=== PATIENT | female | born 1955 | race Caucasian/White ===

== ENCOUNTER → 2017-11-19 18:46 | Outpatient (CLI) | payer OTHER, SELFPAY ==
[2017-11-19 19:24] LABS: COTININE Drug Screen Negative (<200 ng/mL)
== END ==
PROVIDERS: Family Provider Family Medicine; PCP Family Medicine; Visit Provider Nurse Practitioner Adult Health
DX: Z00.00 Encounter for general adult medical examination without abnormal findings (principal)
CPT/HCPCS: 80307

== ENCOUNTER → 2017-12-08 07:35 | Outpatient (CLI) | payer OTHER, SELFPAY ==
--- NOTE | 2017-12-08 07:39 | BI_ITS ---
MAMMOGRAPHY - BILATERAL SCREENING REASON FOR EXAM: Female, 62 years old. Routine annual screening examination. PERTINENT HISTORY: Sisters with breast cancer. Mother with breast cancer. TECHNIQUE: Digital bilateral breast jared (3D mammographic acquisition) in the CC and MLO projections. 2-D mediolateral oblique (MLO) and craniocaudad (CC) views of both breasts were obtained. CAD: Full Field Digital Mammography with Computer Added Detection was performed. COMPARISON: Comparison is made with prior outside examination dated November 02, 2016. FINDINGS: Breast Composition: The breasts are heterogeneously dense, which may obscure small masses. There are no dominant masses or suspicious calcifications. No other significant abnormalities are identified. There has been no significant change since the prior study. BI/SCREENING MAMM (CAD), BILAT IMPRESSION: Stable bilateral screening mammogram. Yearly follow-up mammogram recommended. (A) ASSESSMENT CATEGORY: BIRADS Category 1: Negative. A letter regarding these results will be sent to the patient by the facility within 30 days. Approximately 10% of breast cancers are not detected by mammography. A normal mammogram should not delay biopsy of a clinically suspicious abnormality. [id number] Electronically Signed: Juan C Quiroga MD at 10:39 EDT Tel [phone], Service support ,
== END ==
PROVIDERS: Family Provider Family Medicine; PCP Family Medicine; Visit Provider Obstetrics & Gynecology
DX: Z12.31 Encounter for screening mammogram for malignant neoplasm of breast (principal)
CPT/HCPCS: 77063; 77067

== ENCOUNTER → 2017-12-17 19:10 | Outpatient (CLI) | payer OTHER, SELFPAY ==
[2017-12-23 10:13] LABS: HPV APTIMA, High Risk Negative (Negative)
== END ==
PROVIDERS: Family Provider Family Medicine; PCP Family Medicine; Visit Provider Obstetrics & Gynecology
DX: Z12.4 Encounter for screening for malignant neoplasm of cervix (principal)
CPT/HCPCS: 88175; G0145

== ENCOUNTER → 2017-12-28 12:53 | Outpatient (CLI) | payer OTHER, SELFPAY ==
--- NOTE | 2017-12-28 12:58 | VDLE_ITS ---
Reason For Study: venous insufficiency, pain, swelling RIGHT LEFT CFV is compressible, spontaneous, phasic, CFV is compressible, spontaneous, phasic, competent and demonstrates normal competent, and demonstrates normal augmentation. augmentation. FV is compressible, spontaneous, phasic, FV is compressible, spontaneous, phasic, competent and demonstrates normal competent and demonstrates normal augmentation. augmentation. POP V is compressible, spontaneous, phasic, POP V is compressible, spontaneous, phasic, competent and demonstrates normal competent and demonstrates normal augmentation. augmentation. T/P Trunk is compressible. T/P Trunk is compressible. PTV is compressible. PTV is compressible. RT PerV is compressible. LT PerV is compressible. S-F Junction is competent. S-F Junction is competent. GSV is incompetent throughout for greater GSV is incompetent throughout for greater than .5 seconds. GSV measures .254 x .244 than .5 seconds. GSV measures .393 x .393 cm. cm. SSV is competent. SSV is competent. ASV below the knee is incompetent for ASV at the mid thigh is incompetent for greater than .5 seconds. ASV measures .239 greater than .5 seconds. ASV measures .821 x .264 cm. x .838 cm. Procedure Exam performed in department. The exam was diagnostic. Interpretation Summary Deep veins of the lower extremities are bilaterally patent and compressible segmentally. There is no evidence of deep vein thrombosis on either side. Valvular competence appears intact within the proximal deep venous systems bilaterally. The greater saphenous veins appear bilaterally patent and compressible segmentally. Sapheno-femoral junctions are bilaterally competent . Segmental valvular incompetence is noted within the greater saphenous veins bilaterally. Small saphenous veins are patent and competent bilaterally. An accessory saphenous vein below the right knee is incompetent. An accessory saphenous vein in the left mid-thigh is incompetent. Ordering Physician: Mikey Ramirez Performed By: Selvin Salazar RVT
== END ==
PROVIDERS: Family Provider Family Medicine; PCP Family Medicine; Visit Provider Surgery
DX: M79.606 Pain in leg, unspecified (principal); M79.89 Other specified soft tissue disorders; I87.2 Venous insufficiency (chronic) (peripheral); I83.10 Varicose veins of unspecified lower extremity with inflammation
CPT/HCPCS: 93970

== ENCOUNTER 2018-05-03 19:08 | Emergency (ER) | payer OTHER, SELFPAY ==
[2018-05-03 19:09] VITALS: BP 159/103; PULSE 71; RESP 16; TEMP 36; O2SAT 97; BMI 29.6
--- NOTE | 2018-05-03 19:43 | ED.DCSUM_ITS ---
- ER Visit Summary Date of Service: 05/03/18 Chief Complaint: Left ring finger swollen secondary to hornet sting History of Present Illness: The patient is a 63 F and was stung today on the left ring finger by a hornet on recess. Now the fingers swollen and she cannot get her ring off. Denies any swelling of her lips or tongue. Or any itching. No other rash. No other reaction. Physical Examination: Well-appearing female. Vital signs are stable. Afebrile. H EENT exam unremarkable. Neck nontender. Lungs clear to auscultation bilaterally. Heart regular rhythm no murmur. Abdomen soft nontender. She is moving all 4 extremities. They are neurovascularly intact. Her left ring finger has a ring in place. Distally is swollen and cannot be taken off. The ring had to be cut off. The fingers neurovascularly intact there is no compromise of the blood supply. Once the ring was removed she is doing very well Test Results: None Emergency Department Course and Treatment: Discharged home. Ice and elevate. Motrin for pain and swelling. Treatment Plan: Benadryl as needed. Ice and elevate. Disposition: Discharge Impression: Acute local allergic reaction left ring finger secondary to hornet sting Ring cut off by nursing staff This note was generated with [employer] dictation software. It may contain incorrect words, spelling, and punctuation that were not noted in review of the chart prior to signing ED Disposition - Plan for ED Patient: Chief Complaint: Upper Extremity Injury Referrals: Jonnathan Mcclain MD [Primary Care Provider] -
--- NOTE | 2018-05-03 19:43 | ED.DEP ---
ED Disposition - Plan for ED Patient: Disposition: Home or Assisted Living Chief Complaint: Upper Extremity Injury Instructions: ED Allergic Reaction Local Other Referrals: Jonnathan Mcclain MD [Primary Care Provider] - As Needed Additional Instructions: Ice and elevate left ring finger. Motrin for swelling. Also may use Benadryl for local allergic reaction.
[2018-05-03] MEDS: predniSONE 20 MG Tablet 40 MG PO (19:45)
[2018-05-03 19:47] VITALS: BP 148/85; PULSE 70; RESP 18; O2SAT 99
== END 2018-05-03 19:49 | disposition home or self-care (01) ==
PROVIDERS: Emergency Provider Emergency Medicine; Family Provider Family Medicine; PCP Family Medicine
DX: T63.451A Toxic effect of venom of hornets, accidental (unintentional), initial encounter (principal); M79.89 Other specified soft tissue disorders; Y92.9 Unspecified place or not applicable; Z85.820 Personal history of malignant melanoma of skin
CPT/HCPCS: 99283

== ENCOUNTER 2018-09-23 15:30 | Outpatient (RCR) | payer OTHER, SELFPAY ==
[2018-09-16 10:45] VITALS: BP 146/90; PULSE 83; RESP 18; TEMP 36.7; BMI 28.7
--- NOTE | 2018-09-16 11:31 | PCM.WC.HP ---
(1) Melanoma Status: Acute Current Visit: Yes Code(s): C43.9 - Malignant melanoma of skin, unspecified (2) Melanoma of lower leg Status: Acute Current Visit: Yes Code(s): C43.70 - Malignant melanoma of unspecified lower limb, including hip (3) Basal cell carcinoma (BCC) in situ of skin Status: Acute Current Visit: Yes Code(s): D04.9 - Carcinoma in situ of skin, unspecified (4) Nonhealing surgical wound Status: Acute Current Visit: Yes Code(s): T81.89XA - Other complications of procedures, not elsewhere classified, initial encounter (5) Peripheral vascular disease of lower extremity Status: Acute Current Visit: Yes Code(s): I73.9 - Peripheral vascular disease, unspecified (6) Edema, lower extremity Status: Acute Current Visit: Yes Code(s): R60.0 - Localized edema History of Present Illness Chief Complaint: Follow-up on 2 nonhealing surgical ulcers from melanoma and basal cell carcinoma. 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 [facility] removed 3 areas one on her thigh and 2 on her right lower extremity for melanoma by Mohs surgery. The thigh healed well but the lower extremity absorbable suture became infected and were removed. Now patient has 2 open areas that are having a hard time healing with slough and now erythematous around the edge. Patient was sent to us from her primary care doctor that after she was concerned with infection. He placed her on Keflex and she has been taking that since with no luck. Vascular studies were done by Drs. Ramirez and she does have some connecting problems in her saphenous veins of the right leg. Patient then had problems with the cancer and had to put that on hold. Past Medical History Past Medical History: Chronic Problems (Last Reviewed 02/25/18 @ 08:51 by Jayla Csatro) Depression (Chronic) GERD (gastroesophageal reflux disease) (Chronic) Migraine (Chronic) Past Medical History: 2 nonhealing surgical wounds. History of melanoma and basal cell carcinoma of the skin Surgical History: - - neck surgery. ??surgery for migraine headache. Allergies/Adverse Reactions: Allergies metoclopramide HCl [From Reglan] Allergy (Verified 05/03/18 19:31) Other Makes me feel like I'm on speed Penicillins Allergy (Verified 05/03/18 19:31) Other Fever sulfamethoxazole [From Bactrim] Adverse Reaction (Verified 05/03/18 19:31) Fever and skin rash trimethoprim [From Bactrim] Adverse Reaction (Verified 05/03/18 19:31) Fever and skin rash Home Medications: Ambulatory Orders Medication Instructions Recorded Calcium Phosphate Trib/Vit D3 1 ea PO DAILY 12/03/15 [Citracal + D3 Gummies] Citracel 2 tab PO BID 12/03/15 Esomeprazole Mag Trihydrate 40 mg PO DAILY 12/03/15 [Nexium] Raloxifene HCl [Evista] 60 mg PO DAILY 12/03/15 Rizatriptan Benzoate [Maxalt] 10 mg PO DAILY PRN PRN 12/03/15 Sertraline HCl [Zoloft] 100 mg PO QHS 12/03/15 Zolpidem Tartrate [Ambien 5 mg PO QHS 04/18/16 (Generic)] sertraline 100 mg tablet 100 mg PO QDAY #30 tab 12/17/17 zolpidem 5 mg tablet 5 mg PO HS PRN #30 tab 12/17/17 - Family History Maternal Family History: Family History (Last Updated 02/25/18 @ 08:52 by Jayla Castro) Father Myocardial infarction Lung cancer Brain cancer Mother Heart disease Breast cancer Dementia No pertinent history - pd Paternal Family History: Family History (Last Updated 02/25/18 @ 08:52 by Jayla Castro) Father Myocardial infarction Lung cancer Brain cancer Mother Heart disease Breast cancer Dementia No pertinent history Smoking Status: Never smoker Review of Systems Constitutional: Denies: Chills, Fever Eyes: Denies: Blurred vision, Drainage, Pain HEENT: Denies: Difficulty Hearing, Difficulty Swallowing, Sore Throat, Visual Changes Cardiovascular: Denies: Chest Pain, Palpitations, Syncope Respiratory: Denies: Cough, Shortness of Breath Gastrointestinal: Denies: Abdominal Pain, Nausea, Vomiting Genitourinary: Denies: Dysuria, Frequency Musculoskeletal: Denies: Joint Pain, Muscle pain Skin: Reports: Wounds - Lower leg right mid [place] and lateral lower leg ulcers. Denies: Jaundice, Rash Neurological: Denies: Balance problems, Change in Speech, Difficulty swallowing, Focal weakness Psychiatric: Denies: Anxiety, Depression Endocrine: Denies: Change in Body Habitus Hematologic/ Lymphatic: Denies: Adenopathy - Physical Exam Vital Signs Temp Pulse Resp BP 98.0 F 83 18 146/90 H 09/16/18 10:45 09/16/18 10:45 09/16/18 10:45 09/16/18 10:45 General: Oriented x3, Cooperative, Well developed HEENT: Atraumatic, PERRLA Oral: Moist Mucosa Neck: Supple, No JVD Lungs: Clear to auscultation, Normal air movement Cardiovascular: Regular rate, Regular Rhythm Abdomen: Bowel Sounds Present, Soft, Non Tender, No Hepato-splenomegaly Extremities: No clubbing, No edema, - - Right medial and lateral lower leg ulcers nonhealing from surgery Wound Measurements and Assessment WC - Nurse 1 - General Ulcer Measurement Start: 09/16/18 10:39 Freq: Status: Active Protocol: Activity Type Activity Date Activity User E-Sign Co-Sign Detail Recorded Client Recorded Date Recorded By Document 09/16/18 10:45 KS [id number] 09/16/18 11:08 KS 09/16/18 10:45 Wound Center Nurse 1 [Ulcer Assessment] #2 RIGHT [place] -Combined with other wound No -Current Size (cm) - Length 1.7 -Current Size (cm) - Width 1.4 -Current Size (cm) - Depth 0.2 -Total Square Cm 2.38 -Date of Last Picture (Recall this 09/16/18 field) -Photo Taken Yes -Epithelialization Small 1-33% -Tunneling No -Undermining/Tunneling No -Circular Undermining No -Exudate Amt Small -Exudate Type Serosanguineous -Wound Margin Thickened & Rolled Under -Granulation Amt Medium (34-66%) -Granulation Quality Pale [place] -Necrosis Amt Medium (34-66%) -Necrotic Tissue Type Adherent Slough -Texture (Sandra-wound Skin Appearance) Assessed Scarring -Moisture (Sandra-wound Skin Appearance Assessed ) Maceration -Color (Sandra-wound Skin Appearance) Assessed -Temperature (Sandra-wound Skin No Abnormality Appearance) (Pt Warm) -Tenderness on Palpation (Sandra-wound No Skin Appearance) -Ulcer Cleansing Wound Cleanser -Foul Odor after Cleansing No -Anesthetic Used 5% Lidocaine Gel #1 RIGHT LATERAL LE -Combined with other wound No -Current Size (cm) - Length 1.1 -Current Size (cm) - Width 1.0 -Current Size (cm) - Depth 0.1 -Total Square Cm 1.10 -Date of Last Picture (Recall this 09/16/18 field) -Photo Taken Yes -Epithelialization Small 1-33% -Tunneling No -Undermining/Tunneling No -Exudate Amt Small -Exudate Type Serosanguineous -Wound Margin Thickened & Rolled Under -Granulation Amt Large (67-100%) -Granulation Quality Pale [place] -Necrosis Amt Small (1-33%) -Necrotic Tissue Type Adherent Slough -Texture (Sandra-wound Skin Appearance) Assessed -Moisture (Sandra-wound Skin Appearance Assessed ) Weeping -Color (Sandra-wound Skin Appearance) Assessed -Temperature (Sandra-wound Skin No Abnormality Appearance) (Pt Warm) -Tenderness on Palpation (Sandra-wound No Skin Appearance) -Ulcer Cleansing Wound Cleanser -Foul Odor after Cleansing No -Anesthetic Used 5% Lidocaine Gel [Edema Assessment] -Right Calf (cm) 28.5 -Right Ankle (cm) 21 WC - Nurse 2 - General Ulcer CM Notes Start: 09/16/18 10:39 Freq: Status: Active Protocol: Activity Type Activity Date Activity User E-Sign Co-Sign Detail Recorded Client Recorded Date Recorded By Document 09/16/18 11:18 MW [id number] 09/16/18 11:26 MW 09/16/18 11:18 Wound Center Nurse 2 [Procedure/Treatment] #2 RIGHT R[place] -Time 11:19 -Correct Patient Yes -Correct Side, Site, Position Yes -Correct Procedure Yes -Procedure Performed Yes -Type of Procedure Debridement -Clinical Debridement Subcutaneous -Post Debridement Size (cm) - Length 1.7 -Post Debridement Size (cm) - Width 1.4 -Post Debridement Size (cm) - Depth 0.3 -Total Square Cm 2.38 -Wound/Ulcer Outcome Not Healed -Ulcer Cleansing Rinsed/ Irrigated with Saline -Foul Odor after Cleansing No -Bioengineered Tissue No -Bleeding Controlled with Pressure -Offloading No -Treatment Response Procedure Tolerated Well #1 RIGHT LATERAL LE -Time 11:19 -Correct Patient Yes -Correct Side, Site, Position Yes -Correct Procedure Yes -Procedure Performed Yes -Type of Procedure Debridement -Clinical Debridement Subcutaneous -Post Debridement Size (cm) - Length 0.9 -Post Debridement Size (cm) - Width 1.0 -Post Debridement Size (cm) - Depth 0.2 -Total Square Cm 0.90 -Wound/Ulcer Outcome Not Healed -Ulcer Cleansing Rinsed/ Irrigated with Saline -Foul Odor after Cleansing No -Bioengineered Tissue No -Bleeding Controlled with Pressure -Offloading No -Treatment Response Procedure Tolerated Well [See Physician Procedure note for Specifics] Pain Scale: 0-10 Numeric [Pain] -Is Patient Pain Free? Yes Musculoskeletal: No Tenderness to Palpation of Joints or Extremities Lymphatic: No Cervical, Supraclavicular, or Inguinal Adenopathy Neurological: Cranial nerves II-XII grossly intact, Neuro grossly intact Psych/Mental Status: Normal Affect, Appropriate Debridement Note Post-Debridement Measurements/Treatment WC - Nurse 2 - General Ulcer CM Notes Start: 09/16/18 10:39 Freq: Status: Active Protocol: Activity Type Activity Date Activity User E-Sign Co-Sign Detail Recorded Client Recorded Date Recorded By Document 09/16/18 11:18 MW [id number] 09/16/18 11:26 MW 09/16/18 11:18 Wound Center Nurse 2 #2 RIGHT [place] -Time 11:19 -Correct Patient Yes -Correct Side, Site, Position Yes -Correct Procedure Yes -Procedure Performed Yes -Type of Procedure Debridement -Clinical Debridement Subcutaneous -Post Debridement Size (cm) - Length 1.7 -Post Debridement Size (cm) - Width 1.4 -Post Debridement Size (cm) - Depth 0.3 -Total Square Cm 2.38 -Wound/Ulcer Outcome Not Healed -Ulcer Cleansing Rinsed/ Irrigated with Saline -Foul Odor after Cleansing No -Bioengineered Tissue No -Bleeding Controlled with Pressure -Offloading No -Treatment Response Procedure Tolerated Well #1 RIGHT LATERAL LE -Time 11:19 -Correct Patient Yes -Correct Side, Site, Position Yes -Correct Procedure Yes -Procedure Performed Yes -Type of Procedure Debridement -Clinical Debridement Subcutaneous -Post Debridement Size (cm) - Length 0.9 -Post Debridement Size (cm) - Width 1.0 -Post Debridement Size (cm) - Depth 0.2 -Total Square Cm 0.90 -Wound/Ulcer Outcome Not Healed -Ulcer Cleansing Rinsed/ Irrigated with Saline -Foul Odor after Cleansing No -Bioengineered Tissue No -Bleeding Controlled with Pressure -Offloading No -Treatment Response Procedure Tolerated Well Pain Scale: 0-10 Numeric Is Patient Pain Free? Yes Wound debrided: Mid [place] right lower leg Type of Debridement: Excisional debridement Anesthesia Used: 5% Lidocaine Gel Depth: Down to and including healthy tissue, in the subcutaneous layer Percentage of wound debrided: 100 Instrument Used: 5mm curette Tissue Removed: Slough and fibrin Severity: Limited To Skin Breakdown Amount of bleeding with debridement: Mild Bleeding Controlled with: Pressure Patient tolerated procedure well - Additional Wound Wound debrided: Right lateral lower leg Type of Debridement: Excisional debridement Anesthesia Used: 5% Lidocaine Gel Depth: Down to and including healthy tissue, in the subcutaneous layer Percentage of wound debrided: 100 Instrument Used: 5mm curette Tissue Removed: Slough and fibrin Severity: Limited To Skin Breakdown Amount of bleeding with debridement: Mild Bleeding Controlled with: Compression and gauze Patient tolerated procedure: Patient tolerated procedure well Assessment/Plan Active Problems (Last Reviewed 02/25/18 @ 08:51 by Jayla Castro) Melanoma (Acute) Melanoma of lower leg (Acute) Basal cell carcinoma (BCC) in situ of skin (Acute) Nonhealing surgical wound (Acute) Peripheral vascular disease of lower extremity (Acute) Edema, lower extremity (Acute) Assessment: Nonhealing surgical wounds right lower leg. Edema lower extremities. Peripheral vascular disease Plan: Wash legs with soap and water. Apply Aquacel silver to wound bases cover with Adaptic gauze and Betsey or Covan. Double layer Tubigrip to the right leg. Follow-up in 1 week
[2018-09-23 16:09] VITALS: BP 149/89; PULSE 78; RESP 20; TEMP 37; BMI 28.7
--- NOTE | 2018-09-23 19:34 | HP.PCM_ITS ---
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: Chronic Current Visit: Yes Code(s): D04.71 - Carcinoma in situ of skin of right lower limb, including hip (2) Basal cell carcinoma (BCC) in situ of skin Status: Chronic Current Visit: Yes Code(s): D04.9 - Carcinoma in situ of skin, unspecified (3) Nonhealing surgical wound Status: Chronic Current Visit: Yes Qualifiers: Encounter type: subsequent encounter Qualified Code(s): T81.89XD - Other complications of procedures, not elsewhere classified, subsequent encounter Code(s): T81.89XA - Other complications of procedures, not elsewhere classified, initial encounter (4) Peripheral vascular disease of lower extremity Status: Chronic Current Visit: Yes Code(s): I73.9 - Peripheral vascular disease, unspecified (5) Edema, lower extremity Status: Chronic Current Visit: Yes Code(s): R60.0 - Localized edema History of Present Illness Date of Service: 09/23/18 Chief Complaint: Follow-up on 2 nonhealing surgical ulcers from melanoma and basal cell carcinoma. 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 [facility] removed 3 areas one on her thigh and 2 on her right lower extremity for melanoma by Mohs surgery. The thigh healed well but the lower extremity absorbable suture became infected and were removed. Now patient has 2 open areas that are having a hard time healing with slough and now erythematous around the edge. Patient was sent to us from her primary care doctor that after she was concerned with infection. He placed her on Keflex and she has been taking that but is still concerned for infection. She saw Courtney Ojeda last week for an initial evaluation and a wound culture was done which was negative. She has been using Aquacel and tubigrips and tolerating this well but does note that it is difficult to get the Aquacel off of her wounds. Vascular studies were done by Drs. Ramirez and she does have some connecting problems in her saphenous veins of the right leg. Patient then had problems with the cancer and had to put that on hold. 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 ??surgery for migraine headache. Allergies/Adverse Reactions: Allergies metoclopramide HCl [From Reglan] Allergy (Verified 05/03/18 19:31) Other Makes me feel like I'm on speed Penicillins Allergy (Verified 05/03/18 19:31) Other Fever sulfamethoxazole [From Bactrim] Adverse Reaction (Verified 05/03/18 19:31) Fever and skin rash trimethoprim [From Bactrim] Adverse Reaction (Verified 05/03/18 19:31) Fever and skin rash Home Medications: Ambulatory Orders Medication Instructions Recorded Calcium Phosphate Trib/Vit D3 1 ea PO DAILY 12/03/15 [Citracal + D3 Gummies] Citracel 2 tab PO BID 12/03/15 Esomeprazole Mag Trihydrate 40 mg PO DAILY 12/03/15 [Nexium] Raloxifene HCl [Evista] 60 mg PO DAILY 12/03/15 Rizatriptan Benzoate [Maxalt] 10 mg PO DAILY PRN PRN 12/03/15 sertraline 100 mg tablet 100 mg PO QDAY #30 tab 12/17/17 zolpidem 5 mg tablet 5 mg PO HS PRN #30 tab 12/17/17 - Family History Maternal Family History: Family History (Last Updated 02/25/18 @ 08:52 by Jayla Castro) Father Myocardial infarction Lung cancer Brain cancer Mother Heart disease Breast cancer Dementia No pertinent history - pd Paternal Family History: Family History (Last Updated 02/25/18 @ 08:52 by Jayla Castro) Father Myocardial infarction Lung cancer Brain cancer Mother Heart disease Breast cancer Dementia No pertinent history Lives: Spouse/ Significant Other Smoking Status: Never smoker Tobacco Use: Non-smoker Alcohol: None Drugs: None Review of Systems Constitutional: Denies: Chills, Fever, Weight Change Eyes: Denies: Pain, Vision Change HEENT: Denies: Difficulty Hearing, Difficulty Swallowing, Sinus Congestion Cardiovascular: Denies: Chest Pain, Palpitations Respiratory: Denies: Cough, Shortness of Breath Gastrointestinal: Denies: Diarrhea, Nausea, Vomiting Genitourinary: Denies: Dysuria, Hematuria Skin: Reports: Wounds Hematologic/ Lymphatic: Denies: Easy Bruising, Easy Bleeding - Physical Exam Vital Signs Temp Pulse Resp BP 98.6 F 78 20 H 149/89 H 09/23/18 16:09 09/23/18 16:09 09/23/18 16:09 09/23/18 16:09 General: Alert, Oriented x3, Cooperative, No apparent distress HEENT: Atraumatic, Normocephalic Oral: Moist Mucosa Lungs: Clear to auscultation Cardiovascular: Regular rate, Regular Rhythm Abdomen: Soft, Non Tender Extremities: Edema Skin: Ulcer/ Wound Wound Measurements and Assessment WC - Nurse 1 - General Ulcer Measurement Start: 09/16/18 10:39 Freq: Status: Active Protocol: Activity Type Activity Date Activity User E-Sign Co-Sign Detail Recorded Client Recorded Date Recorded By Document 09/23/18 16:09 DL [id number] 09/23/18 16:19 DL 09/23/18 16:09 Wound Center Nurse 1 [Ulcer Assessment] #2 RIGHT ROCKWELL -Current Size (cm) - Length 1.6 -Current Size (cm) - Width 1 -Current Size (cm) - Depth 0.2 -Total Square Cm 1.6 -Photo Taken No -Exudate Amt Small -Exudate Type Serosanguineous -Wound Margin Distinct, Outline Attached -Granulation Amt Small (1-33%) -Granulation Quality Oolitic Red -Necrosis Amt Small (1-33%) -Necrotic Tissue Type Adherent Slough -Structure Exposed N/A -Texture (Sandra-wound Skin Appearance) No Abnormality -Moisture (Sandra-wound Skin Appearance No Abnormality ) -Color (Sandra-wound Skin Appearance) Erythema Rubor -Temperature (Sandra-wound Skin No Abnormality Appearance) (Pt Warm) -Tenderness on Palpation (Sandra-wound No Skin Appearance) -Ulcer Cleansing Rinsed/ Irrigated with Saline -Foul Odor after Cleansing No -Anesthetic Used 4% Lidocaine Solution #1 RIGHT LATERAL LE -Current Size (cm) - Length 0.8 -Current Size (cm) - Width 0.8 -Current Size (cm) - Depth 0.1 -Total Square Cm 0.64 -Photo Taken No -Exudate Amt Small -Exudate Type Serosanguineous -Wound Margin Distinct, Outline Attached -Granulation Amt Small (1-33%) -Granulation Quality Oolitic -Necrosis Amt Small (1-33%) -Necrotic Tissue Type Adherent Slough -Structure Exposed N/A -Texture (Sandra-wound Skin Appearance) No Abnormality -Moisture (Sandra-wound Skin Appearance No Abnormality ) -Color (Sandra-wound Skin Appearance) Erythema Rubor -Temperature (Sandra-wound Skin No Abnormality Appearance) (Pt Warm) -Ulcer Cleansing Rinsed/ Irrigated with Saline -Foul Odor after Cleansing No -Anesthetic Used 4% Lidocaine Solution [Edema Assessment] -Right Calf (cm) 37 -Right Ankle (cm) 19.3 WC - Nurse 2 - General Ulcer CM Notes Start: 09/16/18 10:39 Freq: Status: Active Protocol: Activity Type Activity Date Activity User E-Sign Co-Sign Detail Recorded Client Recorded Date Recorded By Document 09/23/18 17:03 DV [id number] 09/23/18 17:13 DV 09/23/18 17:03 Wound Center Nurse 2 [Procedure/Treatment] #2 RIGHT ROCKWELL -Time 17:07 -Correct Patient Yes -Correct Side, Site, Position Yes -Correct Procedure Yes -Procedure Performed Yes -Type of Procedure Debridement -Clinical Debridement Subcutaneous -Post Debridement Size (cm) - Length 1.6 -Post Debridement Size (cm) - Width 1.2 -Post Debridement Size (cm) - Depth 0.2 -Total Square Cm 1.92 -Wound/Ulcer Outcome Not Healed -Ulcer Cleansing Rinsed/ Irrigated with Saline -Foul Odor after Cleansing No -Bioengineered Tissue No -Bleeding Controlled with Pressure -Offloading No -Treatment Response Procedure Tolerated Well #1 RIGHT LATERAL LE -Time 17:07 -Correct Patient Yes -Correct Side, Site, Position Yes -Correct Procedure Yes -Procedure Performed Yes -Type of Procedure Debridement -Clinical Debridement Subcutaneous -Post Debridement Size (cm) - Length 0.8 -Post Debridement Size (cm) - Width 0.9 -Post Debridement Size (cm) - Depth 0.1 -Total Square Cm 0.72 -Wound/Ulcer Outcome Not Healed -Ulcer Cleansing Rinsed/ Irrigated with Saline -Foul Odor after Cleansing No -Bioengineered Tissue No -Bleeding Controlled with Pressure -Offloading No -Treatment Response Procedure Tolerated Well [See Physician Procedure note for Specifics] Pain Scale: 0-10 Numeric [Pain] -Is Patient Pain Free? Yes Psych/Mental Status: Normal Affect, Appropriate Debridement Note Post-Debridement Measurements/Treatment WC - Nurse 2 - General Ulcer CM Notes Start: 09/16/18 10:39 Freq: Status: Active Protocol: Activity Type Activity Date Activity User E-Sign Co-Sign Detail Recorded Client Recorded Date Recorded By Document 09/16/18 11:18 MW [id number] 09/16/18 11:26 MW Document 09/23/18 17:03 DV [id number] 09/23/18 17:13 DV 09/16/18 09/23/18 11:18 17:03 Wound Center Nurse 2 #2 RIGHT ROCKWELL -Time 11: 17:07 -Correct Patient Yes Yes -Correct Side, Site, Position Yes Yes -Correct Procedure Yes Yes -Procedure Performed Yes Yes -Type of Procedure Debridement Debridement -Clinical Debridement Subcutaneous Subcutaneous -Post Debridement Size (cm) - Length 1.7 1.6 -Post Debridement Size (cm) - Width 1.4 1.2 -Post Debridement Size (cm) - Depth 0.3 0.2 -Total Square Cm 2.38 1.92 -Wound/Ulcer Outcome Not Healed Not Healed -Ulcer Cleansing Rinsed/ Rinsed/ Irrigated with Irrigated with Saline Saline -Foul Odor after Cleansing No No -Bioengineered Tissue No No -Bleeding Controlled with Pressure Pressure -Offloading No No -Treatment Response Procedure Procedure Tolerated Well Tolerated Well #1 RIGHT LATERAL LE -Time 11:19 17:07 -Correct Patient Yes Yes -Correct Side, Site, Position Yes Yes -Correct Procedure Yes Yes -Procedure Performed Yes Yes -Type of Procedure Debridement Debridement -Clinical Debridement Subcutaneous Subcutaneous -Post Debridement Size (cm) - Length 0.9 0.8 -Post Debridement Size (cm) - Width 1.0 0.9 -Post Debridement Size (cm) - Depth 0.2 0.1 -Total Square Cm 0.90 0.72 -Wound/Ulcer Outcome Not Healed Not Healed -Ulcer Cleansing Rinsed/ Rinsed/ Irrigated with Irrigated with Saline Saline -Foul Odor after Cleansing No No -Bioengineered Tissue No No -Bleeding Controlled with Pressure Pressure -Offloading No No -Treatment Response Procedure Procedure Tolerated Well Tolerated Well Pain Scale: 0-10 Numeric Is Patient Pain Free? Yes Yes Wound debrided: right rockwell Laterality: Right Type of Debridement: Excisional debridement Anesthesia Used: 4% Lidocaine Solution Depth: Down to and including healthy tissue, in the subcutaneous layer Percentage of wound debrided: 100 Instrument Used: 5mm curette Tissue Removed: yellow slough, devitalized tissue Severity: Fat Layer Exposed Amount of bleeding with debridement: Mild Bleeding Controlled with: Compression and gauze Patient tolerated procedure well - Additional Wound Wound debrided: right lateral LE Laterality: Right Type of Debridement: Excisional debridement Anesthesia Used: 4% Lidocaine Solution, 5% Lidocaine Gel Depth: Down to and including healthy tissue, in the subcutaneous layer Percentage of wound debrided: 100 Instrument Used: 5mm curette Tissue Removed: yellow slough, devitalized tissue Severity: Fat Layer Exposed Amount of bleeding with debridement: Mild Bleeding Controlled with: Compression and gauze Patient tolerated procedure: Patient tolerated procedure well Assessment/Plan Active Problems (Last Reviewed 02/25/18 @ 08:51 by Jayla Castro) Melanoma (Acute) Melanoma of lower leg (Acute) Basal cell carcinoma (BCC) in situ of skin (Chronic) Nonhealing surgical wound (Chronic) Peripheral vascular disease of lower extremity (Chronic) Edema, lower extremity (Chronic) 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 Edema lower extremities. Peripheral vascular disease Plan: Jackie's legs were evaluated and debrided today and her records were reviewed. She has had improvement in her wounds but will change to promogran to see if we can improve the moisture balance to her wounds and improve healing. Wash legs with soap and water. Apply Promogran to wound bases cover with Adaptic gauze and Betsey or Coban. Double layer Tubigrip to the right leg. Encouraged to increase protein intake. Follow-up in 1 week
== END 2018-09-29 23:59 ==
LOC: WC 15:30
PROVIDERS: Family Provider Family Medicine; PCP Family Medicine; Visit Provider Family Medicine
DX: I73.9 Peripheral vascular disease, unspecified (principal); R60.0 Localized edema; T81.89XA Other complications of procedures, not elsewhere classified, initial encounter; Y83.8 Other surgical procedures as the cause of abnormal reaction of the patient, or of later complication, without mention of misadventure at the time of the procedure; C43.9 Malignant melanoma of skin, unspecified; D04.9 Carcinoma in situ of skin, unspecified; K21.9 Gastro-esophageal reflux disease without esophagitis; F32.9 Major depressive disorder, single episode, unspecified; G43.909 Migraine, unspecified, not intractable, without status migrainosus; Z79.899 Other long term (current) drug therapy
CPT/HCPCS: 11042; 87070; 87075; 87205; 99213; G0463

== ENCOUNTER 2018-10-28 15:30 | Outpatient (RCR) | payer OTHER, SELFPAY ==
[2018-09-30 01:45] VITALS: BP 149/89; PULSE 78; RESP 20; TEMP 37
[2018-09-30 15:56] VITALS: BP 156/89; PULSE 87; RESP 16; TEMP 35.9; BMI 28.7
--- NOTE | 2018-09-30 19:18 | PCM.WC.PN ---
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 [facility] removed 3 areas one on her thigh and 2 on her right lower extremity for melanoma by Mohs surgery. The thigh healed well but the lower extremity absorbable suture became infected and were removed. Now patient has 2 open areas that are having a hard time healing with slough and now erythematous around the edge. Patient was sent to us from her primary care doctor that after she was concerned with infection. He placed her on Keflex and she has been taking that but is still concerned for infection. She saw Courtney Ojeda for an initial evaluation and a wound culture was done which was negative. She has been using Aquacel and tubigrips and tolerating this well but does note that it is difficult to get the Aquacel off of her wounds. Vascular studies were done by Drs. Ramirez and she does have some connecting problems in her saphenous veins of the right leg and surgical procedure was planned. Patient then had problems with the cancer and had to put that on hold. Progress of Wound: Jackie is here for follow up of nonhealing surgical wounds s/p Mohs surgery for melanoma and BCC and SCC. She tolerated treatment with Promogran and had some improvement in the size of her wounds. There is no increased drainage or erythema. Epifix was denied by her insurance due to the wound not being a venous or DFU. - Physical Exam Vital Signs Temp Pulse Resp BP 96.6 F L 87 16 156/89 H 09/30/18 15:56 09/30/18 15:56 09/30/18 15:56 09/30/18 15:56 General: Alert, Oriented x3, Cooperative, No apparent distress HEENT: Atraumatic, Normocephalic Oral: Moist Mucosa Extremities: Edema Skin: Ulcer/ Wound Wound Measurements and Assessment WC - Nurse 1 - General Ulcer Measurement Start: 09/30/18 15:56 Freq: Status: Active Protocol: Activity Type Activity Date Activity User E-Sign Co-Sign Detail Recorded Client Recorded Date Recorded By Document 09/30/18 15:[address] [facility] [id number] 09/30/18 16:[address] [facility] 09/30/18 15:56 Wound Center Nurse 1 [Ulcer Assessment] #2 RIGHT ROCKWELL -Combined with other wound No -Current Size (cm) - Length 1.6 -Current Size (cm) - Width 1 -Current Size (cm) - Depth 0.3 -Total Square Cm 1.6 -Photo Taken No -Epithelialization None Present -Tunneling No -Undermining/Tunneling No -Circular Undermining No -Exudate Amt Small -Exudate Type Serous -Wound Margin Distinct, Outline Attached -Granulation Amt Small (1-33%) -Granulation Quality Wall -Slough/Fibrin Yes -Necrosis Amt Large (67-100%) -Necrotic Tissue Type Adherent Slough -Texture (Sandra-wound Skin Appearance) Assessed Scarring -Moisture (Sandra-wound Skin Appearance Assessed ) Dry/Scaly -Color (Sandra-wound Skin Appearance) Assessed Erythema -Temperature (Sandra-wound Skin No Abnormality Appearance) (Pt Warm) -Tenderness on Palpation (Sandra-wound Yes Skin Appearance) -Ulcer Cleansing Rinsed/ Irrigated with Saline -Foul Odor after Cleansing No -Anesthetic Used 5% Lidocaine Gel #1 RIGHT LATERAL LE -Combined with other wound No -Current Size (cm) - Length 0.2 -Current Size (cm) - Width 0.2 -Current Size (cm) - Depth 0.1 -Total Square Cm 0.04 -Photo Taken No -Epithelialization Small 1-33% -Tunneling No -Undermining/Tunneling No -Circular Undermining No -Exudate Amt Small -Exudate Type Serous -Wound Margin Distinct, Outline Attached -Granulation Amt Large (67-100%) -Granulation Quality Red -Slough/Fibrin Yes -Necrosis Amt Small (1-33%) -Necrotic Tissue Type Adherent Slough -Texture (Sandra-wound Skin Appearance) Scarring -Moisture (Sandra-wound Skin Appearance Dry/Scaly ) -Color (Sandra-wound Skin Appearance) Erythema -Temperature (Sandra-wound Skin No Abnormality Appearance) (Pt Warm) -Tenderness on Palpation (Sandra-wound Yes Skin Appearance) -Ulcer Cleansing Rinsed/ Irrigated with Saline -Foul Odor after Cleansing No -Anesthetic Used 5% Lidocaine Gel [Edema Assessment] -Lower Limb Edema Present Yes -Right Calf (cm) 38 -Right Ankle (cm) 21.1 WC - Nurse 2 - General Ulcer CM Notes Start: 09/30/18 15:56 Freq: Status: Active Protocol: Activity Type Activity Date Activity User E-Sign Co-Sign Detail Recorded Client Recorded Date Recorded By Document 09/30/18 17:01 DV [id number] 09/30/18 17:11 DV 09/30/18 17:01 Wound Center Nurse 2 [Procedure/Treatment] #2 RIGHT ROCKWELL -Time 17:04 -Correct Patient Yes -Correct Side, Site, Position Yes -Correct Procedure Yes -Procedure Performed Yes -Type of Procedure Debridement -Clinical Debridement Subcutaneous -Post Debridement Size (cm) - Length 1.5 -Post Debridement Size (cm) - Width 1.1 -Post Debridement Size (cm) - Depth 0.2 -Total Square Cm 1.65 -Wound/Ulcer Outcome Not Healed -Ulcer Cleansing Rinsed/ Irrigated with Saline -Bleeding Controlled with Pressure -Offloading No -Treatment Response Procedure Tolerated Well #1 RIGHT LATERAL LE -Time 17:02 -Correct Patient Yes -Correct Side, Site, Position Yes -Correct Procedure Yes -Procedure Performed Yes -Type of Procedure Debridement -Clinical Debridement Subcutaneous -Post Debridement Size (cm) - Length 0.6 -Post Debridement Size (cm) - Width 0.4 -Post Debridement Size (cm) - Depth 0.1 -Total Square Cm 0.24 -Wound/Ulcer Outcome Not Healed -Ulcer Cleansing Rinsed/ Irrigated with Saline -Foul Odor after Cleansing No -Bioengineered Tissue No -Bleeding Controlled with Pressure -Offloading No -Treatment Response Procedure Tolerated Well [See Physician Procedure note for Specifics] Psych/Mental Status: Normal Affect, Appropriate Debridement Note Post-Debridement Measurements/Treatment WC - Nurse 2 - General Ulcer CM Notes Start: 09/30/18 15:56 Freq: Status: Active Protocol: Activity Type Activity Date Activity User E-Sign Co-Sign Detail Recorded Client Recorded Date Recorded By Document 09/30/18 17:01 DV [id number] 09/30/18 17:11 DV 09/30/18 17:01 Wound Center Nurse 2 #2 RIGHT ROCKWELL -Time 17:04 -Correct Patient Yes -Correct Side, Site, Position Yes -Correct Procedure Yes -Procedure Performed Yes -Type of Procedure Debridement -Clinical Debridement Subcutaneous -Post Debridement Size (cm) - Length 1.5 -Post Debridement Size (cm) - Width 1.1 -Post Debridement Size (cm) - Depth 0.2 -Total Square Cm 1.65 -Wound/Ulcer Outcome Not Healed -Ulcer Cleansing Rinsed/ Irrigated with Saline -Bleeding Controlled with Pressure -Offloading No -Treatment Response Procedure Tolerated Well #1 RIGHT LATERAL LE -Time 17:02 -Correct Patient Yes -Correct Side, Site, Position Yes -Correct Procedure Yes -Procedure Performed Yes -Type of Procedure Debridement -Clinical Debridement Subcutaneous -Post Debridement Size (cm) - Length 0.6 -Post Debridement Size (cm) - Width 0.4 -Post Debridement Size (cm) - Depth 0.1 -Total Square Cm 0.24 -Wound/Ulcer Outcome Not Healed -Ulcer Cleansing Rinsed/ Irrigated with Saline -Foul Odor after Cleansing No -Bioengineered Tissue No -Bleeding Controlled with Pressure -Offloading No -Treatment Response Procedure Tolerated Well Wound debrided: right rockwell Laterality: Right Anesthesia Used: 4% Lidocaine Solution, 5% Lidocaine Gel Depth: Down to and including healthy tissue, in the subcutaneous layer Percentage of wound debrided: 100 Instrument Used: 5mm curette Tissue Removed: yellow slough, devitalized tissue Severity: Fat Layer Exposed Amount of bleeding with debridement: Mild Bleeding Controlled with: Compression and gauze Patient tolerated procedure well - Additional Wound Wound debrided: right lateral LE Laterality: Right Type of Debridement: Excisional debridement Anesthesia Used: 4% Lidocaine Solution, 5% Lidocaine Gel Depth: Down to and including healthy tissue, in the subcutaneous layer Percentage of wound debrided: 100 Instrument Used: 5mm curette Tissue Removed: yellow slough, devitalized tissue Severity: Fat Layer Exposed Amount of bleeding with debridement: Mild Bleeding Controlled with: Compression and gauze Patient tolerated procedure: Patient tolerated procedure well Assessment/Plan Active Problems (Last Reviewed 02/25/18 @ 08:51 by Jayla Castro) Basal cell carcinoma (BCC) in situ of skin (Chronic) Nonhealing surgical wound (Chronic) 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 Edema lower extremities. Peripheral vascular disease Plan: Jackie's legs were evaluated and debrided today. She has had slight improvement in her wounds. Will continue to use promogran and if there is still not increased granulation in her right rockwell wound then would try treatment with Santyl. She has undergone 4 weeks of conventional wound care treatment since her surgical wound dehisced. She would benefit from advanced wound care treatment with Apligraf, nushield or puraply to heal her wound. Apply Promogran to wound bases cover with Adaptic gauze and Betsey or Coban. Double layer Tubigrip to the right leg. Encouraged to increase protein intake. Follow-up in 1 week
--- NOTE | 2018-09-30 19:24 | PN.PCM_ITS ---
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 [facility] removed 3 areas one on her thigh and 2 on her right lower extremity for melanoma by Mohs surgery. The thigh healed well but the lower extremity absorbable suture became infected and were removed. Now patient has 2 open areas that are having a hard time healing with slough and now erythematous around the edge. Patient was sent to us from her primary care doctor that after she was concerned with infection. He placed her on Keflex and she has been taking that but is still concerned for infection. She saw Courtney Ojeda for an initial evaluation and a wound culture was done which was negative. She has been using Aquacel and tubigrips and tolerating this well but does note that it is difficult to get the Aquacel off of her wounds. Vascular studies were done by Drs. Ramirez and she does have some connecting problems in her saphenous veins of the right leg and surgical procedure was planned. Patient then had problems with the cancer and had to put that on hold. Progress of Wound: Jackie is here for follow up of nonhealing surgical wounds s/p Mohs surgery for melanoma and BCC and SCC. She tolerated treatment with Promogran and had some improvement in the size of her wounds. There is no increased drainage or erythema. Epifix was denied by her insurance due to the wound not being a venous or DFU. - Physical Exam Vital Signs Temp Pulse Resp BP 96.6 F L 87 16 156/89 H 09/30/18 15:56 09/30/18 15:56 09/30/18 15:56 09/30/18 15:56 General: Alert, Oriented x3, Cooperative, No apparent distress HEENT: Atraumatic, Normocephalic Oral: Moist Mucosa Extremities: Edema Skin: Ulcer/ Wound Wound Measurements and Assessment WC - Nurse 1 - General Ulcer Measurement Start: 09/30/18 15:56 Freq: Status: Active Protocol: Activity Type Activity Date Activity User E-Sign Co-Sign Detail Recorded Client Recorded Date Recorded By Document 09/30/18 15:56 [facility] [id number] 09/30/18 16:11 [facility] 09/30/18 15:56 Wound Center Nurse 1 [Ulcer Assessment] #2 RIGHT R[place] -Combined with other wound No -Current Size (cm) - Length 1.6 -Current Size (cm) - Width 1 -Current Size (cm) - Depth 0.3 -Total Square Cm 1.6 -Photo Taken No -Epithelialization None Present -Tunneling No -Undermining/Tunneling No -Circular Undermining No -Exudate Amt Small -Exudate Type Serous -Wound Margin Distinct, Outline Attached -Granulation Amt Small (1-33%) -Granulation Quality [place] -Slough/Fibrin Yes -Necrosis Amt Large (67-100%) -Necrotic Tissue Type Adherent Slough -Texture (Sandra-wound Skin Appearance) Assessed Scarring -Moisture (Sandra-wound Skin Appearance Assessed ) Dry/Scaly -Color (Sandra-wound Skin Appearance) Assessed Erythema -Temperature (Sandra-wound Skin No Abnormality Appearance) (Pt Warm) -Tenderness on Palpation (Sandra-wound Yes Skin Appearance) -Ulcer Cleansing Rinsed/ Irrigated with Saline -Foul Odor after Cleansing No -Anesthetic Used 5% Lidocaine Gel #1 RIGHT LATERAL LE -Combined with other wound No -Current Size (cm) - Length 0.2 -Current Size (cm) - Width 0.2 -Current Size (cm) - Depth 0.1 -Total Square Cm 0.04 -Photo Taken No -Epithelialization Small 1-33% -Tunneling No -Undermining/Tunneling No -Circular Undermining No -Exudate Amt Small -Exudate Type Serous -Wound Margin Distinct, Outline Attached -Granulation Amt Large (67-100%) -Granulation Quality Red -Slough/Fibrin Yes -Necrosis Amt Small (1-33%) -Necrotic Tissue Type Adherent Slough -Texture (Sandra-wound Skin Appearance) Scarring -Moisture (Sandra-wound Skin Appearance Dry/Scaly ) -Color (Sandra-wound Skin Appearance) Erythema -Temperature (Sandra-wound Skin No Abnormality Appearance) (Pt Warm) -Tenderness on Palpation (Sandra-wound Yes Skin Appearance) -Ulcer Cleansing Rinsed/ Irrigated with Saline -Foul Odor after Cleansing No -Anesthetic Used 5% Lidocaine Gel [Edema Assessment] -Lower Limb Edema Present Yes -Right Calf (cm) 38 -Right Ankle (cm) 21.1 WC - Nurse 2 - General Ulcer CM Notes Start: 09/30/18 15:56 Freq: Status: Active Protocol: Activity Type Activity Date Activity User E-Sign Co-Sign Detail Recorded Client Recorded Date Recorded By Document 09/30/18 17:01 DV [id number] 09/30/18 17:11 DV 09/30/18 17:01 Wound Center Nurse 2 [Procedure/Treatment] #2 RIGHT R[place] -Time 17:04 -Correct Patient Yes -Correct Side, Site, Position Yes -Correct Procedure Yes -Procedure Performed Yes -Type of Procedure Debridement -Clinical Debridement Subcutaneous -Post Debridement Size (cm) - Length 1.5 -Post Debridement Size (cm) - Width 1.1 -Post Debridement Size (cm) - Depth 0.2 -Total Square Cm 1.65 -Wound/Ulcer Outcome Not Healed -Ulcer Cleansing Rinsed/ Irrigated with Saline -Bleeding Controlled with Pressure -Offloading No -Treatment Response Procedure Tolerated Well #1 RIGHT LATERAL LE -Time 17:02 -Correct Patient Yes -Correct Side, Site, Position Yes -Correct Procedure Yes -Procedure Performed Yes -Type of Procedure Debridement -Clinical Debridement Subcutaneous -Post Debridement Size (cm) - Length 0.6 -Post Debridement Size (cm) - Width 0.4 -Post Debridement Size (cm) - Depth 0.1 -Total Square Cm 0.24 -Wound/Ulcer Outcome Not Healed -Ulcer Cleansing Rinsed/ Irrigated with Saline -Foul Odor after Cleansing No -Bioengineered Tissue No -Bleeding Controlled with Pressure -Offloading No -Treatment Response Procedure Tolerated Well [See Physician Procedure note for Specifics] Psych/Mental Status: Normal Affect, Appropriate Debridement Note Post-Debridement Measurements/Treatment WC - Nurse 2 - General Ulcer CM Notes Start: 09/30/18 15:56 Freq: Status: Active Protocol: Activity Type Activity Date Activity User E-Sign Co-Sign Detail Recorded Client Recorded Date Recorded By Document 09/30/18 17:01 DV [id number] 09/30/18 17:11 DV 09/30/18 17:01 Wound Center Nurse 2 #2 RIGHT R[place] -Time 17:04 -Correct Patient Yes -Correct Side, Site, Position Yes -Correct Procedure Yes -Procedure Performed Yes -Type of Procedure Debridement -Clinical Debridement Subcutaneous -Post Debridement Size (cm) - Length 1.5 -Post Debridement Size (cm) - Width 1.1 -Post Debridement Size (cm) - Depth 0.2 -Total Square Cm 1.65 -Wound/Ulcer Outcome Not Healed -Ulcer Cleansing Rinsed/ Irrigated with Saline -Bleeding Controlled with Pressure -Offloading No -Treatment Response Procedure Tolerated Well #1 RIGHT LATERAL LE -Time 17:02 -Correct Patient Yes -Correct Side, Site, Position Yes -Correct Procedure Yes -Procedure Performed Yes -Type of Procedure Debridement -Clinical Debridement Subcutaneous -Post Debridement Size (cm) - Length 0.6 -Post Debridement Size (cm) - Width 0.4 -Post Debridement Size (cm) - Depth 0.1 -Total Square Cm 0.24 -Wound/Ulcer Outcome Not Healed -Ulcer Cleansing Rinsed/ Irrigated with Saline -Foul Odor after Cleansing No -Bioengineered Tissue No -Bleeding Controlled with Pressure -Offloading No -Treatment Response Procedure Tolerated Well Wound debrided: right rockwell Laterality: Right Anesthesia Used: 4% Lidocaine Solution, 5% Lidocaine Gel Depth: Down to and including healthy tissue, in the subcutaneous layer Percentage of wound debrided: 100 Instrument Used: 5mm curette Tissue Removed: yellow slough, devitalized tissue Severity: Fat Layer Exposed Amount of bleeding with debridement: Mild Bleeding Controlled with: Compression and gauze Patient tolerated procedure well - Additional Wound Wound debrided: right lateral LE Laterality: Right Type of Debridement: Excisional debridement Anesthesia Used: 4% Lidocaine Solution, 5% Lidocaine Gel Depth: Down to and including healthy tissue, in the subcutaneous layer Percentage of wound debrided: 100 Instrument Used: 5mm curette Tissue Removed: yellow slough, devitalized tissue Severity: Fat Layer Exposed Amount of bleeding with debridement: Mild Bleeding Controlled with: Compression and gauze Patient tolerated procedure: Patient tolerated procedure well Assessment/Plan Active Problems (Last Reviewed 02/25/18 @ 08:51 by Jayla Castro) Basal cell carcinoma (BCC) in situ of skin (Chronic) Nonhealing surgical wound (Chronic) 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 Edema lower extremities. Peripheral vascular disease Plan: Jackie's legs were evaluated and debrided today. She has had slight improvement in her wounds. Will continue to use promogran and if there is still not increased granulation in her right rockwell wound then would try treatment with Santyl. She has undergone 4 weeks of conventional wound care treatment since her surgical wound dehisced. She would benefit from advanced wound care treatment with Apligraf, nushield or puraply to heal her wound. Apply Promogran to wound bases cover with Adaptic gauze and Betsey or Coban. Double layer Tubigrip to the right leg. Encouraged to increase protein intake. Follow-up in 1 week
[2018-10-07 16:01] VITALS: BP 144/83; PULSE 73; RESP 16; BMI 28.7
--- NOTE | 2018-10-07 18:29 | PCM.WC.PN ---
(1) Venous insufficiency of right lower extremity Status: Chronic Current Visit: Yes Code(s): I87.2 - Venous insufficiency (chronic) (peripheral) (2) Basal cell carcinoma (BCC) in situ of skin Status: Chronic Current Visit: Yes Code(s): D04.9 - Carcinoma in situ of skin, unspecified (3) Nonhealing surgical wound Status: Chronic Current Visit: Yes Qualifiers: Encounter type: subsequent encounter Qualified Code(s): T81.89XD - Other complications of procedures, not elsewhere classified, subsequent encounter Code(s): T81.89XA - Other complications of procedures, not elsewhere classified, initial encounter (4) 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 [facility] removed 3 areas one on her thigh and 2 on her right lower extremity for melanoma by Mohs surgery. The thigh healed well but the lower extremity absorbable suture became infected and were removed. Now patient has 2 open areas that are having a hard time healing with slough and now erythematous around the edge. Patient was sent to us from her primary care doctor that after she was concerned with infection. He placed her on Keflex and she has been taking that but is still concerned for infection. She saw Courtney Ojeda for an initial evaluation and a wound culture was done which was negative. She has been using Aquacel and tubigrips and tolerating this well but does note that it is difficult to get the Aquacel off of her wounds. Vascular studies were done by Drs. Ramirez and she does have some connecting problems in her saphenous veins of the right leg and surgical procedure was planned. Patient then had problems with the cancer and had to put that on hold. Progress of Wound: Jackie is here for follow up of nonhealing surgical wounds s/p Mohs surgery for melanoma and BCC and SCC. She tolerated treatment with Promogran and had some improvement in the size of her wounds. She is concerned about some increase in drainage from her rockwell wound but otherwise she has no additional concerns. There is no increased erythema. Epifix was denied by her insurance due to the wound not being a venous or DFU. - Physical Exam Vital Signs Temp Pulse Resp BP 96.6 F L 73 16 144/83 H 09/30/18 15:56 10/07/18 16:01 10/07/18 16:01 10/07/18 16:01 General: Alert, Oriented x3, Cooperative, No apparent distress HEENT: Atraumatic, Normocephalic Oral: Moist Mucosa Extremities: Edema Skin: Ulcer/ Wound Wound Measurements and Assessment WC - Nurse 1 - General Ulcer Measurement Start: 09/30/18 15:56 Freq: Status: Active Protocol: Activity Type Activity Date Activity User E-Sign Co-Sign Detail Recorded Client Recorded Date Recorded By Document 10/07/18 16:01 FL [id number] 10/07/18 16:08 FL 10/07/18 16:01 Wound Center Nurse 1 [Ulcer Assessment] #2 RIGHT [place] -Combined with other wound No -Current Size (cm) - Length 1.5 -Current Size (cm) - Width 1.1 -Current Size (cm) - Depth 0.2 -Total Square Cm 1.65 -Photo Taken No -Epithelialization None Present -Tunneling No -Undermining/Tunneling No -Circular Undermining No -Exudate Amt Medium -Exudate Type Purulent -Wound Margin Distinct, Outline Attached -Granulation Amt Small (1-33%) -Granulation Quality [place] -Slough/Fibrin Yes -Necrosis Amt Large (67-100%) -Necrotic Tissue Type Adherent Slough -Texture (Sandra-wound Skin Appearance) Assessed Scarring -Moisture (Sandra-wound Skin Appearance Assessed ) -Color (Sandra-wound Skin Appearance) Assessed Erythema -Temperature (Sandra-wound Skin No Abnormality Appearance) (Pt Warm) -Tenderness on Palpation (Sandra-wound No Skin Appearance) -Ulcer Cleansing Rinsed/ Irrigated with Saline -Foul Odor after Cleansing No -Anesthetic Used 5% Lidocaine Gel #1 RIGHT LATERAL LE -Combined with other wound No -Current Size (cm) - Length 0.1 -Current Size (cm) - Width 0.1 -Current Size (cm) - Depth 0.1 -Total Square Cm 0.01 -Photo Taken No -Epithelialization Medium 34-66% -Tunneling No -Undermining/Tunneling No -Circular Undermining No -Exudate Amt None Present -Wound Margin Flat & Intact -Granulation Amt Large (67-100%) -Granulation Quality Red -Slough/Fibrin No -Necrosis Amt None Present (0 %) -Texture (Sandra-wound Skin Appearance) Scarring -Moisture (Sandra-wound Skin Appearance Dry/Scaly ) -Color (Sandra-wound Skin Appearance) Assessed Erythema -Temperature (Sandra-wound Skin No Abnormality Appearance) (Pt Warm) -Tenderness on Palpation (Sandra-wound No Skin Appearance) -Ulcer Cleansing Rinsed/ Irrigated with Saline -Foul Odor after Cleansing No -Anesthetic Used 5% Lidocaine Gel [Edema Assessment] -Lower Limb Edema Present Yes -Right Calf (cm) 38.5 -Right Ankle (cm) 21 WC - Nurse 2 - General Ulcer CM Notes Start: 09/30/18 15:56 Freq: Status: Active Protocol: Activity Type Activity Date Activity User E-Sign Co-Sign Detail Recorded Client Recorded Date Recorded By Document 10/07/18 16:43 DV [id number] 10/07/18 16:48 DV 10/07/18 16:43 Wound Center Nurse 2 [Procedure/Treatment] #2 RIGHT [place] -Time 16:43 -Correct Patient Yes -Correct Side, Site, Position Yes -Correct Procedure Yes -Procedure Performed Yes -Type of Procedure Debridement -Clinical Debridement Subcutaneous -Post Debridement Size (cm) - Length 1.4 -Post Debridement Size (cm) - Width 1.1 -Post Debridement Size (cm) - Depth 0.2 -Total Square Cm 1.54 -Wound/Ulcer Outcome Not Healed -Ulcer Cleansing Rinsed/ Irrigated with Saline -Foul Odor after Cleansing No -Bioengineered Tissue No -Bleeding Controlled with Pressure -Offloading No -Treatment Response Procedure Tolerated Well #1 RIGHT LATERAL LE -Time 16:44 -Correct Patient Yes -Correct Side, Site, Position Yes -Correct Procedure Yes -Procedure Performed Yes -Type of Procedure Debridement -Clinical Debridement Subcutaneous -Post Debridement Size (cm) - Length 0.5 -Post Debridement Size (cm) - Width 0.4 -Post Debridement Size (cm) - Depth 0.1 -Total Square Cm 0.20 -Wound/Ulcer Outcome Not Healed -Ulcer Cleansing Rinsed/ Irrigated with Saline -Foul Odor after Cleansing No -Bioengineered Tissue No -Bleeding Controlled with Pressure -Offloading No -Treatment Response Procedure Tolerated Well [See Physician Procedure note for Specifics] Pain Scale: 0-10 Numeric [Pain] -Is Patient Pain Free? Yes Psych/Mental Status: Normal Affect, Appropriate Debridement Note Post-Debridement Measurements/Treatment WC - Nurse 2 - General Ulcer CM Notes Start: 09/30/18 15:56 Freq: Status: Active Protocol: Activity Type Activity Date Activity User E-Sign Co-Sign Detail Recorded Client Recorded Date Recorded By Document 09/30/18 17:01 DV [id number] 09/30/18 17:11 DV Document 10/07/18 16:43 DV [id number] 10/07/18 16:48 DV 09/30/18 10/07/18 17:01 16:43 Wound Center Nurse 2 #2 RIGHT [place] -Time 17:04 16:43 -Correct Patient Yes Yes -Correct Side, Site, Position Yes Yes -Correct Procedure Yes Yes -Procedure Performed Yes Yes -Type of Procedure Debridement Debridement -Clinical Debridement Subcutaneous Subcutaneous -Post Debridement Size (cm) - Length 1.5 1.4 -Post Debridement Size (cm) - Width 1.1 1.1 -Post Debridement Size (cm) - Depth 0.2 0.2 -Total Square Cm 1.65 1.54 -Wound/Ulcer Outcome Not Healed Not Healed -Ulcer Cleansing Rinsed/ Rinsed/ Irrigated with Irrigated with Saline Saline -Foul Odor after Cleansing No -Bioengineered Tissue No -Bleeding Controlled with Pressure Pressure -Offloading No No -Treatment Response Procedure Procedure Tolerated Well Tolerated Well #1 RIGHT LATERAL LE -Time 17:02 16:44 -Correct Patient Yes Yes -Correct Side, Site, Position Yes Yes -Correct Procedure Yes Yes -Procedure Performed Yes Yes -Type of Procedure Debridement Debridement -Clinical Debridement Subcutaneous Subcutaneous -Post Debridement Size (cm) - Length 0.6 0.5 -Post Debridement Size (cm) - Width 0.4 0.4 -Post Debridement Size (cm) - Depth 0.1 0.1 -Total Square Cm 0.24 0.20 -Wound/Ulcer Outcome Not Healed Not Healed -Ulcer Cleansing Rinsed/ Rinsed/ Irrigated with Irrigated with Saline Saline -Foul Odor after Cleansing No No -Bioengineered Tissue No No -Bleeding Controlled with Pressure Pressure -Offloading No No -Treatment Response Procedure Procedure Tolerated Well Tolerated Well Pain Scale: 0-10 Numeric Is Patient Pain Free? Yes Wound debrided: right [place] Laterality: Right Type of Debridement: Excisional debridement Anesthesia Used: 4% Lidocaine Solution, 5% Lidocaine Gel Depth: Down to and including healthy tissue, in the subcutaneous layer Percentage of wound debrided: 100 Instrument Used: 5mm curette Tissue Removed: yellow slough, devitalized tissue Severity: Fat Layer Exposed Amount of bleeding with debridement: Mild Bleeding Controlled with: Compression and gauze Patient tolerated procedure well - Additional Wound Wound debrided: right lateral LE Laterality: Right Type of Debridement: Excisional debridement Anesthesia Used: 4% Lidocaine Solution, 5% Lidocaine Gel Depth: Down to and including healthy tissue, in the subcutaneous layer Percentage of wound debrided: 100 Instrument Used: 5mm curette Tissue Removed: yellow slough, devitalized tissue Severity: Fat Layer Exposed Amount of bleeding with debridement: Mild Bleeding Controlled with: Compression and gauze Patient tolerated procedure: Patient tolerated procedure well Assessment/Plan Active Problems (Last Reviewed 02/25/18 @ 08:51 by Jayla Castro) Basal cell carcinoma (BCC) in situ of skin (Chronic) Nonhealing surgical wound (Chronic) 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 Edema lower extremities. Peripheral vascular disease Plan: Jackie's legs were evaluated and debrided today. She has had slight improvement in her wounds. Will continue to use promogran and if there is still not increased granulation in her right rockwell wound then would try treatment with Santyl. She has undergone 5 weeks of conventional wound care treatment since her surgical wound dehisced. She would benefit from advanced wound care treatment with Apligraf, nushield or puraply to heal her wound. Apply Promogran to wound bases cover with Adaptic gauze and Betsey or Coban. Double layer Tubigrip to the right leg. Encouraged to increase protein intake. Follow-up in 1 week
--- NOTE | 2018-10-07 18:55 | PN.PCM_ITS ---
(1) Venous insufficiency of right lower extremity Status: Chronic Current Visit: Yes Code(s): I87.2 - Venous insufficiency (chronic) (peripheral) (2) Basal cell carcinoma (BCC) in situ of skin Status: Chronic Current Visit: Yes Code(s): D04.9 - Carcinoma in situ of skin, unspecified (3) Nonhealing surgical wound Status: Chronic Current Visit: Yes Qualifiers: Encounter type: subsequent encounter Qualified Code(s): T81.89XD - Other complications of procedures, not elsewhere classified, subsequent encounter Code(s): T81.89XA - Other complications of procedures, not elsewhere classified, initial encounter (4) 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 [facility] removed 3 areas one on her thigh and 2 on her right lower extremity for melanoma by Mohs surgery. The thigh healed well but the lower extremity absorbable suture became infected and were removed. Now patient has 2 open areas that are having a hard time healing with slough and now erythematous around the edge. Patient was sent to us from her primary care doctor that after she was concerned with infection. He placed her on Keflex and she has been taking that but is still concerned for infection. She saw Courtney Ojeda for an initial evaluation and a wound culture was done which was negative. She has been using Aquacel and tubigrips and tolerating this well but does note that it is difficult to get the Aquacel off of her wounds. Vascular studies were done by Drs. Ramirez and she does have some connecting problems in her saphenous veins of the right leg and surgical procedure was planned. Patient then had problems with the cancer and had to put that on hold. Progress of Wound: Jackie is here for follow up of nonhealing surgical wounds s/p Mohs surgery for melanoma and BCC and SCC. She tolerated treatment with Promogran and had some improvement in the size of her wounds. She is concerned about some increase in drainage from her rockwell wound but otherwise she has no additional concerns. There is no increased erythema. Epifix was denied by her insurance due to the wound not being a venous or DFU. - Physical Exam Vital Signs Temp Pulse Resp BP 96.6 F L 73 16 144/83 H 09/30/18 15:56 10/07/18 16:01 10/07/18 16:01 10/07/18 16:01 General: Alert, Oriented x3, Cooperative, No apparent distress HEENT: Atraumatic, Normocephalic Oral: Moist Mucosa Extremities: Edema Skin: Ulcer/ Wound Wound Measurements and Assessment WC - Nurse 1 - General Ulcer Measurement Start: 09/30/18 15:56 Freq: Status: Active Protocol: Activity Type Activity Date Activity User E-Sign Co-Sign Detail Recorded Client Recorded Date Recorded By Document 10/07/18 16:01 ME [id number] 10/07/18 16:08 ME 10/07/18 16:01 Wound Center Nurse 1 [Ulcer Assessment] #2 RIGHT ROCKWELL -Combined with other wound No -Current Size (cm) - Length 1.5 -Current Size (cm) - Width 1.1 -Current Size (cm) - Depth 0.2 -Total Square Cm 1.65 -Photo Taken No -Epithelialization None Present -Tunneling No -Undermining/Tunneling No -Circular Undermining No -Exudate Amt Medium -Exudate Type Purulent -Wound Margin Distinct, Outline Attached -Granulation Amt Small (1-33%) -Granulation Quality [place] -Slough/Fibrin Yes -Necrosis Amt Large (67-100%) -Necrotic Tissue Type Adherent Slough -Texture (Sandra-wound Skin Appearance) Assessed Scarring -Moisture (Sandra-wound Skin Appearance Assessed ) -Color (Sandra-wound Skin Appearance) Assessed Erythema -Temperature (Sandra-wound Skin No Abnormality Appearance) (Pt Warm) -Tenderness on Palpation (Sandra-wound No Skin Appearance) -Ulcer Cleansing Rinsed/ Irrigated with Saline -Foul Odor after Cleansing No -Anesthetic Used 5% Lidocaine Gel #1 RIGHT LATERAL LE -Combined with other wound No -Current Size (cm) - Length 0.1 -Current Size (cm) - Width 0.1 -Current Size (cm) - Depth 0.1 -Total Square Cm 0.01 -Photo Taken No -Epithelialization Medium 34-66% -Tunneling No -Undermining/Tunneling No -Circular Undermining No -Exudate Amt None Present -Wound Margin Flat & Intact -Granulation Amt Large (67-100%) -Granulation Quality Red -Slough/Fibrin No -Necrosis Amt None Present (0 %) -Texture (Sandra-wound Skin Appearance) Scarring -Moisture (Sandra-wound Skin Appearance Dry/Scaly ) -Color (Sandra-wound Skin Appearance) Assessed Erythema -Temperature (Sandra-wound Skin No Abnormality Appearance) (Pt Warm) -Tenderness on Palpation (Sandra-wound No Skin Appearance) -Ulcer Cleansing Rinsed/ Irrigated with Saline -Foul Odor after Cleansing No -Anesthetic Used 5% Lidocaine Gel [Edema Assessment] -Lower Limb Edema Present Yes -Right Calf (cm) 38.5 -Right Ankle (cm) 21 WC - Nurse 2 - General Ulcer CM Notes Start: 09/30/18 15:56 Freq: Status: Active Protocol: Activity Type Activity Date Activity User E-Sign Co-Sign Detail Recorded Client Recorded Date Recorded By Document 10/07/18 16:43 DV [id number] 10/07/18 16:48 DV 10/07/18 16:43 Wound Center Nurse 2 [Procedure/Treatment] #2 RIGHT ROCKWELL -Time 16:43 -Correct Patient Yes -Correct Side, Site, Position Yes -Correct Procedure Yes -Procedure Performed Yes -Type of Procedure Debridement -Clinical Debridement Subcutaneous -Post Debridement Size (cm) - Length 1.4 -Post Debridement Size (cm) - Width 1.1 -Post Debridement Size (cm) - Depth 0.2 -Total Square Cm 1.54 -Wound/Ulcer Outcome Not Healed -Ulcer Cleansing Rinsed/ Irrigated with Saline -Foul Odor after Cleansing No -Bioengineered Tissue No -Bleeding Controlled with Pressure -Offloading No -Treatment Response Procedure Tolerated Well #1 RIGHT LATERAL LE -Time 16:44 -Correct Patient Yes -Correct Side, Site, Position Yes -Correct Procedure Yes -Procedure Performed Yes -Type of Procedure Debridement -Clinical Debridement Subcutaneous -Post Debridement Size (cm) - Length 0.5 -Post Debridement Size (cm) - Width 0.4 -Post Debridement Size (cm) - Depth 0.1 -Total Square Cm 0.20 -Wound/Ulcer Outcome Not Healed -Ulcer Cleansing Rinsed/ Irrigated with Saline -Foul Odor after Cleansing No -Bioengineered Tissue No -Bleeding Controlled with Pressure -Offloading No -Treatment Response Procedure Tolerated Well [See Physician Procedure note for Specifics] Pain Scale: 0-10 Numeric [Pain] -Is Patient Pain Free? Yes Psych/Mental Status: Normal Affect, Appropriate Debridement Note Post-Debridement Measurements/Treatment WC - Nurse 2 - General Ulcer CM Notes Start: 09/30/18 15:56 Freq: Status: Active Protocol: Activity Type Activity Date Activity User E-Sign Co-Sign Detail Recorded Client Recorded Date Recorded By Document 09/30/18 17:01 DV [id number] 09/30/18 17:11 DV Document 10/07/18 16:43 DV [id number] 10/07/18 16:48 DV 09/30/18 10/07/18 17:01 16:43 Wound Center Nurse 2 #2 RIGHT R[place]WE[place] -Time 17:04 16:43 -Correct Patient Yes Yes -Correct Side, Site, Position Yes Yes -Correct Procedure Yes Yes -Procedure Performed Yes Yes -Type of Procedure Debridement Debridement -Clinical Debridement Subcutaneous Subcutaneous -Post Debridement Size (cm) - Length 1.5 1.4 -Post Debridement Size (cm) - Width 1.1 1.1 -Post Debridement Size (cm) - Depth 0.2 0.2 -Total Square Cm 1.65 1.54 -Wound/Ulcer Outcome Not Healed Not Healed -Ulcer Cleansing Rinsed/ Rinsed/ Irrigated with Irrigated with Saline Saline -Foul Odor after Cleansing No -Bioengineered Tissue No -Bleeding Controlled with Pressure Pressure -Offloading No No -Treatment Response Procedure Procedure Tolerated Well Tolerated Well #1 RIGHT LATERAL LE -Time 17:02 16:44 -Correct Patient Yes Yes -Correct Side, Site, Position Yes Yes -Correct Procedure Yes Yes -Procedure Performed Yes Yes -Type of Procedure Debridement Debridement -Clinical Debridement Subcutaneous Subcutaneous -Post Debridement Size (cm) - Length 0.6 0.5 -Post Debridement Size (cm) - Width 0.4 0.4 -Post Debridement Size (cm) - Depth 0.1 0.1 -Total Square Cm 0.24 0.20 -Wound/Ulcer Outcome Not Healed Not Healed -Ulcer Cleansing Rinsed/ Rinsed/ Irrigated with Irrigated with Saline Saline -Foul Odor after Cleansing No No -Bioengineered Tissue No No -Bleeding Controlled with Pressure Pressure -Offloading No No -Treatment Response Procedure Procedure Tolerated Well Tolerated Well Pain Scale: 0-10 Numeric Is Patient Pain Free? Yes Wound debrided: right rockwell Laterality: Right Type of Debridement: Excisional debridement Anesthesia Used: 4% Lidocaine Solution, 5% Lidocaine Gel Depth: Down to and including healthy tissue, in the subcutaneous layer Percentage of wound debrided: 100 Instrument Used: 5mm curette Tissue Removed: yellow slough, devitalized tissue Severity: Fat Layer Exposed Amount of bleeding with debridement: Mild Bleeding Controlled with: Compression and gauze Patient tolerated procedure well - Additional Wound Wound debrided: right lateral LE Laterality: Right Type of Debridement: Excisional debridement Anesthesia Used: 4% Lidocaine Solution, 5% Lidocaine Gel Depth: Down to and including healthy tissue, in the subcutaneous layer Percentage of wound debrided: 100 Instrument Used: 5mm curette Tissue Removed: yellow slough, devitalized tissue Severity: Fat Layer Exposed Amount of bleeding with debridement: Mild Bleeding Controlled with: Compression and gauze Patient tolerated procedure: Patient tolerated procedure well Assessment/Plan Active Problems (Last Reviewed 02/25/18 @ 08:51 by Jayla Castro) Basal cell carcinoma (BCC) in situ of skin (Chronic) Nonhealing surgical wound (Chronic) 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 Edema lower extremities. Peripheral vascular disease Plan: Jackie's legs were evaluated and debrided today. She has had slight improvement in her wounds. Will continue to use promogran and if there is still not increased granulation in her right rockwell wound then would try treatment with Santyl. She has undergone 5 weeks of conventional wound care treatment since her surgical wound dehisced. She would benefit from advanced wound care treatment with Apligraf, nushield or puraply to heal her wound. Apply Promogran to wound bases cover with Adaptic gauze and Betsey or Coban. Double layer Tubigrip to the right leg. Encouraged to increase protein intake. Follow-up in 1 week
[2018-10-14 15:38] VITALS: BP 155/95; PULSE 71; RESP 16; TEMP 36.3; BMI 28.7
--- NOTE | 2018-10-14 18:15 | PCM.WC.PN ---
(1) Venous insufficiency of right lower extremity Status: Chronic Current Visit: Yes Code(s): I87.2 - Venous insufficiency (chronic) (peripheral) (2) Basal cell carcinoma (BCC) in situ of skin Status: Chronic Current Visit: Yes Code(s): D04.9 - Carcinoma in situ of skin, unspecified (3) Nonhealing surgical wound Status: Chronic Current Visit: Yes Qualifiers: Encounter type: subsequent encounter Qualified Code(s): T81.89XD - Other complications of procedures, not elsewhere classified, subsequent encounter Code(s): T81.89XA - Other complications of procedures, not elsewhere classified, initial encounter (4) 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 [facility] removed 3 areas one on her thigh and 2 on her right lower extremity for melanoma by Mohs surgery. The thigh healed well but the lower extremity absorbable suture became infected and were removed. Now patient has 2 open areas that are having a hard time healing with slough and now erythematous around the edge. Patient was sent to us from her primary care doctor that after she was concerned with infection. He placed her on Keflex and she has been taking that but is still concerned for infection. She saw Courtney Ojeda for an initial evaluation and a wound culture was done which was negative. She has been using Aquacel and tubigrips and tolerating this well but does note that it is difficult to get the Aquacel off of her wounds. Vascular studies were done by Drs. Ramirez and she does have some connecting problems in her saphenous veins of the right leg and surgical procedure was planned. Patient then had problems with the cancer and had to put that on hold. Progress of Wound: Jackie is here for follow up of nonhealing surgical wounds s/p Mohs surgery for melanoma and BCC and SCC. She tolerated treatment with Promogran and had some improvement in the size of her wounds. She is concerned about some increase in drainage from her rockwell wound but otherwise she has no additional concerns. There is no increased erythema. Epifix was denied by her insurance due to the wound not being a venous or DFU. - Physical Exam Vital Signs Temp Pulse Resp BP 97.3 F L 71 16 155/95 H 10/14/18 15:38 10/14/18 15:38 10/14/18 15:38 10/14/18 15:38 General: Alert, Oriented x3, Cooperative, No apparent distress HEENT: Atraumatic, Normocephalic Oral: Moist Mucosa Extremities: Edema Skin: Ulcer/ Wound Wound Measurements and Assessment WC - Nurse 1 - General Ulcer Measurement Start: 09/30/18 15:56 Freq: Status: Active Protocol: Activity Type Activity Date Activity User E-Sign Co-Sign Detail Recorded Client Recorded Date Recorded By Document 10/14/18 15:38 [facility] [id number] 10/14/18 15:51 BM 10/14/18 15:38 Wound Center Nurse 1 [Ulcer Assessment] #2 RIGHT R[place] -Combined with other wound No -Current Size (cm) - Length 1.1 -Current Size (cm) - Width 0.7 -Current Size (cm) - Depth 0.3 -Total Square Cm 0.77 -Date of Last Picture (Recall this 10/14/18 field) -Photo Taken Yes -Epithelialization None Present -Tunneling No -Undermining/Tunneling No -Circular Undermining No -Exudate Amt Small -Exudate Type Serosanguineous -Wound Margin Distinct, Outline Attached -Granulation Amt Small (1-33%) -Granulation Quality [place] -Slough/Fibrin Yes -Necrosis Amt Large (67-100%) -Necrotic Tissue Type Adherent Slough -Texture (Sandra-wound Skin Appearance) Scarring -Moisture (Sandra-wound Skin Appearance Dry/Scaly ) -Color (Sandra-wound Skin Appearance) Erythema -Temperature (Sandra-wound Skin No Abnormality Appearance) (Pt Warm) -Tenderness on Palpation (Sandra-wound Yes Skin Appearance) -Ulcer Cleansing Rinsed/ Irrigated with Saline -Foul Odor after Cleansing No -Anesthetic Used 5% Lidocaine Gel #1 RIGHT LATERAL LE -Combined with other wound No -Current Size (cm) - Length 0.2 -Current Size (cm) - Width 0.2 -Current Size (cm) - Depth 0.1 -Total Square Cm 0.04 -Date of Last Picture (Recall this 10/14/18 field) -Photo Taken Yes -Epithelialization Small 1-33% -Tunneling No -Undermining/Tunneling No -Circular Undermining No -Exudate Amt Small -Exudate Type Serosanguineous -Wound Margin Distinct, Outline Attached -Granulation Amt Large (67-100%) -Granulation Quality Red -Slough/Fibrin Yes -Necrosis Amt Small (1-33%) -Necrotic Tissue Type Adherent Slough -Texture (Sandra-wound Skin Appearance) Scarring -Moisture (Sandra-wound Skin Appearance Dry/Scaly ) -Color (Sandra-wound Skin Appearance) Erythema -Temperature (Sandra-wound Skin No Abnormality Appearance) (Pt Warm) -Tenderness on Palpation (Sandra-wound No Skin Appearance) -Ulcer Cleansing Rinsed/ Irrigated with Saline -Foul Odor after Cleansing No -Anesthetic Used 5% Lidocaine Gel [Edema Assessment] -Lower Limb Edema Present Yes -Right Calf (cm) 37.5 -Right Ankle (cm) 21.9 WC - Nurse 2 - General Ulcer CM Notes Start: 09/30/18 15:56 Freq: Status: Active Protocol: Activity Type Activity Date Activity User E-Sign Co-Sign Detail Recorded Client Recorded Date Recorded By Document 10/14/18 16:11 DV [id number] 10/14/18 16:14 DV 10/14/18 16:11 Wound Center Nurse 2 [Procedure/Treatment] #2 RIGHT R[place] -Time 16:11 -Correct Patient Yes -Correct Side, Site, Position Yes -Correct Procedure Yes -Procedure Performed Yes -Type of Procedure Debridement -Clinical Debridement Subcutaneous -Post Debridement Size (cm) - Length 1.2 -Post Debridement Size (cm) - Width 0.8 -Post Debridement Size (cm) - Depth 0.2 -Total Square Cm 0.96 -Wound/Ulcer Outcome Not Healed -Ulcer Cleansing Rinsed/ Irrigated with Saline -Foul Odor after Cleansing No -Bioengineered Tissue No -Bleeding Controlled with Pressure -Offloading No -Treatment Response Procedure Tolerated Well #1 RIGHT LATERAL LE -Time 16:12 -Correct Patient Yes -Correct Side, Site, Position Yes -Correct Procedure Yes -Procedure Performed Yes -Type of Procedure Debridement -Clinical Debridement Subcutaneous -Post Debridement Size (cm) - Length 0.2 -Post Debridement Size (cm) - Width 0.2 -Post Debridement Size (cm) - Depth 0.1 -Total Square Cm 0.04 -Wound/Ulcer Outcome Not Healed -Ulcer Cleansing Rinsed/ Irrigated with Saline -Foul Odor after Cleansing No -Bioengineered Tissue No -Bleeding Controlled with Pressure -Offloading No -Treatment Response Procedure Tolerated Well [See Physician Procedure note for Specifics] Pain Scale: 0-10 Numeric [Pain] -Is Patient Pain Free? Yes Psych/Mental Status: Normal Affect, Appropriate Debridement Note Post-Debridement Measurements/Treatment WC - Nurse 2 - General Ulcer CM Notes Start: 09/30/18 15:56 Freq: Status: Active Protocol: Activity Type Activity Date Activity User E-Sign Co-Sign Detail Recorded Client Recorded Date Recorded By Document 09/30/18 17:01 DV [id number] 09/30/18 17:11 DV Document 10/07/18 16:43 DV [id number] 10/07/18 16:48 DV Document 10/14/18 16:11 DV [id number] 10/14/18 16:14 DV 09/30/18 10/07/18 10/14/18 17:01 16:43 16:11 Wound Center Nurse 2 #2 RIGHT R[place] -Time 17:04 16:43 16:11 -Correct Patient Yes Yes Yes -Correct Side, Site, Position Yes Yes Yes -Correct Procedure Yes Yes Yes -Procedure Performed Yes Yes Yes -Type of Procedure Debridement Debridement Debridement -Clinical Debridement Subcutaneous Subcutaneous Subcutaneous -Post Debridement Size (cm) - Length 1.5 1.4 1.2 -Post Debridement Size (cm) - Width 1.1 1.1 0.8 -Post Debridement Size (cm) - Depth 0.2 0.2 0.2 -Total Square Cm 1.65 1.54 0.96 -Wound/Ulcer Outcome Not Healed Not Healed Not Healed -Ulcer Cleansing Rinsed/ Rinsed/ Rinsed/ Irrigated with Irrigated with Irrigated with Saline Saline Saline -Foul Odor after Cleansing No No -Bioengineered Tissue No No -Bleeding Controlled with Pressure Pressure Pressure -Offloading No No No -Treatment Response Procedure Procedure Procedure Tolerated Well Tolerated Well Tolerated Well #1 RIGHT LATERAL LE -Time 17:02 16:44 16:12 -Correct Patient Yes Yes Yes -Correct Side, Site, Position Yes Yes Yes -Correct Procedure Yes Yes Yes -Procedure Performed Yes Yes Yes -Type of Procedure Debridement Debridement Debridement -Clinical Debridement Subcutaneous Subcutaneous Subcutaneous -Post Debridement Size (cm) - Length 0.6 0.5 0.2 -Post Debridement Size (cm) - Width 0.4 0.4 0.2 -Post Debridement Size (cm) - Depth 0.1 0.1 0.1 -Total Square Cm 0.24 0.20 0.04 -Wound/Ulcer Outcome Not Healed Not Healed Not Healed -Ulcer Cleansing Rinsed/ Rinsed/ Rinsed/ Irrigated with Irrigated with Irrigated with Saline Saline Saline -Foul Odor after Cleansing No No No -Bioengineered Tissue No No No -Bleeding Controlled with Pressure Pressure Pressure -Offloading No No No -Treatment Response Procedure Procedure Procedure Tolerated Well Tolerated Well Tolerated Well Pain Scale: 0-10 Numeric Is Patient Pain Free? Yes Yes Wound debrided: right rockwell Laterality: Right Type of Debridement: Excisional debridement Anesthesia Used: 4% Lidocaine Solution, 5% Lidocaine Gel, Cetacaine - 2% Depth: Down to and including healthy tissue, in the subcutaneous layer Percentage of wound debrided: 100 Instrument Used: 5mm curette Tissue Removed: yellow slough, devitalized tissue Severity: Fat Layer Exposed Amount of bleeding with debridement: Mild Bleeding Controlled with: Compression and gauze Patient tolerated procedure well - Additional Wound Wound debrided: right lateral LE Laterality: Right Type of Debridement: Excisional debridement Anesthesia Used: 4% Lidocaine Solution, 5% Lidocaine Gel Depth: Down to and including healthy tissue, in the subcutaneous layer Percentage of wound debrided: 100 Instrument Used: 5mm curette Tissue Removed: yellow slough, devitalized tissue Severity: Fat Layer Exposed Amount of bleeding with debridement: Mild Bleeding Controlled with: Compression and gauze Patient tolerated procedure: Patient tolerated procedure well Assessment/Plan Active Problems (Last Reviewed 02/25/18 @ 08:51 by Jayla Castro) Basal cell carcinoma (BCC) in situ of skin (Chronic) Nonhealing surgical wound (Chronic) 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 Edema lower extremities. Peripheral vascular disease Plan: Jackie's legs were evaluated and debrided today. She has had improvement in her wounds. Will continue to use promogran and a more aggressive debridement was able to be completed today using injected local anesthetic with lidocaine 2%. Will add venous stasis pad over the rockwell wound. She has undergone 6 weeks of conventional wound care treatment since her surgical wound dehisced. She would benefit from advanced wound care treatment with Apligraf, nushield or puraply to heal her wound. Apply Promogran to wound bases cover with Adaptic gauze and Betsey or Coban and venous stasis pad. Single layer Tubigrip to the right leg. Encouraged to increase protein intake. Follow-up in 1 week
--- NOTE | 2018-10-14 18:19 | PN.PCM_ITS ---
(1) Venous insufficiency of right lower extremity Status: Chronic Current Visit: Yes Code(s): I87.2 - Venous insufficiency (chronic) (peripheral) (2) Basal cell carcinoma (BCC) in situ of skin Status: Chronic Current Visit: Yes Code(s): D04.9 - Carcinoma in situ of skin, unspecified (3) Nonhealing surgical wound Status: Chronic Current Visit: Yes Qualifiers: Encounter type: subsequent encounter Qualified Code(s): T81.89XD - Other complications of procedures, not elsewhere classified, subsequent encounter Code(s): T81.89XA - Other complications of procedures, not elsewhere classified, initial encounter (4) 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 [facility] removed 3 areas one on her thigh and 2 on her right lower extremity for melanoma by Mohs surgery. The thigh healed well but the lower extremity absorbable suture became infected and were removed. Now patient has 2 open areas that are having a hard time healing with slough and now erythematous around the edge. Patient was sent to us from her primary care doctor that after she was concerned with infection. He placed her on Keflex and she has been taking that but is still concerned for infection. She saw Courtney Ojeda for an initial evaluation and a wound culture was done which was negative. She has been using Aquacel and tubigrips and tolerating this well but does note that it is difficult to get the Aquacel off of her wounds. Vascular studies were done by Drs. Ramirez and she does have some connecting problems in her saphenous veins of the right leg and surgical procedure was planned. Patient then had problems with the cancer and had to put that on hold. Progress of Wound: Jackie is here for follow up of nonhealing surgical wounds s/p Mohs surgery for melanoma and BCC and SCC. She tolerated treatment with Promogran and had some improvement in the size of her wounds. She is concerned about some increase in drainage from her rockwell wound but otherwise she has no additional concerns. There is no increased erythema. Epifix was denied by her insurance due to the wound not being a venous or DFU. - Physical Exam Vital Signs Temp Pulse Resp BP 97.3 F L 71 16 155/95 H 10/14/18 15:38 10/14/18 15:38 10/14/18 15:38 10/14/18 15:38 General: Alert, Oriented x3, Cooperative, No apparent distress HEENT: Atraumatic, Normocephalic Oral: Moist Mucosa Extremities: Edema Skin: Ulcer/ Wound Wound Measurements and Assessment WC - Nurse 1 - General Ulcer Measurement Start: 09/30/18 15:56 Freq: Status: Active Protocol: Activity Type Activity Date Activity User E-Sign Co-Sign Detail Recorded Client Recorded Date Recorded By Document 10/14/18 15:38 [facility] [id number] 10/14/18 15:51 BM 10/14/18 15:38 Wound Center Nurse 1 [Ulcer Assessment] #2 RIGHT ROCKWELL -Combined with other wound No -Current Size (cm) - Length 1.1 -Current Size (cm) - Width 0.7 -Current Size (cm) - Depth 0.3 -Total Square Cm 0.77 -Date of Last Picture (Recall this 10/14/18 field) -Photo Taken Yes -Epithelialization None Present -Tunneling No -Undermining/Tunneling No -Circular Undermining No -Exudate Amt Small -Exudate Type Serosanguineous -Wound Margin Distinct, Outline Attached -Granulation Amt Small (1-33%) -Granulation Quality [place] -Slough/Fibrin Yes -Necrosis Amt Large (67-100%) -Necrotic Tissue Type Adherent Slough -Texture (Sandra-wound Skin Appearance) Scarring -Moisture (Sandra-wound Skin Appearance Dry/Scaly ) -Color (Sandra-wound Skin Appearance) Erythema -Temperature (Sandra-wound Skin No Abnormality Appearance) (Pt Warm) -Tenderness on Palpation (Sandra-wound Yes Skin Appearance) -Ulcer Cleansing Rinsed/ Irrigated with Saline -Foul Odor after Cleansing No -Anesthetic Used 5% Lidocaine Gel #1 RIGHT LATERAL LE -Combined with other wound No -Current Size (cm) - Length 0.2 -Current Size (cm) - Width 0.2 -Current Size (cm) - Depth 0.1 -Total Square Cm 0.04 -Date of Last Picture (Recall this 10/14/18 field) -Photo Taken Yes -Epithelialization Small 1-33% -Tunneling No -Undermining/Tunneling No -Circular Undermining No -Exudate Amt Small -Exudate Type Serosanguineous -Wound Margin Distinct, Outline Attached -Granulation Amt Large (67-100%) -Granulation Quality Red -Slough/Fibrin Yes -Necrosis Amt Small (1-33%) -Necrotic Tissue Type Adherent Slough -Texture (Sandra-wound Skin Appearance) Scarring -Moisture (Sandra-wound Skin Appearance Dry/Scaly ) -Color (Sandra-wound Skin Appearance) Erythema -Temperature (Sandra-wound Skin No Abnormality Appearance) (Pt Warm) -Tenderness on Palpation (Sandra-wound No Skin Appearance) -Ulcer Cleansing Rinsed/ Irrigated with Saline -Foul Odor after Cleansing No -Anesthetic Used 5% Lidocaine Gel [Edema Assessment] -Lower Limb Edema Present Yes -Right Calf (cm) 37.5 -Right Ankle (cm) 21.9 WC - Nurse 2 - General Ulcer CM Notes Start: 09/30/18 15:56 Freq: Status: Active Protocol: Activity Type Activity Date Activity User E-Sign Co-Sign Detail Recorded Client Recorded Date Recorded By Document 10/14/18 16:11 DV [id number] 10/14/18 16:14 DV 10/14/18 16:11 Wound Center Nurse 2 [Procedure/Treatment] #2 RIGHT ROCKWELL -Time 16:11 -Correct Patient Yes -Correct Side, Site, Position Yes -Correct Procedure Yes -Procedure Performed Yes -Type of Procedure Debridement -Clinical Debridement Subcutaneous -Post Debridement Size (cm) - Length 1.2 -Post Debridement Size (cm) - Width 0.8 -Post Debridement Size (cm) - Depth 0.2 -Total Square Cm 0.96 -Wound/Ulcer Outcome Not Healed -Ulcer Cleansing Rinsed/ Irrigated with Saline -Foul Odor after Cleansing No -Bioengineered Tissue No -Bleeding Controlled with Pressure -Offloading No -Treatment Response Procedure Tolerated Well #1 RIGHT LATERAL LE -Time 16:12 -Correct Patient Yes -Correct Side, Site, Position Yes -Correct Procedure Yes -Procedure Performed Yes -Type of Procedure Debridement -Clinical Debridement Subcutaneous -Post Debridement Size (cm) - Length 0.2 -Post Debridement Size (cm) - Width 0.2 -Post Debridement Size (cm) - Depth 0.1 -Total Square Cm 0.04 -Wound/Ulcer Outcome Not Healed -Ulcer Cleansing Rinsed/ Irrigated with Saline -Foul Odor after Cleansing No -Bioengineered Tissue No -Bleeding Controlled with Pressure -Offloading No -Treatment Response Procedure Tolerated Well [See Physician Procedure note for Specifics] Pain Scale: 0-10 Numeric [Pain] -Is Patient Pain Free? Yes Psych/Mental Status: Normal Affect, Appropriate Debridement Note Post-Debridement Measurements/Treatment WC - Nurse 2 - General Ulcer CM Notes Start: 09/30/18 15:56 Freq: Status: Active Protocol: Activity Type Activity Date Activity User E-Sign Co-Sign Detail Recorded Client Recorded Date Recorded By Document 09/30/18 17:01 DV [id number] 09/30/18 17:11 DV Document 10/07/18 16:43 DV [id number] 10/07/18 16:48 DV Document 10/14/18 16:11 DV [id number] 10/14/18 16:14 DV 09/30/18 10/07/18 10/14/18 17:01 16:43 16:11 Wound Center Nurse 2 #2 RIGHT ROCKWE[place] -Time 17:04 16:43 16:11 -Correct Patient Yes Yes Yes -Correct Side, Site, Position Yes Yes Yes -Correct Procedure Yes Yes Yes -Procedure Performed Yes Yes Yes -Type of Procedure Debridement Debridement Debridement -Clinical Debridement Subcutaneous Subcutaneous Subcutaneous -Post Debridement Size (cm) - Length 1.5 1.4 1.2 -Post Debridement Size (cm) - Width 1.1 1.1 0.8 -Post Debridement Size (cm) - Depth 0.2 0.2 0.2 -Total Square Cm 1.65 1.54 0.96 -Wound/Ulcer Outcome Not Healed Not Healed Not Healed -Ulcer Cleansing Rinsed/ Rinsed/ Rinsed/ Irrigated with Irrigated with Irrigated with Saline Saline Saline -Foul Odor after Cleansing No No -Bioengineered Tissue No No -Bleeding Controlled with Pressure Pressure Pressure -Offloading No No No -Treatment Response Procedure Procedure Procedure Tolerated Well Tolerated Well Tolerated Well #1 RIGHT LATERAL LE -Time 17:02 16:44 16:12 -Correct Patient Yes Yes Yes -Correct Side, Site, Position Yes Yes Yes -Correct Procedure Yes Yes Yes -Procedure Performed Yes Yes Yes -Type of Procedure Debridement Debridement Debridement -Clinical Debridement Subcutaneous Subcutaneous Subcutaneous -Post Debridement Size (cm) - Length 0.6 0.5 0.2 -Post Debridement Size (cm) - Width 0.4 0.4 0.2 -Post Debridement Size (cm) - Depth 0.1 0.1 0.1 -Total Square Cm 0.24 0.20 0.04 -Wound/Ulcer Outcome Not Healed Not Healed Not Healed -Ulcer Cleansing Rinsed/ Rinsed/ Rinsed/ Irrigated with Irrigated with Irrigated with Saline Saline Saline -Foul Odor after Cleansing No No No -Bioengineered Tissue No No No -Bleeding Controlled with Pressure Pressure Pressure -Offloading No No No -Treatment Response Procedure Procedure Procedure Tolerated Well Tolerated Well Tolerated Well Pain Scale: 0-10 Numeric Is Patient Pain Free? Yes Yes Wound debrided: right rockwell Laterality: Right Type of Debridement: Excisional debridement Anesthesia Used: 4% Lidocaine Solution, 5% Lidocaine Gel, Cetacaine - 2% Depth: Down to and including healthy tissue, in the subcutaneous layer Percentage of wound debrided: 100 Instrument Used: 5mm curette Tissue Removed: yellow slough, devitalized tissue Severity: Fat Layer Exposed Amount of bleeding with debridement: Mild Bleeding Controlled with: Compression and gauze Patient tolerated procedure well - Additional Wound Wound debrided: right lateral LE Laterality: Right Type of Debridement: Excisional debridement Anesthesia Used: 4% Lidocaine Solution, 5% Lidocaine Gel Depth: Down to and including healthy tissue, in the subcutaneous layer Percentage of wound debrided: 100 Instrument Used: 5mm curette Tissue Removed: yellow slough, devitalized tissue Severity: Fat Layer Exposed Amount of bleeding with debridement: Mild Bleeding Controlled with: Compression and gauze Patient tolerated procedure: Patient tolerated procedure well Assessment/Plan Active Problems (Last Reviewed 02/25/18 @ 08:51 by Jayla Castro) Basal cell carcinoma (BCC) in situ of skin (Chronic) Nonhealing surgical wound (Chronic) 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 Edema lower extremities. Peripheral vascular disease Plan: Jackie's legs were evaluated and debrided today. She has had improvement in her wounds. Will continue to use promogran and a more aggressive debridement was able to be completed today using injected local anesthetic with lidocaine 2%. Will add venous stasis pad over the rockwell wound. She has undergone 6 weeks of conventional wound care treatment since her surgical wound dehisced. She would benefit from advanced wound care treatment with Apligraf, nushield or puraply to heal her wound. Apply Promogran to wound bases cover with Adaptic gauze and Betsey or Coban and venous stasis pad. Single layer Tubigrip to the right leg. Encouraged to increase protein intake. Follow-up in 1 week
[2018-10-20 16:26] VITALS: BP 147/89; PULSE 69; RESP 16; TEMP 36; BMI 28.7
--- NOTE | 2018-10-20 17:50 | PCM.WC.PN ---
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 [facility] removed 3 areas one on her thigh and 2 on her right lower extremity for melanoma by Mohs surgery. The thigh healed well but the lower extremity absorbable suture became infected and were removed. Now patient has 2 open areas that are having a hard time healing with slough and now erythematous around the edge. Patient was sent to us from her primary care doctor that after she was concerned with infection. He placed her on Keflex and she has been taking that but is still concerned for infection. She saw Courtney Ojeda for an initial evaluation and a wound culture was done which was negative. She has been using Aquacel and tubigrips and tolerating this well but does note that it is difficult to get the Aquacel off of her wounds. Vascular studies were done by Drs. Ramirez and she does have some connecting problems in her saphenous veins of the right leg and surgical procedure was planned. Patient then had problems with the cancer and had to put that on hold. Progress of Wound: Courtesy visit for Dr. Hernandez. Jackie is here for follow up of nonhealing surgical wounds s/p Mohs surgery for melanoma and BCC and SCC. She tolerated treatment with Promogran and had some improvement in the size of her wounds. Her right lateral lower extremity wound is now healed. Epifix was denied by her insurance due to the wound not being a venous or DFU. - Physical Exam Vital Signs Temp Pulse Resp BP 96.8 F L 69 16 147/89 H 10/20/18 16:26 10/20/18 16:26 10/20/18 16:26 10/20/18 16:26 General: Alert, Oriented x3, Cooperative, No apparent distress HEENT: Atraumatic Lungs: Clear to auscultation Cardiovascular: Regular rate Abdomen: Soft, Non Tender Extremities: No clubbing, No cyanosis, Edema - generalized BLLE edema, Peripheral Pulses Normal Skin: Ulcer/ Wound - Ulceration to right anterior lower extremity with adherent slough to wound bed, periwound bed slightly erythematous however no other signs of infection at this time. Wound Measurements and Assessment WC - Nurse 1 - General Ulcer Measurement Start: 09/30/18 15:56 Freq: Status: Active Protocol: Activity Type Activity Date Activity User E-Sign Co-Sign Detail Recorded Client Recorded Date Recorded By Document 10/20/18 16:26 DV [id number] 10/20/18 16:39 DV 10/20/18 16:26 Wound Center Nurse 1 [Ulcer Assessment] #2 RIGHT R[place] -Combined with other wound No -Current Size (cm) - Length 1.1 -Current Size (cm) - Width 1.0 -Current Size (cm) - Depth 0.2 -Total Square Cm 1.10 -Date of Last Picture (Recall this 10/20/18 field) -Photo Taken Yes -Tunneling No -Undermining/Tunneling No -Circular Undermining No -Classification - Thickness Full Thickness without Exposed Support Structure -Exudate Amt Large -Exudate Type Serosanguineous -Wound Margin Flat & Intact -Granulation Amt None Present (0 %) -Granulation Quality N/A -Slough/Fibrin No -Necrosis Amt Medium (34-66%) -Necrotic Tissue Type Adherent Slough -Structure Exposed None/Limited to Skin Breakdown -Texture (Sandra-wound Skin Appearance) Assessed -Color (Sandra-wound Skin Appearance) Assessed -Temperature (Sandra-wound Skin No Abnormality Appearance) (Pt Warm) -Tenderness on Palpation (Sandra-wound No Skin Appearance) -Ulcer Cleansing Rinsed/ Irrigated with Saline -Foul Odor after Cleansing No -Anesthetic Used 4% Lidocaine Solution #1 RIGHT LATERAL LE -Combined with other wound No -Current Size (cm) - Length 0.1 -Current Size (cm) - Width 0.1 -Current Size (cm) - Depth 0.1 -Total Square Cm 0.01 -Date of Last Picture (Recall this 10/20/18 field) -Photo Taken Yes -Epithelialization Large 67-100% -Tunneling No -Undermining/Tunneling No -Circular Undermining No -Classification - Thickness Full Thickness without Exposed Support Structure -Wound Margin Indistinct, Non -Visible -Granulation Amt None Present (0 %) -Granulation Quality N/A -Slough/Fibrin No -Structure Exposed N/A -Texture (Sandra-wound Skin Appearance) Assessed Scarring -Moisture (Sandra-wound Skin Appearance No Abnormality ) Assessed -Color (Sandra-wound Skin Appearance) No Abnormality Assessed -Temperature (Sandra-wound Skin No Abnormality Appearance) (Pt Warm) -Tenderness on Palpation (Sandra-wound No Skin Appearance) -Foul Odor after Cleansing No WC - Nurse 2 - General Ulcer CM Notes Start: 09/30/18 15:56 Freq: Status: Active Protocol: Activity Type Activity Date Activity User E-Sign Co-Sign Detail Recorded Client Recorded Date Recorded By Document 10/20/18 16:45 AN [id number] 10/20/18 16:47 AN 10/20/18 16:45 Wound Center Nurse 2 [Procedure/Treatment] #2 RIGHT R[place] -Time 16:46 -Correct Patient Yes -Correct Side, Site, Position Yes -Correct Procedure Yes -Procedure Performed Yes -Type of Procedure Debridement -Clinical Debridement Subcutaneous -Post Debridement Size (cm) - Length 1 -Post Debridement Size (cm) - Width 0.8 -Post Debridement Size (cm) - Depth 0.2 -Total Square Cm 0.8 -Treatment Response Procedure Tolerated Well [See Physician Procedure note for Specifics] Pain Scale: 0-10 Numeric [Pain] -Is Patient Pain Free? Yes Neurological: Neuro grossly intact Psych/Mental Status: Normal Affect, Appropriate, Alert and oriented to time, place, person, mood and affect Debridement Note Post-Debridement Measurements/Treatment WC - Nurse 2 - General Ulcer CM Notes Start: 09/30/18 15:56 Freq: Status: Active Protocol: Activity Type Activity Date Activity User E-Sign Co-Sign Detail Recorded Client Recorded Date Recorded By Document 09/30/18 17:01 DV [id number] 09/30/18 17:11 DV Document 10/07/18 16:43 DV [id number] 10/07/18 16:48 DV Document 10/14/18 16:11 DV [id number] 10/14/18 16:14 DV Document 10/20/18 16:45 AN [id number] 10/20/18 16:47 AN 09/30/18 10/07/18 10/14/18 17:01 16:43 16:11 Wound Center Nurse 2 #2 RIGHT R[place] -Time 17:04 16:43 16:11 -Correct Patient Yes Yes Yes -Correct Side, Site, Position Yes Yes Yes -Correct Procedure Yes Yes Yes -Procedure Performed Yes Yes Yes -Type of Procedure Debridement Debridement Debridement -Clinical Debridement Subcutaneous Subcutaneous Subcutaneous -Post Debridement Size (cm) - Length 1.5 1.4 1.2 -Post Debridement Size (cm) - Width 1.1 1.1 0.8 -Post Debridement Size (cm) - Depth 0.2 0.2 0.2 -Total Square Cm 1.65 1.54 0.96 -Wound/Ulcer Outcome Not Healed Not Healed Not Healed -Ulcer Cleansing Rinsed/ Rinsed/ Rinsed/ Irrigated with Irrigated with Irrigated with Saline Saline Saline -Foul Odor after Cleansing No No -Bioengineered Tissue No No -Bleeding Controlled with Pressure Pressure Pressure -Offloading No No No -Treatment Response Procedure Procedure Procedure Tolerated Well Tolerated Well Tolerated Well #1 RIGHT LATERAL LE -Time 17:02 16:44 16:12 -Correct Patient Yes Yes Yes -Correct Side, Site, Position Yes Yes Yes -Correct Procedure Yes Yes Yes -Procedure Performed Yes Yes Yes -Type of Procedure Debridement Debridement Debridement -Clinical Debridement Subcutaneous Subcutaneous Subcutaneous -Post Debridement Size (cm) - Length 0.6 0.5 0.2 -Post Debridement Size (cm) - Width 0.4 0.4 0.2 -Post Debridement Size (cm) - Depth 0.1 0.1 0.1 -Total Square Cm 0.24 0.20 0.04 -Wound/Ulcer Outcome Not Healed Not Healed Not Healed -Ulcer Cleansing Rinsed/ Rinsed/ Rinsed/ Irrigated with Irrigated with Irrigated with Saline Saline Saline -Foul Odor after Cleansing No No No -Bioengineered Tissue No No No -Bleeding Controlled with Pressure Pressure Pressure -Offloading No No No -Treatment Response Procedure Procedure Procedure Tolerated Well Tolerated Well Tolerated Well Pain Scale: 0-10 Numeric Is Patient Pain Free? Yes Yes 10/20/18 16:45 Wound Center Nurse 2 #2 RIGHT R[place] -Time 16:46 -Correct Patient Yes -Correct Side, Site, Position Yes -Correct Procedure Yes -Procedure Performed Yes -Type of Procedure Debridement -Clinical Debridement Subcutaneous -Post Debridement Size (cm) - Length 1 -Post Debridement Size (cm) - Width 0.8 -Post Debridement Size (cm) - Depth 0.2 -Total Square Cm 0.8 -Wound/Ulcer Outcome -Ulcer Cleansing -Foul Odor after Cleansing -Bioengineered Tissue -Bleeding Controlled with -Offloading -Treatment Response Procedure Tolerated Well #1 RIGHT LATERAL LE -Time -Correct Patient -Correct Side, Site, Position -Correct Procedure -Procedure Performed -Type of Procedure -Clinical Debridement -Post Debridement Size (cm) - Length -Post Debridement Size (cm) - Width -Post Debridement Size (cm) - Depth -Total Square Cm -Wound/Ulcer Outcome -Ulcer Cleansing -Foul Odor after Cleansing -Bioengineered Tissue -Bleeding Controlled with -Offloading -Treatment Response Pain Scale: 0-10 Numeric Is Patient Pain Free? Yes Wound debrided: Right anterior lower extremity ulceration Laterality: Right Type of Debridement: Excisional debridement Anesthesia Used: 5% Lidocaine Gel, - - 2 mL's of 1% lidocaine was injected to wound bed prior to debridement after cleansing the site with Betadine, patient tolerated well Depth: in the subcutaneous layer Percentage of wound debrided: 100 Instrument Used: 3mm curette Tissue Removed: Slough and devitalized tissue Severity: Fat Layer Exposed Amount of bleeding with debridement: Mild Bleeding Controlled with: Pressure Patient tolerated procedure well Assessment/Plan Active Problems (Last Reviewed 02/25/18 @ 08:51 by Jayla Castro) Basal cell carcinoma (BCC) in situ of skin (Chronic) Nonhealing surgical wound (Chronic) Peripheral vascular disease of lower extremity (Chronic) 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 Edema lower extremities. Peripheral vascular disease Plan: Courtesy visit for Dr. Hernandez.Jackie's legs were evaluated and debrided today. She has had improvement in her wounds with healing to the right lateral ulcer. Will continue to use promogran and a more aggressive debridement was able to be completed today using injected local anesthetic with lidocaine 1%. Will add venous stasis pad over the rockwell wound. She has undergone 6 weeks of conventional wound care treatment since her surgical wound dehisced. She would benefit from advanced wound care treatment with Apligraf, nushield or puraply to heal her wound. Apply Promogran to wound bases cover with Adaptic gauze and Betsey or Coban and venous stasis pad. Single layer Tubigrip to the right leg. Encouraged to increase protein intake. Follow-up in 1 week Code Visit [id number]: [id number] Mena subq tissue 20 sq cm/<
--- NOTE | 2018-10-20 17:55 | PN.PCM_ITS ---
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 [facility] removed 3 areas one on her thigh and 2 on her right lower extremity for melanoma by Mohs surgery. The thigh healed well but the lower extremity absorbable suture became infected and were removed. Now patient has 2 open areas that are having a hard time healing with slough and now erythematous around the edge. Patient was sent to us from her primary care doctor that after she was concerned with infection. He placed her on Keflex and she has been taking that but is still concerned for infection. She saw Courtney Ojeda for an initial evaluation and a wound culture was done which was negative. She has been using Aquacel and tubigrips and tolerating this well but does note that it is difficult to get the Aquacel off of her wounds. Vascular studies were done by Drs. Ramirez and she does have some connecting problems in her saphenous veins of the right leg and surgical procedure was planned. Patient then had problems with the cancer and had to put that on hold. Progress of Wound: Courtesy visit for Dr. Hernandez. Jackie is here for follow up of nonhealing surgical wounds s/p Mohs surgery for melanoma and BCC and SCC. She tolerated treatment with Promogran and had some improvement in the size of her wounds. Her right lateral lower extremity wound is now healed. Epifix was denied by her insurance due to the wound not being a venous or DFU. - Physical Exam Vital Signs Temp Pulse Resp BP 96.8 F L 69 16 147/89 H 10/20/18 16:26 10/20/18 16:26 10/20/18 16:26 10/20/18 16:26 General: Alert, Oriented x3, Cooperative, No apparent distress HEENT: Atraumatic Lungs: Clear to auscultation Cardiovascular: Regular rate Abdomen: Soft, Non Tender Extremities: No clubbing, No cyanosis, Edema - generalized BLLE edema, Peripheral Pulses Normal Skin: Ulcer/ Wound - Ulceration to right anterior lower extremity with adherent slough to wound bed, periwound bed slightly erythematous however no other signs of infection at this time. Wound Measurements and Assessment WC - Nurse 1 - General Ulcer Measurement Start: 09/30/18 15:56 Freq: Status: Active Protocol: Activity Type Activity Date Activity User E-Sign Co-Sign Detail Recorded Client Recorded Date Recorded By Document 10/20/18 16:26 DV [id number] 10/20/18 16:39 DV 10/20/18 16:26 Wound Center Nurse 1 [Ulcer Assessment] #2 RIGHT ROCKWELL -Combined with other wound No -Current Size (cm) - Length 1.1 -Current Size (cm) - Width 1.0 -Current Size (cm) - Depth 0.2 -Total Square Cm 1.10 -Date of Last Picture (Recall this 10/20/18 field) -Photo Taken Yes -Tunneling No -Undermining/Tunneling No -Circular Undermining No -Classification - Thickness Full Thickness without Exposed Support Structure -Exudate Amt Large -Exudate Type Serosanguineous -Wound Margin Flat & Intact -Granulation Amt None Present (0 %) -Granulation Quality N/A -Slough/Fibrin No -Necrosis Amt Medium (34-66%) -Necrotic Tissue Type Adherent Slough -Structure Exposed None/Limited to Skin Breakdown -Texture (Sandra-wound Skin Appearance) Assessed -Color (Sandra-wound Skin Appearance) Assessed -Temperature (Sandra-wound Skin No Abnormality Appearance) (Pt Warm) -Tenderness on Palpation (Sandra-wound No Skin Appearance) -Ulcer Cleansing Rinsed/ Irrigated with Saline -Foul Odor after Cleansing No -Anesthetic Used 4% Lidocaine Solution #1 RIGHT LATERAL LE -Combined with other wound No -Current Size (cm) - Length 0.1 -Current Size (cm) - Width 0.1 -Current Size (cm) - Depth 0.1 -Total Square Cm 0.01 -Date of Last Picture (Recall this 10/20/18 field) -Photo Taken Yes -Epithelialization Large 67-100% -Tunneling No -Undermining/Tunneling No -Circular Undermining No -Classification - Thickness Full Thickness without Exposed Support Structure -Wound Margin Indistinct, Non -Visible -Granulation Amt None Present (0 %) -Granulation Quality N/A -Slough/Fibrin No -Structure Exposed N/A -Texture (Asndra-wound Skin Appearance) Assessed Scarring -Moisture (Sandra-wound Skin Appearance No Abnormality ) Assessed -Color (Sandra-wound Skin Appearance) No Abnormality Assessed -Temperature (Sandra-wound Skin No Abnormality Appearance) (Pt Warm) -Tenderness on Palpation (Sandra-wound No Skin Appearance) -Foul Odor after Cleansing No WC - Nurse 2 - General Ulcer CM Notes Start: 09/30/18 15:56 Freq: Status: Active Protocol: Activity Type Activity Date Activity User E-Sign Co-Sign Detail Recorded Client Recorded Date Recorded By Document 10/20/18 16:45 AN [id number] 10/20/18 16:47 AN 10/20/18 16:45 Wound Center Nurse 2 [Procedure/Treatment] #2 RIGHT ROCKWELL -Time 16:46 -Correct Patient Yes -Correct Side, Site, Position Yes -Correct Procedure Yes -Procedure Performed Yes -Type of Procedure Debridement -Clinical Debridement Subcutaneous -Post Debridement Size (cm) - Length 1 -Post Debridement Size (cm) - Width 0.8 -Post Debridement Size (cm) - Depth 0.2 -Total Square Cm 0.8 -Treatment Response Procedure Tolerated Well [See Physician Procedure note for Specifics] Pain Scale: 0-10 Numeric [Pain] -Is Patient Pain Free? Yes Neurological: Neuro grossly intact Psych/Mental Status: Normal Affect, Appropriate, Alert and oriented to time, place, person, mood and affect Debridement Note Post-Debridement Measurements/Treatment WC - Nurse 2 - General Ulcer CM Notes Start: 09/30/18 15:56 Freq: Status: Active Protocol: Activity Type Activity Date Activity User E-Sign Co-Sign Detail Recorded Client Recorded Date Recorded By Document 09/30/18 17:01 DV [id number] 09/30/18 17:11 DV Document 10/07/18 16:43 DV [id number] 10/07/18 16:48 DV Document 10/14/18 16:11 DV [id number] 10/14/18 16:14 DV Document 10/20/18 16:45 AN [id number] 10/20/18 16:47 AN 09/30/18 10/07/18 10/14/18 17:01 16:43 16:11 Wound Center Nurse 2 #2 RIGHT ROCKWELL -Time 17:04 16:43 16:11 -Correct Patient Yes Yes Yes -Correct Side, Site, Position Yes Yes Yes -Correct Procedure Yes Yes Yes -Procedure Performed Yes Yes Yes -Type of Procedure Debridement Debridement Debridement -Clinical Debridement Subcutaneous Subcutaneous Subcutaneous -Post Debridement Size (cm) - Length 1.5 1.4 1.2 -Post Debridement Size (cm) - Width 1.1 1.1 0.8 -Post Debridement Size (cm) - Depth 0.2 0.2 0.2 -Total Square Cm 1.65 1.54 0.96 -Wound/Ulcer Outcome Not Healed Not Healed Not Healed -Ulcer Cleansing Rinsed/ Rinsed/ Rinsed/ Irrigated with Irrigated with Irrigated with Saline Saline Saline -Foul Odor after Cleansing No No -Bioengineered Tissue No No -Bleeding Controlled with Pressure Pressure Pressure -Offloading No No No -Treatment Response Procedure Procedure Procedure Tolerated Well Tolerated Well Tolerated Well #1 RIGHT LATERAL LE -Time 17:02 16:44 16:12 -Correct Patient Yes Yes Yes -Correct Side, Site, Position Yes Yes Yes -Correct Procedure Yes Yes Yes -Procedure Performed Yes Yes Yes -Type of Procedure Debridement Debridement Debridement -Clinical Debridement Subcutaneous Subcutaneous Subcutaneous -Post Debridement Size (cm) - Length 0.6 0.5 0.2 -Post Debridement Size (cm) - Width 0.4 0.4 0.2 -Post Debridement Size (cm) - Depth 0.1 0.1 0.1 -Total Square Cm 0.24 0.20 0.04 -Wound/Ulcer Outcome Not Healed Not Healed Not Healed -Ulcer Cleansing Rinsed/ Rinsed/ Rinsed/ Irrigated with Irrigated with Irrigated with Saline Saline Saline -Foul Odor after Cleansing No No No -Bioengineered Tissue No No No -Bleeding Controlled with Pressure Pressure Pressure -Offloading No No No -Treatment Response Procedure Procedure Procedure Tolerated Well Tolerated Well Tolerated Well Pain Scale: 0-10 Numeric Is Patient Pain Free? Yes Yes 10/20/18 16:45 Wound Center Nurse 2 #2 RIGHT ROCKWELL -Time 16:46 -Correct Patient Yes -Correct Side, Site, Position Yes -Correct Procedure Yes -Procedure Performed Yes -Type of Procedure Debridement -Clinical Debridement Subcutaneous -Post Debridement Size (cm) - Length 1 -Post Debridement Size (cm) - Width 0.8 -Post Debridement Size (cm) - Depth 0.2 -Total Square Cm 0.8 -Wound/Ulcer Outcome -Ulcer Cleansing -Foul Odor after Cleansing -Bioengineered Tissue -Bleeding Controlled with -Offloading -Treatment Response Procedure Tolerated Well #1 RIGHT LATERAL LE -Time -Correct Patient -Correct Side, Site, Position -Correct Procedure -Procedure Performed -Type of Procedure -Clinical Debridement -Post Debridement Size (cm) - Length -Post Debridement Size (cm) - Width -Post Debridement Size (cm) - Depth -Total Square Cm -Wound/Ulcer Outcome -Ulcer Cleansing -Foul Odor after Cleansing -Bioengineered Tissue -Bleeding Controlled with -Offloading -Treatment Response Pain Scale: 0-10 Numeric Is Patient Pain Free? Yes Wound debrided: Right anterior lower extremity ulceration Laterality: Right Type of Debridement: Excisional debridement Anesthesia Used: 5% Lidocaine Gel, - - 2 mL's of 1% lidocaine was injected to wound bed prior to debridement after cleansing the site with Betadine, patient tolerated well Depth: in the subcutaneous layer Percentage of wound debrided: 100 Instrument Used: 3mm curette Tissue Removed: Slough and devitalized tissue Severity: Fat Layer Exposed Amount of bleeding with debridement: Mild Bleeding Controlled with: Pressure Patient tolerated procedure well Assessment/Plan Active Problems (Last Reviewed 02/25/18 @ 08:51 by Jayla Castro) Basal cell carcinoma (BCC) in situ of skin (Chronic) Nonhealing surgical wound (Chronic) Peripheral vascular disease of lower extremity (Chronic) 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 Edema lower extremities. Peripheral vascular disease Plan: Courtesy visit for Dr. Hernandez.Jackie's legs were evaluated and debrided today. She has had improvement in her wounds with healing to the right lateral ulcer. Will continue to use promogran and a more aggressive debridement was able to be completed today using injected local anesthetic with lidocaine 1%. Will add venous stasis pad over the rockwell wound. She has undergone 6 weeks of conventional wound care treatment since her surgical wound dehisced. She would benefit from advanced wound care treatment with Apligraf, nushield or puraply to heal her wound. Apply Promogran to wound bases cover with Adaptic gauze and Betsey or Coban and venous stasis pad. Single layer Tubigrip to the right leg. Encouraged to increase protein intake. Follow-up in 1 week Code Visit [id number]: [id number] Mena subq tissue 20 sq cm/<
[2018-10-28 16:01] VITALS: BP 127/82; PULSE 91; RESP 16; TEMP 36.2; BMI 28.7
--- NOTE | 2018-10-28 18:41 | PCM.WC.PN ---
(1) Venous insufficiency of right lower extremity Status: Chronic Current Visit: Yes Code(s): I87.2 - Venous insufficiency (chronic) (peripheral) (2) Basal cell carcinoma (BCC) in situ of skin Status: Chronic Current Visit: Yes Code(s): D04.9 - Carcinoma in situ of skin, unspecified (3) Nonhealing surgical wound Status: Chronic Current Visit: Yes Qualifiers: Encounter type: subsequent encounter Qualified Code(s): T81.89XD - Other complications of procedures, not elsewhere classified, subsequent encounter Code(s): T81.89XA - Other complications of procedures, not elsewhere classified, initial encounter (4) 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 [facility] removed 3 areas one on her thigh and 2 on her right lower extremity for melanoma by Mohs surgery. The thigh healed well but the lower extremity absorbable suture became infected and were removed. Now patient has 2 open areas that are having a hard time healing with slough and now erythematous around the edge. Patient was sent to us from her primary care doctor that after she was concerned with infection. He placed her on Keflex and she has been taking that but is still concerned for infection. She saw Courtney Ojeda for an initial evaluation and a wound culture was done which was negative. She has been using Aquacel and tubigrips and tolerating this well but does note that it is difficult to get the Aquacel off of her wounds. Vascular studies were done by Drs. Ramirez and she does have some connecting problems in her saphenous veins of the right leg and surgical procedure was planned. Patient then had problems with the cancer and had to put that on hold. Progress of Wound: Jackie is here for follow up of nonhealing surgical wounds s/p Mohs surgery for melanoma and BCC and SCC. She tolerated treatment with Promogran and has improvement in the size of her wounds. She did not tolerate graham stasis pad. She has been using Aquacel Ag for the last few days and feels that it is working better than Promogran. Her right lateral lower extremity wound is now healed. Epifix was denied by her insurance due to the wound not being a venous or DFU. - Physical Exam Vital Signs Temp Pulse Resp BP 97.1 F L 91 16 127/82 H 10/28/18 16:01 10/28/18 16:01 10/28/18 16:01 10/28/18 16:01 General: Alert, Oriented x3, Cooperative, No apparent distress HEENT: Atraumatic, Normocephalic Oral: Moist Mucosa Extremities: Edema Skin: Ulcer/ Wound Wound Measurements and Assessment WC - Nurse 1 - General Ulcer Measurement Start: 09/30/18 15:56 Freq: Status: Active Protocol: Activity Type Activity Date Activity User E-Sign Co-Sign Detail Recorded Client Recorded Date Recorded By Document 10/28/18 16:01 DV [id number] 10/28/18 16:03 DV 10/28/18 16:01 Wound Center Nurse 1 [Ulcer Assessment] #2 RIGHT ROCKWELL -Combined with other wound No -Current Size (cm) - Length 0.8 -Current Size (cm) - Width 0.7 -Current Size (cm) - Depth 0.1 -Total Square Cm 0.56 -Photo Taken No -Epithelialization Small 1-33% -Tunneling No -Undermining/Tunneling No -Circular Undermining No -Classification - Thickness Full Thickness without Exposed Support Structure -Texture (Sandra-wound Skin Appearance) Assessed Scarring -Moisture (Sandra-wound Skin Appearance Assessed ) Weeping -Color (Sandra-wound Skin Appearance) Assessed Erythema -Temperature (Sandra-wound Skin No Abnormality Appearance) (Pt Warm) -Ulcer Cleansing Rinsed/ Irrigated with Saline -Foul Odor after Cleansing No -Anesthetic Used 4% Lidocaine Solution WC - Nurse 2 - General Ulcer CM Notes Start: 09/30/18 15:56 Freq: Status: Active Protocol: Activity Type Activity Date Activity User E-Sign Co-Sign Detail Recorded Client Recorded Date Recorded By Document 10/28/18 16:53 DV [id number] 10/28/18 16:55 DV 10/28/18 16:53 Wound Center Nurse 2 [Procedure/Treatment] -Time 16:54 -Correct Patient Yes -Correct Side, Site, Position Yes -Correct Procedure Yes -Procedure Performed Yes -Type of Procedure Debridement -Clinical Debridement Subcutaneous -Post Debridement Size (cm) - Length 1.0 -Post Debridement Size (cm) - Width 0.8 -Post Debridement Size (cm) - Depth 0.2 -Total Square Cm 0.80 -Wound/Ulcer Outcome Not Healed -Ulcer Cleansing Rinsed/ Irrigated with Saline -Foul Odor after Cleansing No -Bioengineered Tissue No -Bleeding Controlled with Pressure -Offloading No -Treatment Response Procedure Tolerated Well [See Physician Procedure note for Specifics] Pain Scale: 0-10 Numeric [Pain] -Is Patient Pain Free? Yes Psych/Mental Status: Normal Affect, Appropriate Debridement Note Post-Debridement Measurements/Treatment WC - Nurse 2 - General Ulcer CM Notes Start: 09/30/18 15:56 Freq: Status: Active Protocol: Activity Type Activity Date Activity User E-Sign Co-Sign Detail Recorded Client Recorded Date Recorded By Document 09/30/18 17:01 DV [id number] 09/30/18 17:11 DV Document 10/07/18 16:43 DV [id number] 10/07/18 16:48 DV Document 10/14/18 16:11 DV [id number] 10/14/18 16:14 DV Document 10/20/18 16:45 AN [id number] 10/20/18 16:47 AN Document 10/28/18 16:53 DV [id number] 10/28/18 16:55 DV 09/30/18 10/07/18 10/14/18 17:01 16:43 16:11 Wound Center Nurse 2 #2 RIGHT ROCKWELL -Time 17:04 16:43 16:11 -Correct Patient Yes Yes Yes -Correct Side, Site, Position Yes Yes Yes -Correct Procedure Yes Yes Yes -Procedure Performed Yes Yes Yes -Type of Procedure Debridement Debridement Debridement -Clinical Debridement Subcutaneous Subcutaneous Subcutaneous -Post Debridement Size (cm) - Length 1.5 1.4 1.2 -Post Debridement Size (cm) - Width 1.1 1.1 0.8 -Post Debridement Size (cm) - Depth 0.2 0.2 0.2 -Total Square Cm 1.65 1.54 0.96 -Wound/Ulcer Outcome Not Healed Not Healed Not Healed -Ulcer Cleansing Rinsed/ Rinsed/ Rinsed/ Irrigated with Irrigated with Irrigated with Saline Saline Saline -Foul Odor after Cleansing No No -Bioengineered Tissue No No -Bleeding Controlled with Pressure Pressure Pressure -Offloading No No No -Treatment Response Procedure Procedure Procedure Tolerated Well Tolerated Well Tolerated Well #1 RIGHT LATERAL LE -Time 17:02 16:44 16:12 -Correct Patient Yes Yes Yes -Correct Side, Site, Position Yes Yes Yes -Correct Procedure Yes Yes Yes -Procedure Performed Yes Yes Yes -Type of Procedure Debridement Debridement Debridement -Clinical Debridement Subcutaneous Subcutaneous Subcutaneous -Post Debridement Size (cm) - Length 0.6 0.5 0.2 -Post Debridement Size (cm) - Width 0.4 0.4 0.2 -Post Debridement Size (cm) - Depth 0.1 0.1 0.1 -Total Square Cm 0.24 0.20 0.04 -Wound/Ulcer Outcome Not Healed Not Healed Not Healed -Ulcer Cleansing Rinsed/ Rinsed/ Rinsed/ Irrigated with Irrigated with Irrigated with Saline Saline Saline -Foul Odor after Cleansing No No No -Bioengineered Tissue No No No -Bleeding Controlled with Pressure Pressure Pressure -Offloading No No No -Treatment Response Procedure Procedure Procedure Tolerated Well Tolerated Well Tolerated Well Pain Scale: 0-10 Numeric Is Patient Pain Free? Yes Yes 10/20/18 10/28/18 16:45 16:53 Wound Center Nurse 2 #2 RIGHT ROCKWELL -Time 16:46 16:54 -Correct Patient Yes Yes -Correct Side, Site, Position Yes Yes -Correct Procedure Yes Yes -Procedure Performed Yes Yes -Type of Procedure Debridement Debridement -Clinical Debridement Subcutaneous Subcutaneous -Post Debridement Size (cm) - Length 1 1.0 -Post Debridement Size (cm) - Width 0.8 0.8 -Post Debridement Size (cm) - Depth 0.2 0.2 -Total Square Cm 0.8 0.80 -Wound/Ulcer Outcome Not Healed -Ulcer Cleansing Rinsed/ Irrigated with Saline -Foul Odor after Cleansing No -Bioengineered Tissue No -Bleeding Controlled with Pressure -Offloading No -Treatment Response Procedure Procedure Tolerated Well Tolerated Well #1 RIGHT LATERAL LE -Time -Correct Patient -Correct Side, Site, Position -Correct Procedure -Procedure Performed -Type of Procedure -Clinical Debridement -Post Debridement Size (cm) - Length -Post Debridement Size (cm) - Width -Post Debridement Size (cm) - Depth -Total Square Cm -Wound/Ulcer Outcome -Ulcer Cleansing -Foul Odor after Cleansing -Bioengineered Tissue -Bleeding Controlled with -Offloading -Treatment Response Pain Scale: 0-10 Numeric Is Patient Pain Free? Yes Yes Wound debrided: right rockwell Laterality: Right Type of Debridement: Excisional debridement Anesthesia Used: 4% Lidocaine Solution, 5% Lidocaine Gel, Cetacaine - 1% Depth: Down to and including healthy tissue, in the subcutaneous layer Percentage of wound debrided: 100 Instrument Used: 5mm curette Tissue Removed: yellow slough, devitalized tissue Severity: Fat Layer Exposed Amount of bleeding with debridement: Mild Bleeding Controlled with: Compression and gauze Patient tolerated procedure well Assessment/Plan Active Problems (Last Reviewed 02/25/18 @ 08:51 by Jayla Castro) Basal cell carcinoma (BCC) in situ of skin (Chronic) Nonhealing surgical wound (Chronic) Peripheral vascular disease of lower extremity (Chronic) 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 Edema lower extremities. Peripheral vascular disease Plan: Jackie's wounds were evaluated and debrided today. She has had improvement in her wounds with healing to the right lateral ulcer. Will continue to use Aquacel Ag and a more aggressive debridement was able to be completed today using injected local anesthetic with lidocaine 1%. Apply Aquacel Ag to wound base, cover with Adaptic, gauze and Betsey or Coban. Single layer Tubigrip to the right leg. Encouraged to increase protein intake. Follow-up in 1 week
--- NOTE | 2018-10-28 18:46 | PN.PCM_ITS ---
(1) Venous insufficiency of right lower extremity Status: Chronic Current Visit: Yes Code(s): I87.2 - Venous insufficiency (chronic) (peripheral) (2) Basal cell carcinoma (BCC) in situ of skin Status: Chronic Current Visit: Yes Code(s): D04.9 - Carcinoma in situ of skin, unspecified (3) Nonhealing surgical wound Status: Chronic Current Visit: Yes Qualifiers: Encounter type: subsequent encounter Qualified Code(s): T81.89XD - Other complications of procedures, not elsewhere classified, subsequent encounter Code(s): T81.89XA - Other complications of procedures, not elsewhere classified, initial encounter (4) 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 [facility] removed 3 areas one on her thigh and 2 on her right lower extremity for melanoma by Mohs surgery. The thigh healed well but the lower extremity absorbable suture became infected and were removed. Now patient has 2 open areas that are having a hard time healing with slough and now erythematous around the edge. Patient was sent to us from her primary care doctor that after she was concerned with infection. He placed her on Keflex and she has been taking that but is still concerned for infection. She saw Courtney Ojeda for an initial evaluation and a wound culture was done which was negative. She has been using Aquacel and tubigrips and tolerating this well but does note that it is difficult to get the Aquacel off of her wounds. Vascular studies were done by Drs. Ramirez and she does have some connecting problems in her saphenous veins of the right leg and surgical procedure was planned. Patient then had problems with the cancer and had to put that on hold. Progress of Wound: Jackie is here for follow up of nonhealing surgical wounds s/p Mohs surgery for melanoma and BCC and SCC. She tolerated treatment with Promogran and has improvement in the size of her wounds. She did not tolerate graham stasis pad. She has been using Aquacel Ag for the last few days and feels that it is working better than Promogran. Her right lateral lower extremity woun d is now healed. Epifix was denied by her insurance due to the wound not being a venous or DFU. - Physical Exam Vital Signs Temp Pulse Resp BP 97.1 F L 91 16 127/82 H 10/28/18 16:01 10/28/18 16:01 10/28/18 16:01 10/28/18 16:01 General: Alert, Oriented x3, Cooperative, No apparent distress HEENT: Atraumatic, Normocephalic Oral: Moist Mucosa Extremities: Edema Skin: Ulcer/ Wound Wound Measurements and Assessment WC - Nurse 1 - General Ulcer Measurement Start: 09/30/18 15:56 Freq: Status: Active Protocol: Activity Type Activity Date Activity User E-Sign Co-Sign Detail Recorded Client Recorded Date Recorded By Document 10/28/18 16:01 DV [id number] 10/28/18 16:03 DV 10/28/18 16:01 Wound Center Nurse 1 [Ulcer Assessment] #2 RIGHT ROCKWELL -Combined with other wound No -Current Size (cm) - Length 0.8 -Current Size (cm) - Width 0.7 -Current Size (cm) - Depth 0.1 -Total Square Cm 0.56 -Photo Taken No -Epithelialization Small 1-33% -Tunneling No -Undermining/Tunneling No -Circular Undermining No -Classification - Thickness Full Thickness without Exposed Support Structure -Texture (Sandra-wound Skin Appearance) Assessed Scarring -Moisture (Sandra-wound Skin Appearance Assessed ) Weeping -Color (Sandra-wound Skin Appearance) Assessed Erythema -Temperature (Sandra-wound Skin No Abnormality Appearance) (Pt Warm) -Ulcer Cleansing Rinsed/ Irrigated with Saline -Foul Odor after Cleansing No -Anesthetic Used 4% Lidocaine Solution - Nurse 2 - General Ulcer CM Notes Start: 09/30/18 15:56 Freq: Status: Active Protocol: Activity Type Activity Date Activity User E-Sign Co-Sign Detail Recorded Client Recorded Date Recorded By Document 10/28/18 16:53 DV [id number] 10/28/18 16:55 DV 10/28/18 16:53 Wound Center Nurse 2 [Procedure/Treatment] -Time 16:54 -Correct Patient Yes -Correct Side, Site, Position Yes -Correct Procedure Yes -Procedure Performed Yes -Type of Procedure Debridement -Clinical Debridement Subcutaneous -Post Debridement Size (cm) - Length 1.0 -Post Debridement Size (cm) - Width 0.8 -Post Debridement Size (cm) - Depth 0.2 -Total Square Cm 0.80 -Wound/Ulcer Outcome Not Healed -Ulcer Cleansing Rinsed/ Irrigated with Saline -Foul Odor after Cleansing No -Bioengineered Tissue No -Bleeding Controlled with Pressure -Offloading No -Treatment Response Procedure Tolerated Well [See Physician Procedure note for Specifics] Pain Scale: 0-10 Numeric [Pain] -Is Patient Pain Free? Yes Psych/Mental Status: Normal Affect, Appropriate Debridement Note Post-Debridement Measurements/Treatment WC - Nurse 2 - General Ulcer CM Notes Start: 09/30/18 15:56 Freq: Status: Active Protocol: Activity Type Activity Date Activity User E-Sign Co-Sign Detail Recorded Client Recorded Date Recorded By Document 09/30/18 17:01 DV [id number] 09/30/18 17:11 DV Document 10/07/18 16:43 DV [id number] 10/07/18 16:48 DV Document 10/14/18 16:11 DV [id number] 10/14/18 16:14 DV Document 10/20/18 16:45 AN [id number] 10/20/18 16:47 AN Document 10/28/18 16:53 DV [id number] 10/28/18 16:55 DV 09/30/18 10/07/18 10/14/18 17:01 16:43 16:11 Wound Center Nurse 2 #2 RIGHT ROCKWELL -Time 17:04 16:43 16:11 -Correct Patient Yes Yes Yes -Correct Side, Site, Position Yes Yes Yes -Correct Procedure Yes Yes Yes -Procedure Performed Yes Yes Yes -Type of Procedure Debridement Debridement Debridement -Clinical Debridement Subcutaneous Subcutaneous Subcutaneous -Post Debridement Size (cm) - Length 1.5 1.4 1.2 -Post Debridement Size (cm) - Width 1.1 1.1 0.8 -Post Debridement Size (cm) - Depth 0.2 0.2 0.2 -Total Square Cm 1.65 1.54 0.96 -Wound/Ulcer Outcome Not Healed Not Healed Not Healed -Ulcer Cleansing Rinsed/ Rinsed/ Rinsed/ Irrigated with Irrigated with Irrigated with Saline Saline Saline -Foul Odor after Cleansing No No -Bioengineered Tissue No No -Bleeding Controlled with Pressure Pressure Pressure -Offloading No No No -Treatment Response Procedure Procedure Procedure Tolerated Well Tolerated Well Tolerated Well #1 RIGHT LATERAL LE -Time 17:02 16:44 16:12 -Correct Patient Yes Yes Yes -Correct Side, Site, Position Yes Yes Yes -Correct Procedure Yes Yes Yes -Procedure Performed Yes Yes Yes -Type of Procedure Debridement Debridement Debridement -Clinical Debridement Subcutaneous Subcutaneous Subcutaneous -Post Debridement Size (cm) - Length 0.6 0.5 0.2 -Post Debridement Size (cm) - Width 0.4 0.4 0.2 -Post Debridement Size (cm) - Depth 0.1 0.1 0.1 -Total Square Cm 0.24 0.20 0.04 -Wound/Ulcer Outcome Not Healed Not Healed Not Healed -Ulcer Cleansing Rinsed/ Rinsed/ Rinsed/ Irrigated with Irrigated with Irrigated with Saline Saline Saline -Foul Odor after Cleansing No No No -Bioengineered Tissue No No No -Bleeding Controlled with Pressure Pressure Pressure -Offloading No No No -Treatment Response Procedure Procedure Procedure Tolerated Well Tolerated Well Tolerated Well Pain Scale: 0-10 Numeric Is Patient Pain Free? Yes Yes 10/20/18 10/28/18 16:45 16:53 Wound Center Nurse 2 #2 RIGHT ROCKWELL -Time 16:46 16:54 -Correct Patient Yes Yes -Correct Side, Site, Position Yes Yes -Correct Procedure Yes Yes -Procedure Performed Yes Yes -Type of Procedure Debridement Debridement -Clinical Debridement Subcutaneous Subcutaneous -Post Debridement Size (cm) - Length 1 1.0 -Post Debridement Size (cm) - Width 0.8 0.8 -Post Debridement Size (cm) - Depth 0.2 0.2 -Total Square Cm 0.8 0.80 -Wound/Ulcer Outcome Not Healed -Ulcer Cleansing Rinsed/ Irrigated with Saline -Foul Odor after Cleansing No -Bioengineered Tissue No -Bleeding Controlled with Pressure -Offloading No -Treatment Response Procedure Procedure Tolerated Well Tolerated Well #1 RIGHT LATERAL LE -Time -Correct Patient -Correct Side, Site, Position -Correct Procedure -Procedure Performed -Type of Procedure -Clinical Debridement -Post Debridement Size (cm) - Length -Post Debridement Size (cm) - Width -Post Debridement Size (cm) - Depth -Total Square Cm -Wound/Ulcer Outcome -Ulcer Cleansing -Foul Odor after Cleansing -Bioengineered Tissue -Bleeding Controlled with -Offloading -Treatment Response Pain Scale: 0-10 Numeric Is Patient Pain Free? Yes Yes Wound debrided: right rockwell Laterality: Right Type of Debridement: Excisional debridement Anesthesia Used: 4% Lidocaine Solution, 5% Lidocaine Gel, Cetacaine - 1% Depth: Down to and including healthy tissue, in the subcutaneous layer Percentage of wound debrided: 100 Instrument Used: 5mm curette Tissue Removed: yellow slough, devitalized tissue Severity: Fat Layer Exposed Amount of bleeding with debridement: Mild Bleeding Controlled with: Compression and gauze Patient tolerated procedure well Assessment/Plan Active Problems (Last Reviewed 02/25/18 @ 08:51 by Jayla Castro) Basal cell carcinoma (BCC) in situ of skin (Chronic) Nonhealing surgical wound (Chronic) Peripheral vascular disease of lower extremity (Chronic) 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 Edema lower ext remities. Peripheral vascular disease Plan: Jackie's wounds were evaluated and debrided today. She has had improvement in her wounds with healing to the right lateral ulcer. Will continue to use Aquacel Ag and a more aggressive debridement was able to be completed today using injected local anesthetic with lidocaine 1%. Apply Aquacel Ag to wound base, cover with Adaptic, gauze and Betsey or Coban. Single layer Tubigrip to the right leg. Encouraged to increase protein intake. Follow-up in 1 week
== END 2018-10-30 23:59 ==
LOC: WC 15:30
PROVIDERS: Family Provider Family Medicine; PCP Family Medicine; Visit Provider Family Medicine
DX: I73.9 Peripheral vascular disease, unspecified (principal); R60.0 Localized edema; T81.89XA Other complications of procedures, not elsewhere classified, initial encounter; Y83.8 Other surgical procedures as the cause of abnormal reaction of the patient, or of later complication, without mention of misadventure at the time of the procedure; C43.9 Malignant melanoma of skin, unspecified; D04.9 Carcinoma in situ of skin, unspecified
CPT/HCPCS: 11042; 11045

== ENCOUNTER → 2018-11-03 16:23 | Outpatient (CLI) | payer OTHER, SELFPAY ==
[2018-10-28 16:01] VITALS: BMI 28.7
--- NOTE | 2018-11-03 16:28 | RAD_ITS ---
STUDY: X-RAY - LEFT ANKLE REASON FOR EXAM: Female, 63 years old. Pain TECHNIQUE: 3 view(s) of the ankle. COMPARISON: None. FINDINGS: Normal visualized distal tibia and fibula. Normal medial and lateral malleoli. Normal tibiotalar articulation and ankle mortise. Normal visualized talus and calcaneus. Calcaneal spurring. The visualized subtalar, talonavicular, calcaneocuboid and tarsal articulations are normal. Lateral soft tissue swelling. RAD/Ankle min 3 Views IMPRESSION: Lateral soft tissue swelling of the ankle. Electronically Signed: All Morales DO at 19:48 EDT Tel [phone], Service support ,
== END ==
PROVIDERS: Family Provider Family Medicine; PCP Family Medicine; Referring Provider Family Medicine; Visit Provider Family Medicine
DX: S93.402A Sprain of unspecified ligament of left ankle, initial encounter (principal)
CPT/HCPCS: 73610

== ENCOUNTER → 2018-11-12 09:21 | Outpatient (CLI) | payer OTHER, SELFPAY ==
[2018-11-11 15:33] VITALS: BMI 28.7
[2018-11-12 10:10] LABS: Absolute Lymphocyte Count 1.71 X10^3/ul (0.83-4.51); Absolute Neutrophil Count 3.8 X10^3/uL (2.0-7.7); Basophil# 0.02 X10^3/uL; Basophil% 0.3 % (0-1); Eosinophil# 0.11 X10^3/uL; Eosinophils% 1.8 % (0-5); Hematocrit 43.4 % (37-47); Hemoglobin 13.9 g/dl (12.0-15.0); Lymphocyte # 1.71 X10^3/ul (4.0); Lymphocyte % 28.1 % (19-41); Mean Corpuscular Hgb 29.1 pg (27.0-32.0); Mean Corpuscular Volume 90.8 fL (81-99); Monocyte# 0.49 X10^3/uL; Neutrophil # 3.75 X10^3/uL (2.7-7.7); Neutrophil % 61.6 % (47-70); Platelet Count 356 K/mm3 (150-450); RBC Distribution Width CV 13.7 % (11.6-14.6); RBC Distribution Width SD 44.9 fl (35.1-43.9); Red Blood Count 4.78 M/mm3 (4.2-5.4); White Blood Count 6.1 K/mm3 (4.4-11.0)
[2018-11-12 10:11] LABS: POSITIVE COUNT NO; POSITIVE DIFFERENTIAL NO; POSITIVE MORPHOLOGY NO
[2018-11-12 10:42] LABS: Alkaline Phosphatase 102 U/L (45-117); Anion Gap 4 (5-15); BUN 15 mg/dL (7-18); Calcium,Total 8.5 mg/dL (8.5-10.1); Chloride 107 mmol/L (98-107); Cholesterol 221 mg/dL (200); Creatinine, Serum 0.83 mg/dL (0.55-1.02); EST Glomerular Filtration Rate 73 mL/min (>60); Est Glom Filt Rate - Afr Amer 89 mL/min (>60); Glucose 93 mg/dL (74-106); High Density Lipoprotein 48 mg/dL; Phosphorus 2.7 mg/dL (2.5-4.9); Potassium 4.1 mmol/L (3.5-5.1); Sodium Level 143 mmol/L (136-145); Triglycerides 137 mg/dL; Very Low Density Lipoprotein 27 mg/dL (5-40)
[2018-11-12 14:32] LABS: Erythrocyte Sedimentation Rate 23 mm/hr (0-30)
== END ==
PROVIDERS: Family Provider Family Medicine; PCP Family Medicine
DX: T14.8XXA Other injury of unspecified body region, initial encounter (principal); E78.00 Pure hypercholesterolemia, unspecified; M25.50 Pain in unspecified joint
CPT/HCPCS: 36415; 80048; 80061; 84075; 84100; 85025; 85652

== ENCOUNTER 2018-11-18 15:30 | Outpatient (RCR) | payer OTHER, SELFPAY ==
[2018-10-31 01:19] VITALS: BP 127/82; PULSE 91; RESP 16; TEMP 36.2
[2018-11-04 15:44] VITALS: BP 149/100; PULSE 82; RESP 16; TEMP 36.6; BMI 28.7
--- NOTE | 2018-11-04 19:25 | PCM.WC.PN ---
(1) Melanoma of lower leg Status: Acute Current Visit: Yes Qualifiers: Laterality: right Qualified Code(s): C43.71 - Malignant melanoma of right lower limb, including hip Code(s): C43.70 - Malignant melanoma of unspecified lower limb, including hip (2) Basal cell carcinoma (BCC) in situ of skin Status: Chronic Current Visit: Yes Code(s): D04.9 - Carcinoma in situ of skin, unspecified (3) Nonhealing surgical wound Status: Chronic Current Visit: Yes Qualifiers: Encounter type: subsequent encounter Code(s): T81.89XA - Other complications of procedures, not elsewhere classified, initial encounter (4) Edema, lower extremity Status: Chronic Current Visit: Yes Code(s): R60.0 - Localized edema (5) 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 [facility] removed 3 areas one on her thigh and 2 on her right lower extremity for melanoma by Mohs surgery. The thigh healed well but the lower extremity absorbable suture became infected and were removed. Now patient has 2 open areas that are having a hard time healing with slough and now erythematous around the edge. Patient was sent to us from her primary care doctor that after she was concerned with infection. He placed her on Keflex and she has been taking that but is still concerned for infection. She saw Courtney Ojeda for an initial evaluation and a wound culture was done which was negative. She has been using Aquacel and tubigrips and tolerating this well but does note that it is difficult to get the Aquacel off of her wounds. Vascular studies were done by Drs. Ramirez and she does have some connecting problems in her saphenous veins of the right leg and surgical procedure was planned. Patient then had problems with the cancer and had to put that on hold. Progress of Wound: Jackie is here for follow up of nonhealing surgical wounds s/p Mohs surgery for melanoma and BCC and SCC. She is tolerating Aquacel Ag and has improvement in the size of her wound. She did not tolerate venous stasis pad. Her right lateral lower extremity wound is healed. Epifix was denied by her insurance due to the wound not being a venous or DFU. - Physical Exam Vital Signs Temp Pulse Resp BP 98 F 82 16 149/100 H 11/04/18 15:44 11/04/18 15:44 11/04/18 15:44 11/04/18 15:44 General: Alert, Oriented x3, Cooperative, No apparent distress HEENT: Atraumatic, Normocephalic Oral: Moist Mucosa Extremities: Edema Skin: Ulcer/ Wound Wound Measurements and Assessment WC - Nurse 1 - General Ulcer Measurement Start: 11/04/18 15:44 Freq: Status: Active Protocol: Activity Type Activity Date Activity User E-Sign Co-Sign Detail Recorded Client Recorded Date Recorded By Document 11/04/18 15:44 VT [id number] 11/04/18 15:52 VT 11/04/18 15:44 Wound Center Nurse 1 [Ulcer Assessment] #2 RIGHT ROCKWELL -Combined with other wound No -Current Size (cm) - Length 1 -Current Size (cm) - Width 0.8 -Current Size (cm) - Depth 0.2 -Total Square Cm 0.8 -Photo Taken No -Epithelialization None Present -Tunneling No -Undermining/Tunneling No -Circular Undermining No -Exudate Amt Small -Exudate Type Purulent -Wound Margin Flat & Intact -Granulation Amt None Present (0 %) -Slough/Fibrin Yes -Necrosis Amt Large (67-100%) -Necrotic Tissue Type Adherent Slough -Texture (Sandra-wound Skin Appearance) Assessed Scarring -Moisture (Sandra-wound Skin Appearance Assessed ) Dry/Scaly -Color (Sandra-wound Skin Appearance) Assessed -Temperature (Sandra-wound Skin No Abnormality Appearance) (Pt Warm) -Tenderness on Palpation (Sandra-wound No Skin Appearance) -Ulcer Cleansing Rinsed/ Irrigated with Saline -Foul Odor after Cleansing No -Anesthetic Used 5% Lidocaine Gel [Edema Assessment] -Lower Limb Edema Present Yes -Right Calf (cm) 37.5 -Right Ankle (cm) 20.5 WC - Nurse 2 - General Ulcer CM Notes Start: 11/04/18 15:44 Freq: Status: Active Protocol: Activity Type Activity Date Activity User E-Sign Co-Sign Detail Recorded Client Recorded Date Recorded By Document 11/04/18 16:52 DV [id number] 11/04/18 16:55 DV 11/04/18 16:52 Wound Center Nurse 2 [Procedure/Treatment] #2 RIGHT ROCKWELL -Time 16:53 -Correct Patient Yes -Correct Side, Site, Position Yes -Correct Procedure Yes -Procedure Performed Yes -Type of Procedure Debridement -Clinical Debridement Subcutaneous -Post Debridement Size (cm) - Length 0.6 -Post Debridement Size (cm) - Width 0.5 -Post Debridement Size (cm) - Depth 0.1 -Total Square Cm 0.30 [See Physician Procedure note for Specifics] Psych/Mental Status: Normal Affect, Appropriate Debridement Note Post-Debridement Measurements/Treatment - Nurse 2 - General Ulcer CM Notes Start: 11/04/18 15:44 Freq: Status: Active Protocol: Activity Type Activity Date Activity User E-Sign Co-Sign Detail Recorded Client Recorded Date Recorded By Document 11/04/18 16:52 DV [id number] 11/04/18 16:55 DV 11/04/18 16:52 Wound Center Nurse 2 #2 RIGHT ROCKWE[place] -Time 16:53 -Correct Patient Yes -Correct Side, Site, Position Yes -Correct Procedure Yes -Procedure Performed Yes -Type of Procedure Debridement -Clinical Debridement Subcutaneous -Post Debridement Size (cm) - Length 0.6 -Post Debridement Size (cm) - Width 0.5 -Post Debridement Size (cm) - Depth 0.1 -Total Square Cm 0.30 Wound debrided: right rockwell Laterality: Right Type of Debridement: Excisional debridement Anesthesia Used: 4% Lidocaine Solution, 5% Lidocaine Gel, Cetacaine - 1% Depth: Down to and including healthy tissue, in the subcutaneous layer Percentage of wound debrided: 100 Instrument Used: 5mm curette Tissue Removed: yellow slough, devitalized tissue Severity: Fat Layer Exposed Amount of bleeding with debridement: Mild Bleeding Controlled with: Compression and gauze Patient tolerated procedure well Assessment/Plan Active Problems (Last Reviewed 02/25/18 @ 08:51 by Jayla Castro) Melanoma of lower leg (Acute) Basal cell carcinoma (BCC) in situ of skin (Chronic) Nonhealing surgical wound (Chronic) Edema, lower extremity (Chronic) 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 Edema lower extremities. Peripheral vascular disease Plan: Jackie's wounds were evaluated and debrided today. She has had improvement in her wound. Will continue to use Aquacel Ag and a more aggressive debridement was able to be completed today using injected local anesthetic with lidocaine 1%. Apply Aquacel Ag to wound base, cover with Adaptic, gauze and Betsey or Coban. Single layer Tubigrip to the right leg. Encouraged to increase protein intake. Follow-up in 1 week
[2018-11-11 15:33] VITALS: BP 157/94; PULSE 91; RESP 16; TEMP 35.9; BMI 28.7
--- NOTE | 2018-11-11 17:18 | PN.PCM_ITS ---
(1) Melanoma of lower leg Status: Chronic Current Visit: Yes Qualifiers: Laterality: right Qualified Code(s): C43.71 - Malignant melanoma of right lower limb, including hip Code(s): C43.70 - Malignant melanoma of unspecified lower limb, including hip (2) Basal cell carcinoma (BCC) in situ of skin Status: Chronic Current Visit: Yes Code(s): D04.9 - Carcinoma in situ of skin, unspecified (3) Nonhealing surgical wound Status: Chronic Current Visit: Yes Qualifiers: Encounter type: subsequent encounter Code(s): T81.89XA - Other complications of procedures, not elsewhere classified, initial encounter (4) Edema, lower extremity Status: Chronic Current Visit: Yes Code(s): R60.0 - Localized edema (5) 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 [facility] removed 3 areas one on her thigh and 2 on her right lower extremity for melanoma by Mohs surgery. The thigh healed well but the lower extremity absorbable suture became infected and were removed. Now patient has 2 open areas that are having a hard time healing with slough and now erythematous around the edge. Patient was sent to us from her primary care doctor that after she was concerned with infection. He placed her on Keflex and she has been taking that but is still concerned for infection. She saw Courtney Ojeda for an initial evaluation and a wound culture was done which was negative. She has been using Aquacel and tubigrips and tolerating this well but does note that it is difficult to get the Aquacel off of her wounds. Vascular studies were done by Drs. Ramirez and she does have some connecting problems in her saphenous veins of the right leg and surgical procedure was planned. Patient then had problems with the cancer and had to put that on hold. Progress of Wound: Jackie is here for follow up of nonhealing surgical wounds s/p Mohs surgery for melanoma and BCC and SCC. She is tolerating Aquacel Ag and has improvement in the size of her wound. She did not tolerate venous stasis pad. Her right lateral lower extremity wound is healed. Epifix was denied by her insurance due to the wound not being a venous or DFU. - Physical Exam Vital Signs Temp Pulse Resp BP 96.6 F L 91 16 157/94 H 11/11/18 15:33 11/11/18 15:33 11/11/18 15:33 11/11/18 15:33 General: Alert, Oriented x3, Cooperative, No apparent distress HEENT: Atraumatic, Normocephalic Oral: Moist Mucosa Extremities: Edema Skin: Ulcer/ Wound Wound Measurements and Assessment WC - Nurse 1 - General Ulcer Measurement Start: 11/04/18 15:44 Freq: Status: Active Protocol: Activity Type Activity Date Activity User E-Sign Co-Sign Detail Recorded Client Recorded Date Recorded By Document 11/11/18 15:33 [facility] [id number] 11/11/18 15:38 [facility] 11/11/18 15:33 Wound Center Nurse 1 [Ulcer Assessment] #2 RIGHT ROCKWE[place] -Combined with other wound No -Current Size (cm) - Length 0.5 -Current Size (cm) - Width 0.4 -Current Size (cm) - Depth 0.1 -Total Square Cm 0.20 -Photo Taken No -Epithelialization None Present -Tunneling No -Undermining/Tunneling No -Circular Undermining No -Exudate Amt Small -Exudate Type Serous -Wound Margin Distinct, Outline Attached -Granulation Amt Small (1-33%) -Granulation Quality Red -Slough/Fibrin Yes -Necrosis Amt Large (67-100%) -Necrotic Tissue Type Adherent Slough -Texture (Sandra-wound Skin Appearance) Assessed Scarring -Moisture (Sandra-wound Skin Appearance Assessed ) -Color (Sandra-wound Skin Appearance) Assessed Erythema -Temperature (Sandra-wound Skin No Abnormality Appearance) (Pt Warm) -Tenderness on Palpation (Sandra-wound No Skin Appearance) -Ulcer Cleansing Rinsed/ Irrigated with Saline -Foul Odor after Cleansing No -Anesthetic Used 5% Lidocaine Gel [Edema Assessment] -Lower Limb Edema Present Yes -Right Calf (cm) 38.2 -Right Ankle (cm) 21.3 - Nurse 2 - General Ulcer CM Notes Start: 11/04/18 15:44 Freq: Status: Active Protocol: Activity Type Activity Date Activity User E-Sign Co-Sign Detail Recorded Client Recorded Date Recorded By Document 11/11/18 15:48 DV [id number] 11/11/18 15:55 DV 11/11/18 15:48 Wound Center Nurse 2 [Procedure/Treatment] #2 RIGHT ROCKWELL -Time 15:49 -Correct Patient Yes -Correct Side, Site, Position Yes -Correct Procedure Yes -Procedure Performed Yes -Type of Procedure Debridement -Clinical Debridement Subcutaneous -Post Debridement Size (cm) - Length 0.6 -Post Debridement Size (cm) - Width 0.4 -Post Debridement Size (cm) - Depth 0.1 -Total Square Cm 0.24 -Wound/Ulcer Outcome Not Healed -Ulcer Cleansing Rinsed/ Irrigated with Saline -Foul Odor after Cleansing No -Bioengineered Tissue No -Bleeding Controlled with Pressure -Offloading No -Treatment Response Procedure Tolerated Well [See Physician Procedure note for Specifics] Pain Scale: 0-10 Numeric [Pain] -Is Patient Pain Free? Yes Psych/Mental Status: Normal Affect, Appropriate Debridement Note Post-Debridement Measurements/Treatment - Nurse 2 - General Ulcer CM Notes Start: 11/04/18 15:44 Freq: Status: Active Protocol: Activity Type Activity Date Activity User E-Sign Co-Sign Detail Recorded Client Recorded Date Recorded By Document 11/04/18 16:52 DV [id number] 11/04/18 16:55 DV Document 11/11/18 15:48 DV [id number] 11/11/18 15:55 DV 11/04/18 11/11/18 16:52 15:48 Wound Center Nurse 2 #2 RIGHT ROCKWELL -Time 16:53 15:49 -Correct Patient Yes Yes -Correct Side, Site, Position Yes Yes -Correct Procedure Yes Yes -Procedure Performed Yes Yes -Type of Procedure Debridement Debridement -Clinical Debridement Subcutaneous Subcutaneous -Post Debridement Size (cm) - Length 0.6 0.6 -Post Debridement Size (cm) - Width 0.5 0.4 -Post Debridement Size (cm) - Depth 0.1 0.1 -Total Square Cm 0.30 0.24 -Wound/Ulcer Outcome Not Healed -Ulcer Cleansing Rinsed/ Irrigated with Saline -Foul Odor after Cleansing No -Bioengineered Tissue No -Bleeding Controlled with Pressure -Offloading No -Treatment Response Procedure Tolerated Well Pain Scale: 0-10 Numeric Is Patient Pain Free? Yes Wound debrided: right rockwell Laterality: Right Type of Debridement: Excisional debridement Anesthesia Used: 4% Lidocaine Solution, 5% Lidocaine Gel, Cetacaine - 1% Depth: Down to and including healthy tissue, in the subcutaneous layer Percentage of wound debrided: 100 Instrument Used: 3mm curette Tissue Removed: yellow slough, devitalized tissue Severity: Fat Layer Exposed Amount of bleeding with debridement: Mild Bleeding Controlled with: Compression and gauze Patient tolerated procedure well Assessment/Plan Active Problems (Last Reviewed 02/25/18 @ 08:51 by Jayla Castro) Melanoma of lower leg (Chronic) Basal cell carcinoma (BCC) in situ of skin (Chronic) Nonhealing surgical wound (Chronic) Edema, lower extremity (Chronic) 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 Edema lower extremities. Peripheral vascular disease Plan: Jackie's wounds were evaluated and debrided today. She has had improvement in her wound. Will continue to use Aquacel Ag and a more aggressive debridement was able to be completed today using injected local anesthetic with lidocaine 1%. Apply Aquacel Ag to wound base, cover with Adaptic, gauze and Betsey or Coban. Single layer Tubigrip to the right leg. Encouraged to increase protein intake. Follow-up in 1 week
[2018-11-18 16:14] VITALS: BP 154/83; PULSE 73; RESP 16; TEMP 36.4; BMI 28.7
--- NOTE | 2018-11-18 18:35 | PCM.WC.PN ---
(1) Melanoma of lower leg Status: Chronic Current Visit: Yes Qualifiers: Laterality: right Qualified Code(s): C43.71 - Malignant melanoma of right lower limb, including hip Code(s): C43.70 - Malignant melanoma of unspecified lower limb, including hip (2) Basal cell carcinoma (BCC) in situ of skin Status: Chronic Current Visit: Yes Code(s): D04.9 - Carcinoma in situ of skin, unspecified (3) Nonhealing surgical wound Status: Chronic Current Visit: Yes Qualifiers: Encounter type: subsequent encounter Code(s): T81.89XA - Other complications of procedures, not elsewhere classified, initial encounter (4) Edema, lower extremity Status: Chronic Current Visit: Yes Code(s): R60.0 - Localized edema (5) 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 [facility] removed 3 areas one on her thigh and 2 on her right lower extremity for melanoma by Mohs surgery. The thigh healed well but the lower extremity absorbable suture became infected and were removed. Now patient has 2 open areas that are having a hard time healing with slough and now erythematous around the edge. Patient was sent to us from her primary care doctor that after she was concerned with infection. He placed her on Keflex and she has been taking that but is still concerned for infection. She saw Courtney Ojeda for an initial evaluation and a wound culture was done which was negative. She has been using Aquacel and tubigrips and tolerating this well but does note that it is difficult to get the Aquacel off of her wounds. Vascular studies were done by Drs. Ramirez and she does have some connecting problems in her saphenous veins of the right leg and surgical procedure was planned. Patient then had problems with the cancer and had to put that on hold. Progress of Wound: Jackie is here for follow up of nonhealing surgical wounds s/p Mohs surgery for melanoma and BCC and SCC. She is tolerating Aquacel Ag and has improvement in the size of her wound. She did not tolerate venous stasis pad. Her right lateral lower extremity wound is healed. Epifix was denied by her insurance due to the wound not being a venous or DFU. - Physical Exam Vital Signs Temp Pulse Resp BP 97.5 F L 73 16 154/83 H 11/18/18 16:14 11/18/18 16:14 11/18/18 16:14 11/18/18 16:14 General: Alert, Oriented x3, Cooperative, No apparent distress HEENT: Atraumatic, Normocephalic Oral: Moist Mucosa Extremities: Edema Skin: Ulcer/ Wound Wound Measurements and Assessment WC - Nurse 1 - General Ulcer Measurement Start: 11/04/18 15:44 Freq: Status: Active Protocol: Activity Type Activity Date Activity User E-Sign Co-Sign Detail Recorded Client Recorded Date Recorded By Document 11/18/18 16:14 [facility] [id number] 11/18/18 16:17 [facility] 11/18/18 16:14 Wound Center Nurse 1 [Ulcer Assessment] #2 RIGHT R[place] -Combined with other wound No -Current Size (cm) - Length 0.2 -Current Size (cm) - Width 0.2 -Current Size (cm) - Depth 0.1 -Total Square Cm 0.04 -Photo Taken No -Epithelialization Medium 34-66% -Tunneling No -Undermining/Tunneling No -Circular Undermining No -Exudate Amt Small -Exudate Type Serous -Wound Margin Flat & Intact -Granulation Amt Large (67-100%) -Granulation Quality Red -Slough/Fibrin Yes -Necrosis Amt Small (1-33%) -Necrotic Tissue Type Adherent Slough -Texture (Sandra-wound Skin Appearance) Assessed Scarring -Moisture (Sandra-wound Skin Appearance Assessed ) -Color (Sandra-wound Skin Appearance) Assessed Erythema -Temperature (Sandra-wound Skin No Abnormality Appearance) (Pt Warm) -Tenderness on Palpation (Sandra-wound No Skin Appearance) -Ulcer Cleansing Rinsed/ Irrigated with Saline -Foul Odor after Cleansing No -Anesthetic Used 5% Lidocaine Gel [Edema Assessment] -Lower Limb Edema Present Yes -Right Calf (cm) 37.5 -Right Ankle (cm) 19.5 - Nurse 2 - General Ulcer CM Notes Start: 11/04/18 15:44 Freq: Status: Active Protocol: Activity Type Activity Date Activity User E-Sign Co-Sign Detail Recorded Client Recorded Date Recorded By Document 11/18/18 17:00 DV [id number] 11/18/18 17:03 DV 11/18/18 17:00 Wound Center Nurse 2 [Procedure/Treatment] #2 RIGHT ROCKWELL -Time 17:02 -Correct Patient Yes -Correct Side, Site, Position Yes -Correct Procedure Yes -Procedure Performed Yes -Type of Procedure Debridement -Clinical Debridement Subcutaneous -Post Debridement Size (cm) - Length 0.3 -Post Debridement Size (cm) - Width 0.3 -Post Debridement Size (cm) - Depth 0.1 -Total Square Cm 0.09 -Wound/Ulcer Outcome Not Healed -Ulcer Cleansing Rinsed/ Irrigated with Saline -Foul Odor after Cleansing No -Bioengineered Tissue No -Bleeding Controlled with Pressure -Offloading No -Treatment Response Procedure Tolerated Well [See Physician Procedure note for Specifics] Pain Scale: 0-10 Numeric [Pain] -Is Patient Pain Free? Yes Psych/Mental Status: Normal Affect, Appropriate Debridement Note Post-Debridement Measurements/Treatment - Nurse 2 - General Ulcer CM Notes Start: 11/04/18 15:44 Freq: Status: Active Protocol: Activity Type Activity Date Activity User E-Sign Co-Sign Detail Recorded Client Recorded Date Recorded By Document 11/04/18 16:52 DV [id number] 11/04/18 16:55 DV Document 11/11/18 15:48 DV [id number] 11/11/18 15:55 DV Document 11/18/18 17:00 DV [id number] 11/18/18 17:03 DV 11/04/18 11/11/18 11/18/18 16:52 15:48 17:00 Wound Center Nurse 2 #2 RIGHT ROCKWELL -Time 16:53 15:49 17:02 -Correct Patient Yes Yes Yes -Correct Side, Site, Position Yes Yes Yes -Correct Procedure Yes Yes Yes -Procedure Performed Yes Yes Yes -Type of Procedure Debridement Debridement Debridement -Clinical Debridement Subcutaneous Subcutaneous Subcutaneous -Post Debridement Size (cm) - Length 0.6 0.6 0.3 -Post Debridement Size (cm) - Width 0.5 0.4 0.3 -Post Debridement Size (cm) - Depth 0.1 0.1 0.1 -Total Square Cm 0.30 0.24 0.09 -Wound/Ulcer Outcome Not Healed Not Healed -Ulcer Cleansing Rinsed/ Rinsed/ Irrigated with Irrigated with Saline Saline -Foul Odor after Cleansing No No -Bioengineered Tissue No No -Bleeding Controlled with Pressure Pressure -Offloading No No -Treatment Response Procedure Procedure Tolerated Well Tolerated Well Pain Scale: 0-10 Numeric Is Patient Pain Free? Yes Yes Wound debrided: right rockwell Laterality: Right Type of Debridement: Excisional debridement Anesthesia Used: 4% Lidocaine Solution, 5% Lidocaine Gel, Cetacaine - 1% Depth: Down to and including healthy tissue, in the subcutaneous layer Percentage of wound debrided: 100 Instrument Used: 3mm curette Tissue Removed: yellow slough, devitalized tissue Severity: Fat Layer Exposed Amount of bleeding with debridement: Mild Bleeding Controlled with: Compression and gauze Patient tolerated procedure well Assessment/Plan Active Problems (Last Reviewed 02/25/18 @ 08:51 by Jayla Castro) Melanoma of lower leg (Chronic) Basal cell carcinoma (BCC) in situ of skin (Chronic) Nonhealing surgical wound (Chronic) Edema, lower extremity (Chronic) 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 Edema lower extremities. Peripheral vascular disease Plan: Jackie's wounds were evaluated and debrided today. She has had improvement in her wound. Will continue to use Aquacel Ag and debridement was completed today using injected local anesthetic with lidocaine 1%. Apply Aquacel Ag to wound base, cover with Adaptic, gauze and Betsey or Coban. Single layer Tubigrip to the right leg. Encouraged to increase protein intake. Follow-up in 3 weeks due to scheduling conflicts and previous plans of patient.
--- NOTE | 2018-11-18 18:40 | PN.PCM_ITS ---
(1) Melanoma of lower leg Status: Chronic Current Visit: Yes Qualifiers: Laterality: right Qualified Code(s): C43.71 - Malignant melanoma of right lower limb, including hip Code(s): C43.70 - Malignant melanoma of unspecified lower limb, including hip (2) Basal cell carcinoma (BCC) in situ of skin Status: Chronic Current Visit: Yes Code(s): D04.9 - Carcinoma in situ of skin, unspecified (3) Nonhealing surgical wound Status: Chronic Current Visit: Yes Qualifiers: Encounter type: subsequent encounter Code(s): T81.89XA - Other complications of procedures, not elsewhere classified, initial encounter (4) Edema, lower extremity Status: Chronic Current Visit: Yes Code(s): R60.0 - Localized edema (5) 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 [facility] removed 3 areas one on her thigh and 2 on her right lower extremity for melanoma by Mohs surgery. The thigh healed well but the lower extremity absorbable suture became infected and were removed. Now patient has 2 open areas that are having a hard time healing with slough and now erythematous around the edge. Patient was sent to us from her primary care doctor that after she was concerned with infection. He placed her on Keflex and she has been taking that but is still concerned for infection. She saw Courtney Ojeda for an initial evaluation and a wound culture was done which was negative. She has been using Aquacel and tubigrips and tolerating this well but does note that it is difficult to get the Aquacel off of her wounds. Vascular studies were done by Drs. Ramirez and she does have some connecting problems in her saphenous veins of the right leg and surgical procedure was planned. Patient then had problems with the cancer and had to put that on hold. Progress of Wound: Jackie is here for follow up of nonhealing surgical wounds s/p Mohs surgery for melanoma and BCC and SCC. She is tolerating Aquacel Ag and has improvement in the size of her wound. She did not tolerate venous stasis pad. Her right lateral lower extremity wound is healed. Epifix was denied by her insurance due to the wound not being a venous or DFU. - Physical Exam Vital Signs Temp Pulse Resp BP 97.5 F L 73 16 154/83 H 11/18/18 16:14 11/18/18 16:14 11/18/18 16:14 11/18/18 16:14 General: Alert, Oriented x3, Cooperative, No apparent distress HEENT: Atraumatic, Normocephalic Oral: Moist Mucosa Extremities: Edema Skin: Ulcer/ Wound Wound Measurements and Assessment WC - Nurse 1 - General Ulcer Measurement Start: 11/04/18 15:44 Freq: Status: Active Protocol: Activity Type Activity Date Activity User E-Sign Co-Sign Detail Recorded Client Recorded Date Recorded By Document 11/18/18 16:14 [facility] [id number] 11/18/18 16:17 [facility] 11/18/18 16:14 Wound Center Nurse 1 [Ulcer Assessment] #2 RIGHT ROCKWELL -Combined with other wound No -Current Size (cm) - Length 0.2 -Current Size (cm) - Width 0.2 -Current Size (cm) - Depth 0.1 -Total Square Cm 0.04 -Photo Taken No -Epithelialization Medium 34-66% -Tunneling No -Undermining/Tunneling No -Circular Undermining No -Exudate Amt Small -Exudate Type Serous -Wound Margin Flat & Intact -Granulation Amt Large (67-100%) -Granulation Quality Red -Slough/Fibrin Yes -Necrosis Amt Small (1-33%) -Necrotic Tissue Type Adherent Slough -Texture (Sandra-wound Skin Appearance) Assessed Scarring -Moisture (Sandra-wound Skin Appearance Assessed ) -Color (Sandra-wound Skin Appearance) Assessed Erythema -Temperature (Sandra-wound Skin No Abnormality Appearance) (Pt Warm) -Tenderness on Palpation (Sandra-wound No Skin Appearance) -Ulcer Cleansing Rinsed/ Irrigated with Saline -Foul Odor after Cleansing No -Anesthetic Used 5% Lidocaine Gel [Edema Assessment] -Lower Limb Edema Present Yes -Right Calf (cm) 37.5 -Right Ankle (cm) 19.5 - Nurse 2 - General Ulcer CM Notes Start: 11/04/18 15:44 Freq: Status: Active Protocol: Activity Type Activity Date Activity User E-Sign Co-Sign Detail Recorded Client Recorded Date Recorded By Document 11/18/18 17:00 DV [id number] 11/18/18 17:03 DV 11/18/18 17:00 Wound Center Nurse 2 [Procedure/Treatment] #2 RIGHT ROCKWELL -Time 17:02 -Correct Patient Yes -Correct Side, Site, Position Yes -Correct Procedure Yes -Procedure Performed Yes -Type of Procedure Debridement -Clinical Debridement Subcutaneous -Post Debridement Size (cm) - Length 0.3 -Post Debridement Size (cm) - Width 0.3 -Post Debridement Size (cm) - Depth 0.1 -Total Square Cm 0.09 -Wound/Ulcer Outcome Not Healed -Ulcer Cleansing Rinsed/ Irrigated with Saline -Foul Odor after Cleansing No -Bioengineered Tissue No -Bleeding Controlled with Pressure -Offloading No -Treatment Response Procedure Tolerated Well [See Physician Procedure note for Specifics] Pain Scale: 0-10 Numeric [Pain] -Is Patient Pain Free? Yes Psych/Mental Status: Normal Affect, Appropriate Debridement Note Post-Debridement Measurements/Treatment - Nurse 2 - General Ulcer CM Notes Start: 11/04/18 15:44 Freq: Status: Active Protocol: Activity Type Activity Date Activity User E-Sign Co-Sign Detail Recorded Client Recorded Date Recorded By Document 11/04/18 16:52 DV [id number] 11/04/18 16:55 DV Document 11/11/18 15:48 DV [id number] 11/11/18 15:55 DV Document 11/18/18 17:00 DV [id number] 11/18/18 17:03 DV 11/04/18 11/11/18 11/18/18 16:52 15:48 17:00 Wound Center Nurse 2 #2 RIGHT ROCKWELL -Time 16:53 15:49 17:02 -Correct Patient Yes Yes Yes -Correct Side, Site, Position Yes Yes Yes -Correct Procedure Yes Yes Yes -Procedure Performed Yes Yes Yes -Type of Procedure Debridement Debridement Debridement -Clinical Debridement Subcutaneous Subcutaneous Subcutaneous -Post Debridement Size (cm) - Length 0.6 0.6 0.3 -Post Debridement Size (cm) - Width 0.5 0.4 0.3 -Post Debridement Size (cm) - Depth 0.1 0.1 0.1 -Total Square Cm 0.30 0.24 0.09 -Wound/Ulcer Outcome Not Healed Not Healed -Ulcer Cleansing Rinsed/ Rinsed/ Irrigated with Irrigated with Saline Saline -Foul Odor after Cleansing No No -Bioengineered Tissue No No -Bleeding Controlled with Pressure Pressure -Offloading No No -Treatment Response Procedure Procedure Tolerated Well Tolerated Well Pain Scale: 0-10 Numeric Is Patient Pain Free? Yes Yes Wound debrided: right rockwell Laterality: Right Type of Debridement: Excisional debridement Anesthesia Used: 4% Lidocaine Solution, 5% Lidocaine Gel, Cetacaine - 1% Depth: Down to and including healthy tissue, in the subcutaneous layer Percentage of wound debrided: 100 Instrument Used: 3mm curette Tissue Removed: yellow slough, devitalized tissue Severity: Fat Layer Exposed Amount of bleeding with debridement: Mild Bleeding Controlled with: Compression and gauze Patient tolerated procedure well Assessment/Plan Active Problems (Last Reviewed 02/25/18 @ 08:51 by Jayla Castro) Melanoma of lower leg (Chronic) Basal cell carcinoma (BCC) in situ of skin (Chronic) Nonhealing surgical wound (Chronic) Edema, lower extremity (Chronic) 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 Edema lower extremities. Peripheral vascular disease Plan: Jackie's wounds were evaluated and debrided today. She has had improvement in her wound. Will continue to use Aquacel Ag and debridement was completed today using injected local anesthetic with lidocaine 1%. Apply Aquacel Ag to wound base, cover with Adaptic, gauze and Betsey or Coban. Single layer Tubigrip to the right leg. Encouraged to increase protein intake. Follow-up in 3 weeks due to scheduling conflicts and previous plans of patient.
== END 2018-11-29 23:59 ==
LOC: WC 15:30
PROVIDERS: Family Provider Family Medicine; PCP Family Medicine; Visit Provider Family Medicine
DX: I73.9 Peripheral vascular disease, unspecified (principal); T81.89XA Other complications of procedures, not elsewhere classified, initial encounter; R60.0 Localized edema; Y83.8 Other surgical procedures as the cause of abnormal reaction of the patient, or of later complication, without mention of misadventure at the time of the procedure; C43.9 Malignant melanoma of skin, unspecified; D04.9 Carcinoma in situ of skin, unspecified; I87.2 Venous insufficiency (chronic) (peripheral)
CPT/HCPCS: 11042

== ENCOUNTER 2018-12-09 14:19 | Outpatient (RCR) | payer OTHER, SELFPAY ==
[2018-11-30 01:21] VITALS: BP 154/83; PULSE 73; RESP 16; TEMP 36.4
[2018-12-09 15:43] VITALS: BP 153/95; PULSE 80; RESP 16; TEMP 35.5; BMI 28.7
--- NOTE | 2018-12-09 17:18 | PN.PCM_ITS ---
(1) Nonhealing surgical wound Status: Chronic Current Visit: Yes Qualifiers: Encounter type: subsequent encounter Code(s): T81.89XA - Other complications of procedures, not elsewhere classified, initial encounter (2) Peripheral vascular disease of lower extremity Status: Chronic Current Visit: Yes Code(s): I73.9 - Peripheral vascular disease, unspecified (3) Venous insufficiency of right lower extremity Status: Chronic Current Visit: Yes Code(s): I87.2 - Venous insufficiency (chronic) (peripheral) Type of Wound Date of Service: 12/09/18 Chief Complaint: Follow-up on 2 nonhealing surgical ulcers from melanoma and basal cell carcinoma. 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 [facility] removed 3 areas one on her thigh and 2 on her right lower extremity for melanoma by Mohs surgery. The thigh healed well but the lower extremity absorbable suture became infected and were removed. Now patient has 2 open areas that are having a hard time healing with slough and now erythematous around the edge. Patient was sent to us from her primary care doctor that after she was concerned with infection. He placed her on Keflex and she has been taking that but is still concerned for infection. She saw Courtney Ojeda for an initial evaluation and a wound culture was done which was negative. She has been using Aquacel and tubigrips and tolerating this well but does note that it is difficult to get the Aquacel off of her wounds. Vascular studies were done by Drs. Ramirez and she does have some connecting problems in her saphenous veins of the right leg and surgical procedure was planned. Patient then had problems with the cancer and had to put that on hold. Progress of Wound: Jackie is here for follow up of nonhealing surgical wounds s/p Mohs surgery for melanoma and BCC and SCC. She is tolerating Aquacel Ag and is healed. - Physical Exam Vital Signs Temp Pulse Resp BP 96 F L 80 16 153/95 H 12/09/18 15:43 12/09/18 15:43 12/09/18 15:43 12/09/18 15:43 General: Alert, Oriented x3, Cooperative, No apparent distress HEENT: Atraumatic, Normocephalic Oral: Moist Mucosa Extremities: Edema Skin: Ulcer/ Wound Wound Measurements and Assessment WC - Nurse 1 - General Ulcer Measurement Start: 12/09/18 15:43 Freq: Status: Active Protocol: Activity Type Activity Date Activity User E-Sign Co-Sign Detail Recorded Client Recorded Date Recorded By Document 12/09/18 15:43 [facility] [id number] 12/09/18 15:46 [facility] 12/09/18 15:43 Wound Center Nurse 1 [Ulcer Assessment] #2 RIGHT ROCKWELL -Combined with other wound No -Current Size (cm) - Length 0.1 -Current Size (cm) - Width 0.1 -Current Size (cm) - Depth 0.1 -Total Square Cm 0.01 -Epithelialization Large 67-100% -Tunneling No -Undermining/Tunneling No -Circular Undermining No -Texture (Sandra-wound Skin Appearance) Assessed Scarring -Moisture (Sandra-wound Skin Appearance Assessed ) Dry/Scaly -Color (Sandra-wound Skin Appearance) Assessed -Temperature (Sandra-wound Skin No Abnormality Appearance) (Pt Warm) -Tenderness on Palpation (Sandra-wound No Skin Appearance) -Ulcer Cleansing Rinsed/ Irrigated with Saline -Foul Odor after Cleansing No -Anesthetic Used 5% Lidocaine Gel [Edema Assessment] -Lower Limb Edema Present Yes -Right Calf (cm) 39 -Right Ankle (cm) 22.7 - Nurse 2 - General Ulcer CM Notes Start: 12/09/18 15:43 Freq: Status: Active Protocol: Activity Type Activity Date Activity User E-Sign Co-Sign Detail Recorded Client Recorded Date Recorded By Document 12/09/18 15:55 [id number] 12/09/18 15:58 DV 12/09/18 15:55 Wound Center Nurse 2 [Procedure/Treatment] #2 RIGHT ROCKWELL -Time 15:55 -Correct Patient Yes -Correct Side, Site, Position Yes -Correct Procedure No -Procedure Performed No -Post Debridement Size (cm) - Length 0 -Post Debridement Size (cm) - Width 0 -Post Debridement Size (cm) - Depth 0 -Total Square Cm 0 -Wound/Ulcer Outcome Healed- Epithelialized [See Physician Procedure note for Specifics] Pain Scale: 0-10 Numeric [Pain] -Is Patient Pain Free? Yes Psych/Mental Status: Normal Affect, Appropriate Debridement Note Post-Debridement Measurements/Treatment - Nurse 2 - General Ulcer CM Notes Start: 12/09/18 15:43 Freq: Status: Active Protocol: Activity Type Activity Date Activity User E-Sign Co-Sign Detail Recorded Client Recorded Date Recorded By Document 12/09/18 15:55 DV [id number] 12/09/18 15:58 DV 12/09/18 15:55 Wound Center Nurse 2 #2 RIGHT ROCKWELL -Time 15:55 -Correct Patient Yes -Correct Side, Site, Position Yes -Correct Procedure No -Procedure Performed No -Post Debridement Size (cm) - Length 0 -Post Debridement Size (cm) - Width 0 -Post Debridement Size (cm) - Depth 0 -Total Square Cm 0 -Wound/Ulcer Outcome Healed- Epithelialized Pain Scale: 0-10 Numeric Is Patient Pain Free? Yes Wound debrided: right rockwell Laterality: Right No debridement was completed today - due to the wound being healed Assessment/Plan Active Problems (Last Reviewed 02/25/18 @ 08:51 by Jayla Castro) Nonhealing surgical wound (Chronic) Peripheral vascular disease of lower extremity (Chronic) Venous insufficiency of right lower extremity (Chronic) Assessment: Nonhealing surgical wounds right lower leg. Edema lower extremities. Peripheral vascular disease Plan: Jackie's wound is healed. Encouraged moisturizing lotion and protection from trauma. Single layer Tubigrip to the right leg. Encouraged to increase protein intake. Follow-up as needed. She is discharged at this time.
== END 2018-12-30 23:59 ==
LOC: WC 14:19
PROVIDERS: Family Provider Family Medicine; PCP Family Medicine; Visit Provider Family Medicine
DX: Z09 Encounter for follow-up examination after completed treatment for conditions other than malignant neoplasm (principal); I73.9 Peripheral vascular disease, unspecified; R60.0 Localized edema
CPT/HCPCS: 99212; G0463

== ENCOUNTER → 2018-12-30 | Outpatient (CLI) | payer OTHER, SELFPAY ==
[2018-12-09 15:43] VITALS: BMI 28.7
--- NOTE | 2018-12-30 16:45 | MRI_ITS ---
HISTORY:Medial LEFT ankle swelling and pain x 2 months, History of tibia fracture 10 years ago MRI EXAMINATION OF THE Left ANKLE COMPARISON: Comparison with radio graphs obtained on November 03, 2018 TECHNIQUE: Axial T1, T2, sagittal T1 and STIR and oblique axial STIR and coronal T2-weighted images # of images including paperwork:184 FINDINGS: BONES; there is subchondral cyst formation and subchondral edema seen at the central tibial plafond. No evidence of an acute fracture. There is also minimal marrow edema that is seen within the medial talar dome. There is surrounding edema.. There is also minimal edema seen at the posterior medial malleolus without evidence of fracture TIBIOTALAR JOINT: There is tibiotalar joint space narrowing. Articular cartilage loss is seen at the central plafond of the tibia measuring approximately 2.4 mm transverse and approximately. Osteochondral surfaces of the tibiotalar joint osteochondral lesion seen at the medial talar dome. Minimal surrounding edema. There is overlying articular cartilage loss extending approximately 3.6 mm transverse and approximately 5 mm AP. No loose bodies. SUBTALAR JOINT: There is a small subtalar joint effusion. Osteochondral sufaces are intact. No loose bodies. OTHER TARSAL JOINTS: The remainter of the visualized joint of the hindfoot and midfoot show no narrowing or effusion. LIGAMENTS: The anterior tibiofibular ligament is intact. The posterior tlbiofilular ligament is intact The anterior talofibular ligament intact.. The posterior talofibular ligament thickened suggesting chronic sprain. The calcaneofibular ligament thickened suggesting chronic sprain. The deltoid ligaments are intact. The ligaments of the tarasal sinus are intact. TENDONS: There is fluid surrounding the flexor hallucis longus tendon as well as the flexor digitorum tendon at the level of the ankle joint. This is compatible with tenosynovitis.. This is more prominent than seen from a joint effusion. This is also seen at the master knot of Lopez. No evidence of a tendon tear. Minimal fluid also surrounds the posterior tibial tendon also compatible with tenosynovitis.. The extensor tendons are unremarkable. There is fluid surrounding the peroneal tendons at the level of the distal fibula. The retinaculum is unremarkable. The Achilles tendon unrmarkable. PLANTAR APONEUROSIS: The plantar aponeurosis is unremarkable. NEUROVASCULAR STRUCTURES: The posterior tibial neurovascular bundle appears normal, without intinsic or extrinsic masses or foci or signal alteration. IMPRESSION: Tenosynovitis involving the flexor digitorum and flexor hallucis tendons at the ankle joint as well as at the master knot of Lopez. There is also minimal tenosynovitis involving the posterior tibial tendon and minimal fluid surrounding the peroneal tendons at the level of the ankle joint. No evidence of tendon tear is noted Tibiotalar joint space narrowing with articular cartilage loss and subchondral cyst formation at the tibial plafond. There is also an osteochondral defect in the medial talar dome as discussed. No loose bodies are noted Thickening of the anterior talofibular ligament as well as the calcaneofibular ligament suggesting a chronic sprain at 2224 Reported and signed by: Yamilet Mg DO Electronically Signed: Yamilet Mg DO at 22:23 EDT Tel , Service support , MRI/Lower Ext Joint Only (Routine)
== END | disposition home or self-care (01) ==
LOC: MRI 16:08
PROVIDERS: Family Provider Family Medicine; PCP Family Medicine; Referring Provider Podiatrist; Visit Provider Podiatrist
DX: M67.962 Unspecified disorder of synovium and tendon, left lower leg (principal)
CPT/HCPCS: 73721

== ENCOUNTER → 2019-01-26 | Outpatient (CLI) | payer OTHER, SELFPAY ==
--- NOTE | 2019-01-26 13:10 | BI_ITS ---
MAMMOGRAPHY - BILATERAL SCREENING 3-D TOMOSYNTHESIS REASON FOR EXAM: Female, 63 years old. Bilateral Screening 3-D tomosynthesis PERTINENT HISTORY: History of breast cancer in mother at age 60 and 2 sisters in their sixth decade. History of benign right excisional biopsy for cyst in 2008. TECHNIQUE: 2-D mammograms and 3-D Tomosynthesis of the breast (s) were performed. CAD was performed. COMPARISON: December 08, 2017, November 02, 2016 FINDINGS: The breast composition is composed of scattered fibroglandular density. Scattered benign calcifications are seen. No dense spiculated masses or suspicious microcalcifications are identified. No architectural distortion is identified. There is no skin thickening or retraction. There has been no significant change since the prior study. BI/SCREEN MAMM (CAD) W/TRENTON BILAT IMPRESSION: No mammographic signs of malignancy. Routine yearly mammograms recommended. ASSESSMENT CATEGORY: BIRADS Category 2: Benign. A letter regarding these results will be sent to the patient by the facility within 30 days. FOLLOW UP RECOMMENDATION: Yearly follow up mammogram recommended. (A) Approximately 10% of breast cancers are not detected by mammography. A normal mammogram should not delay biopsy of a clinically suspicious abnormality. Electronically Signed: Jake De Jesus MD at 17:03 EDT , Service support ,
== END | disposition home or self-care (01) ==
LOC: OPBI 13:07
PROVIDERS: Family Provider Family Medicine; PCP Family Medicine; Referring Provider Obstetrics & Gynecology; Visit Provider Obstetrics & Gynecology
DX: Z12.31 Encounter for screening mammogram for malignant neoplasm of breast (principal)
CPT/HCPCS: 77063; 77067

== ENCOUNTER → 2019-04-12 16:57 | Outpatient (CLI) | payer OTHER, SELFPAY ==
[2019-04-12 12:00] VITALS: BMI 28.7
[2019-04-19 13:02] LABS: HPV APTIMA, High Risk Negative (Negative)
== END ==
PROVIDERS: Referring Provider Obstetrics & Gynecology; Visit Provider Obstetrics & Gynecology
DX: Z12.4 Encounter for screening for malignant neoplasm of cervix (principal)
CPT/HCPCS: 87624; 88175; G0145

== ENCOUNTER → 2019-08-12 09:00 | Outpatient (CLI) | payer OTHER, SELFPAY ==
[2019-04-12 12:00] VITALS: BMI 28.7
[2019-08-12 10:19] LABS: Anion Gap 6 (5-15); BUN 10 mg/dL (7-18); BUN/Creat Ratio 12.9 RATIO (10-20); Chloride 107 mmol/L (98-107); Cholesterol 224 mg/dL (200); Creatinine, Serum 0.78 mg/dL (0.55-1.02); EST Glomerular Filtration Rate 80 mL/min (>60); Est Glom Filt Rate - Afr Amer 96 mL/min (>60); Glucose 100 mg/dL (74-106); High Density Lipoprotein 46 mg/dL; Sodium Level 142 mmol/L (136-145); Thyroid Stim Hormone (TSH) 1.48 uIU/mL (0.358-3.74); Triglycerides 174 mg/dL; Very Low Density Lipoprotein 35 mg/dL (5-40)
== END ==
PROVIDERS: Family Provider Family Medicine; PCP Family Medicine; Referring Provider Family Medicine; Visit Provider Family Medicine
DX: Z00.00 Encounter for general adult medical examination without abnormal findings (principal)
CPT/HCPCS: 36415; 80048; 80061; 84443

== ENCOUNTER → 2019-12-22 15:21 | Outpatient (CLI) | payer OTHER, SELFPAY ==
[2019-11-28 10:16] VITALS: BMI 28.7
--- NOTE | 2019-12-22 15:30 | EKG12_ITS ---
Test Reason : PRE OP Blood Pressure : / mmHG Vent. Rate : 066 BPM Atrial Rate : 066 BPM P-R Int : 114 ms QRS Dur : 082 ms QT Int : 386 ms P-R-T Axes : 025 -05 008 degrees QTc Int : 404 ms Normal sinus rhythm Normal ECG Confirmed by JENNY AGUILAR, ALESSANDRO ([id number]), non linear editor PADDY MARCELINO ([id number]) on 12/26/2019 2:38:38 PM Referred By: Jake San Confirmed By:ALESSANDRO ALVARADO MD
[2019-12-22 17:13] LABS: Hematocrit 42.3 % (37-47); Hemoglobin 13.4 g/dL (12.0-15.0); Mean Corp Hgb Conc 31.7 g/dL (32-36); Mean Corpuscular Hgb 29.6 pg (27.0-32.0); Mean Corpuscular Volume 93.6 fL (81-99); Mean Platelet Vol. 10.2 fl (6.2-12.0); Platelet Count 352 K/mm3 (150-450); RBC Distribution Width CV 13.4 % (11.6-14.6); RBC Distribution Width SD 45.7 fl (35.1-43.9); Red Blood Count 4.52 M/mm3 (4.2-5.4); White Blood Count 6.5 K/mm3 (4.4-11.0)
[2019-12-22 18:22] LABS: Anion Gap 4 (5-15); BUN 13 mg/dL (7-18); BUN/Creat Ratio 16.6 RATIO (10-20); Chloride 107 mmol/L (98-107); Creatinine, Serum 0.78 mg/dL (0.55-1.02); EST Glomerular Filtration Rate 79 mL/min (>60); Est Glom Filt Rate - Afr Amer 95 mL/min (>60); Glucose 114 mg/dL (74-106); Potassium 3.4 mmol/L (3.5-5.1); Sodium Level 141 mmol/L (136-145)
== END ==
PROVIDERS: PCP Family Medicine; Referring Provider Physician Assistant; Visit Provider Physician Assistant
DX: Z01.810 Encounter for preprocedural cardiovascular examination (principal); Z01.818 Encounter for other preprocedural examination
CPT/HCPCS: 36415; 80048; 85027; 93005

== ENCOUNTER → 2020-04-17 16:46 | Outpatient (CLI) | payer OTHER, SELFPAY ==
[2020-04-17 15:23] VITALS: BMI 30.9
[2020-04-17 17:51] LABS: NATERA MAILED SPECIMEN
== END ==
PROVIDERS: PCP Family Medicine; Visit Provider Obstetrics & Gynecology
DX: D04.71 Carcinoma in situ of skin of right lower limb, including hip (principal); Z80.3 Family history of malignant neoplasm of breast
CPT/HCPCS: 36415

== ENCOUNTER → 2020-05-07 16:31 | Outpatient (CLI) | payer OTHER, SELFPAY ==
[2020-04-17 15:23] VITALS: BMI 28.7; BMI 30.9
--- NOTE | 2020-05-07 16:32 | BI_ITS ---
MAMMOGRAPHY - BILATERAL SCREENING REASON FOR EXAM: Female, 65 years old. Routine annual screening examination. PERTINENT HISTORY: Sister with breast cancer. Mother with breast cancer. TECHNIQUE: Digital bilateral breast [place] (3D mammographic acquisition) in the CC and MLO projections. 2-D mediolateral oblique (MLO) and craniocaudad (CC) views of both breasts were obtained. CAD: Full Field Digital Mammography with Computer Added Detection was performed. COMPARISON: Comparison is made with prior study dated 01/26/2019 and 12/08/2017. FINDINGS: Breast Composition: The breasts are heterogeneously dense, which may obscure small masses. There are no dominant masses or suspicious calcifications. Stable benign-appearing bilateral axillary lymph nodes. No other significant abnormalities are identified. There has been no significant change since the prior study. BI/SCREEN MAMM (CAD) W/TRENTON BILAT IMPRESSION: Stable bilateral screening mammogram. Yearly follow-up mammogram recommended. (A) ASSESSMENT CATEGORY: BIRADS Category 2: Benign. A letter regarding these results will be sent to the patient by the facility within 30 days. Approximately 10% of breast cancers are not detected by mammography. A normal mammogram should not delay biopsy of a clinically suspicious abnormality. [id number] Electronically Signed: Juan C Quiroga, at 9:14 EDT , Service support ,
== END ==
PROVIDERS: PCP Family Medicine; Referring Provider Obstetrics & Gynecology; Visit Provider Obstetrics & Gynecology
DX: Z12.31 Encounter for screening mammogram for malignant neoplasm of breast (principal)
CPT/HCPCS: 77063; 77067

== ENCOUNTER → 2020-10-09 16:32 | Outpatient (CLI) | payer OTHER, SELFPAY ==
[2020-04-17 15:23] VITALS: BMI 30.9
--- NOTE | 2020-10-09 16:35 | RAD_ITS ---
STUDY: X-RAY - RIGHT ANKLE REASON FOR EXAM: Female, 65 years old. JOINT,ANKLE AND FOOT PAIN TECHNIQUE: 3 view(s) of the ankle. COMPARISON: 11/03/2018. FINDINGS: No acute fracture, dislocation or osseous destruction. Ankle mortise well maintained. Tiny plantar spur. Osteopenia. No significant soft tissue swelling. RAD/Ankle min 3 Views IMPRESSION: Right ankle acutely intact Osteopenia with tiny plantar spur Electronically Signed: Douglas Alston DO at 9:29 EST Tel , Service support ,
[2020-10-09 17:57] LABS: Absolute Lymphocyte Count 2.14 X10^3/uL (0.83-4.51); Absolute Neutrophil Count 4.5 X10^3/uL (2.0-7.7); Basophil# 0.04 X10^3/uL; Basophil% 0.6 % (0-1); Eosinophil# 0.07 X10^3/uL; Hematocrit 40.4 % (37-47); Hemoglobin 12.8 g/dL (12.0-15.0); Lymphocyte # 2.14 X10^3/ul (4.0); Lymphocyte % 29.4 % (19-41); Mean Corp Hgb Conc 31.7 g/dL (32-36); Mean Corpuscular Hgb 29.2 pg (27.0-32.0); Mean Corpuscular Volume 92.2 fL (81-99); Monocyte# 0.49 X10^3/uL; Monocyte% 6.7 % (0-10); NRBC Flagged by Analyzer 0 % (0-5); Neutrophil % 61.9 % (47-70); Platelet Count 383 K/mm3 (150-450); RBC Distribution Width CV 13.3 % (11.6-14.6); RBC Distribution Width SD 45.3 fl (35.1-43.9); Red Blood Count 4.38 M/mm3 (4.2-5.4); White Blood Count 7.3 K/mm3 (4.4-11.0)
== END ==
PROVIDERS: PCP Family Medicine; Referring Provider Family Medicine; Visit Provider Family Medicine
DX: M25.571 Pain in right ankle and joints of right foot (principal); T14.8XXA Other injury of unspecified body region, initial encounter
CPT/HCPCS: 36415; 73610; 85025

== ENCOUNTER → 2020-10-21 13:48 | Outpatient (CLI) | payer OTHER, SELFPAY ==
[2020-04-17 15:23] VITALS: BMI 30.9
--- NOTE | 2020-10-21 13:50 | ART_ITS ---
Reason For Study: PVD Procedure A bilateral lower extremity continuous wave Doppler with analog waveform analysis,segmental pressures,and ankle brachial indexes without exercise. Left Segmental Pressures Left brachial= 132mmHg. Left posterior tibial artery = 166mmHg. Left dorsalis pedis artery = 159mmHg. Right Segmental Pressures Right brachial= 128mmHg. Right posterior tibial artery = 157mmHg. Right dorsalis pedis artery = 140mmHg. Indices The right ankle brachial index by the posterior tibial artery is 1.19. The right ankle brachial index by the dorsalis pedis is 1.06. The left ankle brachial index by the posterior tibial artery is 1.26. The left ankle brachial index by the dorsalis pedis is 1.20. Interpretation Summary Triphasic Doppler waveforms are noted at ankle level bilaterally. Pulse-volume recordings appear satisfactory at all levels bilaterally. Resting ankle-brachial indices are normal bilaterally. There is no evidence of significant arterial occlusive disease in the lower extremities bilaterally. Ordering Physician: Chris Mcclain Referring Physician: Chris Mcclain Performed By: Patience Shaver RDCS/RVT
== END ==
PROVIDERS: PCP Family Medicine; Referring Provider Podiatrist Foot & Ankle Surgery; Visit Provider Podiatrist Foot & Ankle Surgery
DX: M79.672 Pain in left foot (principal); I73.9 Peripheral vascular disease, unspecified
CPT/HCPCS: 93923

== ENCOUNTER → 2021-05-08 13:11 | Outpatient (CLI) | payer MEDICARE, OTHER, SELFPAY ==
[2020-04-17 15:23] VITALS: BMI 30.9
--- NOTE | 2021-05-08 13:12 | BI_ITS ---
MAMMOGRAPHY - BILATERAL SCREENING 3-D TOMOSYNTHESIS REASON FOR EXAM: Female, 66 years old. screening for breast cancer PERTINENT HISTORY: No significant family history. TECHNIQUE: 2-D mammograms and 3-D Tomosynthesis of the breast (s) were performed. CAD was performed. COMPARISON: 05/07/2020 FINDINGS: The breast composition is heterogeneously dense that can obscure small breast masses. Scattered benign calcifications are seen. No dense spiculated masses or suspicious microcalcifications are identified. No architectural distortion is identified. There is no skin thickening or retraction. There has been no significant change since the prior study. BI/SCRN MAMM (CAD)W/[place] BILAT IMPRESSION: No mammographic signs of malignancy. Routine yearly mammograms recommended. ASSESSMENT CATEGORY: BIRADS Category 1: Negative. A letter regarding these results will be sent to the patient by the facility within 30 days. FOLLOW UP RECOMMENDATION: Yearly follow up mammogram recommended. (A) Approximately 10% of breast cancers are not detected by mammography. A normal mammogram should not delay biopsy of a clinically suspicious abnormality. Electronically Signed: Huy Israel MD at 18:13 EDT Tel , Service support ,
--- NOTE | 2021-05-08 13:40 | BD_ITS ---
STUDY: DUAL ENERGY X-RAY ABSORPTIOMETRY / DXA REASON FOR EXAM: Female, 66 years old. Osteoporosis TECHNIQUE: Bone Mineral Density (BMD) measurements of lumbar spine and bilateral hips were obtained. COMPARISON: None. FINDINGS: Lumbar Spine (L1-L4): g/cm2 (0.653) / T-score (-3.6) / Z-score (-1.8) Findings are suggestive of osteoporosis with a high fracture risk. Left Femur Total: g/cm2 (0.699) / T-score (-2.0) / Z-score (-0.7) Left Femoral Neck: g/cm2 (0.531) / T-score (-2.9) / Z-score (-1.3) Right Femur Total: g/cm2 (0.700) / T-score (-2.0) / Z-score (-0.7) Right Femoral Neck: g/cm2 (0.501) / T-score (-3.1) / Z-score (-1.6) BD/Dexa Bone Density Study IMPRESSION: The patient is considered osteoporotic as outlined below according to World Ehsan Organization (WHO) criteria with a high fracture risk. Reference Information: The T-score is the number of standard deviations above or below the standard which is normal for young adults at their peak bone mineral density. The World Health Organization (WHO) interprets the T-scores as follows: Above -1 Normal bone density Between -1 and -2.5 Osteopenia Equal to / or below -2.5 Osteoporosis As a practical clinical guideline, osteopenia may be graded as follows: Mild -1 through -1.5 Moderate -1.6 through -2.0 Severe -2.1 through -2.4 The Z-score is the number of standard deviations above or below age-matched controls. A Z-score of less than -1.5 would be considered abnormal. References: 1. NIH Osteoporosis and Related Bone Diseases www osteo.org 2. International Society for Clinical Densitometry www iscd.org 3. National Osteoporosis Foundation www nof.org Electronically Signed: Juan C Quiroga MD at 13:13 EDT , Service support ,
== END ==
PROVIDERS: PCP Family Medicine; Referring Provider Nurse Practitioner Women's Health; Visit Provider Nurse Practitioner Women's Health
DX: Z12.31 Encounter for screening mammogram for malignant neoplasm of breast (principal); M81.0 Age-related osteoporosis without current pathological fracture
CPT/HCPCS: 77063; 77067; 77080

== ENCOUNTER 2021-05-22 13:00 | Outpatient (RCR) | payer MEDICARE, OTHER, SELFPAY ==
[2020-04-17 15:23] VITALS: BMI 30.9
--- NOTE | 2021-02-11 17:22 | HP.PTEVAL_ITS ---
Patient's Visit Information BRIANNA CABRAL is a 65 year old F referred to Physical Therapy by JOSHUA HILL with a diagnosis of pes planovalgus, tibial tendon dysfunction, s/p TT deven 12/18. Date of Evaluation: 02/11/21 Physical Therapist: Douglas Godwin, DPT, OCS, CSCS - Visit Plan Frequency: 2x /Week Duration: 2 Months Plan: Pt is progressing from 10% WB to 100% WB L in boot only over next 4 weeks to mid March.No weaning out of boot until mid March doctor visit. She is no active inversion or forced eversion until 03/02/21. Please see 2x/week for 6 week to start within these parameters for: 1. ROM, STM, scar massage and PROM(care with eversion) to L ankle. 2.. Ankle strength no inversion until March. 3. Gait training and progression in boot for distance, balance and function progressing WB to tolerance to 100% by mid March in boot. 4. ice as needed. - Subjective L foot surgery since flat footed. Surgery 8 weeks ago for 12/18/20. Reconstructed ankle with cadaver bone and tendon transfer adn heel through screw. This was due to pain and ankle and foot collapsing. Has been in cast for 2 weeks, then cast for 4 more weeks. Now boot since January 2. Using scooter to get around NWB L. Pain level is 5/10 all the time(was 12 after surgery)) was 10/10 before surgery. Sleeping is interrupted due to soreness. Was on oxy for a couple weeks and now on ibuprofen. Ex: wiggling toes up and down. Spends day in bed for first couple weeks. Now gets around on scooter at home, has been making way to front porch and scooting around house. Basic ADLS dressing, bathroom I and shower chair with husbands help. Goal is to walk normal without pain. Staying on one level at home with ramp. Has WC that she uses on ramp. WC to run errands also. Retired right before surgery. - Pain L ankle Pain Intensity (Out of 10): 5 Pain Intensity Range: 5, 8 - Objective Scoots NWB L into PT slowly but mod I. Transfers I. No steps today. Dons and doffs boot herself I. Incisions medial and lateral helaed well with some scabbing but no signs of unusual redness , hear or excessive swelling, mildly swollen L vs R today. R LE AROM and strefngth WFL at 4/5. reflexes 2/3 R patella and achilles and L patella. Sensation B feet adn ankles WNL to gross light touch. Strength L hip flexion 4, abd 4-, knee flex/ext 4-, ankle DF3+, PF 3, eversion 3, inversion not tested.. AROM L knee adn hip WFL. AROM L ankle PF 25, DF-5, eversion 13 adn inversion not tested. PROM L ankle PF 40, DF 0, [id number] and eversion not tested. Able to stand at walker in boot mod I, hesitant to put weight through L but willing, mild increase pain and able to weight shift gently. Walks with wh walker in boot L PWB about 10% L 25 feet tod ay with SBA. Tired and scared afterwards. Stands without walker in boot I. - Goals Goal 1:: L ankle AROM DF/PF adn eversion symmetrical with R Goal Time Frame: 2-4 Weeks Goal 2:: Walk WBAT L with boot 200 feet without AD Goal Time Frame: 4-6 Weeks Goal 3:: LT 6-8 weeks : ambulate without AD without boot 500 feet I with good balance Goal Time Frame: 6-8 Weeks Goal 4:: FGA 25/30 Goal Time Frame: 6-8 Weeks Goal 5:: Steps reciprocal with one rail Goal Time Frame: 6-8 Weeks Goal 6:: 55 LEFS Goal Time Frame: 6-8 Weeks - Rehabilitation Potential Physical Therapy Diagnosis: lacks mobility due to ankle surgery. Rehabilitation Potential: Good - Anticipated Interventions Patient/Client Instruction: Educate patient on: Condition, Plan of Care For the Purpose of:: To decrease pain, To increase ROM, To improve muscle performance and motor function, To increase tolerance to activity/condition/position, To improve ability of physical actions for home/community/work/leisure Therapeutic Exercise to Include: Strength training, Balance training, Flexibilty training, Gait and locomotor training, Passive ROM, Active ROM For the Purpose of:: To decrease pain, To increase ROM, To improve muscle performance and motor function, To increase tolerance to activity/condition/position, To decrease level of supervision to perform tasks, To improve gait and locomotor functions Functional Training to Include: Gait training For the Purpose of:: To improve ability of physical actions for home/community/work/leisure Manual Therapy Techniques to Include: Scar massage, Mobilization, Soft tissue mobilization For the Purpose of:: To decrease pain, To increase ROM Cryotherapy (ice pack, ice massage): Yes For the Purpose of:: To decrease swelling/inflammation Thank you for the opportunity to evaluate your patient. For Medicare and Medicare HMO plans, please review the plan of care and approve it. It will need to be FAXED BACK to us at [phone] for Medicare purposes. For Medicare only, by signing this I certify the plan of care. Please let me know if there are questions or concerns regarding this plan of care. Physician Sign ature: Date:
--- NOTE | 2021-03-12 13:53 | HP.PTREVAL ---
JOSHUA HILL, It has been my pleasure to treat BRIANNA CABRAL over the last 10 visits for pes planovalgus, tibial tendon dysfunction, s/p TT deven 12/18. Please see the progress note below for an update on the physical therapy plan of care! Subjective: To doctor 04/15. Not bad pain in last two days. Pain around 4/10 much of time and that is very tolerable when she is on it, Much less when not weight bearing. Using rollator at home except scooter at night. Went to [facility] with hubby yesterday and used scooter. Sleep is only interrupted sometimes if on legs too much. Exercises at home doing OK with stretches multiple times per day, SLR on bed, and pulling on band with ankle. Objective/Function: Walks into and out of PT 400 ft plus with wh rollator mod I with good gait pattern with boot on. Walks 50 feet today without AD with boot on I, slow and wide NUNU, slight increase pain. Steps using R only up and down with two rails needed mod I. ROM 15 inv, 22 ev, 1 DF and 40 PF, very functional. Strength Inv 3, ev 3+, PF 3+, DF 4-. Overall doing very well and progressing slowly with WB and as expected with other aspects of rehab. Appropriate to cotninue per POC with fair prognosis. Goals appropriate. as patient WBAT in boot and hopefully to walk that way into doctor appoiintment in mid April. Plan Plan: 2x/week for 6 weeks per new script for. 1. ensure gym ex going well I prior or after session. 2. Work on functional progression of WB and strength. 3. Gait progression cane/no AD. 4. Steps. ROM as needed and progressive ankle strength. ice as needed. Balance/Gait/Functional tests - Balance/Special Test Scores Lower Extremity Functional Score: 37 Goals Goal 1:: L ankle AROM DF/PF adn eversion symmetrical with R Goal Time Frame: 2-4 Weeks Goal Progress: Progressing Goal 2:: Walk WBAT L with boot 200 feet without AD Goal Time Frame: 4-6 Weeks Goal Progress: Progressing Goal 3:: LT 6-8 weeks : ambulate without AD without boot 500 feet I with good balance Goal Time Frame: 6-8 Weeks Goal 4:: FGA 25/30 Goal Time Frame: 6-8 Weeks Goal 5:: Steps reciprocal with one rail Goal Time Frame: 6-8 Weeks Goal 6:: 55 LEFS Goal Time Frame: 6-8 Weeks Anticipated Interventions Patient/Client Instruction: Educate patient on: Condition, Plan of Care For the Purpose of:: To decrease pain, To increase ROM, To improve muscle performance and motor function, To increase tolerance to activity/condition/position, To improve ability of physical actions for home/community/work/leisure Therapeutic Exercise to Include: Strength training, Balance training, Flexibilty training, Gait and locomotor training, Passive ROM, Active ROM For the Purpose of:: To decrease pain, To increase ROM, To improve muscle performance and motor function, To increase tolerance to activity/condition/position, To decrease level of supervision to perform tasks, To improve gait and locomotor functions Functional Training to Include: Gait training For the Purpose of:: To improve ability of physical actions for home/community/work/leisure Manual Therapy Techniques to Include: Scar massage, Mobilization, Soft tissue mobilization For the Purpose of:: To decrease pain, To increase ROM Cryotherapy (ice pack, ice massage): Yes For the Purpose of:: To decrease swelling/inflammation Please do not hesitate to contact me at [phone] by phone or if you have questions or concerns regarding this new plan of care! Sincerely, Douglas Godwin, DPT, OCS, CSCS
--- NOTE | 2021-04-10 13:32 | HP.PTREVAL_ITS ---
JOSHUA HILL, It has been my pleasure to treat BRIANNA CABRAL over the last 18 visits for pes planovalgus, tibial tendon dysfunction, s/p TT christinesjj 12/18. Please see the progress note below for an update on the physical therapy plan of care! Subjective: 04/11 after last sessiona nd kept her up at night. 5-01/09 today all pain laterally. Is walking more at home without walker, sometimes without boot. Objective/Function: Ankle AROM is good at 3 DF and 50 PF and 18 inversiona nd 8 eversion. Strenth in ankle is 4/5 in all [id number], unable to heel raise due to pain and weakness. Avoids pushoff in gait pattern without boot on and slow but steady. Overall good progress with ROM and strength, still painful and swollen with increasing WB. Appropriate to ocntinue PT toward goals especially weaning WB, pt is I inn general ex in gym and home strength and ROM/stretching for ankle. Plan Plan: To doctor next week, this note will be sent today. Plan to masha to see for painn modlaities, manual therapy, progression of WB in gait. monitor patients home ankle ex and gym ex routine. Fair prognosis for continued progression, will be slow and tedious with progressive WB. Next session, please return to gati training without boot if pain down to 3/10 and continue manual joint pull and PROM, ES if pain >3/10 Balance/Gait/Functional tests - Balance/Special Test Scores Lower Extremity Functional Score: 37 Goals Goal 1:: L ankle AROM DF/PF adn eversion symmetrical with R Goal Time Frame: 2-4 Weeks Goal Progress: Progressing Goal 2:: Walk WBAT L with boot 200 feet without AD Goal Time Frame: 4-6 Weeks Goal Progress: Progressing, sore Goal 3:: LT 6-8 weeks : ambulate without AD without boot 500 feet I with good balance Goal Time Frame: 6-8 Weeks Goal Progress: sore Goal 4:: FGA 25/30 Goal Time Frame: 6-8 Weeks Goal 5:: Steps reciprocal with one rail Goal Time Frame: 6-8 Weeks Goal 6:: 55 LEFS Goal Time Frame: 6-8 Weeks Anticipated Interventions Patient/Client Instruction: Educate patient on: Condition, Plan of Care For the Purpose of:: To decrease pain, To increase ROM, To improve muscle performance and motor function, To increase tolerance to acti vity/condition/position, To improve ability of physical actions for home/community/work/leisure Therapeutic Exercise to Include: Strength training, Balance training, Flexibilty training, Gait and locomotor training, Passive ROM, Active ROM For the Purpose of:: To decrease pain, To increase ROM, To improve muscle performance and motor function, To increase tolerance to activity/condition/position, To decrease level of supervision to perform tasks, To improve gait and locomotor functions Functional Training to Include: Gait training For the Purpose of:: To improve ability of physical actions for home/community/work/leisure Manual Therapy Techniques to Include: Scar massage, Mobilization, Soft tissue mobilization For the Purpose of:: To decrease pain, To increase ROM Cryotherapy (ice pack, ice massage): Yes For the Purpose of:: To decrease swelling/inflammation Please do not hesitate to contact me at [phone] by phone or if you have questions or concerns regarding this new plan of care! Sincerely, Douglas Godwin, DPT, OCS, CSCS
--- NOTE | 2021-04-21 12:52 | HP.PTREVAL_ITS ---
JOSHUA HILL, It has been my pleasure to treat BRIANNA CABRAL over the last 20 visits for pes planovalgus, tibial tendon dysfunction, s/p TT trasnfer 12/18. Please see the progress note below for an update on the physical therapy plan of care! Subjective: 2/10 pain, Doing well. pain is staying down at 2/10, driving and going out with girlfriends. Objective/Function: 4 DF 55PF. 16 inversion. 20 everesion. strength DF 4, PF 4-, inversion 4- and eversion 4. Full ROM at toes and metatarsals and cramps alot on toes. Walking: Walks slow without AD or boot 200 feet today I but safe on firm flat surface, NUNU is slightly wide but narrowing compared to last week. L foot slightly rotated out but agian improving. Pt is hesitant with WB, is anable to heel raise on L exxclusively but can about 50% WB. Overall slow [id number] progress. Scared to WB but progressing nicely. appropriate to continue for POC with fair prognosis toward appropriate goals. Plan Plan: 2x/week for 4 weeks for. 1. manual therapy as needed for stretching, mobs, PROM, leg pull. 2. Gait training steps, outdoor, volume and technique. Pt to to TB ankle, SLS ankle and stretching via HEP Balance/Gait/Functional tests - Balance/Special Test Scores Lower Extremity Functional Score: 40 Goals Goal 1:: L ankle AROM DF/PF adn eversion symmetrical with R Goal Time Frame: 2-4 Weeks Goal Progress: Goal Met functionally. Goal 2:: Walk WBAT L with boot 200 feet without AD Goal Time Frame: 4-6 Weeks Goal Progress: Goal Met Goal 3:: LT 6-8 weeks : ambulate without AD without boot 500 feet I with good balance Goal Time Frame: 6-8 Weeks Goal Progress: sore, but met Goal 4:: FGA 25/30 Goal Time Frame: 6-8 Weeks Goal 5:: Steps reciprocal with one rail Goal Time Frame: 6-8 Weeks Goal Progress: two rails today Goal 6:: 55 LEFS Goal Time Frame: 6-8 Weeks Goal Progress: Progressing Anticipated Interventions Patient/Client Instruction: Educate patient on: Condition, Plan of Care For the Purpose of:: To decrease pain, To increase ROM, To improve muscle performance and motor function, To increase tolerance to activity/condition/position, To improve ability of physical actions for home/community/work/leisure Therapeutic Exercise to Include: Strength training, Balance training, Flexibilty training, Gait and locomotor training, Passive ROM, Active ROM For the Purpose of:: To decrease pain, To increase ROM, To improve muscle performance and motor function, To increase tolerance to activity/c ondition/position, To decrease level of supervision to perform tasks, To improve gait and locomotor functions Functional Training to Include: Gait training For the Purpose of:: To improve ability of physical actions for home/community/work/leisure Manual Therapy Techniques to Include: Scar massage, Mobilization, Soft tissue mobilization For the Purpose of:: To decrease pain, To increase ROM Cryotherapy (ice pack, ice massage): Yes For the Purpose of:: To decrease swelling/inflammation Please do not hesitate to contact me at [phone] by phone or if you have questions or concerns regarding this new plan of care! Sincerely, Douglas Godwin, DPT, OCS, CSCS
--- NOTE | 2021-05-22 13:39 | HP.PTREVAL_ITS ---
JOSHUA HILL, It has been my pleasure to treat BRIANNA CABRAL over the last 29 visits for pes planovalgus, tibial tendon dysfunction, s/p TT deven 12/18. Please see the progress note below for an update on the physical therapy plan of care! Subjective: 2/10 pain and doing really well. ready to go to [place] next week. Sleeping well. Objective/Function: Walks well today, no AD, no boot. Slightly avoids push off at times on R and is slow at times but good gait pattern otherwise without increased pain. steps are reciprocal with one rail and slow , some pain descending in medial R ankle but able and I. AROM R ankle 5 Df and 50 PF, Funcitonal inv and eversion. Strength inv 4- and ev 4 adn PF 4 adn DF 4+ on R. Overall doing well with some expected lingering weakness but able to work on this at home I. Plan Plan: Patient to doctor tomorrow and will d/c in two weeks after vacation to [place] unless patient has trouble and then she will call. Balance/Gait/Functional tests - Balance/Special Test Scores Functional Gait Assessment Score: 27 % Disability: 10.0000 Lower Extremity Functional Score: 57 Goals Goal 1:: L ankle AROM DF/PF adn eversion symmetrical with R Goal Time Frame: 2-4 Weeks Goal Progress: Goal Met functionally. Goal 2:: Walk WBAT L with boot 200 feet without AD Goal Time Frame: 4-6 Weeks Goal Progress: Goal Met Goal 3:: LT 6-8 weeks : ambulate without AD without boot 500 feet I with good balance Goal Time Frame: 6-8 Weeks Goal Progress: Goal Met Goal 4:: FGA 25/30 Goal Time Frame: 6-8 Weeks Goal Progress: Goal Met Goal 5:: Steps reciprocal with one rail Goal Time Frame: 6-8 Weeks Goal Progress: Goal Met Goal 6:: 55 LEFS Goal Time Frame: 6-8 Weeks Goal Progress: Goal Met Anticipated Interventions Patient/Client Instruction: Educate patient on: Condition, Plan of Care For the Purpose of:: To decrease pain, To increase ROM, To improve muscle performance and motor function, To increase tolerance to activity/condition/position, To improve ability of physical actions for home/community/work/leisure Therapeutic Exercise to Include: Strength training, Balance training, Flexibilty training, Gait and locomotor training, Passive ROM, Active ROM For the Purpose of:: To decrease pain, To increase ROM, To improve muscle performance and motor function, To increase tolerance to activity/condition/position, To decrease level of supervision to perform tasks, To improve gait and locomotor functions Functional Training to Include: Gait training For the Purpose of:: To improve ability of physical actions for home /community/work/leisure Manual Therapy Techniques to Include: Scar massage, Mobilization, Soft tissue mobilization For the Purpose of:: To decrease pain, To increase ROM Cryotherapy (ice pack, ice massage): Yes For the Purpose of:: To decrease swelling/inflammation Please do not hesitate to contact me at [phone] by phone or if you have questions or concerns regarding this new plan of care! Sincerely, Douglas Godwin, DPT, OCS, CSCS
--- NOTE | 2021-07-07 07:46 | HP.PT.NRP ---
BRIANNA CABRAL was seen in my office for initial evaluation on 02/11/21. The following Plan of Care was established for this patient: Initial Frequency: 2x /Week Initial Duration: 2 Months Patient/Client Instruction: Educate patient on: Condition, Plan of Care For the Purpose of:: To decrease pain, To increase ROM, To improve muscle performance and motor function, To increase tolerance to activity/condition/position, To improve ability of physical actions for home/community/work/leisure Therapeutic Exercise to Include: Strength training, Balance training, Flexibilty training, Gait and locomotor training, Passive ROM, Active ROM For the Purpose of:: To decrease pain, To increase ROM, To improve muscle performance and motor function, To increase tolerance to activity/condition/position, To decrease level of supervision to perform tasks, To improve gait and locomotor functions Functional Training to Include: Gait training For the Purpose of:: To improve ability of physical actions for home/community/work/leisure Manual Therapy Techniques to Include: Scar massage, Mobilization, Soft tissue mobilization For the Purpose of:: To decrease pain, To increase ROM Cryotherapy (ice pack, ice massage): Yes For the Purpose of:: To decrease swelling/inflammation This patient was last seen in our office 05/22/21. Pertinent comments regarding their Physical therapy will appear below: Pt seen 29 visits and was 75% better. Per last plan of care, we will d/c her at this time. At this point I will be discontinuing this patient from physical therapy. I would be happy to see this patient again in the future if found appropriate by the physician. Thank you! Douglas Godwin, DPT, OCS, CSCS Balance/Gait/Functional tests - Balance/Special Test Scores Functional Gait Assessment Score: 27 % Disability: 10.0000 Lower Extremity Functional Score: 57
== END 2021-05-22 19:00 | disposition home or self-care (01) ==
LOC: PT 13:00
PROVIDERS: PCP Family Medicine
DX: M21.42 Flat foot [pes planus] (acquired), left foot (principal); M76.822 Posterior tibial tendinitis, left leg; M76.829 Posterior tibial tendinitis, unspecified leg
CPT/HCPCS: 97014; 97110; 97116; 97140; 97161; 97164; 97530; G0283

== ENCOUNTER 2021-11-04 11:35 | Outpatient (CLI) | payer MEDICARE, OTHER, SELFPAY ==
[2021-11-04 12:46] LABS: PTHIN 47.2 pg/mL (18.4-80.1)
[2021-11-04 12:49] LABS: Vitamin D,25 Hydroxy 40.5 ng/mL
[2021-11-04 13:29] LABS: ALB/GLOB Ratio 0.9 RATIO (0.9-2.4); AST(SGOT) 16 U/L (15-37); Alanine Aminotransfer ALT/SGPT 17 U/L (13-56); Albumin, Serum 3.1 g/dL (3.2-5.0); Alkaline Phosphatase 96 U/L (45-117); Anion Gap 5 (5-15); BUN 14 mg/dL (7-18); BUN/Creat Ratio 16.6 RATIO (10-20); Calcium,Total 8.9 mg/dL (8.5-10.1); Chloride 108 mmol/L (98-107); Creatinine, Serum 0.84 mg/dL (0.55-1.02); EST Glomerular Filtration Rate 72 mL/min (>60); Est Glom Filt Rate - Afr Amer 87 mL/min (>60); Globulin 3.5 g/dL (2.2-4.2); Glucose 121 mg/dL (74-106); Potassium 3.5 mmol/L (3.5-5.1); Protein, Total 6.6 g/dL (6.4-8.2); Sodium Level 140 mmol/L (136-145); Thyroid Stim Hormone (TSH) 1.11 uIU/mL (0.358-3.74)
[2021-11-05 09:33] LABS: Thyroid Peroxidase AB 10 IU/mL (0-34)
== END 2021-11-04 23:59 | disposition home or self-care (01) ==
LOC: BIMLAB 11:36
PROVIDERS: PCP Family Medicine; Referring Provider Internal Medicine Endocrinology, Diabetes & Metabolism; Visit Provider Internal Medicine Endocrinology, Diabetes & Metabolism
DX: M81.0 Age-related osteoporosis without current pathological fracture (principal); F33.1 Major depressive disorder, recurrent, moderate; E55.9 Vitamin D deficiency, unspecified
CPT/HCPCS: 36415; 80053; 82306; 83970; 84443; 86376

== ENCOUNTER → 2021-11-24 | Outpatient (CLI) | payer MEDICARE, OTHER, SELFPAY ==
--- NOTE | 2021-11-24 11:27 | RAD_ITS ---
INDICATION: PAIN EXAMINATION/TECHNIQUE: X-RAY - RIGHT XR Hip Unilateral with Pelvis when performed; 2-3 Views 3 VIEWS COMPARISON: Pelvis radiograph from 09/14/2016. 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 Stable mild bilateral sacroiliac joint and pubic symphysis degenerative changes. No acute fracture or dislocation. Femoral heads are well-seated within the acetabulum. Soft tissues are unremarkable. Visualized abdomen/pelvis is unremarkable. Right hip: No acute findings. Visualized 5 soft tissues are unremarkable. RAD/HIP, UNI W/ Pelvis 2-3 Views IMPRESSION: No acute findings. Electronically Signed: Leo Jauregui, at 14:27 EDT ,
== END | disposition home or self-care (01) ==
PROVIDERS: PCP Family Medicine; Referring Provider Family Medicine; Visit Provider Family Medicine
DX: M25.551 Pain in right hip (principal)
CPT/HCPCS: 73502

== ENCOUNTER → 2021-12-04 | Outpatient (CLI) | payer MEDICARE, OTHER, SELFPAY ==
[2021-12-04 11:26] VITALS: BP 147/75; PULSE 73; RESP 16; TEMP 36.8; O2SAT 98
[2021-12-04] MEDS: DENOSUMAB 60 MG/ML SC (11:50)
== END | disposition home or self-care (01) ==
LOC: MEDOUTP 11:14
PROVIDERS: PCP Family Medicine; Referring Provider Internal Medicine Endocrinology, Diabetes & Metabolism; Visit Provider Internal Medicine Endocrinology, Diabetes & Metabolism
DX: M81.0 Age-related osteoporosis without current pathological fracture (principal)
CPT/HCPCS: 96372; J0897

== ENCOUNTER 2022-01-14 11:30 | Outpatient (RCR) | payer MEDICARE, OTHER, SELFPAY ==
--- NOTE | 2021-12-04 13:54 | HP.PTEVAL_ITS ---
Patient's Visit Information BRIANNA CABRAL is a 66 year old F referred to Physical Therapy by JOSHUA HILL with a diagnosis of R trochanteric bursitis. Date of Evaluation: 12/04/21 Physical Therapist: Douglas Godwin, DPT, OCS, CSCS - Visit Plan Frequency: 2-3x /Week Duration: 4-6 Weeks Plan: 2-3x/week for 4 weeks for. 1. rollout and stretch to R ITB. 2. US nonthermal R GT area. 3. B hip strength. 4. L gastroc strength and pregait for pushoff L - Subjective R hip hurts and got injection from Doctor and said she is not walking correctly. Family doctor did x rays, no arthritis just inflammation. Has OP and sent to epitaxial reactor technician Dr. Malik whos said she will break a bone if she falls. Got prolea injection lately. Pain is lateral at R hip and and gets to 4/10 since injection in hip. Rowing machine seems to help. Pain is intermittent. Was 6/10 prior to injection.It keeps her up at night as she sleeps on Right side. Activities are pretty normal, she just hurts , mulching made her worse until she can sit. Pain present for a couple months, had foot surgery a while back. - Pain r hip Pain Intensity (Out of 10): 0 Pain Intensity Range: 0, 6 - Objective Walks with R limp avoiding L push off and overstressing R hip extensors. Not strong enough to push off with L or do heel raise with left. PF L 3+ and ev/inv/DF 4. R side 5/5 in ankle. Hip strength 3 abd and ext B, 4- flexion, no pain. knee strength 4- ext adn 4+ flexion B. AROM WFL hip and knee and ankle, Obvious ITB tightness on R vs L. Tender to touch R ITB and GT area. reflexes 2/3 patella and achilles. Sensation WNL to gross light touch in LE. - KAYCE, - FADDIR. Appears to be overstressing R hip due to lack of pushoff on L foot since surgery and not continuing HEP complemented by hip wekaness. - Balance/Special Test Scores Lower Extremity Functional Score: 48 - Goals Goal 1:: I management of condition with stretches and strengtheners. Goal Time Frame: 4-6 Weeks Goal 2:: Sleep on right side without waking due to pain Goal Time Frame: 4-6 Weeks Goal 3:: Feel 85% better in overall R hip pain Goal Time Frame: 4-6 Weeks Goal 4:: LEFS 55/80 Goal Time Frame: 4-6 Weeks - Rehabilitation Potential Physical Therapy Diagnosis: R hip bursitis. Rehabilitation Potential: Fair - Anticipated Interventions Patient/Client Instruction: Educate patient on: Condition, Plan of Care For the Purpose of:: To decrease pain, To decrease swelling/inflammation, To improve muscle performance and motor function, To increase tolerance to activity/condition/position, To improve ability of physical actions for home/community/work/leisure, To improve gait and locomotor functions Therapeutic Exercise to Include: Strength training, Postural training, Flexibil ty training, Passive ROM, Active ROM For the Purpose of:: To decrease pain, To increase ROM, To improve muscle performance and motor function, To increase tolerance to activit y/condition/position, To improve ability of physical actions for home/community/work/leisure Manual Therapy Techniques to Include: Mobilization, Passive ROM, Soft tissue mobilization For the Purpose of:: To decrease pain, To increase ROM Ultrasound (thermal/non thermal): Yes - nonthermal R hip For the Purpose of:: To decrease swelling/inflammation, To increase tolerance to activity/condition/position Thank you for the opportunity to evaluate your patient. For Medicare and Medicare HMO plans, please review the plan of care and approve it. It will need to be FAXED BACK to us at [phone] for Medicare purposes. For Medicare only, by signing this I certify the plan of care. Please let me know if there are questions or concerns regarding this plan of care. Physician Signature: Date:
--- NOTE | 2022-01-14 11:51 | HP.PTDCSUM ---
It has been my pleasure to treat BRIANNA CABRAL referred by JOSHUA HILL, with the diagnosis of R trochanteric bursitis for a total of 12 visit(s). Discharge Date: 01/14/22 Please see the following information for a summary of their discharge status. Subjective: Feeling better with pain today- but still feels it hit or miss r hip Pain Intensity (Out of 10): 4 % Improvement: 35 Objective/Function: Tolerates stretches well- sees PT today for re-check Goal 1:: I management of condition with stretches and strengtheners. Goal Progress: Progressing Goal 2:: Sleep on right side without waking due to pain Goal Progress: recommended against Goal 3:: Feel 85% better in overall R hip pain Goal Progress: 25%, slow Goal 4:: LEFS 55/80 Goal Progress: Not Progressing Plan: re-check with PT today. Please spend 15 minutes on STM/rollout to R ITB and aggressive stretching of same with quad on R and leg pull. May use TENS on R hip with Mh as needed. Discharge Comments: Pt to contact doctor regarding other options for pain. This therapist wonders if Prolia side effects are part of the problem. Pt to check with doctor. If there are questions or concerns regarding this patient's physical therapy, please feel free to call me at [phone]. Thank you for the referral of this patient. Sincerely, Douglas Godwin, DPT, OCS, CSCS Balance/Gait/Functional tests - Balance/Special Test Scores Lower Extremity Functional Score: 37
== END 2022-01-14 19:00 | disposition home or self-care (01) ==
LOC: PT 11:30
PROVIDERS: PCP Family Medicine
DX: M70.61 Trochanteric bursitis, right hip (principal)
CPT/HCPCS: 96372; 97110; 97140; 97162; 97164; 97530; J0897

== ENCOUNTER → 2022-05-25 | Outpatient (CLI) | payer MEDICARE, OTHER, SELFPAY ==
--- NOTE | 2022-05-25 11:07 | BI_ITS ---
MAMMOGRAPHY - BILATERAL SCREENING REASON FOR EXAM: Female, 67 years old. Routine annual screening examination. PERTINENT HISTORY: Sisters with breast cancer. Mother with breast cancer. TECHNIQUE: Digital bilateral breast t[place]on (3D mammographic acquisition) in the CC and MLO projections. 2-D mediolateral oblique (MLO) and craniocaudad (CC) views of both breasts were obtained. CAD: Full Field Digital Mammography with Computer Added Detection was performed. COMPARISON: Comparison is made with prior examination dated 05/08/2021 and 05/07/2020. FINDINGS: Breast Composition: The breasts are heterogeneously dense, which may obscure small masses. There are no dominant masses or suspicious calcifications. Small benign-appearing left axillary lymph notes. No other significant abnormalities are identified. There has been no significant change since the prior study. BI/SCRN MAMM (CAD)W/[place] BILAT IMPRESSION: Stable bilateral screening mammogram. Yearly follow-up mammogram recommended. (A) ASSESSMENT CATEGORY: BIRADS Category 2: Benign. A letter regarding these results will be sent to the patient by the facility within 30 days. Approximately 10% of breast cancers are not detected by mammography. A normal mammogram should not delay biopsy of a clinically suspicious abnormality. [id number] Electronically Signed: Juan C Quiroga MD at 12:12 EDT ,
== END | disposition home or self-care (01) ==
LOC: OPBI 11:05
PROVIDERS: PCP Family Medicine; Visit Provider Obstetrics & Gynecology
DX: Z12.31 Encounter for screening mammogram for malignant neoplasm of breast (principal); Z80.3 Family history of malignant neoplasm of breast
CPT/HCPCS: 77063; 77067

== ENCOUNTER 2022-06-04 12:00 | Outpatient (RCR) | payer MEDICARE, OTHER, SELFPAY ==
--- NOTE | 2022-05-08 15:27 | HP.PTEVAL_ITS ---
Patient's Visit Information BRIANNA CABRAL is a 67 year old F referred to Physical Therapy by Dr. Praveen Aguilar DO with a diagnosis of R trochanteric bursitis.. Date of Evaluation: 05/08/22 Physical Therapist: Douglas Godwin, DPT, OCS, CSCS - Visit Plan Frequency: 2x /Week Duration: 4-6 Weeks Plan: 2x/week for 4-6 weeks as needed for... 1. given piriformis, ITb and quad stretch today, please ensure these going well and manual stretch ITB. 2. teach rollout on foam roller for prestretch. 3. Teach and progress to HEP(clamshell, S/L SLR, prone SLR, bridge, inchworms, step ups) to add to current gym program as tolerated. 4. Ice adn TENS if needed. - Subjective Similar to what she was seen for before. [place] had to massage it to get better. Feels locked in R upper quad. This has been present insidiously since October. Had L foot surgery earlier in the year. Saw jacqui after round of PT in November. He gave injection which seemed to help a little bit(lateral R leg). It helped 60%. Now worsening in R hip and she does not know why. Doctor did MRI and last month and bones were fine. Given meloxicam and sent for therapy. HEP for last 3 months: riding bike whcih does not hurt, walking at grocery store hurts, Rowing machine, hip machine abduction, knee extension and flexion, avoiding leg press. - Pain R hip Pain Intensity (Out of 10): 1 Pain Intensity Range: 1, 10 Comment: locks - Objective R antalgia walking into PT with short steps. Stairs are painful R hip to use it and weak R side vs L, needs two rails(does not do steps at home). Transfers are I bed and chair. Max tender R trochanteric area and into ITB. - KAYCE and FADDIR. - hip scouring. Good hip ROM without increased pain and R and L knees also move well. Tightness obvious in ITB minimally and quad moderately and pirifromis min on both sides. weakness evident in hip R abductiona dn extension 3/5 vs 3+ on L, flexion 3+ B. Knee flex and ext 4/5, ankel movements R 4+/5. 2/3 patella and achilles reflexes. Sensation LE WNL to gross light touch. - Balance/Special Test Scores Lower Extremity Functional Score: 39 - Goals Goal 1:: Pt feel pain is 75% better at 1/10 at worst Goal Time Frame: 2-4 Weeks Goal 2:: i appropriate HEOP for stretch and strength and rollout. Goal Time Frame: 2-4 Weeks Goal 3:: Patient walk and garden without increasing hip pain Goal Time Frame: 4-6 Weeks Goal 4:: 58 LEFS Goal Time Frame: 4-6 Weeks - Rehabilitation Potential Physical Therapy Diagnosis: Symptoms consistent with bursitis causing pain and dysfunction. Rehabilitation Potential: Fair - Anticipated Interventions Patient/Client Instruction: Educate patient on: Condition, Plan of Care For the Purpose of:: To decrease pain, To increase ROM, To improve muscle performance and motor function, To increase tolerance to activity/condition/position, To improve ability of physical actions for home/community/work/leisure, To improve gait and locomotor functions Therapeutic Exercise to Include: Strength training, Flexibilty training, Gait and locomotor training, Passive ROM, Active ROM For the Purpose of:: To decrease pain, To increase ROM, To improve muscle performance and motor function, To increase tolerance to activity/condition/position, To improve ability of physical actions for home/community/work/leisure Manual Therapy Techniques to Include: Passive ROM, Soft tissue mobilization For the Purpose of:: To decrease pain, To increase ROM TENS: Yes Cryotherapy (ice pack, ice massage): Yes For the Purpose of:: To decrease pain Thank you for the opportunity to evaluate your patient. For Medicare and Medicare HMO plans, please review the plan of care and approve it. It will need to be FAXED BACK to us at [phone] for Medicare purposes. For Medicare only, by signing this I certify the plan of care. Please let me know if there are questions or concerns regarding this plan of care. Physician Signat ure: Date:
--- NOTE | 2022-08-13 18:02 | HP.PT.NRP ---
BRIANNA CABRAL was seen in my office for initial evaluation on 05/08/22. The following Plan of Care was established for this patient: Initial Frequency: 2x /Week Initial Duration: 4-6 Weeks Patient/Client Instruction: Educate patient on: Condition, Plan of Care For the Purpose of:: To decrease pain, To increase ROM, To improve muscle performance and motor function, To increase tolerance to activity/condition/position, To improve ability of physical actions for home/community/work/leisure, To improve gait and locomotor functions Therapeutic Exercise to Include: Strength training, Flexibilty training, Gait and locomotor training, Passive ROM, Active ROM For the Purpose of:: To decrease pain, To increase ROM, To improve muscle performance and motor function, To increase tolerance to activity/condition/position, To improve ability of physical actions for home/community/work/leisure Manual Therapy Techniques to Include: Passive ROM, Soft tissue mobilization For the Purpose of:: To decrease pain, To increase ROM TENS: Yes Cryotherapy (ice pack, ice massage): Yes For the Purpose of:: To decrease pain This patient was last seen in our office 06/04/22. Pertinent comments regarding their Physical therapy will appear below: Pt seen 7 visits of POC but cancelled her final recheck. At this point, it has been over 2 months and I will discontinue from my care. At this point I will be discontinuing this patient from physical therapy. I would be happy to see this patient again in the future if found appropriate by the physician. Thank you! Douglas Godwin, DPT, OCS, CSCS Balance/Gait/Functional tests - Balance/Special Test Scores Lower Extremity Functional Score: 39
== END 2022-06-04 19:00 | disposition home or self-care (01) ==
LOC: PT 12:00
PROVIDERS: PCP Family Medicine; Referring Provider Orthopaedic Surgery; Visit Provider Orthopaedic Surgery
DX: M70.61 Trochanteric bursitis, right hip; S76.2 Injury of adductor muscle, fascia and tendon of thigh
CPT/HCPCS: 97110; 97140; 97161

== ENCOUNTER → 2022-06-04 | Outpatient (CLI) | payer MEDICARE, OTHER, SELFPAY ==
[2022-06-04 15:41] VITALS: BP 139/84; PULSE 69; RESP 14; TEMP 35.6; O2SAT 95; BMI 29.2
[2022-06-04] MEDS: DENOSUMAB 60 MG/ML SC (15:48)
== END | disposition home or self-care (01) ==
LOC: MEDOUTP 15:33
PROVIDERS: PCP Family Medicine; Referring Provider Internal Medicine Endocrinology, Diabetes & Metabolism; Visit Provider Internal Medicine Endocrinology, Diabetes & Metabolism
DX: M81.0 Age-related osteoporosis without current pathological fracture (principal)
CPT/HCPCS: 96372; J0897

== ENCOUNTER → 2022-11-06 | Outpatient (CLI) | payer MEDICARE, OTHER, SELFPAY ==
[2022-11-06 16:37] LABS: Absolute Lymphocyte Count 2.46 X10^3/uL (0.83-4.51); Absolute Neutrophil Count 6.8 X10^3/uL (2.0-7.7); Basophil# 0.06 X10^3/uL; Basophil% 0.6 % (0-1); Eosinophil# 0.06 X10^3/uL; Eosinophils% 0.6 % (0-5); Hematocrit 46.4 % (37-47); Hemoglobin 14.6 g/dL (12.0-15.0); Lymphocyte # 2.46 X10^3/ul (0.83-4.51); Lymphocyte % 23.7 % (19-41); Mean Corp Hgb Conc 31.5 g/dL (32-36); Mean Corpuscular Volume 95.3 fL (81-99); Mean Platelet Vol. 10.2 fl (6.2-12.0); Monocyte# 0.87 X10^3/uL; Monocyte% 8.4 % (0-10); NRBC Flagged by Analyzer 0 % (0-5); Neutrophil # 6.83 X10^3/uL (2.7-7.7); Neutrophil % 65.9 % (47-70); Platelet Count 361 K/mm3 (150-450); RBC Distribution Width CV 13.2 % (11.6-14.6); RBC Distribution Width SD 46.4 fl (35.1-43.9); Red Blood Count 4.87 M/mm3 (4.2-5.4); White Blood Count 10.4 K/mm3 (4.4-11.0)
== END | disposition home or self-care (01) ==
LOC: MTLAB 13:17
PROVIDERS: PCP Family Medicine; Referring Provider Ophthalmology; Visit Provider Ophthalmology
DX: H11.33 Conjunctival hemorrhage, bilateral (principal)
CPT/HCPCS: 36415; 85025

== ENCOUNTER 2022-12-04 11:06 | Outpatient (CLI) | payer MEDICARE, OTHER, SELFPAY ==
[2022-12-04 11:16] VITALS: BP 143/80; PULSE 71; RESP 16; TEMP 36.5; O2SAT 98
[2022-12-04] MEDS: DENOSUMAB 60 MG/ML SC (11:24)
== END 2022-12-04 11:07 | disposition home or self-care (01) ==
LOC: MEDOUTP 11:06
PROVIDERS: PCP Family Medicine; Referring Provider Internal Medicine Endocrinology, Diabetes & Metabolism; Visit Provider Internal Medicine Endocrinology, Diabetes & Metabolism
DX: M81.0 Age-related osteoporosis without current pathological fracture (principal)
CPT/HCPCS: 96372; J0897

== ENCOUNTER → 2023-03-19 | Outpatient (CLI) | payer MEDICARE, OTHER, SELFPAY ==
[2023-03-19 12:33] LABS: Absolute Lymphocyte Count 1.58 X10^3/uL (0.83-4.51); Absolute Neutrophil Count 4.4 X10^3/uL (2.0-7.7); Basophil# 0.03 X10^3/uL; Basophil% 0.5 % (0-1); Eosinophil# 0.06 X10^3/uL; Eosinophils% 0.9 % (0-5); Hematocrit 45.5 % (37-47); Hemoglobin 14.4 g/dL (12.0-15.0); Lymphocyte # 1.58 X10^3/ul (0.83-4.51); Lymphocyte % 23.7 % (19-41); Mean Corp Hgb Conc 31.6 g/dL (32-36); Mean Corpuscular Hgb 30.2 pg (27.0-32.0); Mean Corpuscular Volume 95.4 fL (81-99); Mean Platelet Vol. 10.3 fl (6.2-12.0); Monocyte# 0.53 X10^3/uL; NRBC Flagged by Analyzer 0 % (0-5); Neutrophil # 4.44 X10^3/uL (2.7-7.7); Neutrophil % 66.6 % (47-70); Platelet Count 329 K/mm3 (150-450); RBC Distribution Width CV 13.5 % (11.6-14.6); RBC Distribution Width SD 47.8 fl (35.1-43.9); Red Blood Count 4.77 M/mm3 (4.2-5.4); White Blood Count 6.7 K/mm3 (4.4-11.0)
[2023-03-19 12:44] LABS: Vitamin D,25 Hydroxy 51.8 ng/mL
[2023-03-19 12:45] LABS: AST(SGOT) 15 U/L (15-37); Alanine Aminotransfer ALT/SGPT 22 U/L (13-56); Albumin, Serum 3.2 g/dL (3.2-5.0); Alkaline Phosphatase 76 U/L (45-117); Anion Gap 3 (5-15); BUN 12 mg/dL (7-18); BUN/Creat Ratio 17.9 RATIO (10-20); Calcium,Total 8.5 mg/dL (8.5-10.1); Chloride 109 mmol/L (98-107); Cholesterol 219 mg/dL (200); Creatinine, Serum 0.67 mg/dL (0.55-1.02); EST Glomerular Filtration Rate 93 mL/min (>60); Est Glom Filt Rate - Afr Amer 112 mL/min (>60); Globulin 3.3 g/dL (2.2-4.2); Glucose 113 mg/dL (74-106); High Density Lipoprotein 50 mg/dL; Potassium 3.6 mmol/L (3.5-5.1); Protein, Total 6.5 g/dL (6.4-8.2); Sodium Level 143 mmol/L (136-145); Triglycerides 112 mg/dL; Very Low Density Lipoprotein 22 mg/dL (5-40)
== END | disposition home or self-care (01) ==
LOC: MTLAB 11:02
PROVIDERS: Internal Medicine Endocrinology, Diabetes & Metabolism; PCP Family Medicine; Referring Provider Family Medicine; Visit Provider Family Medicine
DX: Z00.00 Encounter for general adult medical examination without abnormal findings (principal); T14.8XXA Other injury of unspecified body region, initial encounter; M81.0 Age-related osteoporosis without current pathological fracture; E75.6 Lipid storage disorder, unspecified
CPT/HCPCS: 36415; 80053; 80061; 82306; 85025

== ENCOUNTER 2023-06-02 15:03 | Outpatient (CLI) | payer MEDICARE, OTHER, SELFPAY ==
[2023-06-02 15:20] VITALS: BP 126/69; PULSE 67; RESP 16; TEMP 36.1; O2SAT 96; BMI 26.2
[2023-06-02] MEDS: DENOSUMAB 60 MG/ML SC (15:23)
== END 2023-06-02 15:04 | disposition home or self-care (01) ==
LOC: MEDOUTP 15:04
PROVIDERS: PCP Family Medicine; Referring Provider Internal Medicine Endocrinology, Diabetes & Metabolism; Visit Provider Internal Medicine Endocrinology, Diabetes & Metabolism
DX: M81.0 Age-related osteoporosis without current pathological fracture (principal)
CPT/HCPCS: 96372; J0897

== ENCOUNTER → 2023-06-22 | Outpatient (CLI) | payer MEDICARE, OTHER, SELFPAY ==
--- NOTE | 2023-06-22 14:07 | BI_ITS ---
MAMMOGRAPHY - BILATERAL SCREENING REASON FOR EXAM: Female, 68 years old. Routine annual screening examination. PERTINENT HISTORY: Sisters with breast cancer. Mother with breast cancer. TECHNIQUE: Digital bilateral breast trenton (3D mammographic acquisition) in the CC and MLO projections. 2-D mediolateral oblique (MLO) and craniocaudad (CC) views of both breasts were obtained. CAD: Full Field Digital Mammography with Computer Added Detection was performed. COMPARISON: Comparison is made with prior study May 25, 2022 and May 08, 2021. FINDINGS: Breast Composition: The breasts are heterogeneously dense, which may obscure small masses. There are no dominant masses or suspicious calcifications. No other significant abnormalities are identified. There has been no significant change since the prior study. BI/SCRN MAMM (CAD)W/[place] BILAT IMPRESSION: Stable bilateral screening mammogram. Yearly follow-up mammogram recommended. (A) ASSESSMENT CATEGORY: BIRADS Category 1: Negative. A letter regarding these results will be sent to the patient by the facility within 30 days. Approximately 10% of breast cancers are not detected by mammography. A normal mammogram should not delay biopsy of a clinically suspicious abnormality. [id number] Electronically Signed: Juan C Quiroga MD at 13:52 EST ,
== END | disposition home or self-care (01) ==
LOC: OPBD 14:06
PROVIDERS: PCP Family Medicine; Referring Provider Obstetrics & Gynecology; Visit Provider Obstetrics & Gynecology
DX: Z12.31 Encounter for screening mammogram for malignant neoplasm of breast (principal)
CPT/HCPCS: 77063; 77067

== ENCOUNTER → 2023-08-12 | Outpatient (CLI) | payer MEDICARE, OTHER, SELFPAY ==
--- NOTE | 2023-08-12 10:40 | BD_ITS ---
STUDY: DUAL ENERGY X-RAY ABSORPTIOMETRY / DXA REASON FOR EXAM: Female, 68 years old. Post menopausal TECHNIQUE: Bone Mineral Density (BMD) measurements of lumbar spine and bilateral hips were obtained. COMPARISON: Comparison is made with prior study May 08, 2021. FINDINGS: Lumbar Spine (L1-L4): g/cm2 (0.710) / T-score (-3.1) / Z-score (-1.1) Findings are suggestive of osteoporosis with a high fracture risk. Left Femur Total: g/cm2 (0.758) / T-score (-1.5) / Z-score (-0.1) Left Femoral Neck: g/cm2 (0.572) / T-score (-2.5) / Z-score (-0.8) Right Femur Total: g/cm2 (0.695) / T-score (-2.0) / Z-score (-0.6) Right Femoral Neck: g/cm2 (0.478) / T-score (-3.3) / Z-score (-1.6) The T-Scores on the most recent prior examination were: Lumbar Spine (L1-L4): There has been improvement of bone density since the previous examination. Left Femur Total: which represents an improvement of 8.4%. Right Femur Total: which represents a worsening of 0.7%. BD/Dexa Bone Density Study IMPRESSION: The patient is considered osteoporotic as outlined below according to World Ehsan Organization (WHO) criteria with a high fracture risk. There has been improvement of bone density since the previous examination. Reference Information: The T-score is the number of standard deviations above or below the standard which is normal for young adults at their peak bone mineral density. The World Health Organization (WHO) interprets the T-scores as follows: Above -1 Normal bone density Between -1 and -2.5 Osteopenia Equal to / or below -2.5 Osteoporosis As a practical clinical guideline, osteopenia may be graded as follows: Mild -1 through -1.5 Moderate -1.6 through -2.0 Severe -2.1 through -2.4 The Z-score is the number of standard deviations above or below age-matched controls. A Z-score of less than -1.5 would be considered abnormal. References: 1. NIH Osteoporosis and Related Bone Diseases www osteo.org 2. International Society for Clinical Densitometry www iscd.org 3. National Osteoporosis Foundation www nof.org Electronically Signed: Juan C Quiroga MD at 15:37 EST ,
--- OUTSIDE RECORDS SUMMARY | 2023-08-12 11:34 | XMS RPT_ITS | CCD ---
Author Name Unknown Address [address] [place] [address] Organization [facility] Care Team Providers Care Tactical Air Control Party Manager Name Role Phone DAPHNE KHAN Attending Unavailable IMCA Referring Unavailable MarcelinoJimi Primary Care Unavailable DAPHNE KHAN Attending Unavailable Marcelino Jimi H Referring Unavailable Marcelino, Jimi H Primary Care Unavailable Schloneger Patrica E Unavailable Unavailable Schloneger, Patrica E Unavailable Unavailable Jimi Marcelino Primary Care Provider PATRICIA WASSERMAN Attending Unavailable MARCELINOJIMI Primary Care Unavailable PATRICIA WASSERMAN Attending Unavailable JIMI MARCELINO Primary Care Unavailable MarcelinoJimi Primary Care Provider KYMBERLY MARCELINO Attending Unavailable KYMBERLY MARCELINO Admitting Unavailable AA NO PCP, NO PCP Primary Care Unavailable Jimi Marcelino MD Primary Care Provider Jimi Marcelino MD Primary Care Provider SYSTEM, PROVIDER NOT IN Referring Unavaila ble SYSTEM, PROVIDER NOT IN Attending Unavaila ble JIMI MARCELINO Primary Care Unavailable Colten Persaud MD Primary Care Provider JOSHUA SANDOVAL Attending Unavailable EXTENJOSHUA Referring Unavailable MARCELINO, JIMI JALLOH Primary Care Unavailable EXTENJOSHUA Attending Unavailable EXTEN, JOSHUA BHARDWAJ Referring Unavailable MARCELINO, JIMI GONZALESITH Primary Care Unavailable EXTENJOSHUA Admitting Unavailable EXTENJOSHUA Attending Unavailable MARCELINO, JIMI SHUBHAM Primary Care Unavailable EXTENJOSHUA Admitting Unavailable MARCELINO, JIMI JALLOH Primary Care Unavailable THRMARCUS BUTCHER Attending Unavailable EXTEN, JOSHUA BHARDWAJ Attending Unavailable EXTEN, JOSHUA BHARDWAJ Referring Unavailable MARCELINO, JIMI SHUBHAM Primary Care Unavailable EXTEN, JOSHUA BHARDWAJ Attending Unavailable EXTEN, JOSHUA BHARDWAJ Referring Unavailable PERSAUD, COLTEN GE Primary Care Unavailable EXTEN, JOSHUA BHARDWAJ Attending Unavailable EXTEN, JOSHUA BHARDWAJ Referring Unavailable PERSAUD, COLTEN LUMA Primary Care Unavailable EXTEN, JOSHUA BHARDWAJ Attending Unavailable EXTEN, JOSHUA BHARDWAJ Referring Unavailable PERSAUD, COLTEN GE Primary Care Unavailable EXTEN, JOSHUA BHARDWAJ Attending Unavailable MARCELINO, JIMI SHUBHAM Primary Care Unavailable EXTEN, JOSHUA BHARDWAJ Attending Unavailable MARCELINO, JIMI SHUBHAM Primary Care Unavailable EXTEN, JOSHUA BHARDWAJ Attending Unavailable MARCELINO, JIMI SHUBHAM Primary Care Unavailable EXTEN, JOSHUA BHARDWAJ Attending Unavailable MARCELINO, JIMI SHUBHAM Primary Care Unavailable EXTEN, JOSHUA BHARDWAJ Attending Unavailable MARCELINO, JIMI SHUBHAM Primary Care Unavailable ASHLEY CROCKETT Attending Unavailable MARCELINO, JIMI SHUBHAM Primary Care Unavailable EXTEN, JOSHUA BHARDWAJ Attending Unavailable PERSAUD, COLTEN LUMA Primary Care Unavailable EXTEN, JOSHUA BHARDWAJ Attending Unavailable PERSAUD, COLTEN GE Primary Care Unavailable EXTEN, JOSHUA BHARDWAJ Attending Unavailable PERSAUD, COLTEN GE Primary Care Unavailable EXTEN, JOSHUA BHARDWAJ Attending Unavailable PERSAUD, COLTEN GE Primary Care Unavailable EXTEN, JOSHUA BHARDWAJ Attending Unavailable PERSAUD, COLTEN GE Primary Care Unavailable EXTEN, JOSHUA BHARDWAJ Attending Unavailable PERSAUD, COLTEN GE Primary Care Unavailable EXTEN, JOSHUA BHARDWAJ Attending Unavailable PERSAUD, COLTEN GE Primary Care Unavailable Johny AGUILAR, Jimi Hamilton Primary Care Provider Johny AGUILAR, Jimi Hamilton Primary Care Provider Johny AGUILAR, Jimi Hamilton Primary Care Provider Adrian AGUILAR, Jimi Booth Primary Care Provider Johny AGUILAR, Jimi Hamilton Primary Care Provider Adrian AGUILAR, Jimi Booth Primary Care Provider Johny AGUILAR, Jimi Hamilton Primary Care Provider JIMI CAMPBELL Primary Care Unavailable WESTJA BLAS Attending Unavailable WESTJA BLAS Attending Unavailable JIMI CAMPBELL Primary Care Unavailable WESTJA BLAS Attending Unavailable WEST, JA Attending Unavailable JIMI CAMPBELL Primary Care Unavailable MARCELINO, JIMI K Primary Care Unavailable MARCELINO, JIMI K Primary Care Unavailable NEETA CARR Attending Unavailable MARCELINO, JIMI K Primary Care Unavailable SANDIP VALENCIA Attending Unavailable MARCELINO, JIMI K Primary Care Unavailable EZRA PEREZ Attending UnavailJIMI Yang Primary Care Unavailable JIMI MARCELINO Primary Care Unavailable JIMI MARCELINO Primary Care Unavailable JIMI MARCELINO Primary Care Unavailable SANDIP VALENCIA Attending Unavailable JIMI MARCELINO Primary Care Unavailable NEETA CARR Attending Unavailable Allergies Allergy Classification Reported Allergen(s) Allergy Type Date of Onset Reaction(s) Facility Dihydrofolate Reductase Inhibitors (antibiotic) (17 sources) Trimethoprim; Translations: [TRIMETHOPRIM] Drug Allergy 01-15-20 17 [facility] DOPamine Antagonists (20 sources) Metoclopramide; Translations: [METOCLOPRAMIDE] Drug Allergy 01-15-20 07 Other (See Comments) [facility] Fenoterol (17 sources) Fenoterol; Translations: [FENOTEROL] Drug Allergy 12-21-19 15 Other (See Comments) [facility] Latex (17 sources) Latex; Translations: [LATEX] Substance Allergy 09-25-19 14 Rash [facility] Macrolides (antibiotic) (17 sources) Erythromycin; Translations: [ERYTHROMYCIN] Drug Allergy 07-30-20 09 GI Intolerance [facility] Penicillins (antibiotic) (17 sources) Penicillins; Translations: [PENICILLINS] Drug Allergy 10-29-19 05 [facility] Sulfamethoxazole / Trimethoprim (17 sources) Sulfamethoxazole / Trimethoprim; Translations: [SULFAMETHOXAZOLE-T RIMETHOPRIM] Drug Allergy 12-20-19 16 [facility] Sulfonamides (antibiotic) (17 sources) Sulfamethoxazole; Translations: [SULFAMETHOXAZOLE] Drug Allergy 01-31-20 10 GI Intolerance [facility] (20 sources) Erythromycin; Translations: [ERYTHROMYCIN] Drug Allergy 07-30-20 09 GI Intolerance, GI Upset, Nausea And Vomiting, Nausea Only [facility] Repository (20 sources) Fenoterol; Translations: [FENOTEROL] Drug Allergy 12-21-19 15 Other (See Comments), Intolerance [facility] Repository (20 sources) Latex; Translations: [LATEX] Propensity to adverse reactions (disorder) 09-25-19 14 Rash [facility] Repository (20 sources) Metoclopramide; Translations: [METOCLOPRAMIDE HCL] Drug Allergy 01-15-20 07 Other (See Comments) [facility] Repository (20 sources) Penicillins; Translations: [PENICILLINS] Propensity to adverse reactions (disorder) 10-29-19 05 [facility] Repository (20 sources) Sulfamethoxazole; Translations: [SULFAMETHOXAZOLE] Drug Allergy 01-31-20 10 GI Intolerance, GI Upset, Nausea Only [facility] Repository (17 sources) ALCOHOL, PENITENTIARY; Translations: [ALCOHOL, PENITENTIARY] Propensity to adverse reactions (disorder) 08-18-19 13 Other: See Comments [facility] Repository (2 sources) Metoclopramide Drug Allergy 12-20-19 16 Racing heart and anxiety [facility] Work Phone: [phone] (2 sources) Sulfamethoxazole / Trimethoprim Drug Allergy 12-20-19 16 Fever, dizzy [facility] Work Phone: [phone] (18 sources) Metoclopramide; Translations: [METOCLOPRAMIDE] Drug Allergy 01-15-20 07 [facility] (18 sources) Sulfamethoxazole / Trimethoprim; Translations: [SULFAMETHOXAZOLE-T RIMETHOPRIM] Drug Allergy 12-20-19 16 [facility] (19 sources) Trimethoprim; Translations: [Unknown] Drug Allergy 01-15-20 17 [facility] Medications Current Medications Medication Drug Class(es) Dates Sig (Normalized) Sig (Original) bifidobacterium infantis 4 mg oral capsule (14 sources) take 1 capsule by mouth once daily in the morning Bifidobacterium infantis (Align) 4 mg cap Take by mouth every morning . 0 Active 0.4 ml enoxaparin sodium 100 mg/ml prefilled syringe (6 sources) Low Molecular Weight Heparin Start: 12-19-2020 End: 01-18-2021 inject 0.4 mL by subcutaneous injection once daily enoxaparin (Lovenox) 40 mg/0.4 mL Syrg Inject 0.4 mL (40 mg total) under the skin daily . 12 mL 0 12/19/2020 01/18/2021 Active Completed/Discontinued Medications Medication Drug Class(es) Dates Sig (Normalized) Sig (Original) Acetaminophen (20 sources) Start: 12-18-2020 End: 12-20-2020 take 1 tablet by mouth every four hours as needed acetaminophen (TYLENOL) tablet 650 mg Problems Active Problems Problem Classification Problem Date Documented Date Episodic/Chronic Acquired foot deformities (17 sources) Talipes planus; Translations: [Flat foot [pes planus] (acquired), left foot] Episodic Acquired foot deformities (1 source) Flat foot [pes planus] (acquired), right foot; Translations: [FLAT FOOT PES PLANUS ACQ RT FOOT] Onset: 10-25-2020 Episodic Allergic reactions (3 sources) Solar degeneration; Translations: [Other skin changes due to chronic exposure to nonionizing radiation] Episodic Asthma (20 sources) Asthma; Translations: [Unspecified asthma, uncomplicated] Onset: 01-12-2017 01-12-2017 Chronic Esophageal disorders (19 sources) Gastroesophageal reflux disease; Translations: [Gastro-esophageal reflux disease without esophagitis] Onset: 01-12-2017 01-12-2017 Chronic Gastroduodenal ulcer (except hemorrhage) (15 sources) Gastric ulcer; Translations: [Gastric ulcer, unspecified as acute or chronic, without hemorrhage or perforation] 07-28-2021 Chronic Heart valve disorders (2 sources) Tricuspid incompetence, non-rheumatic ; Translations: [Nonrheumatic tricuspid (valve) insufficiency] Onset: 12-16-2015 12-16-2015 Chronic Melanomas of skin (17 sources) Malignant melanoma of skin of upper limb; Translations: [Malignant melanoma] Onset: 09-30-2011 01-12-2017 Chronic Neoplasms of unspecified nature or uncertain behavior (1 source) Neoplasm of uncertain behavior of skin; Translations: [Neoplasm of uncertain behavior of skin] 05-24-2023 Episodic Osteoarthritis (18 sources) Post-traumatic osteoarthritis, left ankle and foot; Translations: [Osteoarthrosis of the carpometacarpal joint of the thumb] Onset: 10-25-2020 Chronic Osteoporosis (15 sources) Senile osteoporosis; Translations: [Age-related osteoporosis without current pathological fracture] Onset: 02-29-2008 02-29-2008 Chronic Other and unspecified benign neoplasm (1 source) Senile angioma; Translations: [Hemangioma of skin and subcutaneous tissue] 05-24-2023 Episodic Other connective tissue disease (2 sources) Pain in lower limb Onset: 11-17-2018 Episodic Other connective tissue disease (20 sources) Disorder of posterior tibial muscle tendon; Translations: [Posterior tibial tendinitis, unspecified leg] Onset: 02-07-2019 02-07-2019 Episodic Other connective tissue disease (1 source) Posterior tibial tendinitis, left leg; Translations: [POSTERIOR TIBIAL TENDINITIS LT LEG] Onset: 10-25-2020 Episodic Other connective tissue disease (1 source) Peroneal tendinitis, left leg; Translations: [PERONEAL TENDINITIS LEFT LEG] Onset: 10-25-2020 Episodic Other connective tissue disease (1 source) Other synovitis and tenosynovitis, left lower leg; Translations: [OTH SYNOVITIS TENOSYNOVIT LT LW LEG] Onset: 10-25-2020 Episodic Other connective tissue disease (20 sources) Dysfunction of posterior tibial tendon of left foot; Translations: [Posterior tibial tendinitis, left leg] Onset: 12-06-2020 Episodic Other connective tissue disease (1 source) Dysfunction of posterior tibial tendon; Translations: [Posterior tibial tendinitis, unspecified leg] Episodic Other connective tissue disease (3 sources) Pain in finger; Translations: [Pain in left finger(s)] Onset: 05-13-2023 05-13-2023 Episodic Other connective tissue disease (6 sources) Dysfunction of posterior tibial tendon of left foot; Translations: [Posterior tibial tendon dysfunction (PTTD) of left lower extremity] Other inflammatory condition of skin (15 sources) Rosacea; Translations: [Rosacea, unspecified] Onset: 01-08-2005 01-08-2005 Chronic Other nervous system disorders (2 sources) Neuropathy; Translations: [Polyneuropathy, unspecified] Onset: 01-12-2017 01-12-2017 Chronic Other nervous system disorders (15 sources) Cervical myelopathy; Translations: [Disease of spinal cord, unspecified] 10-07-2011 Chronic Other nervous system disorders (2 sources) Other chronic pain; Translations: [Other chronic pain] Onset: 07-07-2022 Chronic Other nutritional; endocrine; and metabolic disorders (2 sources) Overweight; Translations: [Overweight] Onset: 01-12-2017 01-12-2017 Chronic Other nutritional; endocrine; and metabolic disorders (15 sources) Body mass index 30+ - obesity; Translations: [Obesity, unspecified] Onset: 12-16-2020 12-16-2020 Chronic Other screening for suspected conditions (not mental disorders or infectious disease) (4 sources) Patient encounter status; Translations: [Encounter for screening for malignant neoplasm of skin] Episodic Other skin disorders (3 sources) Seborrheic keratosis; Translations: [Other seborrheic keratosis] Episodic Other skin disorders (2 sources) Lentiginosis; Translations: [Other melanin hyperpigmentation] Episodic Other skin disorders (4 sources) Multiple actinic keratoses; Translations: [Actinic keratosis] Episodic Other skin disorders (2 sources) Inflamed seborrheic keratosis; Translations: [Inflamed seborrheic keratosis] 04-07-2023 Episodic Residual codes; unclassified (1 source) Encounter for cosmetic surgery; Translations: [Encounter for cosmetic procedure] Onset: 04-15-2023 Episodic Past or Other Problems Problem Classification Problem Date Documented Da te Episodic/Chronic Gastrointestinal hemorrhage (2 sources) Hematochezia; Translations: [Melena] Onset: 01-12-2017 01-12-2017 Episodic Malaise and fatigue (2 sources) Fatigue; Translations: [Other fatigue] Onset: 07-13-2016 07-13-2016 Episodic Melanomas of skin (17 sources) History of melanoma in situ of skin; Translations: [Personal history of melanoma in-situ] Onset: 06-20-2021 Episodic Other connective tissue disease (7 sources) Chronic pain of left upper limb; Translations: [Pain in left finger(s)] Onset: 07-08-2022 Episodic Other connective tissue disease (5 sources) Pain in thumb ; Translations: [Pain in right finger(s)] Onset: 10-31-2021 05-18-2022 Episodic Other connective tissue disease (5 sources) Triggering of digit; Translations: [Trigger finger, left middle finger] Onset: 08-27-2021 05-18-2022 Episodic Other connective tissue disease (4 sources) Chronic pain of right upper limb; Translations: [Pain in right finger(s)] Onset: 03-11-2023 03-11-2023 Episodic Other connective tissue disease (2 sources) Pain in left finger(s); Translations: [Pain in left finger(s)] Onset: 07-07-2022 Episodic Other non-epithelial cancer of skin (20 sources) History of malignant neoplasm of skin excluding melanoma; Translations: [Personal history of other malignant neoplasm of skin] Onset: 02-13-2015 Episodic Other non-traumatic joint disorders (2 sources) Joint pain; Translations: [Pain in unspecified joint] Onset: 07-13-2016 07-13-2016 Episodic Other skin disorders (19 sources) Actinic keratosis; Translations: [Actinic keratosis] Onset: 06-15-2012 Episodic Residual codes; unclassified (1 source) Pain; Translations: [Pain] Episodic Syncope (2 sources) Syncope and collapse; Translations: [Syncope and collapse] Onset: 12-16-2015 12-16-2015 Episodic Results Test Name Value Interpretation Reference Range Facil ity Vital Signs Date Time Vital Sign Value Performing Clinician Facility 04-15-2021 13:14-0400 Body height 157.5 cm Joshua Sandoval MD Work Phone: [facility] 04-15-2021 13:14-0400 Body mass index (BMI) [Ratio] 30.91 kg/m2 Joshua Sandoval MD Work Phone: [facility] 04-15-2021 13:14-0400 Body weight 76.66 kg Joshua Sandoval MD Work Phone: [facility] 04-15-2021 13:14-0400 Diastolic blood pressure 72 mm[Hg] Joshua Sandoval MD Work Phone: [facility] 04-15-2021 13:14-0400 Heart rate 69 /min Joshua Sandoval MD Work Phone: [facility] 04-15-2021 13:14-0400 Systolic blood pressure 142 mm[Hg] Joshua Sandoval MD Work Phone: [facility] 03-04-2021 13:20-0400 Body height 157.5 cm Joshua Sandoval MD Work Phone: [facility] 03-04-2021 13:20-0400 Body mass index (BMI) [Ratio] 30.91 kg/m2 Joshua Sandoval MD Work Phone: [facility] 03-04-2021 13:20-0400 Body weight 76.66 kg Joshua Sandoval MD Work Phone: [facility] 03-04-2021 13:20-0400 Diastolic blood pressure 94 mm[Hg] Joshua Sandoval MD Work Phone: [facility] 03-04-2021 13:20-0400 Heart rate 93 /min Joshua Sandoval MD Work Phone: [facility] 03-04-2021 13:20-0400 Systolic blood pressure 159 mm[Hg] Joshua Sandoval MD Work Phone: [facility] 01-31-2021 10:13-0400 Body height 157.5 cm Joshua Sandoval MD Work Phone: [facility] 01-31-2021 10:13-0400 Body mass index (BMI) [Ratio] 30.91 kg/m2 Joshua Sandoval MD Work Phone: [facility] 01-31-2021 10:13-0400 Body weight 76.66 kg Joshua Sandoval MD Work Phone: [facility] 01-31-2021 10:13-0400 Diastolic blood pressure 84 mm[Hg] Joshua Sandoval MD Work Phone: [facility] 01-31-2021 10:13-0400 Heart rate 80 /min Joshua Sandoval MD Work Phone: [facility] 01-31-2021 10:13-0400 Systolic blood pressure 133 mm[Hg] Joshua Sandoval MD Work Phone: [facility] 01-03-2021 10:21-0400 Body height 157.5 cm Joshua Sandoval MD Work Phone: [facility] 01-03-2021 10:21-0400 Body mass index (BMI) [Ratio] 30.91 kg/m2 Joshua Sandoval MD Work Phone: [facility] 01-03-2021 10:21-0400 Body weight 76.66 kg Joshua Sandoval MD Work Phone: [facility] 01-03-2021 10:21-0400 Diastolic blood pressure 78 mm[Hg] Joshua Sandoval MD Work Phone: [facility] 01-03-2021 10:21-0400 Heart rate 78 /min Joshua Sandoval MD Work Phone: [facility] 01-03-2021 10:21-0400 Systolic blood pressure 131 mm[Hg] Joshua Sandoval MD Work Phone: [facility] 12-20-2020 12:19-0400 Body temperature 98.49 [degF] Joshua Sandoval MD Work Phone: [facility] 12-20-2020 12:19-0400 Diastolic blood pressure 71 mm[Hg] Joshua Sandoval MD Work Phone: [facility] 12-20-2020 12:19-0400 Heart rate 83 /min Joshua Sandoval MD Work Phone: [facility] 12-20-2020 12:19-0400 Respiratory rate 16 /min Joshua Sandoval MD Work Phone: [facility] 12-20-2020 12:19-0400 SaO2% (BldA) [Mass fraction] 91 % Joshua Sandoval MD Work Phone: [facility] 12-20-2020 12:19-0400 Systolic blood pressure 112 mm[Hg] Joshua Sandoval MD Work Phone: [facility] 12-18-2020 10:56-0400 Body height 157.5 cm Joshua Sandoval MD Work Phone: [facility] 12-18-2020 10:56-0400 Body mass index (BMI) [Ratio] 31.05 kg/m2 Joshua Sandoval MD Work Phone: [facility] 12-18-2020 10:56-0400 Body weight 77 kg Joshua Sandoval MD Work Phone: [facility] 12-06-2020 09:31-0400 Body height 157.5 cm Joshua Sandoval MD Work Phone: [facility] 12-06-2020 09:31-0400 Body mass index (BMI) [Ratio] 31.28 kg/m2 Joshua Sandoval MD Work Phone: [facility] 12-06-2020 09:31-0400 Body weight 77.56 kg Joshua Sandoval MD Work Phone: [facility] 12-06-2020 09:31-0400 Diastolic blood pressure 86 mm[Hg] Joshua Sandoval MD Work Phone: [facility] 12-06-2020 09:31-0400 Heart rate 76 /min Joshua Sandoval MD Work Phone: [facility] 12-06-2020 09:31-0400 Respiratory rate 18 /min Joshua Sandoval MD Work Phone: [facility] 12-06-2020 09:31-0400 Systolic blood pressure 153 mm[Hg] Joshua Sandoval MD Work Phone: [facility] 11-04-2020 14:36-0400 BMI (Body Mass Index) 30.69 kg/m2 Joshua Exten [facility] 11-04-2020 14:36-0400 Body weight 76.2 kg Joshua Exten [facility] 11-04-2020 14:36-0400 BP Diastolic 88 mm[Hg] Joshua Exten [facility] 11-04-2020 14:36-0400 BP Systolic 152 mm[Hg] Joshua Exten [facility] 11-04-2020 14:36-0400 Height 157.6 cm Joshua Jaime [facility] 11-04-2020 14:36-0400 Pulse (Heart Rate) 65 /min Joshua Exten [facility] 05-26-2019 10:38-0400 BMI (Body Mass Index) 30.14 kg/m2 Joshua Exten [facility] 05-26-2019 10:38-0400 Body weight 74.84 kg Joshua Exten [facility] 05-26-2019 10:38-0400 BP Diastolic 87 mm[Hg] Joshua Exten [facility] 05-26-2019 10:38-0400 BP Systolic 148 mm[Hg] Joshua Exten [facility] 05-26-2019 10:38-0400 Height 157.6 cm Joshua Exten [facility] 05-26-2019 10:38-0400 Pulse (Heart Rate) 69 /min Joshua Exten [facility] 02-16-2019 08:59-0400 BMI (Body Mass Index) 29.23 kg/m2 Joshua Exten [facility] 02-16-2019 08:59-0400 Body weight 74.84 kg Joshua Exten [facility] 02-16-2019 08:59-0400 BP Diastolic 81 mm[Hg] Joshua Exten [facility] 02-16-2019 08:59-0400 BP Systolic 131 mm[Hg] Joshua Exten [facility] 02-16-2019 08:59-0400 Height 160 cm Joshua Sandoval [facility] 02-16-2019 08:59-0400 Pulse (Heart Rate) 80 /min Joshua Sandoval [facility] 01-27-2019 15:16-0400 BMI (Body Mass Index) 29.23 kg/m2 [facility] 01-27-2019 15:16-0400 Body weight 74.84 kg [facility] 01-27-2019 15:16-0400 BP Diastolic 83 mm[Hg] [facility] 01-27-2019 15:16-0400 BP Systolic 129 mm[Hg] [facility] 01-27-2019 15:16-0400 Height 160 cm [facility] 01-27-2019 15:16-0400 Pulse (Heart Rate) 93 /min [facility] 01-12-2017 15:23-0400 BMI (Body Mass Index) 27.47 kg/m2 Patrica Carolinacashcucatio [facility] Work Phone: 01-12-2017 15:23-0400 Body Temperature 98.4 [degF] Patrica Carolinacashrocky [facility] Work Phone: 01-12-2017 15:23-0400 BP Diastolic 52 mm[Hg] Patrica Carolinacashcucaer [facility] Work Phone: 01-12-2017 15:23-0400 BP Systolic 135 mm[Hg] Patrica Carolinacashrocky [facility] Work Phone: 01-12-2017 15:23-0400 Height 157.48 cm Patrica Figueroacashrocky [facility] Work Phone: 01-12-2017 15:23-0400 Pulse (Heart Rate) 88 /min Patrica Carolinacashrocky [facility] Work Phone: 01-12-2017 15:23-0400 Pulse Oximetry 96 % Patrica Carolinacashrocky [facility] Work Phone: 01-12-2017 15:23-0400 Respiratory Rate 20 /min Patrica Carolinacashrocky [facility] Work Phone: 01-12-2017 15:23-0400 Weight 68.13 kg Patrica Alegre [facility] Work Phone: 07-13-2016 13:52-0500 BSA (Body Surface Area) 1.79 m2 Patrica Villasenor Plastic Surgery Work Phone: Encounters Encounter Date Encounter Type Care Provider Facility Start: 06-07-2023 Telephone encounter Ezra Perez MD Work Phone: Dermatology Start: 05-24-2023 Refill Ezar lopez MD Work Phone: Dermatology Procedures Date Procedure Procedure Detail Performing Clinician Start: 11-03-2022 Follow-up visit Follow-up DM FINN Start: 05-25-2022 Mammography Ja samayoa MD Work Phone: Start: 01-31-2021 Radex foot complete minimum 3 views Joshua Sandoval MD Work Phone: Start: 01-03-2021 Radex foot complete minimum 3 views Joshua Sandoval MD Work Phone: Start: 12-18-2020 Radiologic examinati on foot 2 views Joshua Sandoval MD Work Phone: Start: 12-18-2020 End: 12-18-2020 OSTEOTOMY [place] CALCANEAL Joshua mart MD Work Phone: Start: 11-04-2020 Radiologic examinati on ankle 2 views Joshua Sandoval Work Phone: Start: 11-04-2020 X-ray of left foot Tru Sandoval Work Phone: Start: 11-04-2020 Magnetic resonance imaging External Transcribed Start: 02-17-2019 Magnetic resonance imaging External Transcribed Start: 02-16-2019 Radiologic examinati on ankle 2 views Joshua Sandoval Work Phone: Start: 01-12-2017 End: 01-12-2017 Dietary management education, guidance, and counseling Patrica Alegre Start: 11-02-2016 Peter felton MD Work Phone: Start: 07-13-2016 End: 09-09-2016 Complete sleep workup (PSG,CPAP as indicated) & Follow up Thor Coon MD Work Phone: Start: 07-13-2016 End: 07-13-2016 ASHLEIGH Coon MD Work Phone: Start: 07-13-2016 End: 07-13-2016 Follow Up Appt 2 months Thor Coon MD Work Phone: Start: 07-13-2016 End: 07-14-2016 Referral to stress analyst Thor haider MD Work Phone: Start: 12-20-2015 End: 02-25-2016 Carotid duplex Thor Coon MD Work Phone: Start: 12-20-2015 End: 12-20-2015 ASHLEIGH Coon MD Work Phone: Start: 12-20-2015 End: 12-20-2015 Follow Up Appt 6 months Thor Coon MD Work Phone: Plan of Treatment Date Care Activity Detail Author Start: 11-24-2027 DTaP/Tdap/Td Vaccines (2 - Td or Tdap) DTaP/Tdap/Td Vaccines (2 - Td or Tdap) [facility] Start: 11-24-2027 Tetanus vaccination [facility] Start: 11-24-2027 Urine microalbumin profile DTaP,Tdap,Td Vaccine (2 - Td or Tdap) [facility] Start: 03-01-2024 Pneumococcal vaccination Pneumococcal Vaccine Age 65+ (2 of 2 - PPSV23) [facility] Start: 03-01-2024 Pneumococcal Vaccine: 65+ (3 - PPSV23 or PCV20) Pneumococcal Vaccine: 65+ (3 - PPSV23 or PCV20) [facility] Start: 03-01-2024 Pneumococcal Vaccine: 65+ Years (#3) Pneumococcal Vaccine: 65+ Years (#3) [facility] Start: 03-01-2024 Pneumococcal Vaccine: 65+ Years (3 - PPSV23 if available, else PCV20) Pneumococcal Vaccine: 65+ Years (3 - PPSV23 if available, else PCV20) [facility] Start: 03-01-2024 Pneumococcal Vaccine: 65+ Years (3 - PPSV23 or PCV20) Pneumococcal Vaccine: 65+ Years (3 - PPSV23 or PCV20) [facility] Start: 03-01-2024 Pneumococcal Vaccine: 65+ Years (3 of 3 - PPSV23 or PCV20) Pneumococcal Vaccine: 65+ Years (3 of 3 - PPSV23 or PCV20) [facility] Start: 05-25-2023 Screening for malignant neoplasm of breast Mammogram [facility] Start: 04-13-2023 End: 04-13-2023 Patient encounter procedure 04/13/2023 2:00 PM EDT Office Visit [facility] [address] [place] [address] Ja Finn MD [address] [place] [address] [facility] Start: 04-02-2023 Covid-19 Vaccine ( season) Covid-19 Vaccine ( season) [facility] Start: 04-02-2023 Influenza vaccination [facility] Start: 01-26-2023 End: 01-26-2023 Patient encounter procedure 01/26/2023 Office Visit Plastic Surgery Ja Finn MD [address] [facility] [place] [address] [facility] Start: 08-18-2022 COVID-19 VACCINE (5 - Pfizer series) COVID-19 VACCINE (5 - Pfizer series) [facility] Start: 08-02-2022 ADVANCE DIRECTIVE DISCUSSION ADVANCE DIRECTIVE DISCUSSION [facility] Start: 08-02-2022 DEPRESSION ASSESSMENT DEPRESSION ASSESSMENT [facility] Start: 04-02-2022 Influenza vaccination INFLUENZA (#1) [facility] Start: 09-24-2021 COVID-19 VACCINE (4 - Booster for Pfizer series) COVID-19 VACCINE (4 - Booster for Pfizer series) [facility] Start: 08-02-2021 ADVANCE DIRECTIVE DISCUSSION ADVANCE DIRECTIVE DISCUSSION [facility] Start: 08-02-2021 DEPRESSION ASSESSMENT DEPRESSION ASSESSMENT [facility] Start: 05-27-2021 End: 05-27-2021 Patient encounter procedure 05/27/2021 Office Visit Orthopedic Surgery Joshua Sandoval MD [address] [place] [address] [facility] Orthopedic and Sports Medicine Start: 04-15-2021 End: 04-15-2021 Patient encounter procedure 04/15/2021 Office Visit Orthopedic Surgery Joshua Sandoval MD [address] [facility] [address] [place] [address] [phone] [facility] Orth[facility] Start: 04-02-2021 Influenza vaccination Sequential Influenza Vaccine (#1) [facility] Start: 03-14-2021 End: 03-14-2021 Patient encounter procedure 03/14/2021 Office Visit Orthopedic Surgery Joshua Sandoval MD [address] [place] [address] [phone] [facility] Start: 03-04-2021 End: 03-04-2021 Patient encounter procedure 03/04/2021 Office Visit Orthopedic Surgery Joshua Sandoval MD [address] [place] [address] [phone] [facility] Orthopedic [facility] Start: 01-31-2021 End: 01-31-2021 Patient encounter procedure 01/31/2021 Office Visit Orthopedic Surgery Joshua Sandoval MD [address] [facility] [place] [address] [phone] [facility]opedic [facility] Start: 01-03-2021 End: 01-03-2021 Patient encounter procedure 01/03/2021 Office Visit Orthopedic Surgery Joshua Sandoval MD [address] [facility] [place] [address] [phone] [facility] Orthopedic [facility] Medicine Start: 12-18-2020 End: 12-18-2020 Admission to same day surgery center 12/18/2020 Surgery Exten, Joshua Bhardwaj MD [address] [place] [address] [phone] LEFT MEDIAL DISPLACEMENT CALCANEAL OSTEOTOMY, COTTON OSTEOTOMY, DILLARD OSTEOTOMY, FDL TENDON TRANSFER, POSSIBLE PERCUTANEOUS STAR [facility] Periop Immunizations Immunization Date Immunization Notes Care Provider Fa [facility] 05-24-2021 Pfizer SARS-CoV-2 Vaccination Ja Finn MD Work Phone: [facility] [email or web address] 05-14-2021 influenza virus vacc ine, unspecified formulation Ja Finn MD Work Phone: [facility] 10-18-2020 Pfizer SARS-CoV-2 Vaccination Ja Finn MD Work Phone: [facility] 09-27-2020 Pfizer SARS-CoV-2 Vaccination Ja Finn MD Work Phone: [facility] 05-16-2009 influenza virus vacc ine, unspecified formulation Neeta Carr MD Work Phone: [facility] Payers Date Payer Category Payer Medicare [id number] 2020 Unknown [id number] .[id number] 2020 Unknown [id number] 2020 Unknown [id number] 1.13.159.2.7.3 .[id number] 2020 Unknown [id number] 2020 Medicare [id number] .[id number] 2020 Medicare [id number] 2018 Unknown MMO MED MUTUAL S UPERMED PPO xxxxxxxxxxxx 2018-Present [id number] .[id number] 2018 Unknown MMO MED MUTUAL S UPERMED PPO [id number] 2018-Present [id number] .[id number] 1959 Unknown [id number] 1955 Unknown [id number] 2.16.840.1.791702.3.579.2.278 1955 Unknown [id number] 2.16.840.1.683387.3.579.2.278 1955 Unknown [id number] 2.16.840.1.809951.3.579.2.903 1955 Unknown [id number] 2.16.840.1.381372.3.579.2.903 1955 Unknown [id number] 2.16.840.1.540724.3.579.2.598 1955 Unknown [id number] 2.16.840.1.336617.3.579.2.900 1955 Unknown [id number] 2.16.840.1.670019.3.579.2.903 1955 Unknown [id number] 2.16.840.1.597390.3.579.2.903 1955 Unknown [id number] 2.16.840.1.140731.3.579.2.903 1955 Unknown [id number] 2.16.840.1.320224.3.579.2.903 1955 Unknown [id number] 2.16.840.1.287875.3.579.2.903 1955 Unknown [id number] 2.16.840.1.855981.3.579.2.903 1955 Unknown [id number] 2.16.840.1.233682.3.579.2.903 1955 Unknown [id number] 2.16.840.1.540528.3.579.2. 1955 Unknown [id number] 2.16.840.1.048319.3.579.2. 1955 Unknown [id number] 2.16.840.1.574216.3.579.2. 1955 Unknown [id number] 2.16.840.1.856044.3.579.2. 1955 Unknown [id number] 2.16.840.1.233422.3.579.2. 1955 Unknown [id number] 2.16.840.1.086610.3.579.2. 1955 Unknown [id number] 2.16.840.1.338136.3.579.2. 1955 Unknown [id number] 2.16.840.1.644932.3.579.2. 1955 Unknown [id number] 2.16.840.1.201148.3.579.2.3 1955 Unknown [id number] 2.16.840.1.424277.3.579.2. 1955 Unknown [id number] 2.16.840.1.616436.3.579.2.90 1955 Unknown [id number] 2.16.840.1.102926.3.579.2. 1955 Unknown [id number] 2.16.840.1.309550.3.579.2.90 1955 Unknown [id number] 2.16.840.1.622400.3.579.2.903 Social History Date Type Detail Facility Start: 02-07-2019 End: 02-16-2019 Tobacco smoking status NHIS Unknown if ever smoked [facility] Start: 1955 Sex Assigned At Not on file [facility] Start: 10-07-2011 End: 05-26-2019 Tobacco smoking status NHIS Never smoker [facility] Start: 10-07-2011 End: 05-26-2019 Tobacco use and exposure Never used [facility] Start: 03-28-2022 End: 02-09-2023 Exposure to SARS-CoV-2 (event) Not sure [facility] Start: 12-19-2020 End: 05-26-2022 Alcohol intake Lifetime non-drinker (finding) [facility] Start: 12-16-2020 History SDOH Alcohol Frequency 1 [facility] Start: 01-29-2022 End: 04-07-2023 Alcohol intake Current non-drinker of alcohol (finding) [facility] Start: 1955 Sex Assigned At Female [facility] Start: 02-09-2023 End: 04-27-2023 History of Social function [facility] Start: 02-09-2023 End: 04-27-2023 Tobacco use panel [facility] National Score (1-10 0), lower number is lower risk 72 [facility] Start: 08-27-2021 Gender identity Identifies as female gender (finding) [facility] Start: 08-27-2021 Sexual orientation Heterosexual (violet hoover) [facility] Medical Equipment Procedure Code Equipment Code Equipment Origin al Text Equipment Identifier Dates [id number] Start: 05-06-2016 Clinical Notes 12-19-2010 to 06-08-2023 Telephone Encounter - Katy Cruz RN - 06/08/2023 12:59 PM ESTTelephone Encounter - Gilma Reyna MA - 06/07/2023 11:44 AM ESTTelephone Encounter - Irma Gottlieb LPN - 06/02/2023 3:13 PM EDT Note Date & Type Note Facility 06-08-2023 Miscellaneous Notes See telephone encounter from 06/07/2023 for additional documentation - prior authorization for medication is approved Katy Cruz RN documented in this encounter [facility] 06-07-2023 Miscellaneous Notes Rx Fluorouracil cream was approved 08/02/22-08/14/23 documented in this encounter [facility] 06-02-2023 Miscellaneous Notes Patient was seen for a Skin check on 05/24/23 Irma Gottlieb LPN Prior Vidiwas patient-hx of melanoma, ASHA for RSE on 11/04/22. Requesting sooner appt. Currently scheduled Ranasinghe 08/09/23. Requesting Ranasinghe only. documented in this encounter [facility] 05-24-2023 Note HNO ID: [id number] Author: Ezra Perez MD Service: ? Author Type: Physician Type: Progress Notes Filed: 05/24/2023 11:13 AM Note Text: May 24, 2023 Established patient LV 04/07/23 CHIEF COMPLAINT: Full body Skin Exam HISTORY OF PRESENT ILLNESS: Jackie Linton is a 68 year old female here for FBSE. 1. Growth Spots/bumps Location: back of left leg Duration: 2 months feel like it has been growing. Signs and symptoms: dry, itchy, rough. Current treatment: None Past treatments: None - Has yes been wearing sunscreen regularly Pertinent Past Medical History: History of melanoma? Yes History of melanoma in situ left arm 2012 History of non melanoma skin cancer? 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 History of atypical nevi? Yes History of blistering sunburns? younger History of organ transplantation? No History of tanning bed use? No History of blistering sunburns: yes FAMILY HISTORY: History of melanoma: Yes Mother PAST MEDICAL HISTORY: PAST MEDICAL HISTORY Diagnosis Date Asthma Cervical myelopathy (HCC) Gastric ulcer, unspecified as acute or chronic, without mention of hemorrhage, perforation, or obstruction from [facility] Hospitalization within last 30 days dizziness, syncope Melanoma (HCC) Osteoporosis on evista SCC (squamous cell carcinoma) Right arm and right leg REVIEW OF SYSTEMS: Constitutional: Denies fever, chills, unintentional weight loss. Skin as per HPI Medications Current Outpatient Medications Medication Sig Fluorouracil (EFUDEX) 5 % cream Apply to chest area twice a day for 4 weeks Fluorouracil (EFUDEX) 5 % cream Apply to anterior legs twice daily for 4 weeks. May stop for few days or decrease to once daily for discomfort triamcinolone acetonide (KENALOG) 0.1 % ointment Apply to red irritated areas, twice a day as needed (Patient not taking: Reported on 11/17/2018 ) valACYclovir (VALTREX) 1 gram tab Take 1 tablet by mouth once daily. (Patient not taking: Reported on 09/02/2021 ) triamcinolone acetonide (KENALOG) 0.1 % ointment Apply to red irritated areas, twice a day as needed (Patient not taking: Reported on 03/18/2018 ) raloxifene (EVISTA) 60 mg tablet Take 1 tablet by mouth once daily. sertraline (ZOLOFT) 100 mg tablet Take 50 mg in addition to the 100mg for the next few weeks triamcinolone acetonide (KENALOG) 0.1 % ointment Apply to red irritated areas, twice a day as needed (Patient not taking: Reported on 09/02/2021 ) COMPOUNDED PRESCRIPTION Triamcinolone and Lidocaine 1:1 mixture in an equal part of Aquaphor; 30 gram vial; Apply three times a day as needed for pain (Patient not taking: Reported on 09/02/2021 ) ZOLPIDEM TARTRATE (AMBIEN ORAL) Take by mouth. BABY ASPIRIN ORAL Take by mouth. (Patient not taking: Reported on 09/02/2021 ) PDT topical Triamcinolone and Lidocaine 1:1 mixture in an equal part of Aquaphor; 30 gm vial; Apply 3 x daily prn pain, up to 5 days after tx (Patient not taking: Reported on 09/02/2021 ) triamcinolone acetonide (KENALOG) 0.1 % ointment Apply to red irritated areas, twice a day as needed (Patient not taking: Reported on 09/02/2021 ) esomeprazole (NEXIUM) 40 mg capsule Take 1 capsule by mouth twice daily before meals. rizatriptan (MAXALT) 10 mg tablet Take 1 tablet by mouth as needed. May repeat in 2 hours if needed (Patient not taking: Reported on 09/02/2021 ) MAXAIR 200 MCG/ACTUATION AEROSOL INHALER Take 2 Puffs by mouth as needed. Methylcellulose, Laxative, 500 mg tab Take 1,000 mg by mouth twice daily. calcium citrate/vitamin d3(CITRACAL + D 315 MG-200 UNIT TAB) Take two(2) tablets twice daily BY MOUTH. No current facility-administered medications for this visit. PHYSICAL EXAM: General: awake, alert, no acute distress Skin: Skin exam was performed today including the following: head and face, scalp, neck, chest (including breasts and axillae), abdomen, groin, buttocks, back, bilateral upper extremities, bilateral lower extremities, hands, feet, digits, nails. Pertinent findings include: - Few scattered bright red dome-shaped papules on the trunk and extremities - Scattered light brown stellate macules on the face, shoulders, chest, and upper extremities - Scattered, evenly colored, round brown macules and papules with regular borders on the trunk and extremities - Numerous scattered skin-colored and brown, waxy, stuck-on papules and plaques on the trunk and extremities - healing erythematous papules on chest consistent with recent PDT -Erythematous scaly macule(s) with gritty scale on bilateral arms -[place] scaly plaque on left upper back 1 x 1.2 cm bx* - waxy papule L popliteal fossa cryo * ASSESSMENT AND PLAN: #Neoplasm of uncertain behavior of skin, Shave biopsy o (more content not included)... [facility] 05-24-2023 Instructions Ezra Perez MD - 05/24/2023 10:14 AM EDT Efudex (5-Fluorouracil) Cream General Information Efudex is used as treatment to selectively destroy pre-cancerous lesions (sun-damaged cells) in the skin while retaining the normal healthy skin cells. Efudex will cause inflammation in the skin. This can include redness, soreness, oozing, crusting and scabs. After completion of treatment, this type of reaction should resolve over a few weeks. If you have severe sun-damage, additional courses of treatment may be required in the future. Efudex Application Instructions: 1) Cleanse affected area with gentle cleanser (Neutrogena or Cetaphil) 2) Dry with a clean towel 3) Apply a thin layer of Efudex cream to the entire treatment area 4) Wash hands thoroughly after application 5) After 20 minutes, you may apply moisturizers and/or make up as part of your usual skin routine Repeat this twice daily (Morning and at Night) for 2-4 weeks, as tolerated. Helpful Tips: You may discontinue use of the medication for a day or two off if the area becomes too painful. Once the skin settles, pelase continue twice daily application in order to complete the course of treatment. You may use Vaseline/Aquaphor as needed during the day for sores or scaly skin. Efudex makes your skin more sensitive to the sun and may cause a blistering, painful reaction if it becomes exposed to sun. AVOID SUN EXPOSURE on the treated areas by limiting sun exposure, wearing protective clothing, and frequent use of sunscreens. If you experience a severe reaction, there is a risk of prolonged inflammation and delayed healing. There is also a small risk of changes in skin pigmentation and scarring. If you have concerns about the severity of the treatment site reaction or if you are unsure if you should continue treatment, please contact the office at [phone]. CARE FOR YOUR SHAVE BIOPSY SITE Please follow these instructions for daily wound care: 1. Wash the area every day with gentle soap and water. 2. Apply a thin layer of Vaseline or Aquaphor to the wound site to keep the area slightly greasy at all time (this helps to prevent scabbing). Please do not use an old tub of ointment as this can introduce germs into your wound and cause infection. 3. Cover with a bandage and continue this daily process until the wound is healed. Do not leave a soiled or wet bandage on the wound. -Keep the area clean and dry with the bandage in place the day of surgery. -If you experience any bleeding, please apply pressure to the area for approximately 10 minutes. -You may shower, but do not soak in a bathtub, hot tub, pool, [place], etc until after the wound has healed. -DO NOT USE NEOSPORIN OR BACITRACIN as there is a fairly high incidence of allergic response to these products. -You may experience some mild discomfort, redness, swelling, and/or a clear discharge from the wound after your procedure. Severe pain, worsening swelling, and foul-smelling discharge from the site are NOT to be expected. If you have concerns about how your wounds are healing, please send your provider a [employer] message or call [phone]. SKIN CARE AFTER CRYOSURGERY The skin's response to cryosurgery (freezing) can be mild to severe, depending on the depth of the freeze and location of the area treated. You may have minimal redness and swelling with little discomfort or significant discoloration and blistering with considerable discomfort. A burning sensation in the skin may last from several minutes to several hours after the procedure. Follow these instructions when caring for an area treated by cryosurgery: 1. Please clean the area every day with gentle soap and water. It is not necessary to cover the site with a bandage. However, it may be used for protection and it must be changed daily. Do not leave a soiled or wet bandage on the wound. 2. If you are experiencing discomfort you may use a cool compress, elevate the area or take over the counter pain relievers. 3. Apply Vaseline or Aquaphor daily to the site. This can help with itching, irritation, and discomfort. -The lesion may take 2-4 weeks to fully resolve. Depending on the severity of treatment and lesion treated, it may take longer. -DO NOT USE NEOSPORIN OR BACITRACIN as there is a fairly high incidence of allergic response to these products. -You may experience some mild discomfort, redness, swelling, and/or a clear discharge from the wound after your procedure. Severe pain, worsening swelling, and foul-smelling discharge from the site are NOT to be expected. If you have concerns about how your wounds are healing, please send your provider a [employer] message or call [phone]. documented in this encounter [facility] 05-24-2023 History of Presen t illness Narrative May 24, 2023 Established patient LV 04/07/23 CHIEF COMPLAINT: Full body Skin Exam HISTORY OF PRESENT ILLNESS: Jackie Linton is a 68 year old female here for FBSE. 1. Growth Spots/bumps Location: back of left leg Duration: 2 months feel like it has been growing. Signs and symptoms: dry, itchy, rough. Current treatment: None Past treatments: None - Has yes been wearing sunscreen regularly Pertinent Past Medical History: History of melanoma? Yes History of melanoma in situ left arm 2011 History of non melanoma skin cancer? 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 History of atypical nevi? Yes History of blistering sunburns? younger History of organ transplantation? No History of tanning bed use? No History of blistering sunburns: yes FAMILY HISTORY: History of melanoma: Yes Mother PAST MEDICAL HISTORY: PAST MEDICAL HISTORY Diagnosis Date Asthma Cervical myelopathy (HCC) Gastric ulcer, unspecified as acute or chronic, without mention of hemorrhage, perforation, or obstruction from [facility] Hospitalization within last 30 days dizziness, syncope Melanoma (HCC) Osteoporosis on evista SCC (squamous cell carcinoma) Right arm and right leg REVIEW OF SYSTEMS: Constitutional: Denies fever, chills, unintentional weight loss. Skin as per HPI Medications Current Outpatient Medications Medication Sig Fluorouracil (EFUDEX) 5 % cream Apply to chest area twice a day for 4 weeks Fluorouracil (EFUDEX) 5 % cream Apply to anterior legs twice daily for 4 weeks. May stop for few days or decrease to once daily for discomfort triamcinolone acetonide (KENALOG) 0.1 % ointment Apply to red irritated areas, twice a day as needed (Patient not taking: Reported on 11/17/2018 ) valACYclovir (VALTREX) 1 gram tab Take 1 tablet by mouth once daily. (Patient not taking: Reported on 09/02/2021 ) triamcinolone acetonide (KENALOG) 0.1 % ointment Apply to red irritated areas, twice a day as needed (Patient not taking: Reported on 03/18/2018 ) raloxifene (EVISTA) 60 mg tablet Take 1 tablet by mouth once daily. sertraline (ZOLOFT) 100 mg tablet Take 50 mg in addition to the 100mg for the next few weeks triamcinolone acetonide (KENALOG) 0.1 % ointment Apply to red irritated areas, twice a day as needed (Patient not taking: Reported on 09/02/2021 ) COMPOUNDED PRESCRIPTION Triamcinolone and Lidocaine 1:1 mixture in an equal part of Aquaphor; 30 gram vial; Apply three times a day as needed for pain (Patient not taking: Reported on 09/02/2021 ) ZOLPIDEM TARTRATE (AMBIEN ORAL) Take by mouth. BABY ASPIRIN ORAL Take by mouth. (Patient not taking: Reported on 09/02/2021 ) PDT topical Triamcinolone and Lidocaine 1:1 mixture in an equal part of Aquaphor; 30 gm vial; Apply 3 x daily prn pain, up to 5 days after tx (Patient not taking: Reported on 09/02/2021 ) triamcinolone acetonide (KENALOG) 0.1 % ointment Apply to red irritated areas, twice a day as needed (Patient not taking: Reported on 09/02/2021 ) esomeprazole (NEXIUM) 40 mg capsule Take 1 capsule by mouth twice daily before meals. rizatriptan (MAXALT) 10 mg tablet Take 1 tablet by mouth as needed. May repeat in 2 hours if needed (Patient not taking: Reported on 09/02/2021 ) MAXAIR 200 MCG/ACTUATION AEROSOL INHALER Take 2 Puffs by mouth as needed. Methylcellulose, Laxative, 500 mg tab Take 1,000 mg by mouth twice daily. calcium citrate/vitamin d3(CITRACAL + D 315 MG-200 UNIT TAB) Take two(2) tablets twice daily BY MOUTH. No current facility-administered medications for this visit. PHYSICAL EXAM: General: awake, alert, no acute distress Skin: Skin exam was performed today including the following: head and face, scalp, neck, chest (including breasts and axillae), abdomen, groin, buttocks, back, bilateral upper extremities, bilateral lower extremities, hands, feet, digits, nails. Pertinent findings include: - Few scattered bright red dome-shaped papules on the trunk and extremities - Scattered light brown stellate macules on the face, shoulders, chest, and upper extremities - Scattered, evenly colored, round brown macules and papules with regular borders on the trunk and extremities - Numerous scattered skin-colored and brown, waxy, stuck-on papules and plaques on the trunk and extremities - healing erythematous papules on chest consistent with recent PDT -Erythematous scaly macule(s) with gritty scale on bilateral arms -[place] scaly plaque on left upper back 1 x 1.2 cm bx* - waxy papule L popliteal fossa cryo * ASSESSMENT & PLAN: #Neoplasm of uncertain behavior of skin, Shave biopsy of lesion to establish and confirm diagnosis: UNIVERSAL PROTOCOL / SAFETY CHECKLIST Procedure to be Performed: shave bx Sign In: A Moment of CARE was completed. Personnel directly involved with the procedure wore the appropriate PPE (Personal Protective Equipment). Patient/Surrogate Stated/Verified: PATIENT VERIFIED(optional for EMERGENT procedures): Patient name, Date of , Relevant allergies, and The intended procedure Time Out Communication: Intended patient and procedure match the source documents. Consent documented and matches the intended procedure. Sign Out: SIGN OUT (optional for EMERGENT procedures): All specimen containers correctly labeled. Irma Gottlieb LPN Photo taken: Yes Risks, benefits, alternatives and personnel required for shave biopsy reviewed with patient. Patient and provider agree as to site(s) to be biopsied. Patient verbalizes understanding and wishes to proceed. Site(s) prepped with alcohol and anesthetized with 1% lidocaine with epinephrine. Shave biopsy of lesion(s) performed to the level of the dermis/epidermis The following was sent for histologic evaluation: LESION #1 R/O: nmsc LOC OF LESION: left upper back SIZE: 1 x 1.2 CM EBL: scant Hemostasis with aluminum chloride and direct pressure, and a bandage is applied Written and verbal wound care instructions provided to patient, understanding verbalized. #Actinic Keratoses on the bilateral arms -pt good candidate for field therapy. - Discussed PDT vs. Efudex cream. Discussed risks and benefits of each. PATIENT elects Efudex Apply 5- Fluorouracil cream (40g) 5% twice daily to bilateral arms for minium 2 weeks. You may experience some erythema, scaling, dryness, stinging, pruritus at the site of application. If you are experiencing marked irritation, please stop the cream for 1 week and restart 1 week later. Efudex patient handout provided #History of nonmelanoma and melanoma skin cancer - No evidence of recurrence on exam. Continued monitoring. Regular skin exams discussed given increased risk of subsequent cutaneous malignancies. - Should any areas change in size, shape or color, bleed or become tender, the patient will contact the office for evaluation sooner than their interval appointment. #Lentigines #Stevenson angiomas - Reassurance provided regarding the benign nature of these lesions. - Discussed risks and benefits of observation vs laser therapy. Discussed that these would be considered cosmetic. - Patient opts for observation. #Seborrheic keratoses - Discussed etiology and natural history of condition, including benign nature. - Discussed that if symptomatic/bothersome, may consider intervention. - Discussed risks and benefits of observation vs cryotherapy vs shave removal. - Patient opts for cryo to inflamed lesion Cryosurgery of non-malignant lesion(s) The risks, benefits, indications, alternatives, and complications were discussed, and informed consent was obtained. Specifically, the risks of permanent scar, loss or darkening of skin color, blister and recurrence of lesion were discussed. The patient tolerated the procedure well without complications. Pt verbalizes understanding and wishes to proceed. Cryosurgery performed with Liquid Nitrogen via cryostat spray gun to ISK . 1 lesion(s) treated. Patient tolerated well. Wound care instructions provided, pt verbalizes understanding. #Multiple benign nevi - Complete skin exam performed today with no outlier lesions identified - Reassured patient of benign nature of these lesions. - Recommend monthly self skin exams. Return for lesions that are growing, changing or symptomatic. - Recommend daily photoprotection with broad-spectrum sunscreen SPF 30+, avoidance of sun during peak hours, and sun protective clothing. Recommend follow-up in 6 months given increased risk of subsequent cutaneous malignancies or sooner if something concerning arises Irma Perez MD documented in this encounter [facility] 05-07-2023 Note HNO ID: [id number] Author: Lyla Iraheta RN Service: ? Author Type: ? Type: Progress Notes Filed: 05/07/2023 12:01 PM Note Text: See prior note for complete record. Lyla Iraheta RN May 07, 2023 12:00 PM [facility] 05-07-2023 Note HNO ID: [id number] Author: Lyla Iraheta RN Service: ? Author Type: ? Type: Progress Notes Filed: 05/07/2023 11:59 AM Note Text: PDT PREOPERATIVE/PROCEDURAL VERIFICATION: Patient verified by: Name and Date of Procedure to be performed: Levulan and kvng-light PDT Site of the procedure confirmed:Yes Site: chest Staff involved: Sung Iraheta RN Relevant documentation, images, implants or special equipment present: Yes LOT # [id number] EXP DATE: 2025-11 MARKING THE SITE: Procedural site verified by:Provider marking the site with patient involvement. PROCEDURAL TIME OUT: Time out verification includes:Audible time-out documented: Yes. Time: 11:33 AM Two Patient Identifiers Correct side and site marking Accurate Consent Agreement on the procedure to be done Correct Positioning DX: Actinic keratoses Levulan application 11:33 AM Number of Levulan sticks used 2 Approximate number of AK'S > [address] yes Length of Blulight exposure 30 min RTC in 6 months for wound check Stressed importance of avoidance of the photosensitive treatment site to sunlight or bright indoor light prior to and at least 48 hours after Kvng-light Treatment. Printed instructions given to pt Lyla Iraheta RN May 07, 2023 11:44 AM [facility] 05-07-2023 Instructions Lyla Iraheta RN - 05/07/2023 12:25 PM EDT Photodynamic Therapy Photodynamic therapy has been recommended for you by your rental car ferry driver. This is a procedure for the treatment of precancerous lesions also known as actinic keratosis. Your appointment with us will take anywhere from 1 to 3 1/2 hours depending on what your provider has ordered for you. This treatment will cause your face to look very red and eventually peel, similar to a bad sunburn. It is recommended that you plan this treatment when you have a week to 10 days to heal before any social engagements or public appearances. Preparation prior to Treatment Avoid the use of Retin A, glycolic acid products or any harsh cleansers for 1 week prior to treatment. Avoid direct sun exposure to the treatment area for 48 hours before treatment. Men should avoid a very close shave the day of the treatment Do not wear any make-up into the office the day of treatment Day of Treatment The treatment will be done by the nurse or Physician's Fitting Room Operator once the order has been written by the doctor. The treatment site will be prepped with acetone to clean off any naturally occurring oils from the skin. The medication will be applied to the skin and allowed to dry. Some patients report a faint tingling sensation as the medication dries. It is advised not to touch the treated skin skin to avoid spreading it to the untreated skin. The medication will be left on for 15 minutes if you are receiving the painless method of up to 3 hours if this is how the MD prescribes your treatment. Pt are able to wait in our waiting room for this time. The Kvng-light exposure time can be anywhere for approximately 17 minutes to 30 minutes. Your eyes will be covered for protection. Sometimes a fan will be directed at your skin to help with the burning and stinging sensation that you will experience. After the treatment, a cold washcloth can be applied to help relieve the stinging. Vaseline will be applied to the skin for more relief. Sometimes your doctor may prescribe a prescription ointment containing a steroid and pain reliever to use the first few days. Your skin will be sensitive and can look red and blotchy once the treatment is done. After the Treatment The treated skin can become redder the day after the treatment. The burning and stinging sensation can last for 24-48 hours after the treatment. It is recommended that you stay indoors for the first 2 days after the Kvng-light because the medication stays active in your skin for that long. It is also recommended to avoid indirect sunlight or bright fluorescent light as well. You can use a topical steroid ointment to the treated area twice daily for the first 1-2 days as needed. This can be applied to the skin first and then a layer of vaseline or Aquaphor. The topical steroid will help decrease the redness, inflammation and discomfort. If you did not get a prescription for a topical steroid, you can purchase a 1% hydrocortisone ointment over the counter. You will find this in the first-aid section of your pharmacy. Not everyone needs a steroid ointment after the treatment. If a sunscreen is needed, we recommend Neutrogena sensitive skin ( chemical free) sunscreen with SPF 30 or other titanium - dioxide based or zinc based sunscreens. Ibuprofen may be taken for any pain, swelling or discomfort. Over the counter Claritin (Loratadine) 10 mg taken in the morning and Benadryl ( Diphenhydramine) 25 mg taken nightly ( which can cause drowsiness) can help relieve symptoms of itchiness. Typically, the skin will begin to peel 3-5 days after the Kvng-light treatment. The peeling can last 7-10 days. It is advised that you clean your skin with a mild cleanser like Dove soap, Cetaphil or Cerave. These can be purchased at any drugstore. Keeping the skin greasy with a layer of Vaseline will soothe the skin and make it feel less tight. You can apply vaseline or aquaphor as often as needed for comfort. Ice packs or cool compresses can be used for discomfort the first few days. If you prefer a less greasy feel to the skin, you can use a bland moisturizing cream. Mean can begin to shave 2-3 days after the Kvng-light treatment. A follow up appt will be scheduled as directed by your rental car ferry driver. Please call our office if you have any questions or problems during the healing process ar and ask to speak to the dermatology surgery nurses during regular office hours from 800 AM to 430 PM - Wednesday through Wednesday documented in this encounter [facility] 05-07-2023 History of Presen t illness Narrative See prior note for complete record. Lyla Iraheta RN May 07, 2023 12:00 PM documented in this encounter [facility] 05-07-2023 History of Presen t illness Narrative PDT PREOPERATIVE/PROCEDURAL VERIFICATION: Patient verified by: Name and Date of Procedure to be performed: Levulan and kvng-light PDT Site of the procedure confirmed:Yes Site: chest Staff involved: Sung Iraheta RN Relevant documentation, images, implants or special equipment present: Yes LOT # [id number] EXP DATE: 2025-11 MARKING THE SITE: Procedural site verified by:Provider marking the site with patient involvement. PROCEDURAL TIME OUT: Time out verification includes:Audible time-out documented: Yes. Time: 11:33 AM Two Patient Identifiers Correct side and site marking Accurate Consent Agreement on the procedure to be done Correct Positioning DX: Actinic keratoses Levulan application 11:33 AM Number of Levulan sticks used 2 Approximate number of AK'S > [address] yes Length of Blulight exposure 30 min RTC in 6 months for wound check Stressed importance of avoidance of the photosensitive treatment site to sunlight or bright indoor light prior to and at least 48 hours after Kvng-light Treatment. Printed instructions given to pt Lyla Iraheta RN May 07, 2023 11:44 AM documented in this encounter [facility] 04-27-2023 History of Presen t illness Narrative Images from the original note were not included. April 27, 2023 Jackie returns today with complaints of left thumb basal joint pain and pain and locking in her left middle finger. She states that the symptoms have been getting worse over the past several months. On examination she is noted to have point tenderness at the CMC joint of the left thumb consistent with her previous diagnosis of left thumb CMC joint osteoarthritis. She also was point tenderness to palpation at the A1 lucas region of the left middle finger as well as a palpable nodule with passive and active motion of her middle finger at the A1 lucas level. The above findings are consistent with exacerbation of her osteoarthritis of her left thumb basal joint as well as a symptomatic left middle finger trigger digit. Given the above findings, I recommended steroid injection into each of the 2 troublesome areas. This is done in an attempt to relieve her of her troublesome symptoms and thus help restore more normal hand function. A 50-50 mixture of a 1 mL total solution of Kenalog 40 and 2% lidocaine without epinephrine was injected into each of the 2 areas in question using a 1 mL TB syringe and half inch 30-gauge needle. She tolerated both injections well. Band-Aid dressings were applied. Anticipating no further immediate problems, I invited her to return in 4 to 6 weeks if her symptoms were not completely better following the injection. She was happy with this plan and agreed to do so. Ja Finn M.D. Pager/Beeper: [phone] documented in this encounter [facility] 04-15-2023 Note HNO ID: [id number] Author: Sandip Valencia MD Service: ? Author Type: Physician Type: Progress Notes Filed: 04/19/2023 8:19 AM Note Text: EST PATIENT ASHA 04/07/23 AV LASER SURGERY PROCEDURAL TIME OUT: Time out verification includes: Audible time-out documented: Yes. Time: 1442 Two Patient Identifiers Correct side and site marking Accurate Consent Agreement on the procedure to be done Correct Positioning Imaging and Test Results Properly Labeled and Displayed if applicable Safety Precautions Based on Patient History or Medication ANESTHETIC: None DX: Vessel SITE: Left under-eye LASER PROCEDURE: Nd:Yag Vessel PROTECTIVE EYEWEAR APPLIED TO PATIENT'S EYES: goggles. ARE ALL PERSONNEL IN THE ROOM ARE WEARING PROTECTIVE GOGGLES SPECIFIC TO THE LASER WAVELENGTH FOR THIS TREATMENT? Yes TREATMENT #: 2 PRE-OP SIZE: N/A LASER: GentleYag: SPOT SIZE:3 mm; ENERGY FLUENCE: 170 and 180J/cm2; MODE (TIME): 40 msec; SPRAY DELAY: 50/20; NUMBER OF PULSES: 13 COMMENTS: Patient tolerated procedure well. and Post care instructions provided, understanding verbalized. Return to clinic 4-6 weeks Charge code: $400 The documentation for this note was completed by Mikayla Michael RN acting as scribe for Sandip Valencia MD. April 15, 2023 2:36 PM. I agree with the Chief Complaint, ROS, and Past Histories independently gathered by the clinical direct support specialist and the remaining scribed note accurately describes my personal service to the patient. Sandip Valencia MD April 15, 2023 [facility] 04-07-2023 Note HNO ID: [id number] Author: Neeta Carr MD Service: ? Author Type: Physician Type: Progress Notes Filed: 04/07/2023 6:06 PM Note Text: photoDiaki Linton is a 67 year old year old female, presents for follow up of: PDT on the full face completed on 01-04-23 for Aks . Last visit was: 01-04-23 Current Treatment: -observation Patient Reports: I think I had a good reaction, I got scaly and peeled Current Outpatient Medications Medication Sig Fluorouracil (EFUDEX) 5 % cream Apply to chest area twice a day for 4 weeks Fluorouracil (EFUDEX) 5 % cream Apply to anterior legs twice daily for 4 weeks. May stop for few days or decrease to once daily for discomfort triamcinolone acetonide (KENALOG) 0.1 % ointment Apply to red irritated areas, twice a day as needed (Patient not taking: Reported on 11/17/2018 ) valACYclovir (VALTREX) 1 gram tab Take 1 tablet by mouth once daily. (Patient not taking: Reported on 09/02/2021 ) triamcinolone acetonide (KENALOG) 0.1 % ointment Apply to red irritated areas, twice a day as needed (Patient not taking: Reported on 03/18/2018 ) raloxifene (EVISTA) 60 mg tablet Take 1 tablet by mouth once daily. sertraline (ZOLOFT) 100 mg tablet Take 50 mg in addition to the 100mg for the next few weeks triamcinolone acetonide (KENALOG) 0.1 % ointment Apply to red irritated areas, twice a day as needed (Patient not taking: Reported on 09/02/2021 ) COMPOUNDED PRESCRIPTION Triamcinolone and Lidocaine 1:1 mixture in an equal part of Aquaphor; 30 gram vial; Apply three times a day as needed for pain (Patient not taking: Reported on 09/02/2021 ) ZOLPIDEM TARTRATE (AMBIEN ORAL) Take by mouth. BABY ASPIRIN ORAL Take by mouth. (Patient not taking: Reported on 09/02/2021 ) PDT topical Triamcinolone and Lidocaine 1:1 mixture in an equal part of Aquaphor; 30 gm vial; Apply 3 x daily prn pain, up to 5 days after tx (Patient not taking: Reported on 09/02/2021 ) triamcinolone acetonide (KENALOG) 0.1 % ointment Apply to red irritated areas, twice a day as needed (Patient not taking: Reported on 09/02/2021 ) esomeprazole (NEXIUM) 40 mg capsule Take 1 capsule by mouth twice daily before meals. rizatriptan (MAXALT) 10 mg tablet Take 1 tablet by mouth as needed. May repeat in 2 hours if needed (Patient not taking: Reported on 09/02/2021 ) MAXAIR 200 MCG/ACTUATION AEROSOL INHALER Take 2 Puffs by mouth as needed. Methylcellulose, Laxative, 500 mg tab Take 1,000 mg by mouth twice daily. calcium citrate/vitamin d3(CITRACAL + D 315 MG-200 UNIT TAB) Take two(2) tablets twice daily BY MOUTH. No current facility-administered medications for this visit. PE: The patient is alert and oriented and is well appearing and in no apparent distress. Examination of the full face revealed good clearing of facial actinic keratoses Chest with multiple actinic keratoses Scars face and trunk shira . Inflamed seborrheic keratosis x 2 right christian A/P: 67 yowf with history of non-melanoma skin cancer - shira Seborrheic Keratoses - Discussed etiology and natural history of condition, including benign nature. - Discussed that if symptomatic/bothersome, may consider intervention. - If asymptomatic intervention would be cosmetic in nature. - Discussed risks and benefits of observation vs cryotherapy vs shave removal vs curettage. - Patient opts for cryotherapy Cryosurgery of non-malignant lesion(s) Risks, benefits, alternatives and personnel required for cryosurgery reviewed with patient. Pt verbalizes understanding and wishes to proceed. Derm Surg Staff: Dr. Neeta Carr Cryosurgery performed with Liquid Nitrogen via cryostat spray gun to inflamed Seborrheic Keratosis . 2 lesion(s) treated. Wound care instructions provided, pt verbalizes understanding. Actinic keratosis chest - Discussed premalignant etiology - Discussed risks and benefits of treatment options including cryotherapy vs Efudex 5% vs. Efudex 5% + calcipotriene vs. Photodynamic Therapy (PDT). - Given diffuse involvement. - Patient elects for treatment with PDT: Procedure expectations were discussed with the patient. Risks, benefits, alternatives, complications, and personnel required for PDT were reviewed with the patient. Specifically, the risks of permanent scarring, loss or darkening of skin color, blister, incomplete treatment, and need for future treatments were discussed. The patient will schedule in the fall/winter: Blue light. RTC for PDT of the chest next available Meme Salgado RN April 07, 2023 9:27 AM I agree with the operative note independently gathered by the clinical direct support specialist and the remaining scribed note accurately describes my personal service to the patient. Dr. Neeta Carr [facility] 04-07-2023 Instructions Meme Salgado RN - 04/07/2023 3:14 PM EDT Department of Dermatology SKIN CARE AFTER CRYOSURGERY The skin's response to cryosurgery (freezing) can be mild to more severe, depending on the depth of the freeze and the location of the area treated. You may have only mild redness and swelling with a little discomfort or significant discoloration and blistering with considerable discomfort. A burning sensation in the skin may last from several minutes to several hours after the procedure. Follow these instructions when caring for an area treated by cryosurgery: MAJOR RESPONSE 1. Follow instructions as stated for minor response. 2. The area may sting and burn for several hours after treatment. 3. To relieve throbbing and pain, elevate the treatment area. 4. Acetaminophen (Tylenol) may be taken every 3 to 4 hours for discomfort. 5. A blister will form in the area of freezing. It may be filled with clear fluid or blood. This response is not unusual. 6. Do not break the blister unless it becomes uncomfortable. You may prick the blister with a sterile needle or pin to remove the fluid. Leave the skin intact. 7. Cleanse twice a day with 3% hydrogen peroxide and apply mupirocin (prescription) to prevent infection and a thick scab from forming. 8. All treated areas usually heal within 3 to 4 weeks. documented in this encounter [facility] 04-07-2023 History of Presen t illness Narrative photoDiaki Linton is a 67 year old year old female, presents for follow up of: PDT on the full face completed on 01-04-23 for Aks . Last visit was: 01-04-23 Current Treatment: -observation Patient Reports: I think I had a good reaction, I got scaly and peeled Current Outpatient Medications Medication Sig Fluorouracil (EFUDEX) 5 % cream Apply to chest area twice a day for 4 weeks Fluorouracil (EFUDEX) 5 % cream Apply to anterior legs twice daily for 4 weeks. May stop for few days or decrease to once daily for discomfort triamcinolone acetonide (KENALOG) 0.1 % ointment Apply to red irritated areas, twice a day as needed (Patient not taking: Reported on 11/17/2018 ) valACYclovir (VALTREX) 1 gram tab Take 1 tablet by mouth once daily. (Patient not taking: Reported on 09/02/2021 ) triamcinolone acetonide (KENALOG) 0.1 % ointment Apply to red irritated areas, twice a day as needed (Patient not taking: Reported on 03/18/2018 ) raloxifene (EVISTA) 60 mg tablet Take 1 tablet by mouth once daily. sertraline (ZOLOFT) 100 mg tablet Take 50 mg in addition to the 100mg for the next few weeks triamcinolone acetonide (KENALOG) 0.1 % ointment Apply to red irritated areas, twice a day as needed (Patient not taking: Reported on 09/02/2021 ) COMPOUNDED PRESCRIPTION Triamcinolone and Lidocaine 1:1 mixture in an equal part of Aquaphor; 30 gram vial; Apply three times a day as needed for pain (Patient not taking: Reported on 09/02/2021 ) ZOLPIDEM TARTRATE (AMBIEN ORAL) Take by mouth. BABY ASPIRIN ORAL Take by mouth. (Patient not taking: Reported on 09/02/2021 ) PDT topical Triamcinolone and Lidocaine 1:1 mixture in an equal part of Aquaphor; 30 gm vial; Apply 3 x daily prn pain, up to 5 days after tx (Patient not taking: Reported on 09/02/2021 ) triamcinolone acetonide (KENALOG) 0.1 % ointment Apply to red irritated areas, twice a day as needed (Patient not taking: Reported on 09/02/2021 ) esomeprazole (NEXIUM) 40 mg capsule Take 1 capsule by mouth twice daily before meals. rizatriptan (MAXALT) 10 mg tablet Take 1 tablet by mouth as needed. May repeat in 2 hours if needed (Patient not taking: Reported on 09/02/2021 ) MAXAIR 200 MCG/ACTUATION AEROSOL INHALER Take 2 Puffs by mouth as needed. Methylcellulose, Laxative, 500 mg tab Take 1,000 mg by mouth twice daily. calcium citrate/vitamin d3(CITRACAL + D 315 MG-200 UNIT TAB) Take two(2) tablets twice daily BY MOUTH. No current facility-administered medications for this visit. PE: The patient is alert and oriented and is well appearing and in no apparent distress. Examination of the full face revealed good clearing of facial actinic keratoses Chest with multiple actinic keratoses Scars face and trunk shira . Inflamed seborrheic keratosis x 2 right christian A/P: 67 yowf with history of non-melanoma skin cancer - shira Seborrheic Keratoses - Discussed etiology and natural history of condition, including benign nature. - Discussed that if symptomatic/bothersome, may consider intervention. - If asymptomatic intervention would be cosmetic in nature. - Discussed risks and benefits of observation vs cryotherapy vs shave removal vs curettage. - Patient opts for cryotherapy Cryosurgery of non-malignant lesion(s) Risks, benefits, alternatives and personnel required for cryosurgery reviewed with patient. Pt verbalizes understanding and wishes to proceed. Derm Surg Staff: Dr. Neeta Carr Cryosurgery performed with Liquid Nitrogen via cryostat spray gun to inflamed Seborrheic Keratosis . 2 lesion(s) treated. Wound care instructions provided, pt verbalizes understanding. Actinic keratosis chest - Discussed premalignant etiology - Discussed risks and benefits of treatment options including cryotherapy vs Efudex 5% vs. Efudex 5% + calcipotriene vs. Photodynamic Therapy (PDT). - Given diffuse involvement. - Patient elects for treatment with PDT: Procedure expectations were discussed with the patient. Risks, benefits, alternatives, complications, and personnel required for PDT were reviewed with the patient. Specifically, the risks of permanent scarring, loss or darkening of skin color, blister, incomplete treatment, and need for future treatments were discussed. The patient will schedule in the fall/winter: Blue light. RTC for PDT of the chest next available Meme Salgado RN April 07, 2023 9:27 AM I agree with the operative note independently gathered by the clinical direct support specialist and the remaining scribed note accurately describes my personal service to the patient. Dr. Neeta Carr documented in this encounter [facility] 02-09-2023 History of Presen t illness Narrative Images from the original note were not included. February 09, 2023 Jackie returns today for a steroid injection into the CMC joint of her right thumb. 4 to 6 weeks ago we injected the left thumb with good success. She responds well to the steroid injections. As long as she obtains a good response, she wishes to continue with these as needed. Today, a 50-50 mixture of a 1 mL total solution of Kenalog 40 and 2% lidocaine without epinephrine was injected into the right thumb CMC joint using 1/2 inch 30-gauge needle and a 1 mL TB syringe. She tolerated this well. Anticipating no further immediate problems, I invited her to return as needed. She was happy with this plan and agreed to do so. Ja Finn M.D. Pager/Beeper: [phone] documented in this encounter [facility] 01-04-2023 Note HNO ID: [id number] Author: Lyla Iraheta RN Service: ? Author Type: ? Type: Progress Notes Filed: 01/04/2023 1:52 PM Note Text: See prior note for complete record. Lyla Iraheta RN January 04, 2023 1:50 PM [facility] 01-04-2023 Note HNO ID: [id number] Author: Lyla Iraheta RN Service: ? Author Type: ? Type: Progress Notes Filed: 01/04/2023 1:49 PM Note Text: PDT PREOPERATIVE/PROCEDURAL VERIFICATION: Patient verified by: Name and Date of Procedure to be performed: Levulan and Kvng-light PDT Site of the procedure confirmed:Yes Site: full face Staff involved: Sung Iraheta RN Relevant documentation, images, implants or special equipment present: Yes LOT # [id number] EXP DATE: 2025-11 MARKING THE SITE: Procedural site verified by:Provider marking the site with patient involvement. PROCEDURAL TIME OUT: Time out verification includes:Audible time-out documented: Yes. Time: 120 pm Two Patient Identifiers Correct side and site marking Accurate Consent Agreement on the procedure to be done Correct Positioning DX: Actinic keratoses Levulan application 120 PM by Sung Iraheta RN Number of Levulan sticks used 1 Approximate number of AK'S >[address] Yes Length of Blulight exposure 30 min RTC 3 months for wound check Stressed importance of avoidance of the photosensitive treatment site to sunlight or bright indoor light prior to and at least 48 hours after Kvng-light Treatment. Printed instructions given to pt Lyla Iraheta RN January 04, 2023 1:47 PM [facility] 01-04-2023 History of Presen t illness Narrative See prior note for complete record. Lyla Iraheta RN January 04, 2023 1:50 PM documented in this encounter [facility] 01-04-2023 Instructions Lyla Iraheta RN - 01/04/2023 1:34 PM EDT Photodynamic Therapy Photodynamic therapy has been recommended for you by your rental car ferry driver. This is a procedure for the treatment of precancerous lesions also known as actinic keratosis. Your appointment with us will take anywhere from 1 to 3 1/2 hours depending on what your provider has ordered for you. This treatment will cause your face to look very red and eventually peel, similar to a bad sunburn. It is recommended that you plan this treatment when you have a week to 10 days to heal before any social engagements or public appearances. Preparation prior to Treatment Avoid the use of Retin A, glycolic acid products or any harsh cleansers for 1 week prior to treatment. Avoid direct sun exposure to the treatment area for 48 hours before treatment. Men should avoid a very close shave the day of the treatment Do not wear any make-up into the office the day of treatment Day of Treatment The treatment will be done by the nurse or Physician's Fitting Room Operator once the order has been written by the doctor. The treatment site will be prepped with acetone to clean off any naturally occurring oils from the skin. The medication will be applied to the skin and allowed to dry. Some patients report a faint tingling sensation as the medication dries. It is advised not to touch the treated skin skin to avoid spreading it to the untreated skin. The medication will be left on for 15 minutes if you are receiving the painless method of up to 3 hours if this is how the MD prescribes your treatment. Pt are able to wait in our waiting room for this time. The Kvng-light exposure time can be anywhere for approximately 17 minutes to 30 minutes. Your eyes will be covered for protection. Sometimes a fan will be directed at your skin to help with the burning and stinging sensation that you will experience. After the treatment, a cold washcloth can be applied to help relieve the stinging. Vaseline will be applied to the skin for more relief. Sometimes your doctor may prescribe a prescription ointment containing a steroid and pain reliever to use the first few days. Your skin will be sensitive and can look red and blotchy once the treatment is done. After the Treatment The treated skin can become redder the day after the treatment. The burning and stinging sensation can last for 24-48 hours after the treatment. It is recommended that you stay indoors for the first 2 days after the Kvng-light because the medication stays active in your skin for that long. It is also recommended to avoid indirect sunlight or bright fluorescent light as well. You can use a topical steroid ointment to the treated area twice daily for the first 1-2 days as needed. This can be applied to the skin first and then a layer of vaseline or Aquaphor. The topical steroid will help decrease the redness, inflammation and discomfort. If you did not get a prescription for a topical steroid, you can purchase a 1% hydrocortisone ointment over the counter. You will find this in the first-aid section of your pharmacy. Not everyone needs a steroid ointment after the treatment. If a sunscreen is needed, we recommend Neutrogena sensitive skin ( chemical free) sunscreen with SPF 30 or other titanium - dioxide based or zinc based sunscreens. Ibuprofen may be taken for any pain, swelling or discomfort. Over the counter Claritin (Loratadine) 10 mg taken in the morning and Benadryl ( Diphenhydramine) 25 mg taken nightly ( which can cause drowsiness) can help relieve symptoms of itchiness. Typically, the skin will begin to peel 3-5 days after the Kvng-light treatment. The peeling can last 7-10 days. It is advised that you clean your skin with a mild cleanser like Dove soap, Cetaphil or Cerave. These can be purchased at any drugstore. Keeping the skin greasy with a layer of Vaseline will soothe the skin and make it feel less tight. You can apply vaseline or aquaphor as often as needed for comfort. Ice packs or cool compresses can be used for discomfort the first few days. If you prefer a less greasy feel to the skin, you can use a bland moisturizing cream. Mean can begin to shave 2-3 days after the Kvng-light treatment. A follow up appt will be scheduled as directed by your rental car ferry driver. Please call our office if you have any questions or problems during the healing process ar and ask to speak to the dermatology surgery nurses during regular office hours from 800 AM to 430 PM - Wednesday through Wednesday documented in this encounter [facility] 01-04-2023 History of Presen t illness Narrative PDT PREOPERATIVE/PROCEDURAL VERIFICATION: Patient verified by: Name and Date of Procedure to be performed: Levulan and Kvng-light PDT Site of the procedure confirmed:Yes Site: full face Staff involved: Sung Iraheta RN Relevant documentation, images, implants or special equipment present: Yes LOT # [id number] EXP DATE: 2025-11 MARKING THE SITE: Procedural site verified by:Provider marking the site with patient involvement. PROCEDURAL TIME OUT: Time out verification includes:Audible time-out documented: Yes. Time: 120 pm Two Patient Identifiers Correct side and site marking Accurate Consent Agreement on the procedure to be done Correct Positioning DX: Actinic keratoses Levulan application 120 PM by Sung Iraheta RN Number of Levulan sticks used 1 Approximate number of AK'S >[address] Yes Length of Blulight exposure 30 min RTC 3 months for wound check Stressed importance of avoidance of the photosensitive treatment site to sunlight or bright indoor light prior to and at least 48 hours after Kvng-light Treatment. Printed instructions given to pt Lyla Iraheta RN January 04, 2023 1:47 PM documented in this encounter [facility] 12-10-2022 Miscellaneous Notes Appt changed to 01-04-2023 at 1 pm Lyla Iraheta RN December 10, 2022 12:35 PM Patient calling to reschedule 12/24/22 PDT appts. Pt is asking for a call back she would like to reschedule her pdt wander on 12-24-22 Pt# [phone] documented in this encounter [facility] 11-04-2022 Note HNO ID: [id number] Author: Neeta Carr MD Service: ? 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 Skin per HPI. No other new/concerning skin growth. Physical Exam: General: well appearing, of stated age, in no acute distress Neurology: alert and oriented times three Psychiatry: in a happy mood Skin: Spears skin type: 2 Skin exam performed of face, scalp, ears, eyelids, lips, neck, chest, abdomen, back, bilateral upper extremities, hands, fingers, fingernails, bilateral lower extremities, feet, toes, toenails. Skin exam normal with the exception of: Right shoulder 6mm crusted papule Many actinic keratoses chest, nasal tip, right eyebrow Scars trunk and extrems shira Many seborrheic keratoses trunk and face Stevenson angiomas trunk No lad Assessment and Plan: 67 yowf with history of non-melanoma skin cancer and melanoma in situ - no recurrent skin cancer Q 6 months full body skin exam, sunscreens at least spf 30 daily 1. Neoplasm of uncertain behavior r/o nmsc vs inflamed seborrheic keratosis right shoulder UNIVERSAL PROTOCOL / SAFETY CHECKLIST Procedure to be Performed: Shave biopsy Sign In: A Moment of CARE was completed. Personnel directly involved with the procedure wore the appropriate PPE (Personal Protective Equipment). No special equipment needed. Patient/Surrogate Stated/Verified: PATIENT VERIFIED(optional for EMERGENT procedures): Patient name, Date of , Relevant allergies, and The intended procedure Time Out Communication: Intended patient and procedure match the source documents. Consent documented and matches the intended procedure. No relevant labs, photos, and/or imaging studies were applicable for review. Correct side/site marked and visible. Medications required for procedure verified. Fire risk assessed and interventions discussed. No implant(s) inserted. Sign Out: SIGN OUT (optional for EMERGENT procedures): All specimen containers correctly labeled. All instruments, equipment, possible retained foreign bodies accounted for. Post-procedure follow-up management communicated and Plan of Care Visit completed when applicable. Melania Henson Ma Shave biopsy of lesion to establish and confirm diagnosis: Photo taken: Yes Risks, benefits, alternatives and personnel required for shave biopsy reviewed with patient. Patient and provider agree as to site(s) to be biopsied. Patient verbalizes understanding and wishes to proceed. Site(s) prepped with alcohol and anesthetized with 1% lidocaine with epinephrine. Shave biopsy of lesion(s) performed to the level of the dermis/epidermis The following was sent for histologic evaluation: LESION #1 R/O: isk vs scc LOC OF LESION: right shoulder SIZE: 0.6 CM EBL: scant 50% ALCL and bandaging applied. Written and verbal wound care instructions provided to patient, understanding verbalized. OK to call with results and OK to release to [facility] 3. Actinic keratosis Actinic keratosis - Discussed premalignant etiology - Discussed risks and benefits of treatment options including cryotherapy vs Efudex 5% vs. Efudex 5% + calcipotriene vs. Photodynamic Therapy (PDT). - Given diffuse involvement. - Patient elects for treatment with PDT to face : Procedure expectations were discussed with the patient. Risks, benefits, alternatives, complications, and personnel required for PDT were reviewed with the patient. Specifically, the risks of permanent scarring, loss or darkening of skin color, blister, incomplete treatment, and need for future treatments were discussed. The patient will schedule in the fall/winter: Blue light. Blulight to face-treating many actinic keratosis,-painless PDT, order placed 4. Efudex Cream to chest to treat diffuse actinic keratosis twice a day for 4 weeks 5. Seborrheic Keratoses - Discussed etiology and natural history of condition, including benign nature. - Discussed that if symptomatic/bothersome, may consider intervention. - If asymptomatic intervention would be cosmetic in nature. - Discussed risks and benefits of observation vs cryotherapy vs shave removal vs curettage. - Patient opts for observation Return to clinic 6 months or s (more content not included)... [facility] 11-03-2022 History of Presen t illness Narrative Images from the original note were not included. November 03, 2022 Jackie presents today accompanied by her . She has begun experiencing additional discomfort in the left thumb basal joint. We performed a previous steroid injection on July 07, approximately 4 months ago. She experienced significant relief in till just the other week. Given her excellent response to the steroid, I recommended repeat injection into the left thumb CMC joint today. A 1 cc total mixture of a 50-50 solution of Kenalog 40 and 2% lidocaine without epinephrine was injected into the left thumb CMC joint using a 1 mL TB syringe and 1/2 inch 30-gauge needle. She tolerated the injection well. A Band-Aid dressing was applied. Anticipating no further immediate problems, I invited her to return as needed. She was happy with this plan and agreed to do so. Ja Finn M.D. Pager/Beeper: [phone] documented in this encounter [facility] 10-12-2022 Telephone encounter Note Spoke w pnt. Appt rescheduled [facility] 10-12-2022 Miscellaneous Notes Spoke w pnt. Appt rescheduled Name of caller: jackie Contact phone number: [phone] Relationship to Patient: patient Provider: west Practice: plastic Chief Complaint/Reason for Call: patient was returning a call to get rescheduled since dr finn wont be in the office now on 10/27/22 and that appointment got cancelled. Patient would like a callback. Please advise Best time of day caller can be reached: any Patient advised that office/PCP has 24-48 business hours to return their call: Yes documented in this encounter [facility] 10-12-2022 Telephone encounter Note Name of caller: jackie Contact phone number: [phone] Relationship to Patient: patient Provider: west Practice: plastic Chief Complaint/Reason for Call: patient was returning a call to get rescheduled since dr west moniquet be in the office now on 10/27/22 and that appointment got cancelled. Patient would like a callback. Please advise Best time of day caller can be reached: any Patient advised that office/PCP has 24-48 business hours to return their call: Yes [facility] 07-07-2022 Note July 07, 2022 Jackie presents today, as requested, for further evaluation of her left thumb CMC joint. Last week she successfully underwent Kenalog injection of the left middle finger trigger digit and the more symptomatic right thumb CMC joint. I was hesitant to perform 3 Kenalog injections in the same day and therefore asked her to return in 1 week for left thumb CMC joint injection. Today, a 1 mL total of a 50-50 solution of Kenalog 40 and 2% lidocaine without epinephrine was injected into the left thumb CMC joint without difficulty using a 1 mL TB syringe and 1/2 inch 30-gauge needle. She tolerated this well. Anticipating no further immediate problems, I invited her to return in several months if her symptoms return or fail to resolve completely. She was happy with this plan and agreed to do so. She was accompanied by her and I also spoke with them extensively about his right shoulder discomfort and right hand weakness 5 months following right rotator cuff surgery by Dr. Woody Aguilar in [place], [place]. Mr. Linton has an appointment with the orthopedic surgeon in August, roughly 2 months from now. 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 He was only 46 pounds 2 to 3 months ago so he is experiencing improvement. He has no numbness. I suggested that his weakness is most likely related to decreased use of his right upper extremity as he was recovering from his rotator cuff surgery. I suggested that he bring this up to his orthopedic surgeon during his next visit. I do not think any further intervention is indicated from a hand standpoint at this time. Ja Finn M.D. Pager/Beeper: [phone] [facility] 06-11-2022 Note HNO ID: [id number] Author: Sandip Valencia MD Service: ? Author Type: Physician Type: Progress Notes Filed: 06/11/2022 11:13 AM Note Text: LASER SURGERY - Is very happy with how nose is looking - Would like blood vessel under left eye treated today - Says she was bruised after last treatment PROCEDURAL TIME OUT: Time out verification includes: Audible time-out documented: Yes. Time: 0850 Two Patient Identifiers Correct side and site marking Accurate Consent Agreement on the procedure to be done Correct Positioning Imaging and Test Results Properly Labeled and Displayed if applicable Safety Precautions Based on Patient History or Medication ANESTHETIC:none DX: tlg's LASER PROCEDURE: Cutaneous Vascular Proliferative Lesion PROTECTIVE EYEWEAR APPLIED TO PATIENT'S EYES: goggles. ALL PERSONNEL IN THE ROOM ARE WEARING PROTECTIVE GOGGLES SPECIFIC TO THE LASER WAVELENGTH FOR THIS TREATMENT. TREATMENT #: 5 LASER: V BEAM SPOT SIZE: 3 x 10 mm; ENERGY FLUENCE: 15J/cm2; MODE (TIME): 20 msec; SPRAY DELAY: 30/20;NUMBER OF PULSES: 139 COMMENTS: Patient tolerated procedure well. and Post care instructions provided, understanding verbalized. Sign Out Discussion: Completed Post op instructions given / with verbal understanding Skin Care after Laser Treatment. DX: Vessel SITE: left under eye LASER PROCEDURE: Nd:Yag Vessel PROTECTIVE EYEWEAR APPLIED TO PATIENT'S EYES: goggles. ARE ALL PERSONNEL IN THE ROOM ARE WEARING PROTECTIVE GOGGLES SPECIFIC TO THE LASER WAVELENGTH FOR THIS TREATMENT? Yes TREATMENT #: 1 PRE-OP SIZE: N/A LASER: GentleYag: SPOT SIZE:3 mm; ENERGY FLUENCE: 170 and 180J/cm2; MODE (TIME): 40 msec; SPRAY DELAY: 50/20;NUMBER OF PULSES: 22 COMMENTS: Patient tolerated procedure well. and Post care instructions provided, understanding verbalized. - Encouraged SPF usage Return to clinic 4-6 weeks Charge code: 250 vbeam + 150 YAG The documentation for this note was completed by Isaura Galeana RN acting as scribe for Sandip Valencia MD. June 11, 2022 8:32 AM. I agree with the Chief Complaint, ROS, and Past Histories independently gathered by the clinical direct support specialist and the remaining scribed note accurately describes my personal service to the patient. Sandip Valencia MD 06/11/22 [facility] 06-11-2022 Instructions Isaura Galeana RN - 06/11/2022 8:52 AM EST V-beam Post Care Instructions It is normal for the skin to be red and swollen after your laser treatment. Most of the redness and swelling subsides within 24 to 48 hours, but occasionally can last for up to one week. -It is fine to wear makeup on the treated area the day after treatment -Do not rub, scratch, or pick at the treated area -You may apply ice to reduce swelling and discomfort for the first 4 hours after your treatment- it is best to ice immediately after your treatment and for 10 minutes of each hour for the 4 hours after your treatment -Do not exercise for 24 hours after your treatment -Please call the office immediately if the area becomes tender, reddened or shows signs of infection. - Avoid exposure to the sun. If sun exposure is expected, apply an SPF 30 or higher sunblock to prevent pigmentation changes until the lesion is healed. Care Of The Treated Area -You can apply a gentle moisturizer or Aqpahor/Vaseline to the treated area. It is important to keep the area moist until healed. -Showers are permitted, but gently pat the area dry. Do not rub with a towel or washcloth as the area is extremely delicate while the bruising (purpura) are present. -Any discomfort you may have (usually not lasting more than a few hours, if any) can be relieved with acetaminophen (Tylenol) or ice packs. If you have any questions or concern, please call the office where you had your treatment. Sandip Valencia MD Dermatology & Cosmetic Surgery documented in this encounter [facility] 06-11-2022 History of Presen t illness Narrative LASER SURGERY - Is very happy with how nose is looking - Would like blood vessel under left eye treated today - Says she was bruised after last treatment PROCEDURAL TIME OUT: Time out verification includes: Audible time-out documented: Yes. Time: 0850 Two Patient Identifiers Correct side and site marking Accurate Consent Agreement on the procedure to be done Correct Positioning Imaging and Test Results Properly Labeled and Displayed if applicable Safety Precautions Based on Patient History or Medication ANESTHETIC:none DX: tlg's LASER PROCEDURE: Cutaneous Vascular Proliferative Lesion PROTECTIVE EYEWEAR APPLIED TO PATIENT'S EYES: goggles. ALL PERSONNEL IN THE ROOM ARE WEARING PROTECTIVE GOGGLES SPECIFIC TO THE LASER WAVELENGTH FOR THIS TREATMENT. TREATMENT #: 5 LASER: V BEAM SPOT SIZE: 3 x 10 mm; ENERGY FLUENCE: 15J/cm2; MODE (TIME): 20 msec; SPRAY DELAY: 30/20;NUMBER OF PULSES: 139 COMMENTS: Patient tolerated procedure well. and Post care instructions provided, understanding verbalized. Sign Out Discussion: Completed Post op instructions given / with verbal understanding Skin Care after Laser Treatment. DX: Vessel SITE: left under eye LASER PROCEDURE: Nd:Yag Vessel PROTECTIVE EYEWEAR APPLIED TO PATIENT'S EYES: goggles. ARE ALL PERSONNEL IN THE ROOM ARE WEARING PROTECTIVE GOGGLES SPECIFIC TO THE LASER WAVELENGTH FOR THIS TREATMENT? Yes TREATMENT #: 1 PRE-OP SIZE: N/A LASER: GentleYag: SPOT SIZE:3 mm; ENERGY FLUENCE: 170 and 180J/cm2; MODE (TIME): 40 msec; SPRAY DELAY: 50/20;NUMBER OF PULSES: 22 COMMENTS: Patient tolerated procedure well. and Post care instructions provided, understanding verbalized. - Encouraged SPF usage Return to clinic 4-6 weeks Charge code: 250 vbeam + 150 YAG The documentation for this note was completed by Isaura Galeana RN acting as scribe for Sandip Valencia MD. June 11, 2022 8:32 AM. I agree with the Chief Complaint, ROS, and Past Histories independently gathered by the clinical direct support specialist and the remaining scribed note accurately describes my personal service to the patient. Sandip Valencia MD 06/11/22 documented in this encounter [facility] 05-06-2022 History of Presen t illness Narrative Chief Complaint: Efudex f/u History of Present Ilness: Jackie Linton is a 67 year old female Patient is here for: 1) Efudex follow up, bilateral legs - Had applied Efudex BID x 4 weeks - Did have response, although notes a few pink areas remain on the legs - Additionally, feels the chest has flared again - Notes she's had a better response to PDT in the past Current treatment :None Past treatments: Efudex twice a day for a month, finished end of April Specialty Problems Dermatology Problems Rosacea Actinic keratosis 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 Skin per HPI. No other new/concerning skin growth. Physical Exam: General: well appearing, of stated age, in no acute distress Neurology: alert and oriented times three Psychiatry: in a happy mood Skin: Spears skin type: II Skin exam performed of face, neck, chest, arms, and legs notable for: - Right forehead with few motley waxy papules - Upper chest with many scattered pink gritty papules admixed with motley waxy papules - Bilateral dorsal forearms with scattered pink gritty papules - Lower legs relatively clear, with few pink macules c/w benign lichenoid keratoses Assessment and Plan: 1. Actinic keratoses 2. Actinic damage - Discussed would likely benefit from repeat field therapy to the chest and arms (patient prefers blue light over efudex) - Order for PDT placed, patient can schedule at her convenience - LN2 applied to 1 actinic keratosis on the right dorsal forearm Cryosurgery of non-malignant lesion(s) Risks, benefits, alternatives and personnel required for cryosurgery reviewed with patient. Pt verbalizes understanding and wishes to proceed. Derm Surg Staff: Dr. Neeta Carr Cryosurgery performed with Liquid Nitrogen via cryostat spray gun to Actinic Keratosis . 1 lesion(s) treated. Patient tolerated well. Return to clinic 6 months or sooner if something concerning arises. Luma Winston MD MSDO Fellow The documentation for this note was completed by Veronica Vega RN acting as scribe for Neeta Carr MD. May 06, 2022 3:11 PM. Veronica Vega RN I agree with the operative note independently gathered by the clinical direct support specialist and the remaining scribed note accurately describes my personal service to the patient. I have seen and examined Ms. Linton. I have discussed the case and the management of this patient's care with the Fellow. I also have reviewed and agree with the assessment and plan as stated above and agree with all of its relevant components. I supervised the procedure(s) performed as documented above by the Fellow. MD Neeta Merlos MD May 06, 2022 documented in this encounter [facility] 04-07-2022 Instructions Hilda Rojo RN - 04/07/2022 11:28 AM EDT V-beam Post Care Instructions It is normal for the skin to be red and swollen after your laser treatment. Most of the redness and swelling subsides within 24 to 48 hours, but occasionally can last for up to one week. -It is fine to wear makeup on the treated area the day after treatment -Do not rub, scratch, or pick at the treated area -You may apply ice to reduce swelling and discomfort for the first 4 hours after your treatment- it is best to ice immediately after your treatment and for 10 minutes of each hour for the 4 hours after your treatment -Do not exercise for 24 hours after your treatment -Please call the office immediately if the area becomes tender, reddened or shows signs of infection. - Avoid exposure to the sun. If sun exposure is expected, apply an SPF 30 or higher sunblock to prevent pigmentation changes until the lesion is healed. Care Of The Treated Area -You can apply a gentle moisturizer or Aqpahor/Vaseline to the treated area. It is important to keep the area moist until healed. -Showers are permitted, but gently pat the area dry. Do not rub with a towel or washcloth as the area is extremely delicate while the bruising (purpura) are present. -Any discomfort you may have (usually not lasting more than a few hours, if any) can be relieved with acetaminophen (Tylenol) or ice packs. If you have any questions or concern, please call the office where you had your treatment. Sandip Valencia MD Dermatology & Cosmetic Surgery documented in this encounter [facility] 04-07-2022 History of Presen t illness Narrative LASER SURGERY PROCEDURAL TIME OUT: Time out verification includes: Audible time-out documented: Yes. Time: 1120 Two Patient Identifiers Correct side and site marking Accurate Consent Agreement on the procedure to be done Correct Positioning Imaging and Test Results Properly Labeled and Displayed if applicable Safety Precautions Based on Patient History or Medication ANESTHETIC:none DX: marvin's LASER PROCEDURE: Cutaneous Vascular Proliferative Lesion PROTECTIVE EYEWEAR APPLIED TO PATIENT'S EYES: goggles. ALL PERSONNEL IN THE ROOM ARE WEARING PROTECTIVE GOGGLES SPECIFIC TO THE LASER WAVELENGTH FOR THIS TREATMENT. TREATMENT #: 4 LASER: V BEAM SPOT SIZE:5 mm; ENERGY FLUENCE: 12.50J/cm2; MODE (TIME): 1.5 msec; SPRAY DELAY: 40/20;NUMBER OF PULSES: 1 V BEAM SPOT SIZE: 3 x 10 mm; ENERGY FLUENCE: 14.75 J/cm2; MODE (TIME): 40 msec; SPRAY DELAY: 30/20;NUMBER OF PULSES: 108 COMMENTS: Patient tolerated procedure well. and Post care instructions provided, understanding verbalized. Sign Out Discussion: Completed Post op instructions given / with verbal understanding Skin Care after Laser Treatment. Return to clinic 4-6 weeks Charge code: 250 self pay The documentation for this note was completed by Hilda Rojo RN acting as scribe for Sandip Valencia MD. April 07, 2022 11:19 AM. I agree with the Chief Complaint, ROS, and Past Histories independently gathered by the clinical direct support specialist and the remaining scribed note accurately describes my personal service to the patient. Sandip Valencia MD March 07, 2022 documented in this encounter [facility] 03-23-2022 Miscellaneous Notes called and left VM and sent [employer] message to reschedule appt with Dr. 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 Skin per HPI. No other new/concerning skin growth. Physical Exam: General: well appearing, of stated age, in no acute distress Neurology: alert and oriented times three Psychiatry: in a happy mood Skin: Spears skin type: 2 Skin exam performed of face, scalp, ears, eyelids, lips, neck, chest, abdomen, back, bilateral upper extremities, hands, fingers, fingernails, bilateral lower extremities, feet, toes, toenails. Skin exam normal with the exception of: Actinic keratoses chest, legs Prior skin cancer treatment sites shira Seborrheic keratoses face and trunk and extrems Lentigines face T&E No lad Assessment and Plan: 1. Actinic keratoses chest and legs - rx options reviewed rec efudex cr twice a day x 4 weeks anterior legs LN2 to 3 actinic keratoses chest Return to clinic 6 months or sooner if something concerning arises. Neeta Carr MD January 28, 2022 documented in this encounter [facility] 04-15-2021 History of Presen t illness Narrative Date of Surgery: 12/18/2020 Surgical Procedure: Left percutaneous tendo Achilles lengthening, medial displacement calcaneal osteotomy, lateral column lengthening, FDL to posterior tibial tendon transfer Impression: Stable 1. Acquired pes planovalgus, left 2. Posterior tibial tendon dysfunction (PTTD) of left lower extremity 3. Posterior tibialis tendon insufficiency Plan: I recommended that she continue physical therapy since she is making steady improvements. I requested that she bring a typed out note with her at her next visit since we are having difficulty obtaining the physical therapy notes. Follow Up: 6 weeks. New x-rays of the left foot will be performed at the next appointment. 3 views left foot weightbearing Subjective: Jackie Linton returns to clinic today approximately 4 months out from her procedure. Jackie has been going to physical therapy. She continues to describe pain along the lateral border of her foot. However she says that her pain has been steadily improving with physical therapy. She had an increase in her pain after walking the entire perimeter of her physical therapy gym. Then she did a balance board afterwards. After that appointment she had swelling and pain. She had to back off afterwards. She is here with her today. We do not have any notes other than the initial plan of care from her physical therapist. She was prescribed a UCBL for the right side. She did not get it because she would have to pay for it [id number]. Jackie denies problems with the incisions, denies signs of infection such as fevers, chills redness or warmth. Medications, non-medications, allergies, and smoking status were reviewed and updated as appropriate in EPIC. She is not a current tobacco user. Objective: PACU Vitals 04/15/21 1314 BP: 142/72 Pulse: 69 Examination Performed: Barefoot General Appearance: no acute distress, alert/oriented x3, appropriate mood and affect and looks stated age Gait: Not assessed. She stood during the exam today. Her heel has significantly improved alignment. Palpation: Tenderness to palpation along the lateral hindfoot at the distal end of the incision. ROM: Wiggles toes. Ankle range of motion slightly decreased; compartments are supple Neurovascular Intact Skin Intact. Incision site healed, no signs of infection noted. Radiographs: None performed CC: Colten Persaud MD documented in this encounter [facility] 03-04-2021 History of Presen t illness Narrative Date of Surgery: 12/18/2020 Surgical Procedure: Left percutaneous tendo Achilles lengthening, medial displacement calcaneal osteotomy, lateral column lengthening, FDL to posterior tibial tendon transfer Impression: Stable 1. Acquired pes planovalgus, left 2. Posterior tibial tendon dysfunction (PTTD) of left lower extremity Plan: This patient will continue her physical therapy. I have requested that she have her physical therapist fax us a note. She is having pain along the lateral border of her foot. We will continue to monitor this. It is along the location of her lateral column lengthening. She is having some pain over her posterior tibial tendon on her right foot. I recommended that she wear her stirrup splint at this time. I also prescribed her a UCBL. Follow Up: 6 weeks. Subjective: Jackie Linton returns to clinic today approximately 12 week(s) out from her procedure. Jackie has been nonweightbearing. Jackie denies problems with the incisions, denies signs of infection such as fevers, chills redness or warmth. Medications, non-medications, allergies, and smoking status were reviewed and updated as appropriate in EPIC. She is not a current tobacco user. Objective: PACU Vitals 03/04/21 1320 BP: (!) 159/94 Pulse: 93 Examination Performed: Barefoot General Appearance: no acute distress, alert/oriented x3, appropriate mood and affect and looks stated age Gait: Not assessed. She stood during the exam today. Her heel has significantly improved alignment. Palpation: No tenderness to palpation along the incisions. Clinically there is improved alignment of the hindfoot. ROM: Wiggles toes. Ankle range of motion slightly decreased; compartments are supple Neurovascular Intact Skin Intact. Incision site healed, no signs of infection noted. Radiographs: Xrays from today's date were reviewed today in clinic and discussed with the patient. A formal read will be perfomed by radiology. They were also interpreted by myself. My findings and impressions can be found below. Radiographs from today date show maintained position of the cannulated screw across the calcaneal osteotomy. There is a bone wedge and staple in the lateral column. Also there is covering of the talus at the talonavicular joint. Mild callus formation at the calcaneal osteotomy site. CC: Colten Persaud MD documented in this encounter [facility] 01-31-2021 History of Presen t illness Narrative Date of Surgery: 12/18/2020 Surgical Procedure: Left percutaneous tendo Achilles lengthening, medial displacement calcaneal osteotomy, lateral column lengthening, FDL to posterior tibial tendon transfer Impression: Stable 1. Acquired pes planovalgus, left 2. Posterior tibial tendon dysfunction (PTTD) of left lower extremity Plan: This patient will be started on physical therapy. She can gradually progress her weightbearing from 10% to 100% of body weight over 4 to 6 weeks. No active inversion or forced eversion for another 4 weeks to protect the FDL tendon transfer. Follow Up: 6 weeks; x-rays will be needed at the next appt. 3 views left foot simulated weightbearing Subjective: Jackie Linton returns to clinic today approximately 6 week(s) out from her procedure. Jackie has been nonweightbearing. Jackie denies problems with the incisions, denies signs of infection such as fevers, chills redness or warmth. Medications, non-medications, allergies, and smoking status were reviewed and updated as appropriate in EPIC. She is not a current tobacco user. Objective: PACU Vitals 01/31/21 1013 BP: 133/84 Pulse: 80 Examination Performed: out of cast General Appearance: no acute distress, alert/oriented x3, appropriate mood and affect and looks stated age Gait: Not assessed Palpation: No tenderness to palpation along the incisions. Clinically there is improved alignment of the hindfoot. ROM: Wiggles toes. Ankle range of motion slightly decreased; compartments are supple Neurovascular Intact Skin Intact. Incision site healed, no signs of infection noted. Radiographs: Xrays from today's date were reviewed today in clinic and discussed with the patient. A formal read will be perfomed by radiology. They were also interpreted by myself. My findings and impressions can be found below. Radiographs from today date show maintained position of the cannulated screw across the calcaneal osteotomy. There is a bone wedge and staple in the lateral column. Also there is covering of the talus at the talonavicular joint. Mild callus formation at the calcaneal osteotomy site. CC: Colten Persaud MD documented in this encounter [facility] 01-31-2021 History of Presen t illness Narrative Date of Surgery: 12/18/2020 Surgical Procedure: Left percutaneous tendo Achilles lengthening, medial displacement calcaneal osteotomy, lateral column lengthening, FDL to posterior tibial tendon transfer Impression: Stable 1. Acquired pes planovalgus, left 2. Posterior tibial tendon dysfunction (PTTD) of left lower extremity Plan: This patient will be started on physical therapy. She can gradually progress her weightbearing from 10% to 100% of body weight over 4 to 6 weeks. No active inversion or forced eversion for another 4 weeks to protect the FDL tendon transfer. Patient was ambulatory previous to this injury and expected to regain ambulatory status after complete healing of injury. Follow Up: 6 weeks; x-rays will be needed at the next appt. 3 views left foot simulated weightbearing Subjective: Jackie Linton returns to clinic today approximately 6 week(s) out from her procedure. Jackie has been nonweightbearing. Jackie denies problems with the incisions, denies signs of infection such as fevers, chills redness or warmth. Medications, non-medications, allergies, and smoking status were reviewed and updated as appropriate in EPIC. She is not a current tobacco user. Objective: PACU Vitals 01/31/21 1013 BP: 133/84 Pulse: 80 Examination Performed: out of cast General Appearance: no acute distress, alert/oriented x3, appropriate mood and affect and looks stated age Gait: Not assessed Palpation: No tenderness to palpation along the incisions. Clinically there is improved alignment of the hindfoot. ROM: Wiggles toes. Ankle range of motion slightly decreased; compartments are supple Neurovascular Intact Skin Intact. Incision site healed, no signs of infection noted. Radiographs: Xrays from today's date were reviewed today in clinic and discussed with the patient. A formal read will be perfomed by radiology. They were also interpreted by myself. My findings and impressions can be found below. Radiographs from today date show maintained position of the cannulated screw across the calcaneal osteotomy. There is a bone wedge and staple in the lateral column. Also there is covering of the talus at the talonavicular joint. Mild callus formation at the calcaneal osteotomy site. CC: Colten Persaud MD documented in this encounter [facility] 01-03-2021 History of Presen t illness Narrative Date of Surgery: 12/18/2020 Surgical Procedure: Left percutaneous tendo Achilles lengthening, medial displacement calcaneal osteotomy, lateral column lengthening, FDL to posterior tibial tendon transfer Impression: Having pain. Tramadol ordered. Recommended continued ibuprofen. 1. Acquired pes planovalgus, left traMADoL (ULTRAM) 50 mg tablet 2. Posterior tibial tendon dysfunction (PTTD) of left lower extremity traMADoL (ULTRAM) 50 mg tablet Plan: This patient was placed in a left short leg well-padded cast today. She tolerated the procedure well. She will remain nonweightbearing. I ordered her 21 tablets of tramadol. I told her that this would be her last prescription. Follow-up in 4 weeks with new x-rays. Follow Up: 4 weeks; x-rays will be needed at the next appt. 3 views left foot simulated weightbearing Subjective: Jackie Linton returns to clinic today approximately 2 week(s) out from her procedure. Jackie states that she has been having pain. She is taking her oxycodone as directed. She says sleeping is difficult. She says this is very painful surgery for her. She says it is difficult for her to relax. Jackie denies problems with the incisions, denies signs of infection such as fevers, chills redness or warmth. She is currently Non-weight bearing. Medications, non-medications, allergies, and smoking status were reviewed and updated as appropriate in EPIC. She is not a current tobacco user. Objective: PACU Vitals 01/03/21 1021 BP: 131/78 Pulse: 78 Examination Performed: out of splint/cast General Appearance: no acute distress, alert/oriented x3, appropriate mood and affect and looks stated age Gait: Not assessed Palpation: Mild tenderness to palpation along the incisions. Clinically there is improved alignment of the hindfoot. ROM: Wiggles toes. Ankle range of motion slightly decreased; compartments are supple Neurovascular Intact Skin Intact. Incision site healed, no signs of infection noted. Suture Removal Note: Sutures were removed today by Smitha Rodriguez MA . She tolerated the procedure well. Steri strips were applied over the incision. Radiographs: Xrays from today's date were reviewed today in clinic and discussed with the patient. A formal read will be perfomed by radiology. They were also interpreted by myself. My findings and impressions can be found below. Radiographs from today state show maintained position of the cannulated screw across the calcaneal osteotomy. There is a bone wedge and staple in the lateral column. Also there is covering of the talus at the talonavicular joint. No significant callus formation at this time. CC: Jimi Marcelino MD documented in this encounter [facility] 12-20-2020 Miscellaneous Notes Discharged per wheelchair to private car with and grandson to transport home. Shower chair with back dispensed from [facility] closet. Plan of care reviewed and updated POC reviewed DATE OF PROCEDURE: 12/18/2020 PREOPERATIVE DIAGNOSES: Left posterior tibial tendon dysfunction and pes planovalgus deformity. POSTOPERATIVE DIAGNOSES: Same as above PROCEDURE PERFORMED: Left percutaneous tendo Achilles lengthening, medial displacement calcaneal osteotomy, lateral column lengthening, FDL to posterior tibial tendon transfer SURGEON: Joshua Sandoval M.D. IMPLANTS USED: 1. Piedmont 20 x 20 x 20 mm staple 2. P[place]mont 7.0 x 45 mm fixos cannulated screw partially threaded 3. Piedmont augment 4. Piedmont 8 mm bone wedge ANESTHESIA: General with preoperative block NEEDLE AND SPONGE COUNTS: Correct. COMPLICATIONS: None. ESTIMATED BLOOD LOSS: see anesthesia record SPECIMENS: None DRAINS: None CONDITION: Stable and awake to PACU TOURNIQUET TIME: 119 minutes. INDICATION FOR PROCEDURE: INDICATION FOR PROCEDURE: This is a 65 y.o. female who has a longstanding flatfoot deformity. She has developed significant pain over the last several years. She has significant lateral subfibular impingement pain. She has a flexible flatfoot however.. The patient saw me in consultation. We discussed options. She was interested in a flatfoot reconstruction. She failed nonsurgical treatment.. Risks, and benefits of surgical fixation were discussed. All questions were answered. Treatment options were reviewed. Reasonable expectations and postoperative rehabilitation were discussed with the family as well as the patient. They elected to proceed with surgery and informed consent was obtained. DESCRIPTION OF PROCEDURE: The patient was identified in the preoperative holding area as Jackie Linton and the Left foot was confirmed to be the site of the operation with the patient and confirmed with the informed consent. The site was marked by myself. The patient was then brought to the operating suite where timeout was performed indicating correct patient, correct site, correct procedure, correct position and all implants were available and in the room. The renewals representative from the implant company was also available. Allergies were reviewed and antibiotics were infused prior to the start of the case and within one-half hour of incision. The patient was then placed on the operating table in the supine position. The Left leg was prepped and draped in the usual sterile fashion. All bony prominences were well padded. A tourniquet was placed over the Left thigh for the duration of the procedure (119 min). Next the leg was elevated and a percutaneous tendo Achilles lengthening was performed in the standard fashion through 3 posterior stab incisions. This resulted in excellent dorsiflexion of the foot after the procedure. Next incision was made on the posterior lateral aspect of the hindfoot. An oblique incision was made across the posterior aspect of the calcaneal tuberosity and perpendicular to its long axis. This was continued then anteriorly along the anterior process of the calcaneus. Dissection was carried down through the posterior portion of the incision and the sural nerve was protected. The calcaneus was identified. The site for the osteotomy was confirmed on fluoroscopy. Next with retractors in the wound protecting the soft tissues at the superior and inferior aspects of the calcaneal tuberosity, a microsagittal saw was used to perform an osteotomy of the calcaneus. The medial cortex was less intact. The osteotomy was then finished with an osteotome. After the osteotomy was completed a lamina tire servicer was placed in the wound and used to distract the osteotomy for 1 to 2 minutes in order to loosen the medial soft tissues. Next the calcaneal tuberosity was shifted medially approximately 1 cm. A guidewire then for the 7.0 mm Ede fixos screws was placed through the calcaneal tuberosity off the weightbearing surface and across the osteotomy site. Placement was confirmed on x-ray with a lateral of the foot and axial of the calcaneus. Length and position was appropriate so this was overdrilled and a 7.0 x 45 mm cannulated partially threaded screw was placed. This allowed good compression at the osteotomy site. Next the calcaneocuboid joint was identified. This was dissected out. A claire was made 1-1/2 cm proximal to the calcaneocuboid joint. This was confirmed on x-ray. Soft tissues were protected and another osteotomy was made in the anterior process of the calcaneus. This was made with a microsagittal saw. The medial cortex was once again left intact. Hinchman distractor was used to distract this area and a sizer was used to choose the appropriate size graft for the lateral column lengthening. A size 8 mm graft was chosen. X-ray was used to confirm appropriate size of the Glatt graft using AP and oblique films. The talonavicular joint was covered using the 8 mm spacer. The 8 mm graft was thawed and augment was spread on the graft. The graft was then inserted with a tamp. Next a guide for the 20 x 20 mm P[place]mont compression staple was used to drill ship pilot holes for the 2 arms of the staple spanning the graft at the lateral column. A 20 x 20 mm Ede compression staple was then placed. This allowed good fixation. The foot was then inspected and it was noted to not be in varus. Therefore cotton osteotomy was not done. Next incision was made along the medial hindfoot from a location posterior to the medial malleolus traveling along the posterior tibial tendon and past the navicular tuberosity. Dissection was carried down through the soft tissues. The posterior tibial tendon was identified. This was then resected with approximately 1 cm stump of tendon left intact. Next the FDL tendon was identified. This was traced down through the knot of Lopez. It was resected 2 to 3 cm distal to the navicular tuberosity. A tiger loop suture was then used to grasp the FDL tendon. The foot was placed in plantarflexion and inversion. It was then sewn to the stump of the posterior tibial tendon. This was tensioned appropriately. The suture was then tied and cut. All wounds were copiously irrigated and excellent hemostasis was obtained. 2-0 Vicryl was used to close the deep tissues followed by 3-0 Vicryl in the subcutaneous tissues and 3-0 nylons in the skin. A sterile dressing and short leg splint was applied. All counts were correct at the end of the case and there were no complications with the procedure. The patient was transferred stable and awake to the postoperative holding area. Joshua Sandoval MD documented in this encounter [facility] 12-20-2020 History of Presen t illness Narrative Occupational Therapy OCCUPATIONAL THERAPY TREATMENT NOTE Skilled Therapy Needs After Discharge Anticipate Resolution of Current Assessment Limitations Including: Pain, Mechanical Barriers Are Skilled Therapy Services Needed After Discharge: Yes Intensity of Skilled Therapy: 2-3 days per week Anticipated Duration of Skilled Therapy: Home Safety Evaluation - one visit DME Recommendation: Tub seat DME Rationale: Patient's condition prevents him/her from accomplishing ADL without recommended equipment, Patient's condition creates an increased risk of safety hazard without recommended equipment Rehab Potential: Excellent Outcomes Measures Prior Function Daily Activity Raw Score: 24 Prior Function Daily Activity % Impaired: 0% AM-PAC Daily Activity Raw Score: 20 AM-PAC Daily Activity % Impaired: 38.32% Activity Tolerance Activity Tolerance: Tolerates 30 min acitivty with multiple rests Therapy Precautions Orthotic Devices: Yes Lower Extremity: Left (splint with NAHOMY wrap) Weight Bearing Status: X LLE: Non Wt bearing General Rehab Precautions: Fall risk Cognition Overall Cognitive Status: Within Functional Limits Arousal/Alertness: Appropriate responses to stimuli Orientation Level: Oriented X4 Executive functioning: WFL Safety Judgment: Good awareness of safety precautions Problem Solving: Able to problem solve independently Attention: Attends to distracted environment Hearing Status: WFL Social Interaction: Appropriate, Cooperative Comments: Followed all commands throughout tx session. ADL LE Dressing: Supervision LE Dressing - Skilled Intervention Provided: monitored patient's safety & tolerance LE Dressing - For: LE management, LE positioning LE Dressing - Resulting In: improved performance with ADLs Toileting: Supervision Toileting - Skilled Intervention Provided: monitored patient's safety and tolerance Toileting - For: necessary precautions Toileting - Resulting In: improved participation in ADL task Functional Mobility: Stand by assist Functional Mobility - Skilled Intervention Provided: verbal cues Functional Mobility - For: controlled descent Functional Mobility - Resulting In: improved performance Bed Mobility Supine to Sit: Modified independent Sit to Supine: Modified independent Fisher Eel Spear: bedrails Functional Transfers Sit to Stand: Stand by assist Toilet Transfers: Stand by assist (to BSC without device ) Tub Transfers: (Education and demonstration) Fisher Eel Spear: (none) Skilled Intervention Provided: verbal cues For: UE management, controlled descent Resulting In: improved performance Additional Treatment Details Completed stand pivot transfers without device with pt requiring cues for hand placement. Education and demonstration of safe tub transfer with pt politely refusing to attempt. Education and demonstration to ensure pt safety upon home going with pt verbalizing understanding. Home Living Obtained Home Living and PLOF info from: Patient Lives With: Spouse (grandson) Type of Home: House Home Layout: Two level, Able to live on main level with bedroom/bathroom (Laundry on main) Steps to enter home: Ramped entrance Bathroom Shower/Tub: Tub/shower unit, Main level Bathroom Toilet: Standard, Main level Bathroom Equipment: Bedside commode (grab bar on side of tub) Bathroom Accessibility: Accessible Mobility Equipment: Wheelchair - manual Additional Objective Details - Home Living: Smaller bathroom on main floor. Prior Level of Function Receives Help From: Family Level of [place] - Transfers/Ambulation/Mobility: Independent with functional transfers, Independent with household ambulation, Independent with community ambulation Level of [place] - ADLs: Independent Level of [place] - Homemaking: Independent Driving: Patient drives Vocational: Retired For complete objective data, detailed plan of care and patient education refer to: OT Evaluation flowsheet, OT Evaluation and Treatment flowsheet, OT Treatment flowsheet, patient Plan of Care, Plan of Care progress note, and Patient Education. This note stands as the current Discharge Summary upon patient discharge from the hospital or completion of Occupational Therapy Plan of Care. Physical Therapy PHYSICAL THERAPY TREATMENT NOTE Skilled Therapy Needs After Discharge Are Skilled Therapy Services Needed After Discharge: Yes Intensity of Skilled Therapy: 2-3 days per week Anticipated Duration of Skilled Therapy: Duration 7 - 10 days DME Recommendation: (kneeling scooter or Front wheeled walker) Rehab Potential: Good Outcomes Measures Prior Function - Basic Mobility Raw Score: 24 Points Prior Function - Basic Mobility % Impaired: 0% AM-PAC Basic Mobility Raw Score: 17 Points AM-PAC Basic Mobility % Impaired: 43.83% Activity Tolerance Pt with good tolerance to activity with pain rated at 5 /10 post tx. Kneeler scooter obtained and adjusted to pt height. Pt performed gait on kneeler scooter following adjustment and voicing comfort and approving handle and seat height. Therapy Precautions Weight Bearing Status: X LLE: Non Wt bearing General Rehab Precautions: Fall risk Released to nursing: assist x 1 with ww Bed Mobility Supine to Sit: Modified independent Sit to Supine: Stand by assist, Modified independent Skilled Intervention Provided: monitoring patient response with activity For: safety during functional tasks Resulting in: improved safety, improved performance Transfers Sit to Stand: Contact guard assist, Stand by assist Skilled Intervention Provided: verbal cues, monitoring patient response with activity For: LE positioning, LE management, UE positioning, UE management, fall prevention, necessary precautions Resulting in: improved performance, increased insight into deficits, improved awareness Car Transfers: Stand by assist Skilled Intervention Provided: monitoring patient response with activity For: UE positioning, UE management, LE positioning, LE management, safety during functional tasks Resulting in: improved performance, improved safety Pt requiring practice for stand pivot transfers on kneeler scooter to improve safety with maintaining non wt bearing. Gait/Locomotion Gait Assistance: Stand by assist Assistive Device: knee scooter Distance: 150 Feet Pattern: step through Skilled Intervention Provided: verbal cues For: gait technique Resulting in: improved safety, improved activity tolerance, increased insight into deficits Pt requiring cueing and assistance with navigating kneeler scooter while backing up. Additional Treatment Details Home Living Obtained Home Living and PLOF info from: Patient Lives With: Spouse (grandson) Type of Home: House Home Layout: Two level, Able to live on main level with bedroom/bathroom (Laundry on main) Steps to enter home: Ramped entrance Bathroom Shower/Tub: Tub/shower unit, Main level Bathroom Toilet: Standard, Main level Bathroom Equipment: Bedside commode (grab bar on side of tub) Bathroom Accessibility: Accessible Mobility Equipment: Wheelchair - manual Additional Objective Details - Home Living: Smaller bathroom on main floor. Prior Level of Function Receives Help From: Family Level of [place] - Transfers/Ambulation/Mobility: Independent with functional transfers, Independent with household ambulation, Independent with community ambulation Level of [place] - ADLs: Independent Level of [place] - Homemaking: Independent Driving: Patient drives Vocational: Retired For complete objective data, detailed plan of care and patient education refer to: PT Evaluation flowsheet, PT Evaluation and Treatment flowsheet, PT Treatment flowsheet, patient Plan of Care, Plan of Care progress note, and Patient Education. This note stands as the current Discharge Summary upon patient discharge from the hospital or completion of Physical Therapy Plan of Care. Ortho Progress Note 12/19/2020 POD# 1 Day Post-Op Surgery: Left tendo-Achilles lengthening, medial displacement calcaneal osteotomy, lateral column lengthening, and FDL tendon transfer to the posterior tibial tendon. Subjective: Patient doing well. Objective: PACU Vitals 12/19/20 0649 BP: 99/62 Pulse: 73 Resp: 14 Temp: 98.1 F (36.7 C) SpO2: 94% General No acute distress Left lower Extremity Dressing intact Sensation absent in toes secondary to block Toes are warm and well-perfused Motor function absent in toes secondary to block Lab Results Component Value Date WBC 6.31 12/16/2020 HGB 12.9 12/16/2020 HCT 40.0 12/16/2020 MCV 90.9 12/16/2020 PLT 337 12/16/2020 RBC 4.40 12/16/2020 Assessment: POD# 1 Day Post-Op Left tendo-Achilles lengthening, medial displacement calcaneal osteotomy, lateral column lengthening, and FDL tendon transfer to the posterior tibial tendon. Plan: - Abx clindamycin postop x2 doses. - DVT proph: Lovenox to start today. Will be discharged on Lovenox as well. - PT/OT engaged - Weightbearing: Nonweightbearing left lower extremity - Dispo: Home today - Follow-up: 2 weeks postop in my clinic Joshua Sandoval MD 12/19/2020 documented in this encounter [facility] 12-20-2020 Hospital course Narrative DISCHARGE SUMMARY Patient: Jackie Linton Date of : 1955 Site: [facility] Provider: Jimi Marcelino MD Admit Date: 12/18/2020 Discharge Date/Time: 12/19/20 Disposition: Stable Clinical Summary Hospital Course: Jackie Linton is a 65 y.o. female patient of Jimi Marcelino MD with a history of pes planovalgus deformity and posterior tibial tendon dysfunction. She feels all nonsurgical treatments. She saw me in consultation I recommended a flatfoot reconstruction. She came to the hospital. She underwent a tendo Achilles lengthening, medial displacement calcaneal osteotomy, lateral column lengthening, and FDL to posterior tibial tendon transfer. She was then admitted overnight. She was kept an additional night in the hospital after that for pain control. Her pain is not adequately controlled after the block wore off on postoperative day 1. She is now able to be discharged Discharge Diagnoses: Posterior tibial tendon dysfunction Pes planovalgus deformity Surgeries: 12/18/20 LEFT MEDIAL DISPLACEMENT CALCANEAL OSTEOTOMY, COTTON OSTEOTOMY, DILLARD OSTEOTOMY, FDL TENDON TRANSFER, POSSIBLE PERCUTANEOUS STAR Consults: No orders of the defined types were placed in this encounter. Allergies: Metoclopramide, Sulfamethoxazole-trimethoprim, Erythromycin, Fenoterol, Penicillins, Reglan [metoclopramide hcl], Sulfamethoxazole, Trimethoprim, and Latex Discharge Diet: Resume home diet Condition: Good Discharge Medications: Current Discharge Medication List START taking these medications Details enoxaparin (Lovenox) 40 mg/0.4 mL Syrg Inject 0.4 mL (40 mg total) under the skin daily . Qty: 12 mL, Refills: 0 ibuprofen (ADVIL,MOTRIN) 800 MG tablet 1 PO q 8 hours as need for pain. Discontinue for GI upset/distress and contact provider Qty: 90 tablet, Refills: 0 oxyCODONE (ROXICODONE) 5 MG immediate release tablet Take 1 (one) tablet (5 mg total) by mouth every 6 (six) hours as needed . Qty: 28 tablet, Refills: 0 Associated Diagnoses: Posterior tibial tendon dysfunction (PTTD) of left lower extremity CONTINUE these medications which have NOT CHANGED Details acetaminophen/diphenhydramine (TYLENOL PM EXTRA STRENGTH ORAL) Take by mouth nightly . Bifidobacterium infantis (Align) 4 mg cap Take by mouth every morning . calcium citrate-vitamin D (CITRACAL+D) 315-200 mg-unit per tablet Take by mouth . esomeprazole (NexIUM) 40 MG capsule Take 40 mg by mouth . raloxifene (EVISTA) 60 mg tablet Take 60 mg by mouth every night at bedtime . sertraline (ZOLOFT) 100 MG tablet Take 50 mg in addition to the 100mg for the next few weeks zolpidem (AMBIEN) 5 MG tablet Take 5 mg by mouth nightly . Refills: 0 acetaminophen (TYLENOL) 325 MG tablet Acetaminophen TYLENOL 325 MG TABS 1-2 tablets by mouth every 6 hours as needed ACETAMINOPHEN [id number] Clau Rajan RN 12-16-2015 [facility] ([id number]) fluorouracil (EFUDEX) 5 % cream Apply to affected area twice daily for 2-4 weeks. May stop for few days or decrease to once daily for discomfort methylcellulose, laxative, (CITRUCEL) 500 mg Tab Take 1,000 mg by mouth . pirbuterol acetate (MAXAIR AUTOHALER INHL) Inhale Take as needed . rizatriptan (Maxalt) 10 MG tablet Take 10 mg by mouth as needed . !! triamcinolone (KENALOG) 0.1 % ointment Apply to red irritated areas, twice a day as needed !! triamcinolone (KENALOG) 0.1 % ointment APPLY TO RED IRRITATED AREAS, TWICE A DAY NEEDED Refills: 1 valACYclovir (VALTREX) 1000 MG tablet Take 1,000 mg by mouth as needed . !! - Potential duplicate medications found. Please discuss with provider. Physician(s) Family Provider: Jimi Marcelino MD, Address[place] [address] / [facility] [id number] Follow Up: No follow-up provider specified. Patient instructions, including activity, were given to the patient/family at discharge. Please see the After Visit Summary in the electronic medical record for details. Time spent on discharge: < 30 minutes Completed by: Joshua Sandoval MD on 12/20/20, 9:07 AM documented in this encounter [facility] 12-19-2020 Consult note Occupational Therapy OCCUPATIONAL THERAPY EVALUATION AND TREATMENT NOTE Dx: Posterior tibial tendon dysfunction of L lower extremity Sx: L percutaneous tendo Achilles lengthening, medical displacement calcaneal, lateral column lengthening, FDL to posterior tibial tendon transfer performed 12/18/2020. OCCUPATIONAL THERAPY EVALUATION Skilled Therapy Needs After Discharge Anticipate Resolution of Current Assessment Limitations Including: Pain, Mechanical Barriers Are Skilled Therapy Services Needed After Discharge: Yes Intensity of Skilled Therapy: 2-3 days per week Anticipated Duration of Skilled Therapy: Home Safety Evaluation - one visit DME Recommendation: Tub seat DME Rationale: Patient's condition prevents him/her from accomplishing ADL without recommended equipment, Patient's condition creates an increased risk of safety hazard without recommended equipment Rehab Potential: Excellent Outcomes Measures Prior Function Daily Activity Raw Score: 24 Prior Function Daily Activity % Impaired: 0% AM-PAC Daily Activity Raw Score: 17 AM-PAC Daily Activity % Impaired: 50.11% Occupational Therapy Assessment The patient's current functional participation deficits are LE dressing, bathing, toileting, home management, hobbies, functional mobility. This reduced independence will limit their life roles of premorbid level individual. The patient's co morbidities do not affect patient performance in the above activities and roles. The performance deficits are a result of musculoskeletal impairment(s) in left, lower extremity including strength, acitvity tolerance, pain, problem solving, sequencing, safety, and knowledge deficit. The patient's home setup is a barrier, family / caregiver support is a before school for return to prior level of function. The patient's education level is a before school, compliance is a before school, awareness of own capacity and performance is a before school to return to prior level of function. During the assessment, minimal to moderate modification of task was required and several treatment options were identified in the plan of care. This consultation required expanded review of the medical and therapy history. Activity Tolerance Activity Tolerance: Tolerates 20 - 30 min activity with multiple rests Therapy Precautions Orthotic Devices: Yes Lower Extremity: Left (splint with NAHOMY wrap) Weight Bearing Status: X LLE: Non Wt bearing General Rehab Precautions: Fall risk Cognition Overall Cognitive Status: Within Functional Limits Arousal/Alertness: Appropriate responses to stimuli Orientation Level: Oriented X4 Executive functioning: WFL Safety Judgment: Decreased awareness of need for assistance Problem Solving: Assistance required to identify errors made Attention: Attends to quiet environment Hearing Status: WFL Social Interaction: WFL Comments: Followed all commands; aware of NWBing precaution. ADL Grooming: (CR - SBA, seated) LE Dressing: Stand by assist (R sock seate; will shira more assist for pants/underwer.) Toileting: (Declined; has Eng.) UE Assessment B UE AROM WFL with gross strength of 4/5. Bed Mobility Supine to Sit: Contact guard assist Sit to Supine: (Remained up in chair) Functional Transfers Sit to Stand: Minimal assist Bed to Chair Transfers: Contact guard assist Tub Transfers: (Not performed) Fisher Eel Spear: knee scooter Home Living Obtained Home Living and PLOF info from: Patient Lives With: Spouse (grandson) Type of Home: House Home Layout: Two level, Able to live on main level with bedroom/bathroom (Laundry on main) Steps to enter home: Ramped entrance Bathroom Shower/Tub: Tub/shower unit, Main level Bathroom Toilet: Standard, Main level Bathroom Equipment: Bedside commode (grab bar on side of tub) Bathroom Accessibility: Accessible Mobility Equipment: Wheelchair - manual Additional Objective Details - Home Living: Smaller bathroom on main floor. Prior Level of Function Receives Help From: Family Level of [place] - Transfers/Ambulation/Mobility: Independent with functional transfers, Independent with household ambulation, Independent with community ambulation Level of [place] - ADLs: Independent Level of [place] - Homemaking: Independent Driving: Patient drives Vocational: Retired Subjective Impression - Prior Function: Ambulates without device; was wearing boot on LLE. 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 Spouse was performing shopping. Reports that spouse is disabled d/t back problems. Past Medical History: Diagnosis Date Asthma Depression GERD (gastroesophageal reflux disease) acid reflux Melanoma (HCC) Neck pain Past Surgical History: Procedure Laterality Date ANKLE FRACTURE SURGERY Left 1999 possibly 10 yrs or more CARPAL TUNNEL RELEASE Right NECK SURGERY 2010 - SKIN CANCER EXCISION melanoma -left arm, right arm , lower back , chest , both legs TRIGGER FINGER RELEASE Right OCCUPATIONAL THERAPY TREATMENT NOTE Total Treatment Time (Total Session Time): 40 Minutes Timed Code Treatment Minutes: 21 Minutes Self-Care / ADL LE Dressing - Skilled Intervention Provided: monitored patient's safety & tolerance, patient education, [id number] instructions LE Dressing - For: LE management, LE positioning LE Dressing - Resulting In: improved ability to understand / adhere to precautions, improved activity tolerance, improved participation in ADL task, improved sequencing Therapeutic Activities Bed Mobility Skilled Intervention Provided: monitoring patient response with activity, patient education For: LE management, initiation of task, safety during functional task(s) Resulting In: increased initiation in mobility task(s), decreased assistance required, increased upright tolerance for functional tasks Functional Transfers Skilled Intervention Provided: verbal cues, demonstration, environmental setup/modification, monitoring patient response with activity, provided step by step instructions, patient education For: LE management, compensatory strategies, efficient movement, fall prevention, safety during functional task(s) Resulting In: improved adherence to precautions, decreased assistance required Neuromuscular Reeducation Standing Balance - Static: Stand by assist, with device, with bilateral UE support Fisher Eel Spear - Standing Static: (knee scooter) Additional Treatment Details Unable to perform tub transfer at this time d/t not having knee scooter with front swival wheels available, as she will have at home. Discussed at length with patient and pt's spouse via phone for safe transfer technique and use of shower chair; spouse reports that a transfer bench will not fit properly. Patient may need to sponge bathe initially. Both voiced good understanding. For complete objective data, detailed plan of care and patient education refer to: OT Evaluation flowsheet, OT Evaluation and Treatment flowsheet, OT Treatment flowsheet, patient Plan of Care, Plan of Care progress note, and Patient Education. This note stands as the current Discharge Summary upon patient discharge from the hospital or completion of Occupational Therapy Plan of Care. Physical Therapy PHYSICAL THERAPY EVALUATION and TREATMENT NOTE PHYSICAL THERAPY EVALUATION Skilled Therapy Needs After Discharge Are Skilled Therapy Services Needed After Discharge: Yes Intensity of Skilled Therapy: 2-3 days per week Anticipated Duration of Skilled Therapy: Duration 7 - 10 days DME Recommendation: (kneeling scooter or Front wheeled walker) Rehab Potential: Good Outcomes Measures Prior Function - Basic Mobility Raw Score: 24 Points Prior Function - Basic Mobility % Impaired: 0% AM-PAC Basic Mobility Raw Score: 17 Points AM-PAC Basic Mobility % Impaired: 43.83% Physical Therapy Assessment History: Patient is s/p Left percutaneous tendo Achilles lengthening, medial displacement calcaneal osteotomy, lateral column lengthening, FDL to posterior tibial tendon transfer on 12/18/20. The following factors influence the patient's participation in the PT plan of care: Personal Factors: Age Environmental Factors: Multi-level home The following co-morbidities (from this admission or prior) influence the patient's participation in this plan of care: depression Number of History elements affecting this patient's PT plan of care: 3 or more Examination of Body Systems: The patient presents with: Musculoskeletal impairments: Strength, Pain Neurologic Impairments: Balance Cardiopulmonary Impairments: Activity Tolerance. These impairments result in limitations of Gait, Functional Transfers, Activity Tolerance. These impairments result in restrictions of Household mobility, Community mobility. Number of Body Systems elements affecting this patient's PT plan of care: 3 or more. Clinical Presentation: The patient's clinical presentation for this PT evaluation is evolving with changing characteristics as evidenced by current PT documentation. Activity Tolerance Activity Tolerance: Tolerates 10 - 20 min activity with multiple rests Therapy Precautions Weight Bearing Status: X LLE: Non Wt bearing General Rehab Precautions: Fall risk Balance Assessment Sitting Balance - Static: Supervision Standing Balance - Static: Contact guard assist Fisher Eel Spear - Standing Static: other (comment) (kneeling scooter) Bed Mobility Supine to Sit: Contact guard assist (For left LE with head of bed elevated) Transfers Sit to Stand: Minimal assist Bed to Chair: Minimal assist Stand Pivot Transfers: Minimal assist Fisher Eel Spear: knee scooter Gait/Locomotion Gait Assistance: Contact guard assist, Minimal assist Assistive Device: knee scooter Distance: 8 Feet Home Living Obtained Home Living and PLOF info from: Patient Lives With: Spouse (grandson) Type of Home: House Home Layout: Two level, Able to live on main level with bedroom/bathroom (Laundry on main) Steps to enter home: Ramped entrance Bathroom Shower/Tub: Tub/shower unit, Main level Bathroom Toilet: Standard, Main level Bathroom Equipment: Bedside commode (grab bar on side of tub) Bathroom Accessibility: Accessible Mobility Equipment: Wheelchair - manual Additional Objective Details - Home Living: Smaller bathroom on main floor. Prior Level of Function Receives Help From: Family Level of [place] - Transfers/Ambulation/Mobility: Independent with functional transfers, Independent with household ambulation, Independent with community ambulation Level of [place] - ADLs: Independent Level of [place] - Homemaking: Independent Driving: Patient drives Vocational: Retired Past Medical History: Diagnosis Date Asthma Depression GERD (gastroesophageal reflux disease) acid reflux Melanoma (HCC) Neck pain Past Surgical History: Procedure Laterality Date ANKLE FRACTURE SURGERY Left 1999 possibly 10 yrs or more CARPAL TUNNEL RELEASE Right NECK SURGERY 2010 - SKIN CANCER EXCISION melanoma -left arm, right arm , lower back , chest , both legs TRIGGER FINGER RELEASE Right PHYSICAL THERAPY TREATMENT NOTE Total Treatment Time (Total Session Time): 35 Minutes Timed Code Treatment Minutes: 10 Minutes Neuromuscular Reeducation Balance Treatment Sitting Balance - Static: Supervision Standing Balance - Static: Contact guard assist Fisher Eel Spear - Standing Static: other (comment) (kneeling scooter) Gait Training Skilled Intervention Provided: verbal cues, visual cues, patient education For: gait technique Resulting in: increased insight into deficits Therapeutic Activities Bed Mobility Transfers Skilled Intervention Provided: verbal cues, visual cues, patient education For: LE positioning, UE positioning Resulting in: improved awareness ) For complete objective data, detailed plan of care and patient education refer to: PT Evaluation flowsheet, PT Evaluation and Treatment flowsheet, PT Treatment flowsheet, patient Plan of Care, Plan of Care progress note, and Patient Education. This note stands as the current Discharge Summary upon patient discharge from the hospital or completion of Physical Therapy Plan. documented in this encounter [facility] 12-19-2020 Hospital Discharg e Skyla Hickman OT - 12/19/2020 9:42 AM EDT To be issued at discharge: Shower chair with back. documented in this encounter [facility] 12-18-2020 History and physical note INTERVAL HISTORY AND PHYSICAL Patient Name: Jackie Linton Admit Date: [id number] MR #: [id number] : 1955 The H&P has been reviewed and the patient has been examined. I concur with the findings of the H&P. There are no significant changes. It is appropriate to proceed with the planned procedure. Joshua Sandoval MD 12/18/2020 12:16 PM Assessment and Plan GERD (gastroesophageal reflux disease) Symptoms controlled on omeprazole 40 mg daily; advised to take morning of surgery with a sip of water. Posterior tibial tendon dysfunction (PTTD) of left lower extremity Patient is scheduled for surgical correction on 12/18/20 with [place]. Obesity (BMI 30-39.9) bmi 31 Preop examination Patient has a revised cardiac risk index of <1; she denies any known cardiopulmonary disease. She describes functional capacity of greater than 4 METS without chest pain or shortness of breath. No further cardiac testing is indicated for this low risk procedure based on the 2014 ACC/AHA guidelines. Moderate risk (2/3) for BALDO based on preop STOP-BANG assessment. Patient should be monitored closely for postanesthesia hypoxia. Patient denies any previous complication with anesthesia. She is medically optimized for planned procedure. She was given both verbal and written instructions regarding her medications for the day of surgery. CBC is unremarkable. Asthma Chronic, stable. Uses as needed albuterol. Chief Complaint Patient presents with Pre-operative Medical Risk Stratification History of Present Illness Jackie Linton is a 65-year-old female presenting for presurgical risk assessment prior to left foot podiatry surgery scheduled for 12/18/2020. The patient reports she has had multiple fractures to the left foot and ankle along with being flat-footed which has caused her significant pain over the years. She is also experiencing pain to her right foot due to over compensation. She denies any previous complication with anesthesia. She has a history of GERD and stable asthma. She denies chest pain, shortness of breath, fever, chills, orthopnea, edema, or any other symptoms of prodromal illness at this time. Please see below regarding status of active medical conditions and assessment and plan regarding details of preoperative medical risk stratification. Past Medical History: Diagnosis Date Asthma Depression GERD (gastroesophageal reflux disease) acid reflux Melanoma (HCC) Neck pain Past Medical History Pertinent Negatives: Diagnosis Date Noted Sleep apnea, obstructive 12/16/2020 Past Surgical History: Procedure Laterality Date ANKLE FRACTURE SURGERY Left 1999 possibly 10 yrs or more CARPAL TUNNEL RELEASE Right NECK SURGERY 2010 - SKIN CANCER EXCISION melanoma -left arm, right arm , lower back , chest , both legs TRIGGER FINGER RELEASE Right Social History Tobacco Use Smoking status: Never Smoker Smokeless tobacco: Never Used Substance Use Topics Alcohol use: Never History reviewed. No pertinent family history. Prior to Admission medications Medication Sig Taking? Dose Freq acetaminophen (TYLENOL) 325 MG tablet Acetaminophen TYLENOL 325 MG TABS 1-2 tablets by mouth every 6 hours as needed ACETAMINOPHEN [id number] Clau Rajan RN 12-16-2015 [facility] ([id number]) Yes Acetaminophen TYLENOL 325 MG TABS 1-2 tablets by mouth every 6 hours as needed ACETAMINOPHEN [id number] Clau Rajan RN 12-16-2015 [facility] ([id number]) acetaminophen/diphenhydramine (TYLENOL PM EXTRA STRENGTH ORAL) Take by mouth nightly . Yes Oral, Nightly Bifidobacterium infantis (Align) 4 mg cap Take by mouth every morning . Yes Oral, Every morning calcium citrate-vitamin D (CITRACAL+D) 315-200 mg-unit per tablet Take by mouth . Yes Oral esomeprazole (NexIUM) 40 MG capsule Take 40 mg by mouth . Yes 40 mg, Oral fluorouracil (EFUDEX) 5 % cream Apply to affected area twice daily for 2-4 weeks. May stop for few days or decrease to once daily for discomfort Yes Apply to affected area twice daily for 2-4 weeks. May stop for few days or decrease to once daily for discomfort methylcellulose, laxative, (CITRUCEL) 500 mg Tab Take 1,000 mg by mouth . Yes 1,000 mg, Oral raloxifene (EVISTA) 60 mg tablet Take 60 mg by mouth every night at bedtime . Yes 60 mg, Oral, Every night at bedtime rizatriptan (MAXALT) 10 MG tablet Take 10 mg by mouth as needed . Yes 10 mg, Oral, As needed sertraline (ZOLOFT) 100 MG tablet Take 50 mg in addition to the 100mg for the next few weeks Yes Take 50 mg in addition to the 100mg for the next few weeks valACYclovir (VALTREX) 1000 MG tablet Take 1,000 mg by mouth as needed . Yes 1,000 mg, Oral, As needed zolpidem (AMBIEN) 5 MG tablet Take 5 mg by mouth nightly . Yes 5 mg, Oral, Nightly DULoxetine (CYMBALTA) 60 MG capsule 60 mg . 60 mg triamcinolone (KENALOG) 0.1 % ointment Apply to red irritated areas, twice a day as needed Apply to red irritated areas, twice a day as needed triamcinolone (KENALOG) 0.1 % ointment APPLY TO RED IRRITATED AREAS, TWICE A DAY NEEDED APPLY TO RED IRRITATED AREAS, TWICE A DAY NEEDED meloxicam (MOBIC) 15 MG tablet No dose, route, or frequency recorded. predniSONE (DELTASONE) 5 MG tablet TAKE 4 TABS DAILY X3 DAYS, 2 TABS DAILY X3 DAYS, 1 TAB DAILY X4 DAYS TAKE 4 TABS DAILY X3 DAYS, 2 TABS DAILY X3 DAYS, 1 TAB DAILY X4 DAYS Allergies Allergen Reactions Metoclopramide [place] like she was on speed witht this drug. Sulfamethoxazole-Trimethoprim Erythromycin GI Intolerance Fenoterol Other (See Comments) Very Hyperactive Penicillins Results in high fever Reglan [Metoclopramide Hcl] Other (See Comments) Patient states it makes her feel like she is on speed Sulfamethoxazole GI Intolerance Trimethoprim Latex Rash Review of Systems Constitution: (negative) HENT: (negative) Respiratory: (negative) Cardiovascular: (negative) Musculoskeletal: - bilat foot pain Physical Exam BP (P) 149/80 Pulse (!) (P) 57 Ht 5' 2 Wt 77.1 kg (170 lb) SpO2 (P) 95% BMI 31.09 kg/m @OHPATPHYEXAMBYAGE@ Data Preprocedure Sleep Apnea Assessment - Moderate Risk (2/3) Sleep Apnea in the patient's Active Problem List or Medical History: no 1. History of apparent airway obstruction during sleep: (1 point for this category) Do you snore frequently, or snore loud enough to be heard through a closed door?: yes Do you awaken from sleep with a choking sensation or have periods during sleep when someone has observed you pausing between breaths?: no 2. Somnolence of the patient: (1 point for this category) Do you find yourself frequently sleepy despite adequate hours of sleep the night before?: no Do you fall asleep easily while: watching TV, reading, riding in or driving a car?: yes 3. Predisposing physician characteristics: (1 point for this category, 2 points if the BMI ? 40) BMI (Calculated): 31.1 Neck Circumference (inches): 14.5 inches Recent Results (from the past 1825 days) XR FOOT LEFT 3+ VIEWS (STANDARD) 11/04/2020 (Final) Status: Normal XR ANKLE LEFT 2 VIEWS 11/04/2020 (Final) Status: Normal Narrative EXAMINATION: XR ANKLE LEFT 2 VIEWS; XR FOOT LEFT 3+ VIEWS (STANDARD) 11/04/2020 2:54 pm HISTORY: ORDERING SYSTEM PROVIDED HISTORY: Posterior tibial tendon dysfunction (PTTD) of left lower extremity, TECHNOLOGIST PROVIDED HISTORY: Illness/Other Reason for exam: left foot and ankle pain Cancer History: u Surgery, RadiationHistory: u Encounter Type: Initial Additional signs and symptoms: Posterior tibial tendon dysfunction (PTTD) of left lower extremity ORDERING SYSTEM PROVIDED DIAGNOSIS CODES: M76.822 Posterior tibial tendon dysfunction (PTTD) of left lower extremity COMPARISON: Left ankle from 02/16/2019. FINDINGS: Two views were done of the left ankle and three views were done of the left foot. Overall bone density is slightly to mildly decreased. Mortise joint and talar dome are unremarkable. Posterior, medial and lateral malleolus are unremarkable. There is a mild plantar calcaneal spur noted. There appears to be evidence of old healed fractures of the distal shafts of the 3rd and 4th metatarsals. No acute fractures are noted. Degenerative changes are noted throughout the toes and midfoot. Impression 1. Nonacute plain films of the left foot and ankle. 2. Slight to mild diffuse osteopenic changes. Mild degenerative changes. Workstation ID: [id number] documented in this encounter [facility] 12-06-2020 History of Presen t illness Narrative Pre-Operative Discussion and Exam PreOp Diagnosis: Pes planovalgus deformity. PT TD. Planned Procedure: Medial displacement calcaneal osteotomy, FDL tendon transfer, possible lateral column lengthening, possible cotton osteotomy Plan: We have double checked and Reglan is listed as an allergy in her chart. I told her that she will be able to wiggle her toes but she will have limited access to her toes when she is in a splint. I recommend proceeding with surgery as listed above. The patient agrees. 1. We discussed with Jackie that we will proceed with procedure as planned, informed and written consent was obtained at this visit during which I discussed: the nature, description, and purpose of the planned procedure the benefits and risks involved in the treatment or procedure, including the prospects for success and the likely results of the proposed treatment/procedure the possibility of complications and/or side effects and what those complications/side effects might be reasonable alternative treatments available as well as the prognosis if treatment or procedure is not done that additional unforeseen procedures may be indicated based upon the operative findings risks unique to this case include, but are not limited to, pain, infection, bleeding, neurovascular compromise, non-union, malunion, disability, deformity, hardware failure, need for further surgery, risks of anesthesia, DVT, PE, CVA, IA, and . The patient was asked to repeat back understanding of the above conversation and additional clarification was provided as needed. A witness has documented that the patient read the consent form, reported understanding, and was given the opportunity to ask questions. 2. Detailed post-op instructions including wound care instructions will be given to the patient on the day of surgery as well as any medications. 3. Patient will schedule his initial post-op visit on the way out today Subjective: Jackie Linton is here today for a pre-operative discussion regarding left pes planovalgus foot reconstruction. She continues to have pain especially in her subfibular region. This is the most painful area for her. She also has concerns about restless leg syndrome. She wonders if she will be able to wiggle her toes postoperatively. She wants to make sure that we will know she cannot take Reglan. Medications, non-medications, and allergies were reviewed and updated as appropriate in Epic. Patient is not a smoker. Objective: BP (!) 153/86 Pulse 76 Resp 18 Ht 5' 2 Wt 77.6 kg (171 lb) BMI 31.28 kg/m Standing: Pes planovalgus deformity Palpation: Tenderness palpation along the posterior tibial tendon as well as the subfibular region. The subfibular region at this time is worse. ROM / Strength When her heel is corrected to neutral she is not in significant forefoot varus. Also when her heel is corrected to neutral she does not have much dorsiflexion. Strength is grossly full with the exception of weakness in the posterior tibial tendon. Neurovascular Exam Intact. Skin Intact Radiology: MRI studies performed on 10/21/2020 was reviewed at today's visit with Jackie. This was formally read by the radiologist. It was also independently interpreted by myself. Please see my independent interpretation below. The MRI study demonstrated fluid surrounding the posterior tibial tendon and mild posterior tibial tendon thickening and degeneration. There is inflammation across the sinus Tarsi as well. There is also bony edema in the distal tip of the fibula as well as at the middle facet of the subtalar joint. The posterior facet of the subtalar joint appears without significant degenerative change. Mild edema at the talonavicular joint as well on its lateral aspect. Radiographs of the left foot and ankle were performed on today's date. Radiographs of the left ankle show no acute fractures or dislocations. No significant widening of the ankle mortise. No obvious osteochondral lesions. No significant degenerative change at the ankle. Valgus hindfoot deformity. Radiographs of the left foot show no acute fractures or dislocations. No significant malalignment of the hallux or lesser toes. There is mild degenerative change across the tarsometatarsal joints. Osteophyte formation at the dorsal navicular although the rest of the talonavicular joint has appropriate joint space. No significant degenerative change of the talonavicular joint, calcaneocuboid joint, or subtalar joint. There is mild degenerative change at the subtalar joint. There is also plantar calcaneal enthesophyte. CC: Jimi Marcelino MD documented in this encounter [facility] documented as of this encounter (statuses as of 01/30/2022) [facility]2011 History of Past illness Narrative* Problem Noted Date Resolved Date Chest skin lesion 12/19/2010 12/20/2014 documented as of this encounter (statuses as of 03/23/2022) [facility] History of Past illness Narrative* Problem Noted Date Resolved Date Chest skin lesion 12/19/2010 12/20/2014 documented as of this encounter (statuses as of 04/07/2022) [facility] History of Past illness Narrative* Problem Noted Date Resolved Date Chest skin lesion 12/19/2010 12/20/2014 documented as of this encounter (statuses as of 05/07/2022) [facility] History of Past illness Narrative* Problem Noted Date Resolved Date Chest skin lesion 12/19/2010 12/20/2014 documented as of this encounter (statuses as of 06/11/2022) [facility] History of Past illness Narrative* Problem Noted Date Resolved Date Chest skin lesion 12/19/2010 12/20/2014 documented as of this encounter (statuses as of 12/10/2022) [facility] History of Past illness Narrative* Problem Noted Date Resolved Date Chest skin lesion 12/19/2010 12/20/2014 documented as of this encounter (statuses as of 01/04/2023) [facility] History of Past illness Narrative* Problem Noted Date Resolved Date Chest skin lesion 12/19/2010 12/20/2014 documented as of this encounter (statuses as of 01/04/2023) [facility] History of Past illness Narrative* Problem Noted Date Diagnosed Date Resolved Date Chest skin lesion 12/19/2010 12/20/2014 documented as of this encounter (statuses as of 04/08/2023) [facility] History of Past illness Narrative* Problem Noted Date Diagnosed Date Resolved Date Chest skin lesion 12/19/2010 12/20/2014 documented as of this encounter (statuses as of 05/08/2023) [facility] History of Past illness Narrative* Problem Noted Date Diagnosed Date Resolved Date Chest skin lesion 12/19/2010 12/20/2014 documented as of this encounter (statuses as of 05/08/2023) [facility] History of Past illness Narrative* Problem Noted Date Diagnosed Date Resolved Date Chest skin lesion 12/19/2010 12/20/2014 documented as of this encounter (statuses as of 05/24/2023) [facility] History of Past illness Narrative* Problem Noted Date Diagnosed Date Resolved Date Chest skin lesion 12/19/2010 12/20/2014 documented as of this encounter (statuses as of 06/03/2023) [facility] History of Past illness Narrative* Problem Noted Date Diagnosed Date Resolved Date Chest skin lesion 12/19/2010 12/20/2014 documented as of this encounter (statuses as of 06/08/2023) [facility] History of Past illness Narrative* Problem Noted Date Diagnosed Date Resolved Date Chest skin lesion 12/19/2010 12/20/2014 documented as of this encounter (statuses as of 06/09/2023) [facility] Posterior tibial tendon dysfunction (PTTD) of left lower extremity- Primary Acquired pes planovalgus, left [facility] Posterior tibial tendon dysfunction (PTTD) of left lower extremity- Primary Posterior tibial tendon dysfunction (PTTD) of left lower extremity- Primary Posterior tibial tendon dysfunction (PTTD) of left lower extremity [facility] Diagnosis Posterior tibial tendon dysfunction (PTTD) of left lower extremity- Primary Posterior tibial tendon dysfunction (PTTD) of left lower extremity- Primary Posterior tibial tendon dysfunction (PTTD) of left lower extremity [facility] Diagnosis Posterior tibial tendon dysfunction (PTTD) of left lower extremity- Primary [facility] [facility]* Diagnosis Acquired pes planovalgus, left- Primary [facility] Acquired pes planovalgus, left- Primary Posterior tibial tendon dysfunction (PTTD) of left lower extremity [facility] Acquired pes planovalgus, left- Primary Posterior tibial tendon dysfunction (PTTD) of left lower extremity [facility] Acquired pes planovalgus, left [facility] Diagnosis Acquired pes planovalgus, left- Primary Posterior tibial tendon dysfunction (PTTD) of left lower extremity Posterior tibialis tendon insufficiency [facility] Diagnosis Acquired pes planovalgus, left- Primary Posterior tibial tendon dysfunction (PTTD) of left lower extremity [facility] Diagnosis Acquired pes planovalgus, left [facility] Diagnosis Acquired pes planovalgus, left- Primary Posterior tibial tendon dysfunction (PTTD) of left lower extremity [facility] Diagnosis Acquired pes planovalgus, left- Primary Posterior tibial tendon dysfunction (PTTD) of left lower extremity Posterior tibialis tendon insufficiency PTTD (posterior tibial tendon dysfunction) [facility] Diagnosis Acquired pes planovalgus, left- Primary Posterior tibial tendon dysfunction (PTTD) of left lower extremity [facility] Diagnosis Acquired pes planovalgus, left- Primary Posterior tibial tendon dysfunction (PTTD) of left lower extremity Posterior tibialis tendon insufficiency [facility] Diagnosis Hx of nonmelanoma skin cancer- Primary Personal history of other malignant neoplasm of skin History of melanoma in situ Personal history of malignant melanoma of skin Photoaging of skin Other dermatitis due to solar radiation Skin exam, screening for cancer Screening for malignant neoplasm of the skin Actinic keratosis Seborrheic keratosis Other seborrheic keratosis Lentigines Other dyschromia documented in this encounter [facility] note* Diagnosis Encounter for cosmetic procedure- Primary [facility] Diagnosis Actinic keratosis- Primary Actinic skin damage Other dermatitis due to solar radiation documented in this encounter [facility] note* Diagnosis Primary osteoarthritis of first carpometacarpal joint of left hand [M18.12 (ICD-10-CM)]- Primary Chronic thumb pain, left documented in this encounter [facility]* Diagnosis Actinic keratoses- Primary Actinic keratosis documented in this encounter [facility] note* Diagnosis Actinic keratoses- Primary Actinic keratosis documented in this encounter [facility] note* Diagnosis Chronic thumb pain, right- Primary Primary osteoarthritis of first carpometacarpal joint of right hand Chronic thumb pain, left Primary osteoarthritis of first carpometacarpal joint of left hand [M18.12 (ICD-10-CM)] Chronic thumb pain, bilateral Arthritis of carpometacarpal (CMC) joint of both thumbs documented in this encounter [facility] note* Diagnosis Actinic keratosis- Primary Photoaging of skin Other dermatitis due to solar radiation Hx of nonmelanoma skin cancer Personal history of other malignant neoplasm of skin Skin exam, screening for cancer Screening for malignant neoplasm of the skin Seborrheic keratosis Other seborrheic keratosis Inflamed seborrheic keratosis documented in this encounter [facility] note* Diagnosis Actinic keratoses- Primary Actinic keratosis documented in this encounter [facility] note* Diagnosis Actinic keratoses- Primary Actinic keratosis documented in this encounter [facility] note* Diagnosis Chronic thumb pain, left- Primary Trigger finger, left middle finger Primary osteoarthritis of first carpometacarpal joint of left hand [M18.12 (ICD-10-CM)] Pain of left middle finger documented in this encounter [facility] note* Diagnosis Neoplasm of uncertain behavior of skin- Primary Lentigines Other dyschromia Stevenson angioma Nevus, non-neoplastic Seborrheic keratosis Other seborrheic keratosis Hx of nonmelanoma skin cancer Personal history of other malignant neoplasm of skin Actinic keratosis Inflamed seborrheic keratosis Hx of malignant melanoma Personal history of malignant melanoma of skin documented in this encounter [facility] Summary Purpose Family History No Family History Records FoundNo Family History Records FoundNo Family History Records FoundNo Family History Records FoundNo Family History Records FoundNo Family History Records FoundNo Family History Records FoundNo Family History Records FoundNo Family History Records Found Advance Directives Documents on File Type Date Recorded Patient Epic Cupid Analyst Expl anation Advance Directives and Livin g Will 02/16/2019 9:01 AM Documents on File Type Date Recorded Patient Epic Cupid Analyst Expl anation Advance Directives and Living Will Documents on File Type Date Recorded Patient Epic Cupid Analyst Expl anation Advance Directives and Livin g Will 11/04/2020 2:40 PM Documents on File Type Date Recorded Patient Epic Cupid Analyst Expl anation Advance Directives and Livin g Will 12/16/2020 10:35 AM NOT IN SORIAN Documents on File Type Date Recorded Patient Epic Cupid Analyst Expl anation Advance Directives and Livin g Will 12/18/2020 10:44 AM NOT IN SORIAN Latest Code Status on File Code Status Date Activated Date Inactivated Comments Full Code 12/18/2020 5:03 PM 12/20/2020 3:11 PM Documents on File Type Date Recorded Patient Epic Cupid Analyst Expl anation Advance Directives and Livin g Will 12/18/2020 10:44 AM NOT IN SORIAN Latest Code Status on File Code Status Date Activated Date Inactivated Comments Full Code 12/18/2020 5:03 PM 12/20/2020 3:11 PM Documents on File Type Date Recorded Patient Epic Cupid Analyst Expl anation Advance Directives and Livin g Will 01/03/2021 10:22 AM NOT IN SORIAN Documents on File Type Date Recorded Patient Epic Cupid Analyst Expl anation Advance Directives and Livin g Will 01/31/2021 10:15 AM NOT IN SORIAN Documents on File Type Date Recorded Patient Epic Cupid Analyst Expl anation Advance Directives and Livin g Will 01/31/2021 10:15 AM NOT IN SORIAN Documents on File Type Date Recorded Patient Epic Cupid Analyst Expl anation Advance Directives and Livin g Will 03/04/2021 1:07 PM NOT IN SORIAN Documents on File Type Date Recorded Patient Epic Cupid Analyst Expl anation Advance Directives and Yulissa valdes Will 03/04/2021 1:07 PM NOT IN SORIAN History of Present Illness * Exten, Joshua Bhardwaj MD - 05/26/2019 12:58 PM EDT Impression: 1. Posterior tibial tendon dysfunction (PTTD) of left lower extremity 2. Acquired pes planovalgus, left Plan: The above diagnosis as well as the options for treatment were discussed with Jackie in clinic today.At this time we recommend the following: I discussed surgical treatments with this patient. I will review her MRI to determine how much arthritis she has. She would either undergo triple arthrodesis versus a flatfoot reconstruction including an MDCO, cotton and Dillard osteotomies and FDL tendon transfer. She was interested in injections again today. An injection was performed in her subtalar and ankle joint on the left side. She tolerated the procedure well.. Please see injection note below She is interested in undergoing surgery in the spring so that she can have the summer to recover. 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 Jackie was agreeable to the plan and there were no learning barriers encountered. Follow-Up: Followup 3 months. Injection in the subtalar and ankle joint will be performed at that visit. In addition she may bring her to further discuss surgical planning. Subjective: Jackie Linton is here for a follow visit in regards to her left posterior tibial tendon dysfunction and flatfoot deformity. At her last appointment I recommended an Bre brace. She obtained this.She has pain on the plantar aspect of the foot at the edge of the brace. She states her pain is worse now in the brace that outside of it. She also had an injection of her ankle and subtalar joint ather last appointment. She states that there is led to improvement in her symptoms. She is interested in surgical treatment at this time however Smoking status, allergies, medications, and non-medications were reviewed and updated as appropriate in Epic. She is not a current tobacco user. Exam: Vitals: 05/26/19 1038 BP: 148/87 Pulse: 69 Weight: 74.8 kg (165 lb) Height: 5' 2.04 The patient is awake, alert and orientated x3, and in no apparent distress. Standing: Pes planovalgus deformity Palpation: Tenderness to palpation along the posterior tibial tendon and at the sinus Tarsi ROM / Strength Decreased ankle dorsiflexion. Posterior tibial tendon is weak. Other muscle testing is 5 out of 5 Neurovascular Exam Intact. Skin Intact Radiology: No new films taken today. However her images were reviewed with her in the clinic Cortisone Injection Procedure Note: An injection of 1 ml of Dexamethasone 4mg/mL, 1 ml of Sensorcaine 0.25%, and 1 ml of Lidocaine 1% was prepared for injection. Site: Left ankle The procedure has been fully reviewed with the Jackie, including risks, benefits and alternatives. An informed consent was obtained and a TIME OUT was performed in the patient consultation room. Review of the her medical history revealed no allergy to local anesthetics or latex. The area was preppedin the usual sterile fashion, ChloraPrep used for skin cleansing. Jackie tolerated the procedure well, there were no complications following the procedure. Post injection care to include wound care and signs or symptoms of injection were reviewed with her. Cortisone Injection Procedure Note: An injection of 1 ml of Dexamethasone 4mg/mL, 1 ml of Sensorcaine 0.25%, and 1 ml of Lidocaine 1% was prepared for injection. Site: Left sinus Tarsi The procedure has been fully reviewed with the Jackie, including risks, benefits and alternatives. An informed consent was obtained and a TIME OUT was performed in the patient consultation room. Review of the her medical history revealed no allergy to local anesthetics or latex. The area was preppedin the usual sterile fashion, ChloraPrep used for skin cleansing. Jackie tolerated the procedure well, there were no complications following the procedure. Post injection care to include wound care and signs or symptoms of injection were reviewed with her. CC: Jimi Marcelino MD documented in this encounter* Jason Wasserman MD - 02/07/2019 10:28 PM EDT Assessment/Plan: SNOMED CT(R) 1. Posterior tibialis tendon insufficiency DISORDER OF POSTERIOR TIBIAL MUSCLE TENDON Ambulatory referral to Orthopedics Symptomatic posterior tibial tendon dysfunction left ankle. Her symptoms are relatively severe. She has had treatment with a grounds worker in the [place] area. Recommended referral to Dr. Rollins for further evaluation. Return if symptoms worsen or fail to improve. Subjective: Jackie Linton is a 63 y.o. female here for Pain of the Left Ankle (Partial torn tendon and deteriorating cartilage ) Increasing pain in the left foot and ankle. No known trauma. She has sought treatment with the grounds worker in the [place] area. She has been noting increasing deformity in her left ankle. Pain with activity is increasing. She describes a pinching sensation on the lateral aspect of her ankle.. Allergies Allergen Reactions Metoclopramide [place] like she was on speed witht this drug. Sulfamethoxazole-Trimethoprim Erythromycin GI Intolerance Fenoterol Other (See Comments) Very Hyperactive Penicillins Results in high fever Sulfamethoxazole GI Intolerance Trimethoprim Latex Rash Outpatient Medications as of 01/27/2019 Medication Sig acetaminophen (TYLENOL) 325 MG tablet Acetaminophen TYLENOL 325 MG TABS 1-2 tablets by mouth every 6 hours as needed ACETAMINOPHEN [id number] Clau Rajan RN 12-16-2015 [facility] ([id number]) calcium citrate-vitamin D (CITRACAL+D) 315-200 mg-unit per tablet Take by mouth . esomeprazole (NexIUM) 40 MG capsule Take 40 mg by mouth . fluorouracil (EFUDEX) 5 % cream Apply to affected area twice daily for 2-4 weeks. May stop for few days or decrease to once daily for discomfort predniSONE (DELTASONE) 5 MG tablet TAKE 4 TABS DAILY X3 DAYS, 2 TABS DAILY X3 DAYS, 1 TAB DAILY X4 DAYS raloxifene (EVISTA) 60 mg tablet Take 60 mg by mouth every night at bedtime . rizatriptan (MAXALT) 10 MG tablet Take 10 mg by mouth . sertraline (ZOLOFT) 100 MG tablet Take 50 mg in addition to the 100mg for the next few weeks triamcinolone (KENALOG) 0.1 % ointment Apply to red irritated areas, twice a day as needed triamcinolone (KENALOG) 0.1 % ointment APPLY TO RED IRRITATED AREAS, TWICE A DAY NEEDED valACYclovir (VALTREX) 1000 MG tablet Take 1,000 mg by mouth every night at bedtime . zolpidem (AMBIEN) 5 MG tablet Take 5 mg by mouth nightly as needed . History reviewed. No pertinent past medical history. Past Surgical History: Procedure Laterality Date ANKLE FRACTURE SURGERY Left 1999 possibly 10 yrs or more Social History Socioeconomic History Marital status: Spouse name: Not on file Number of children: Not on file Years of education: Not on file Highest education level: Not on file Occupational History Not on file Social Needs Financial resource strain: Not on file Food insecurity: Worry: Not on file Inability: Not on file Transportation needs: Medical: Not on file Non-medical: Not on file Tobacco Use Smoking status: Not on file Substance and Sexual Activity Alcohol use: Not on file Drug use: Not on file Sexual activity: Not on file Lifestyle Physical activity: Days per week: Not on file Minutes per session: Not on file Stress: Not on file Relationships Social connections: Talks on phone: Not on file Gets together: Not on file Attends gnosticism service: Not on file Active member of club or organization: Not on file Attends meetings of clubs or organizations: Not on file Relationship status: Not on file Other Topics Concern Not on file Social History Narrative Not on file Review of Systems Constitutional: Negative for appetite change, fatigue and fever. Respiratory: Negative for chest tightness and shortness of breath. Cardiovascular: Negative for chest pain and palpitations. Gastrointestinal: Negative for abdominal pain and blood in stool. Genitourinary: Negative for difficulty urinating and dysuria. Musculoskeletal: Positive for gait problem. Negative for arthralgias, back pain and myalgias. Neurological: Negative for speech difficulty and headaches. Psychiatric/Behavioral: Negative for confusion and hallucinations. Objective: BP 129/83 Pulse 93 Ht 5' 3 Wt 74.8 kg (165 lb) BMI 29.23 kg/m Physical Exam Constitutional: She is oriented to person, place, and time. She appears well- developed and well-nourished. HENT: Head: Normocephalic. Eyes: EOM are normal. Pulmonary/Chest: Effort normal. Neurological: She is alert and oriented to person, place, and time. Skin: Skin is warm. Psychiatric: She has a normal mood and affect. Valgus deformity of her hindfoot in stance phase of gait. The deformity appears to be partially correctable. Sensation is intact. Capillary refill is normal. She has weakness of her posterior tibialis tendon. Pain to palpation along the retromalleolar area. Imaging from this visit: No results found. MRI that was obtained at [place] and brought for review demonstrates significanttibiotalar arthrosis. A defect of the medial talar dome. Evidence of tenosynovitis but interestingly involves primarily the flexor hallucis longus as well as the flexor digitorum. This is somewhat inconsistent with her physical exam. Jason Wasserman MD 02/07/2019 documented in this encounter* Exten, Joshua Bhardwaj MD - 02/16/2019 11:03 AM EDT Impression: SNOMED CT(R) 1. Posterior tibialis tendon insufficiency DISORDER OF POSTERIOR TIBIAL MUSCLE TENDON 2. Acquired pes planovalgus, left TALIPES PLANUS 3. Posterior tibial tendon dysfunction (PTTD) of left lower extremity DYSFUNCTION OF POSTERIOR TIBIAL TENDON OF LEFT FOOT The above diagnosis as well as the options for treatment were discussed with Jackie in clinic today. I have discussed both surgical nonsurgical treatments with her. From a nonsurgical perspective he could start with an injection of both the ankle and subtalar joints. I would also recommend an Bre brace. This was the only brace that I would expect would control her deformity enough to lead to improvement in her subfibular impingement as well as her tenderness to palpation along the posterior tibial tendon. From a surgical standpoint she would undergo a flatfoot reconstruction. Due to the arthritis that she has she may actually have a triple arthrodesis. She would like to hold off on surgical management at this time. She is interested in injections in an Bre brace. Please see injection note below. And an Bre brace was ordered for her today. She was also given a card from [employer]. She can see them if she has any issues finding footwearto fit the brace. She will follow-up after having the brace fitted. If it does not relieve her symptoms sufficiently or she is interested in something other than the brace due to its appearance we can just discuss flatfoot reconstruction further. Jackie Linton was agreeable to the plan and there were no learning barriers encountered. Follow-Up: After wearing the brace for several weeks. Subjective: Jackie Linton is a 63 y.o. female seen in consultation at the request of Romel Wasserman MD for left footpain. She states that the left foot pain started back in August of this year. She has long-standing flatfoot deformity. 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 She said that she was compensating for the pain in the right leg and putting more pressure on her left leg and foot. She started having significant pain in her lateral ankle as well as along the medial arch. She saw a grounds worker Haily Hawkins D.P.M. in the [place] area. She was placed in a boot. She was also given an ASO. She did not have any physical therapy. She continues to have tenderness. She was also given a prednisone Dosepak in September. That did not significantly improve her symptoms. She does not have any current orthotics or custom braces. 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 She had multiple orthotic and brace devices for these issues. She was in what sounds like some type of abduction brace for her hips. 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 She has to walk up 2 flights of stairs in order to get to her classroom. She has a history of both melanoma and carcinoma . She is not sure of any further details of the Carcinoma. She is treated at [facility] for all of her cancer care at this time. She is gettingregular skin checks. She also admits to an ankle fracture approximately [address] Wasserman. This was the left ankle. She underwent surgical treatment. In addition she says she has broken her foot on 2 separate occasions. She has seen Dr. Stovall in [place].. She is not a smoker. History reviewed. No pertinent past medical history. and Past Surgical History: Procedure Laterality Date ANKLE FRACTURE SURGERY Left 1999 possibly 10 yrs or more Past medical, past surgical, family history, medications, allergies, and smoking status reviewed and updated as appropriate in [facility]. A 13-system review of systems was completed by Jackie jarrett and reviewed by Dr. Joshua Sandoval during the visit. This has been initialed, dated, and scanned to this encounter. Objective: Vitals: 02/16/19 0859 BP: 131/81 Pulse: 80 Weight: 74.8 kg (165 lb) Height: 5' 3 General: no acute distress Appearance: Appears stated age Neurologic: Patient is alert and oriented x3 pleasant and cooperative. Mood and affect: Normal HEENT: normocephalic, attraumatic. Extraocular muscles grossly normal. Pulm: respiratory effort is normal Foot and Ankle - Physical Exam Standing: Alignment: valgus Arch: pes planovalgus Gait: ambulates with a antalgic gait, without an assistive device . Deformities: Equinus deformity with valgus hindfoot and pes planovalgus arch deformity Palpation: Tenderness to palpation in the subfibular region as well as the sinus Tarsi and the ankle joint. Also tender along the posterior tibial tendon and its insertion on the navicular ROM Ankle: decreased Subtalar: decreased MTP: decreased Muscle/Tendons Strength Tibialis Anterior: 5/5 (full rom against gravity, maximum resistance) Posterior Tibialis: 4-/5} Peroneals: 5/5 (full rom against gravity, maximum resistance) Achilles: 5/5 (full rom against gravity, maximum resistance) FHL: 5/5 (full rom against gravity, maximum resistance) EHL: 5/5 (full rom against gravity, maximum resistance) Stability Ankle: stable Subtalar: stable 1st MT-Cun: stable Pulses Dorsal Pedis: Present 1+ Tibial Artery: Present 1+ Nerves Tibial Nerve Lateral Plantar: intact Medial Plantar: intact Superficial Peroneal: intact Deep Peroneal: intact Sural: intact Saphenous: intact Skin Intact Radiographs: Xrays from today's date as well as an MRI from 12/30/2018 were reviewed today in clinic and discussed with the patient. A formal read will be perfomed by radiology. They were also interpreted by myself. My findings and impressions can be found below. Radiographs were performed on today's date of the left foot and ankle. Radiographs of the left ankle show no acute fractures or dislocations. There is mild narrowing of the ankle joint. No significant degenerative change. Valgus deformity of hindfoot. Radiographs of the left foot show no significant deformity at the forefoot. There is however uncovering of the talar head by at least 30%. There is an increase in the talar first metatarsal angle. Onthe lateral view she has a pes planovalgus deformity of the arch with arch collapse. There is a break in Meary's line. No acute fractures or dislocations. An MRI was also performed 12/30/2018. This showed fluid along the flexor digitorum and flexor hallucis tendons at the ankle joint and also the knot of Lopez. No significant fluid along the posterior tibial tendon. Mild fluid along the peroneal tendons. No obvious tendon ruptures. Thickening of the posterior tibial tendon however. There is some narrowing of the ankle joint with a focal cartilage lesion at the central aspect of the tibial plafond's. There is an osteochondral defect in the medial talar dome. No obvious loose bodies. CC: Romel Marcelino MD documented in this encounter* Joshua Sandoval MD - 11/04/2020 2:36 PM EDT Impression: 1. Posterior tibial tendon dysfunction (PTTD) of left lower extremity 2. Acquired pes planovalgus, left Plan: The above diagnosis as well as the options for treatment were discussed with Jackie in clinic today.At this time we recommend the following: I would recommend a medial displacement calcaneal osteotomy with possible lateral column lengthening and possible cotton osteotomy with FDL tendon transfer. I discussed with this patient that she would be in a cast or boot for 6 weeks nonweightbearing postoperatively. After that we would gradually increase her weightbearing with physical therapy in a boot. Informed consent for treatment of Jackie Linton to be surgically treated with flatfoot reconstruction including MD BOUDREAUX, FDL tendon transfer, and cotton Dillard osteotomies as needed with possible tendoAchilles lengthening was obtained during which I discussed: the nature, description, and purpose of the planned procedure the benefits and risks involved in the treatment or procedure, including the prospects for success and the likely results of the proposed treatment/procedure the possibility of complications and/or side effects and what those complications/side effects might be reasonable alternative treatments available as well as the prognosis if treatment or procedure is not done that additional unforeseen procedures may be indicated based upon the operative findings Risks unique to this case include, but are not limited to, pain, infection, bleeding, neurovascularcompromise, non-union, malunion, disability, deformity, hardware failure, need for further surgery,risks of anesthesia, DVT, PE, CVA, IA, and . The patient was asked to repeat back understanding of the above conversation and additional clarification was provided as needed. A witness has documented that the patient read the consent form, reported understanding, and was given the opportunity to ask questions. Jackie was agreeable to the plan and there were no learning barriers encountered. Follow-Up: Followup 30 days prior to surgery. New xrays will not be needed at the next visit. Subjective: Jackie Linton is here for a follow visit in regards to her left pes planovalgus deformity. She is here today to review the results of her MRI studies. Since her last appointment she continues to have pain especially at the subfibular region. Her right foot is a bit sore as well from offloading theleft side Smoking status, allergies, medications, and non-medications were reviewed and updated as appropriate in Epic. She is not a current tobacco user. She is not a diabetic. Exam: Vitals: 11/04/20 1436 BP: (!) 152/88 Pulse: 65 Weight: 76.2 kg (168 lb) Height: 5' 2.04 The patient is awake, alert and orientated x3, and in no apparent distress. Standing: Pes planovalgus deformity Palpation: Tenderness palpation along the posterior tibial tendon as well as the subfibular region. The subfibular region at this time is worse. ROM / Strength When her heel is corrected to neutral she is not in significant forefoot varus. Also when her heel is corrected to neutral she does not have much dorsiflexion. Strength is grossly full with the exception of weakness in the posterior tibial tendon. Neurovascular Exam Intact. Skin Intact Radiology: MRI studies performed on 10/21/2020 was reviewed at today's visit with Jackie. This was formally readby the radiologist. It was also independently interpreted by myself. Please see my independent interpretation below. The MRI study demonstrated fluid surrounding the posterior tibial tendon and mild posterior tibial tendon thickening and degeneration. There is inflammation across the sinus Tarsi as well. There is also bony edema in the distal tip of the fibula as well as at the middle facet of the subtalar joint.The posterior facet of the subtalar joint appears without significant degenerative change. Mild edema at the talonavicular joint as well on its lateral aspect. Radiographs of the left foot and ankle were performed on today's date. Radiographs of the left ankle show no acute fractures or dislocations. No significant widening of the ankle mortise. No obvious osteochondral lesions. No significant degenerative change at the ankle. Valgus hindfoot deformity. Radiographs of the left foot show no acute fractures or dislocations. No significant malalignment of the hallux or lesser toes. There is mild degenerative change across the tarsometatarsal joints. Osteophyte formation at the dorsal navicular although the rest of the talonavicular joint has appropria te joint space. No significant degenerative change of the talonavicular joint, calcaneocuboid joint, or subtalar joint. There is mild degenerative change at the subtalar joint. There is also plantar calcaneal enthesophyte. CC: Jimi Marcelino MD documented in this encounter Assessments Diagnosis Posterior tibial tendon dysfunction (PTTD) of left lower extremity- Primary Acquired pes planovalgus, left Diagnosis Pain Generalized pain Diagnosis Posterior tibialis tendon insufficiency- Primary Diagnosis Posterior tibial tendon dysfunction (PTTD) of left lower extremity- Primary Diagnosis Posterior tibialis tendon insufficiency- Primary Acquired pes planovalgus, left Posterior tibial tendon dysfunction (PTTD) of left lower extremity Diagnosis Posterior tibial tendon dysfunction (PTTD) of left lower extremity Diagnosis Posterior tibial tendon dysfunction (PTTD) of left lower extremity- Primary Acquired pes planovalgus, left Reason for Referral Status Reason Specialty Diagnoses / Procedures Referred By Contact Referred To Contact Authorized Specialty Services Required/[facility] Diagnoses Posterior tibialis tendon insufficiency Jason Wasserman MD [address] [place] [address] Joshua Sandoval MD [address] [place] [address] Status Reason Specialty Diagnoses / Procedures Referred By Contact Referred To Contact Authorized Rehabilitation Diagnoses Acquired pes planovalgus, left Posterior tibial tendon dysfunction (PTTD) of left lower extremity Posterior tibialis tendon insufficiency Joshua Sandoval MD [address] [place] [address] Status Reason Specialty Diagnoses / Procedures Referred By Contact Referred To Contact Authorized Patient Preference Physical Therapy Diagnoses Acquired pes planovalgus, left Posterior tibial tendon dysfunction (PTTD) of left lower extremity Posterior tibialis tendon insufficiency PTTD (posterior tibial tendon dysfunction) Joshua Sandoval MD [address] [place] [address] Medications Administered Section Inactive Administered Medications - up to 3 most recent administrations Medication Order MAR Action Action Date Dose Rate Site Aminolevulinic Acid HCl 20 % soln 1 Each 1 Each, TOPICAL, ONCE, 1 dose, On Wed01/04/23 at 1300, Apply one stick to full face, incubate for 15 minutes and expose to Kvng-light x 30 minutes Given 01/04/2023 1:47 PM EDT 1 Each Inactive Administered Medications - up to 3 most recent administrations Medication Order MAR Action Action Date Dose Rate Site Aminolevulinic Acid HCl 20 % soln 1 Each 1 Each, TOPICAL, ONCE (UP TO 30 DAYS AMB), 1 dose, On Wed04/07/23 at 1830 Given 05/07/2023 11:44 AM EDT 2 Each Additional Source Comments INFORMATION SOURCE (unrecogn ized section and content) DATE CREATED AUTHOR AUTHOR'S ORGANIZ ATION 01/28/2019 [facility] DATE CREATED AUTHOR AUTHOR'S ORGANIZ ATION 03/29/2019 [facility] DATE CREATED AUTHOR AUTHOR'S ORGANIZ ATION 10/27/2020 [facility] DATE CREATED AUTHOR AUTHOR'S ORGANIZ ATION 01/31/2021 [facility] DATE CREATED AUTHOR AUTHOR'S ORGANIZ ATION 05/31/2021 [facility] DATE CREATED AUTHOR AUTHOR'S ORGANIZ ATION 06/28/2021 [facility] DATE CREATED AUTHOR AUTHOR'S ORGANIZ ATION 05/15/2023 [facility] DATE CREATED AUTHOR AUTHOR'S ORGANIZ ATION 06/08/2023 [facility] Reason for Visit (unrecogniz ed section and content) Reason Comments Pain Partial torn tendon and deteriorating cartilage Reason Comments Pain CONSULT LT ANKLE ROBIN N Pain Reason Comments Pain continued pain hx of pttd Pain Reason Comments Pre-op Exam left foot Status Reason Specialty Diagnoses / Procedures Referre d By Contact Referred To Contact Diagnoses Posterior tibial tendon dysfunction (PTTD) of left lower extremity Posterior tibial tendon dysfunction (PTTD) of left lower extremity [M76.822] Procedures TN OSTEOTOMY HEEL BONE TN XFER SINGLE DEEP LOW LEG TENDON LEFT MEDIAL DISPLACEMEN CALCANEAL OSTEOTOMY, COTTON DILLARD OSTEOTOMY,FDL TENDON TRANSFER POSS. TENDO ACHILLES LENGTHENING Exten, Joshua Bhardwaj MD [address] [place] [address] Reason Comments Post-op post op lt perc tend on achilles lengthening calc. osteo. lat column lengthening fdl to post Pain Reason Comments Full Body Skin Check Reason Comments Follow Up Reason Comments Follow-up Reason Comments Patient Question Reason Comments Procedure Reason Comments Appointment Reason Comments Med Change Request Reason Onset Date Comments Appointment 10/12/2022 Scheduled Active and Recently Administ ered Medications (unrecognized section and content) Continuous Medication Order 12/18/2020 12/19/2020 12/20/2020 lactated Ringers infusion (CANCELED) 75 mL/hr, Intravenous, Continuous, Starting on Wed12/18/20 at 1130, Pre-Procedure 1107 (New Bag - Provider: Adriana Baird RN)1347 (Paused - Provider: Micheal Tang CRNA - Comment: Switch to gravity)1348 (Restarted - Provider: Micheal Tang CRNA)1517 (New Bag - Provider: Vicente De La O CRNA)1633 (Anesthesia Volume Adjustment - Provider: Vicente De La O CRNA) lactated Ringers infusion 50 mL/hr, Intravenous, Continuous, Starting on Wed12/18/20 at 1900, Cap With good p.o. 1818 (New Bag - Provider: Leticia Roa RN)2223 (Stopped - Provider: Krystina Mann RN)2255 (Restarted - Provider: Krystina Mann RN) 1422 (Stopped - Provider: Marcia Brandon, RN)1423 (New Bag - Provider: Marcia Brandon, RN) lactated Ringers infusion 100 mL/hr, Intravenous, Continuous, Starting on Wed12/18/20 at 1800, PACU (only) 1800 (Canceled Entry - Provider: Leticia Roa RN) PRN Medication Order 12/18/2020 12/19/2020 12/20/2020 acetaminophen (TYLENOL) solution 650 mg(Linked Group 1) 650 mg, Tube, Every 4 hours PRN, fever 100.4 F or greater, headaches, mild pain, Starting on Wed12/18/20 at 1808, [] Use ketorolac (TORADOL) first for mild pain, if ordered. 1908 (See Alternative - Provider: Marcia Brandon RN) 0432 (See Alternative - Provider: Krystina Mann RN)0815 (See Alternative - Provider: Marcia Brandon RN)1302 (See Alternative - Provider: Marcia Brandon RN)1708 (See Alternative - Provider: Marcia Brandon RN) 0819 (See Alternative - Provider: Zuly Fong, SUBHASH) acetaminophen (TYLENOL) tablet 650 mg(Linked Group 1) 650 mg, Oral, Every 4 hours PRN, mild pain, fever 100.4 F or greater, headaches, Starting on Wed12/18/20 at 1808, [] Use ketorolac (TORADOL) first for mild pain, if ordered. 190 (Given - Provider: Marcia Brandon RN) 0432 (Given - Provider: Krystina Mann RN)0815 (Given - Provider: Marcia Brandon RN)1302 (Given - Provider: Marcia Brandon RN)1708 (Given - Provider: Marcia Brandon RN) 0819 (Given - Provider: Zuly Fong RN) gentamicin (GARAMYCIN) 80 mg in sodium chloride (NS) 0.9 % 1,000 mL IRRIGATION (Bottle) (CANCELED) As needed, Starting on Wed12/18/20 at 1557, Intra-Procedure 1557 (Given - Provider: Joshua Sandoval MD - Comment: surgical site Left foot) HYDROmorphone (DILAUDID) injection 0.5 mg (CANCELED) 0.5 mg, Intravenous, Every 5 min PRN, Pain, Starting on Wed12/18/20 at 1707, For 6 doses, PACU (only), [] Give if fentanyl not effective or not ordered. [] Do not give more than 3 mg total. 1710 (Given - Provider: Anais Wu RN)1718 (Given - Provider: Anais Wu RN)1727 (Given - Provider: Anais Wu RN)1732 (Given - Provider: Anais Wu RN) ibuprofen (ADVIL,MOTRIN) tablet 600 mg 600 mg, Oral, 3 times daily PRN, headaches, Starting on Debo 12/19/20 at 0732, Give with Food Do Not Crush or Chew if administering orally due to bitter taste. May be crushed if given via tube. 1350 (Given - Provider: Marcia Brandon RN) 0819 (Given - Provider: Zuly Fong RN) naloxone (NARCAN) injection 0.1 mg(Linked Group 2) 0.1 mg, Intravenous, As needed, opioid reversal, Respiratory rate less than 8 per minute, Starting on Wed12/18/20 at 1808, [] Mix nalOXone (NARCAN) 0.4 mg (1ml) with 9 mL of Normal Saline to total 10 mL. [] Administer 0.1 mg (2.5ml) IV Push every 2 minutes until respiratory rate is 10 or greater. naloxone (NARCAN) injection 0.4 mg(Linked Group 2) 0.4 mg, Intravenous, As needed, opioid reversal, patient is pulseless, breathless, and unresponsive, Starting on Wed12/18/20 at 1808, Call a code first, then administer naloxone dose undiluted IV Push over 30 seconds. ondansetron (ZOFRAN) injection 4 mg(Linked Group 3) 4 mg, Intravenous, Every 6 hours PRN, nausea, vomiting, Starting on Wed12/18/20 at 1808, [] Oral or IV - use oral route if tolerated. 1200 (Given - Provider: Kingsley Cox RN) ondansetron (ZOFRAN-ODT) disintegrating tablet 4 mg(Linked Group 3) 4 mg, Oral, Every 6 hours PRN, nausea, vomiting, Starting on Wed12/18/20 at 1808, [] Oral or IV - use oral route if tolerated. Formulation requires tablet remain in sealed package until immediately prior to dose being administered. 1200 (See Alternative - Provider: Kingsley Cox RN) oxyCODONE (ROXICODONE) immediate release tablet 5 mg 5 mg, Oral, Every 4 hours PRN, moderate to severe pain, Starting on Debo 12/19/20 at 2017 vancomycin (VANCOCIN) injection (CANCELED) As needed, Starting on Wed12/18/20 at 1558, Intra-Procedure 1558 (Given - Provider: Joshua Sandoval MD - Comment: Left Foot Surgical Site) Linked Groups Order Group 1: acetaminophen (TYLENOL) tablet 650 mgJump to med 650 mg, Oral, Every 4 hours PRN, mild pain, fever 100.4 F or greater, headaches, Starting on Wed12/18/20 at 1808
[] Use ketorolac (TORADOL) first for mild pain, if ordered.
Or acetaminophen (TYLENOL) solution 650 mgJump to med 650 mg, Tube, Every 4 hours PRN, fever 100.4 F or greater, headaches, mild pain, Starting on Wed12/18/20 at 1808
[] Use ketorolac (TORADOL) first for mild pain, if ordered.
Group 2: naloxone (NARCAN) injection 0.1 mgJump to med 0.1 mg, Intravenous, As needed, opioid reversal, Respiratory rate less than 8 per minute, Starting on Wed12/18/20 at 1808
[] Mix nalOXone (NARCAN) 0.4 mg (1ml) with 9 mL of Normal Saline to total 10 mL. [] Administer 0.1 mg (2.5ml) IV Push every 2 minutes until respiratory rate is 10 or greater.
And Notify physician (CANCELED) STAT, Until discontinued, Starting on Wed12/18/20 at 1809, Until Specified
Respiratory rate less than: 8
For respiratory rate less than or equal to 8 per minute, notify physician and/or appropriate staff for additional orders. And naloxone (NARCAN) injection 0.4 mgJump to med 0.4 mg, Intravenous, As needed, opioid reversal, patient is pulseless, breathless, and unresponsive, Starting on Wed12/18/20 at 1808
Call a code first, then administer naloxone dose undiluted IV Push over 30 seconds.
Group 3: ondansetron (ZOFRAN-ODT) disintegrating tablet 4 mgJump to med 4 mg, Oral, Every 6 hours PRN, nausea, vomiting, Starting on Wed12/18/20 at 1808
[] Oral or IV - use oral route if tolerated. Formulation requires tablet remain in sealed package until immediately prior to dose being administered.
Or ondansetron (ZOFRAN) injection 4 mgJump to med 4 mg, Intravenous, Every 6 hours PRN, nausea, vomiting, Starting on Wed12/18/20 at 1808
[] Oral or IV - use oral route if tolerated.
Care Teams (unrecognized sec tion and content) Tactical Air Control Party Manager Relationship Specialty Start Date End Date Jimi Marcelino MD [address] [place] [address] PCP - General 11/10/00 Tactical Air Control Party Manager Relationship Specialty Start Date End Date Jimi Marcelino MD [address] [place] [address] PCP - General 11/10/00 Tactical Air Control Party Manager Relationship Specialty Start Date End Date iJmi Marcelino MD [address] [place] [address] PCP - General 11/10/00 Tactical Air Control Party Manager Relationship Specialty Start Date End Date Jimi Marcelino MD [address] [place] [address] PCP - General 11/10/00 Tactical Air Control Party Manager Relationship Specialty Start Date End Date Jimi Marcelino MD [address] [place] [address] PCP - General 11/10/00 Tactical Air Control Party Manager Relationship Specialty Start Date End Date Jimi Campbell MD [address] [facility] [address] [place] [address] PCP - General 09/05/20 Tactical Air Control Party Manager Relationship Specialty Start Date End Date Jimi Marcelino MD [address] [facility] [place] [address] PCP - General 11/10/00 Tactical Air Control Party Manager Relationship Specialty Start Date End Date Jimi Campbell MD [address] [facility] [address] [place] [address] PCP - General 09/05/20 Tactical Air Control Party Manager Relationship Specialty Start Date End Date Jimi Marcelino MD [address] [place] [address] PCP - General 11/10/00 Tactical Air Control Party Manager Relationship Specialty Start Date End Date Jimi Marcelino MD [address] [place] [address] PCP - General 11/10/00 Tactical Air Control Party Manager Relationship Specialty Start Date End Date Jimi Marcelino MD [address] [place] [address] PCP - General 11/10/00 Tactical Air Control Party Manager Relationship Specialty Start Date End Date Jimi Campbell MD [address] [place] [address] PCP - General 09/05/20 Tactical Air Control Party Manager Relationship Specialty Start Date End Date Jimi Marcelino MD [address] [place] [address] PCP - General 11/10/00 Tactical Air Control Party Manager Relationship Specialty Start Date End Date Jimi Marcelino MD [address] [facility] [address] PCP - General 11/10/00 Tactical Air Control Party Manager Relationship Specialty Start Date End Date Jimi Marcelino MD [address] [place] [address] PCP - General 11/10/00 Tactical Air Control Party Manager Relationship Specialty Start Date End Date Jimi Campbell MD [address] [place] [address] PCP - General 09/05/20 Source Comments (unrecognize d section and content) In the event this informatio n is protected by the Federal Confidentiality of Alcohol and Drug Abuse Patient Records regulations: The Federal rules restrict any use of the information to criminally investigate or prosecute any alcohol or drug abuse patient.[facility] the event this information is protected by the Federal Confidentiality of Alcohol and Drug Abuse Patient Records regulations: The Federal rules restrict any use of the information to criminally investigate or prosecute any alcohol or drug abuse patient.[facility] Hospital[facility] the event this information is protected by the Federal Confidentiality of Alcohol and Drug Abuse Patient Records regulations: The Federal rules restrict any use of the information to criminally investigate or prosecute any alcohol or drug abuse patient.[facility] Hospital[facility] the event this information is protected by the Federal Confidentiality of Alcohol and Drug Abuse Patient Records regulations: The Federal rules restrict any use of the information to criminally investigate or prosecute any alcohol or drug abuse patient.[facility] Hospital[facility] the event this information is protected by the Federal Confidentiality of Alcohol and Drug Abuse Patient Records regulations: The Federal rules restrict any use of the information to criminally investigate or prosecute any alcohol or drug abuse patient.[facility] Hospital[facility] the event this information is protected by the Federal Confidentiality of Alcohol and Drug Abuse Patient Records regulations: The Federal rules restrict any use of the information to criminally investigate or prosecute any alcohol or drug abuse patient.[facility] Hospital[facility] the event this information is protected by the Federal Confidentiality of Alcohol and Drug Abuse Patient Records regulations: The Federal rules restrict any use of the information to criminally investigate or prosecute any alcohol or drug abuse patient.[facility] Hospital[facility] the event this information is protected by the Federal Confidentiality of Alcohol and Drug Abuse Patient Records regulations: The Federal rules restrict any use of the information to criminally investigate or prosecute any alcohol or drug abuse patient.[facility] Hospital[facility] the event this information is protected by the Federal Confidentiality of Alcohol and Drug Abuse Patient Records regulations: The Federal rules restrict any use of the information to criminally investigate or prosecute any alcohol or drug abuse patient.[facility] Hospital[facility] the event this information is protected by the Federal Confidentiality of Alcohol and Drug Abuse Patient Records regulations: The Federal rules restrict any use of the information to criminally investigate or prosecute any alcohol or drug abuse patient.[facility] Hospital[facility] the event this information is protected by the Federal Confidentiality of Alcohol and Drug Abuse Patient Records regulations: The Federal rules restrict any use of the information to criminally investigate or prosecute any alcohol or drug abuse patient.[facility] HospitalIn the event this information is protected by the Federal Confidentiality of Alcohol and Drug Abuse Patient Records regulations: The Federal rules restrict any use of the information to criminally investigate or prosecute any alcohol or drug abuse patient.[facility] Hospital[facility] the event this information is protected by the Federal Confidentiality of Alcohol and Drug Abuse Patient Records regulations: The Federal rules restrict any use of the information to criminally investigate or prosecute any alcohol or drug abuse patient.[facility] Hospital[facility] the event this information is protected by the Federal Confidentiality of Alcohol and Drug Abuse Patient Records regulations: The Federal rules restrict any use of the information to criminally investigate or prosecute any alcohol or drug abuse patient.[facility] Hospital[facility] the event this information is protected by the Federal Confidentiality of Alcohol and Drug Abuse Patient Records regulations: The Federal rules restrict any use of the information to criminally investigate or prosecute any alcohol or drug abuse patient.[facility] FOR RECORDS PERTAINING TO PATIENTS WHO ARE OR HAVE BEEN ENROLLED IN A CHEMICAL DEPENDENCY/SUBSTANCEABUSE PROGRAM, SOME INFORMATION MAY BE OMITTED. This clinical summary was aggregated from multiple sources. Caution should be exercised in using it in the provision of clinical care. This summary normalizes information from multiple sources, and as a consequence, information in this document may materially change the coding, format and clinical context of patient data. In addition, data may be omitted in some cases. CLINICAL DECISIONS SHOULD BE BASED ON THE PRIMARY CLINICAL RECORDS. [facility]. provides no warranty or guarantee of the accuracy or completeness of information in this document.
== END | disposition home or self-care (01) ==
LOC: OPBD 10:35
PROVIDERS: PCP Family Medicine; Referring Provider Obstetrics & Gynecology; Visit Provider Obstetrics & Gynecology
DX: M81.0 Age-related osteoporosis without current pathological fracture (principal)
CPT/HCPCS: 77080

== ENCOUNTER → 2023-11-08 | Outpatient (CLI) | payer MEDICARE, OTHER, SELFPAY ==
[2023-11-08 10:13] LABS: Vitamin D,25 Hydroxy 49.4 ng/mL
[2023-11-08 10:17] LABS: AST(SGOT) 24 U/L (15-37); Alanine Aminotransfer ALT/SGPT 26 U/L (13-56); Albumin, Serum 3.5 g/dL (3.2-5.0); Alkaline Phosphatase 78 U/L (45-117); Anion Gap 5 (5-15); BUN 12 mg/dL (7-18); Calcium,Total 8.9 mg/dL (8.5-10.1); Chloride 107 mmol/L (98-107); Creatinine, Serum 0.71 mg/dL (0.55-1.02); EST Glomerular Filtration Rate 87 mL/min (>60); Est Glom Filt Rate - Afr Amer 106 mL/min (>60); Globulin 3.5 g/dL (2.2-4.2); Glucose 103 mg/dL (74-106); Potassium 3.8 mmol/L (3.5-5.1); Sodium Level 144 mmol/L (136-145)
== END | disposition home or self-care (01) ==
LOC: LAB 09:21
PROVIDERS: PCP Family Medicine; Referring Provider Internal Medicine Endocrinology, Diabetes & Metabolism; Visit Provider Internal Medicine Endocrinology, Diabetes & Metabolism
DX: M81.0 Age-related osteoporosis without current pathological fracture (principal); E55.9 Vitamin D deficiency, unspecified; T14.8XXA Other injury of unspecified body region, initial encounter
CPT/HCPCS: 36415; 80053; 82306; 82533

== ENCOUNTER → 2023-12-15 | Outpatient (CLI) | payer MEDICARE, OTHER, SELFPAY ==
--- NOTE | 2023-12-15 16:15 | RAD_ITS ---
STUDY: X-RAY CHEST REASON FOR EXAM: Female, 68 years old. cough TECHNIQUE: PA and lateral COMPARISON: None. FINDINGS: There is elevation left hemidiaphragm and mild discoid atelectasis in left lower lobe. There is no demonstrated pleural abnormality. Normal size heart. Normal mediastinum and chalo. Normal visualized pulmonary arteries. Normal visualized aortic arch and descending thoracic aorta. Normal visualized thoracic spine. Normal visualized ribs, clavicles, and shoulders. Postop change status post cervical fusion. There is no demonstrated abnormality of the visualized soft tissue structures of the upper abdomen. RAD/Chest PA and Lateral IMPRESSION: Elevated left hemidiaphragm and mild discoid atelectasis left lower lobe. Electronically Signed: Kevon Arora MD at 20:12 EDT ,
== END | disposition home or self-care (01) ==
LOC: MTRAD 16:12
PROVIDERS: PCP Family Medicine; Referring Provider Nurse Practitioner Family; Visit Provider Nurse Practitioner Family
DX: R05.9 Cough, unspecified (principal)
CPT/HCPCS: 71046

== ENCOUNTER 2024-02-21 12:30 | Outpatient (RCR) | payer MEDICARE, OTHER, SELFPAY ==
--- NOTE | 2024-03-10 13:58 | HP.PTDCSUM_ITS ---
Discharge Summary D/C summary: It has been my pleasure to treat BRIANNA CABRAL referred by JOSHUA HILL, with the diagnosis of R PERONEAL AND POSTERORIO TIBIAL TENDONITIS AND PTTD for a total of 12 visit(s). Discharge Date: 03/10/24 Please see the following information for a summary of their discharge status. Subjective Subjective: Had covid so had to cancel last recheck for a week. Overall walking well today b/c I have not done anything (due to covid). In [place] did OK, airport walking was a challenge adn painful 02/08 but transient. Does not keep her up at nngiht and better the next day. To doctor after therapy. Pain R foot: Pain Intensity (Out of 10): 2 Overall Improvement % Improvement: 80 Objective Objective/Function: 3 degree Df R adn 55 PF and full inv and ev without pain today. strength 4+ ankle without pain today but has admittedly been resting with sickness for the last week +. Walking without gait deviaitons today. long chain quiller tender perneus brevis tendon and Post tibialis tendon mildly. Goals Goal 1:: PATIENT WILL REPORT DECREASED R FOOT PAIN BY AT LEAST 75% TO EASE WALKING FUNCTION. Goal Progress: Goal Met Goal 2:: PATIENT WILL BE INDEP WITH HEP FOR CONTINUED IMPROVEMENT ONCE FORMAL PHYSICAL THERAPY CONCLUDES Goal Progress: Goal Met Goal 3:: PATIENT WILL BE ABLE TO WALK COMMUNITY DISTANCES WITHOUT C/O INCREASED PAIN Goal Progress: Progressing Goal 4:: PATIENT WILL SCORE AT LEAST 5 POINTS HIGHER ON LEFS QUESTIONNAIRE Goal Progress: Goal Met Plan Plan: d./c to HEP, pt to contact doctor if she wishes to take next step if she gets worse again. D/C Information d/c sentence: If there are questions or concerns regarding this patient's physical therapy, please feel free to call me at [phone]. Thank you for the referral of this patient. Sincerely, Douglas Godwin, DPT, OCS, CSCS Balance/Gait/Functional tests Balance/Special Test Scores Lower Extremity Functional Score: 51 Improvement % Improvement: 80
== END 2024-02-21 19:00 | disposition home or self-care (01) ==
LOC: PT 12:30
PROVIDERS: PCP Family Medicine
DX: M76.71 Peroneal tendinitis, right leg (principal); M76.821 Posterior tibial tendinitis, right leg
CPT/HCPCS: 97035; 97140; 97162; 97530

== ENCOUNTER → 2024-06-23 | Outpatient (CLI) | payer MEDICARE, OTHER, SELFPAY ==
--- NOTE | 2024-06-23 14:06 | BI_ITS ---
MAMMOGRAPHY - BILATERAL SCREENING REASON FOR EXAM: Female, 69 years old. Routine annual screening examination. PERTINENT HISTORY: Sisters with breast cancer. Mother with breast cancer. Remote right excisional breast biopsy. TECHNIQUE: Digital bilateral breast [place] (3D mammographic acquisition) in the CC and MLO projections. 2-D mediolateral oblique (MLO) and craniocaudad (CC) views of both breasts were obtained. CAD: Full Field Digital Mammography with Computer Added Detection was performed. COMPARISON: Comparison is made with prior studies dated June 22, 2023 and May 25, 2022. May 25, 2022. FINDINGS: Breast Composition: The breasts are heterogeneously dense, which may obscure small masses. There are no dominant masses or suspicious calcifications. Stable bilateral fat-containing axillary lymph nodes. No other significant abnormalities are identified. There has been no significant change since the prior study. BI/SCRN MAMM (CAD)W/TRENTON BILAT IMPRESSION: Stable bilateral screening mammogram. Yearly follow-up mammogram recommended. (A) ASSESSMENT CATEGORY: BIRADS Category 2: Benign. A letter regarding these results will be sent to the patient by the facility within 30 days. Approximately 10% of breast cancers are not detected by mammography. A normal mammogram should not delay biopsy of a clinically suspicious abnormality. [id number] Electronically Signed: Juan C Quiroga MD at 14:53 EST ,
== END | disposition home or self-care (01) ==
LOC: OPBI 14:06
PROVIDERS: PCP Family Medicine; Referring Provider Obstetrics & Gynecology; Visit Provider Obstetrics & Gynecology
DX: Z12.31 Encounter for screening mammogram for malignant neoplasm of breast (principal); Z80.3 Family history of malignant neoplasm of breast
CPT/HCPCS: 77063; 77067

== ENCOUNTER → 2025-01-12 | Outpatient (CLI) | payer MEDICARE, OTHER, SELFPAY ==
[2025-01-12 13:33] LABS: Absolute Lymphocyte Count 1.69 X10^3/uL (0.83-4.51); Absolute Neutrophil Count 3.8 X10^3/uL (2.0-7.7); Basophil# 0.03 X10^3/uL; Basophil% 0.5 % (0-1); Eosinophil# 0.07 X10^3/uL; Eosinophils% 1.1 % (0-5); Hematocrit 44.2 % (37-47); Hemoglobin 14.5 g/dL (12.0-15.0); Lymphocyte # 1.69 X10^3/ul (0.83-4.51); Lymphocyte % 27.4 % (19-41); Mean Corp Hgb Conc 32.8 g/dL (32-36); Mean Corpuscular Hgb 30.7 pg (27.0-32.0); Mean Corpuscular Volume 93.6 fL (81-99); Mean Platelet Vol. 10.3 fl (6.2-12.0); Monocyte# 0.54 X10^3/uL; Monocyte% 8.8 % (0-10); NRBC Flagged by Analyzer 0 % (0-5); Neutrophil # 3.82 X10^3/uL (2.7-7.7); Platelet Count 326 K/mm3 (150-450); RBC Distribution Width CV 13.8 % (11.6-14.6); RBC Distribution Width SD 47.2 fl (35.1-43.9); Red Blood Count 4.72 M/mm3 (4.2-5.4); White Blood Count 6.2 K/mm3 (4.4-11.0)
[2025-01-12 15:32] LABS: ALB/GLOB Ratio 1.5 RATIO (0.9-2.4); AST(SGOT) 27 U/L (<=31); Alanine Aminotransfer ALT/SGPT 23 U/L (<=34); Albumin, Serum 3.9 g/dL (3.4-4.8); Alkaline Phosphatase 67 U/L (35-104); Anion Gap 9 (5-15); BUN 11 mg/dL (4-19); BUN/Creat Ratio 14.9 RATIO (10-20); Carbon Dioxide 27.6 mmol/L (21.0-32.0); Chloride 105 mmol/L (98-108); Creatinine, Serum 0.73 mg/dL (0.70-1.20); EST Glomerular Filtration Rate 88 (>60); Globulin 2.6 g/dL (2.2-4.2); Glucose 83 mg/dL (70-99); Potassium 4.1 mmol/L (3.3-5.1); Protein, Total 6.5 g/dL (5.9-8.4); Sodium Level 141 mmol/L (133-145); Total Bilirubin 0.36 mg/dL (0.00-1.30); Vitamin D,25 Hydroxy 37.6 ng/mL (30-100)
== END | disposition home or self-care (01) ==
LOC: LAB 12:07
PROVIDERS: PCP Family Medicine; Referring Provider Internal Medicine Endocrinology, Diabetes & Metabolism; Visit Provider Internal Medicine Endocrinology, Diabetes & Metabolism
DX: T14.8XXA Other injury of unspecified body region, initial encounter (principal); M81.0 Age-related osteoporosis without current pathological fracture; E55.9 Vitamin D deficiency, unspecified; E03.9 Hypothyroidism, unspecified
CPT/HCPCS: 36415; 80053; 82306; 85025

== ENCOUNTER 2025-03-28 16:00 | Outpatient (RCR) | payer MEDICARE, OTHER, SELFPAY ==
--- NOTE | 2025-01-04 17:02 | HP.PTEVAL ---
Patient's Visit Information Visit Information Visit Information: BRIANNA CABRAL is a 69 year old F referred to Physical Therapy by Dr. Karin Sandoval MD with a diagnosis of R achilles tendonitis, PFITIS, equinus. Date of Evaluation: 01/04/25 Physical Therapist: Douglas Godwin, DPT, OCS, CSCS Visit Plan Frequency: 2x /Week Duration: 4-6 Weeks Plan: 2x/week for 4-6 weeks for IE HEP:Instruct in HEP: gastrco wall streetch 30 5x, band achilles stretch R 30 5x, toweel toe curls 50x all 2x/day and ankle circles throughout day. also rest and wearing nightsplint, benefits of soft orthotics and tens at home. 1. STM to gastroc and achills and PF R foot, aggreessive DTR/CFM pf and rayshawn R. US nonthermal to R PF and medial achilles 2. strngthn R and L ankle focus PF L and all directions R with eccentric PF as tolerated. 3. manual mobs to R anklee for DF and streetch gastroc soleus complex. ice and tens as needed. Subjective Subjective: R foot pain aftter history with B foot surgery long time ago. Worse since October trip at airport and had to walk alot. Got worse as she walked more. Weearing heel cup and orthotics Pain is Medial R pain near achilles insertion and back of heel. Arch also hurts laterally. Not offereed cortisone injection but had one in the past. Doctor gave her heel cup and orthotics and night brace soft and only wore it one night. Activities: Hard to wateer floweers and get around house. Basic ADLs dressing all I but painful every step. Constant pain last 3 weeks with ambulating. 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 No ex specific to foot, doctor gave her a stretch band. Oversuing L one and it geets tired. Pain R achilles and foot: Pain Intensity (Out of 10): 5 Pain Intensity Range: 1 and 9 Objective Objective: Walks into PT with R antalgia slowly adn avoiding R pushoff and fW weight shift. transfers chair I with UE. Hip and knee aROM WFL and strength 3+ hips and 4 in kneees. Tender max to touch R calcaneus, medial achilles and into PF claiming 10/10. Wrose with streetching gastroc. AROM R ankle -2 DF, 50 PF, inv 22, eversion 10, pain into DF, 4-/5 strength PF , DF without increased pain but unable to heel raise due to pain. Eversiona dn inversion 3+ without pain. weakness L PF unable to heel raise. Good AROM in L ankle. Metatarsals are stiff B , big toe weak in ext not painful. Full aROM big toe. Good balance Balance/Special Test Scores Lower Extremity Functional Score: 25 Goals Goal 1:: 3 DF and no pain with this movmeent Goal Time Frame: 4-6 Weeks Goal 2:: Walk without antlagia R ankle Goal Time Frame: 4-6 Weeks Goal 3:: Patient feel pain 75% better adn 2/10 at worst Goal Time Frame: 4-6 Weeks Goal 4:: I appropriate strength adn stretch program R ankle and foot Goal Time Frame: 4-6 Weeks Goal 5:: Walk at home without limitations to ADLs Goal Time Frame: 4-6 Weeks Goal 6:: 45 LEFS Goal Time Frame: 4-6 Weeks Rehabilitation Potential Physical Therapy Diagnosis: R ankle pain and foot pain and stiffness and weakness limiting comfortable function. Rehabilitation Potential: Fair Anticipated Interventions Patient/Client Instruction: Educate patient on: Condition and Plan of Care For the Purpose of:: To decrease pain, To increase ROM, To increase tolerance to activity/condition/position, To improve ability of physical actions for home/community/work/leisure and To improve gait and locomotor functions Therapeutic Exercise to Include: Strength training, Flexibilty training, Relaxation training, Passive ROM and Active ROM For the Purpose of:: To decrease pain, To increase ROM, To improve muscle performance and motor function, To increase tolerance to activity/condition/position, To improve ability of physical actions for home/community/work/leisure and To improve gait and locomotor functions Manual Therapy Techniques to Include: Mobilization, Passive ROM and Soft tissue mobilization For the Purpose of:: To decrease pain, To increase ROM, To improve nutrient delivery to tissue, To improve muscle performance and motor function and To increase tolerance to activity/condition/position Orthotics: Shoe insert For the Purpose of:: To decrease pain and To decrease swelling/inflammation TENS: Yes Cryotherapy (ice pack, ice massage): Yes For the Purpose of:: To increase tolerance to activity/condition/position Text: Thank you for the opportunity to evaluate your patient. For Medicare and Medicare HMO plans, please review the plan of care and approve it. It will need to be FAXED BACK to us at [phone] for Medicare purposes. For Medicare only, by signing this I certify the plan of care. Please let me know if there are questions or concerns regarding this plan of care. Physician Signature: Date:
--- NOTE | 2025-01-31 13:16 | HP.PTDCSUM ---
Discharge Summary D/C summary: It has been my pleasure to treat BRIANNA CABRAL referred by Dr. Karin Sandoval MD, with the diagnosis of R achilles tendonitis, PFITIS, equinus for a total of 9 visit(s). Discharge Date: 01/31/25 Please see the following information for a summary of their discharge status. Subjective Subjective: Pain back of heel persists 2/10 at rest adn 5/10 with stretching. Not better overall and is hard to bear weight on it. Will have MRI tomorrow and to doctor on the . Sleep is interrupted at times. Limps often. Does gardening but worsee afterwards. 50% better. Has orthotics and night splint but not helping alot and still cannot walk without shoes at home. Pain R achilles and foot: Pain Intensity (Out of 10): 4 Overall Improvement % Improvement: 0 Objective Objective/Function: Walks with R antalgia today, heel hurts. 5 degrees DF but increases heel pain. Full aROM ankle and foot. Tender achilles insertion, and PF on R side. Funciton adn gait not improving. Goals Goal 1:: 3 DF and no pain with this movmeent Goal Progress: better motion Goal 2:: Walk without antlagia R ankle Goal Progress: Not Progressing Goal 3:: Patient feel pain 75% better adn 2/10 at worst Goal Progress: Not Progressing Goal 4:: I appropriate strength adn stretch program R ankle and foot Goal Progress: Goal Met Goal 5:: Walk at home without limitations to ADLs Goal Progress: Not Progressing Goal 6:: 45 LEFS Goal Progress: Not Progressing Plan Plan: d/c due to not improving , pt to have MRI and f/u with doctor. may have more shockwave if this weeks was helpful and will call if needed for leyva basis. D/C Information Discharge Comments: Pt back to doctor for next medical step as soft tissue, stretch strength, shockwave and appropriate management with orthotics and night splint have not helped. d/c sentence: If there are questions or concerns regarding this patient's physical therapy, please feel free to call me at [phone]. Thank you for the referral of this patient. Sincerely, Douglas Godwin, DPT, OCS, CSCS Balance/Gait/Functional tests Balance/Special Test Scores Lower Extremity Functional Score: 20 Improvement % Improvement: 0
--- NOTE | 2025-02-27 13:04 | HP.PTREVAL ---
Re-Evaluation Intro: Dr. Karin Sandoval MD, It has been my pleasure to treat BRIANNA CABRAL over the last 10 visits for R achilles tendonitis, PFITIS, equinus. Please see the progress note below for an update on the physical therapy plan of care! Subjective Subjective: Went back to doctor and got steroid taper and sent for more PT. New script. Got new shoes OOfas, saw doc 02/13 and took last steroid this am. Still doing regular exercises which help. Pain this weeek 50% better and 3/10 with ambulation. Can get off couch and walk now but is sleeping better and only sore in the pm. Not going barefoot. Doctor wants pulse wave therapy which was helping a little bit. Went to one class of water therapy and is on wait list. Objective Objective/Function: Pt visited doctor and got new prescription after being given steroid. ROM and strength similar to last time but subjective 50% better. doctor wanted ccontinued PT and best options is aquatic to teach I and RPW/US Plan Plan Plan: 2x/week water to teach gastroc stretch, ankle strength adn proprioception, full body workout and teach all for I via open swim. EG to do RPW or US 1x/week adn strtch manually. Same goals appropriate for 4 more weeks with new approach and fair prognosis combined with shoes and steeroids. Balance/Gait/Functional tests Balance/Special Test Scores Lower Extremity Functional Score: 20 Goals Goals Goal 1:: 3 DF and no pain with this movmeent Goal Time Frame: 4-6 Weeks Goal Progress: better motion Goal 2:: Walk without antlagia R ankle Goal Time Frame: 4-6 Weeks Goal Progress: approp new POC Goal 3:: Patient feel pain 75% better adn 2/10 at worst Goal Time Frame: 4-6 Weeks Goal Progress: approp nw POC Goal 4:: I water ex to continue on own Goal Time Frame: 4-6 Weeks Goal Progress: NEW GOAL Goal 5:: Walk at home without limitations to ADLs Goal Time Frame: 4-6 Weeks Goal Progress: approp New POC Goal 6:: 45 LEFS Goal Time Frame: 4-6 Weeks Goal Progress: approp new POC Anticipated Interventions Anticipated Interventions Patient/Client Instruction: Educate patient on: Condition and Plan of Care For the Purpose of:: To decrease pain, To increase ROM, To increase tolerance to activity/condition/position, To improve ability of physical actions for home/community/work/leisure and To improve gait and locomotor functions Therapeutic Exercise to Include: Strength training, Flexibilty training, Relaxation training, Passive ROM and Active ROM For the Purpose of:: To decrease pain, To increase ROM, To improve muscle performance and motor function, To increase tolerance to activity/condition/position, To improve ability of physical actions for home/community/work/leisure and To improve gait and locomotor functions Manual Therapy Techniques to Include: Mobilization, Passive ROM and Soft tissue mobilization For the Purpose of:: To decrease pain, To increase ROM, To improve nutrient delivery to tissue, To improve muscle performance and motor function and To increase tolerance to activity/condition/position Orthotics: Shoe insert For the Purpose of:: To decrease pain and To decrease swelling/inflammation TENS: Yes Cryotherapy (ice pack, ice massage): Yes For the Purpose of:: To increase tolerance to activity/condition/position Re-Evaluation Ending Re-evaluation ending: Please do not hesitate to contact me at [phone] by phone or if you have questions or concerns regarding this new plan of care! Sincerely, Douglas Gdowin, DPT, OCS, CSCS
--- NOTE | 2025-03-28 16:31 | HP.PTDCSUM ---
Discharge Summary D/C summary: It has been my pleasure to treat BRIANNA CABRAL referred by Dr. Karin Sandoval MD, with the diagnosis of R achilles tendonitis, PFITIS, equinus for a total of 21 visit(s). Discharge Date: 03/28/25 Please see the following information for a summary of their discharge status. Subjective Subjective: Losing weight and feeling better overall. Pain this week is 3/10 this week intermittent worse with walking.Activities avoided is long walks. replaced with bike, gardening. Has not worked elis b/c she was not called but would have gone if she was called. Walked the building yesterday and foot hurt after walking school. No f/u with doctor. Pool has helped alot and is on wait list. Wearing right shoes more often and doing streetches at home and bands 3x/week, stretchins daily Pain R achilles and foot: Pain Intensity (Out of 10): 2 Overall Improvement % Improvement: 70 Objective Objective/Function: 3 degrees 65 PF, 35 inv adn 30 eversion eassily. 4+/5 strength all motions. Walking slowly with some R avoidance of push off but no obvious antalgia. Steps reciprocally with rail without evidence of pain Goals Goal 1:: 3 DF and no pain with this movmeent Goal Progress: Goal Met Goal 2:: Walk without antlagia R ankle Goal Progress: Goal Met at times Goal 3:: Patient feel pain 75% better adn 2/10 at worst Goal Progress: 70% Goal 4:: I water ex to continue on own Goal Progress: Goal Met Goal 5:: Walk at home without limitations to ADLs Goal Progress: limited 2 pain Goal 6:: 45 LEFS Goal Progress: Progressing Plan Plan: d/c to HEP of strength ankle 3x/week adn stretch raven. Will continue pool ex in the pool which have really helped. Had 6 RPW treatments which also helpd. D/C Information Discharge Comments: Pt back to doctor for next medical step as soft tissue, stretch strength, shockwave and appropriate management with orthotics and night splint have not helped. d/c sentence: If there are questions or concerns regarding this patient's physical therapy, please feel free to call me at [phone]. Thank you for the referral of this patient. Sincerely, Douglas Godwin, DPT, OCS, CSCS Balance/Gait/Functional tests Balance/Special Test Scores Lower Extremity Functional Score: 37 Improvement % Improvement: 70
== END 2025-03-28 19:00 | disposition home or self-care (01) ==
LOC: PT 16:00
PROVIDERS: PCP Family Medicine; Referring Provider Orthopaedic Surgery; Visit Provider Orthopaedic Surgery
DX: M24.571 Contracture, right ankle (principal); M76.61 Achilles tendinitis, right leg; M72.2 Plantar fascial fibromatosis
CPT/HCPCS: 97035; 97110; 97113; 97140; 97161; 97164; 97530

== ENCOUNTER → 2025-04-11 | Outpatient (CLI) | payer MEDICARE, OTHER, SELFPAY ==
--- NOTE | 2025-04-11 15:36 | RAD_ITS ---
PROCEDURE: SHOULDER MIN 2 VIEWS 04/11/2025 REASON FOR EXAM: PAIN TECHNIQUE: Procedure Code: RADSH Modality: DX Procedure: SHOULDER MIN 2 VIEWS Laterality: Left COMPARISON: None. RAD/Shoulder min 2 Views IMPRESSION: Prior lower cervical surgery is seen. At least moderate degenerative changes are seen throughout the visualized spine . The left acromioclavicular joint demonstrates minimal degenerative changes, wit hout apparent joint narrowing. The left glenohumeral joint is unremarkable in appearance. No fracture or dislocation is seen. No scapular abnormality is noted. Reading Location: [place] [id number]
== END | disposition home or self-care (01) ==
LOC: MTRAD 15:36
PROVIDERS: PCP Family Medicine; Referring Provider Nurse Practitioner Family; Visit Provider Nurse Practitioner Family
DX: M25.512 Pain in left shoulder (principal)
CPT/HCPCS: 73030

== ENCOUNTER → 2025-04-24 | Outpatient (CLI) | payer MEDICARE, OTHER, SELFPAY ==
[2025-04-24 13:17] LABS: Anion Gap 13 (5-15); BUN 17 mg/dL (4-19); BUN/Creat Ratio 21.4 RATIO (10-20); Calcium,Total 9.6 mg/dL (7.6-11.0); Carbon Dioxide 26.9 mmol/L (21.0-32.0); Chloride 101 mmol/L (98-108); Cholesterol 246 mg/dL (<=200); Glucose 92 mg/dL (70-99); Low Density Lipoprotein Calc. 169 mg/dL; Potassium 4.0 mmol/L (3.3-5.1); Triglycerides 134 mg/dL; Very Low Density Lipoprotein 27 mg/dL (5-40); cholesterol:hdl ratio screen 4.92
== END | disposition home or self-care (01) ==
LOC: MFPLAB 10:58
PROVIDERS: PCP Family Medicine; Visit Provider Family Medicine
DX: E78.00 Pure hypercholesterolemia, unspecified (principal)
CPT/HCPCS: 36415; 80048; 80061

== ENCOUNTER → 2025-07-12 | Outpatient (CLI) | payer MEDICARE, OTHER, SELFPAY ==
--- NOTE | 2025-07-12 13:30 | BI_ITS ---
EXAM: SCRN MAMM (CAD)W/TRENT[place] BILAT DATE: 07/12/2025 CLINICAL HISTORY: F, Age 70 y/o , BREAST CANCER SCREENING Sister with breast cancer. Mother with breast cancer. Prior right excisional breast biopsy. TECHNIQUE: Procedure Code: [id number] Modality: MG Procedure: SCRN MAMM (CAD)W/TR[place] BILAT COMPARISON: Prior exam(s) dated June 23, 2024.. FINDINGS: TISSUE DENSITY: The breasts are heterogeneously dense, which may obscure small masses. Bilateral Breast Mammographic Findings: No significant masses, calcifications or other abnormalities are identified. No suspicious masses, areas of developing architectural distortion, or suspicious calcifications. There has been no significant interval change. BI/SCRN MAMM (CAD)W/TR[place] BILAT IMPRESSION: Stable bilateral screening mammogram. Stable fat containing right axillary lym ph nodes. OVERALL FINAL ASSESSMENT BI-RADS 2: BENIGN RECOMMENDATION: Routine annual follow-up in 1 Year Additional Recommendation none A letter with findings and recommendations will be mailed to the patient. Reading Location: [place] [id number]
== END | disposition home or self-care (01) ==
PROVIDERS: PCP Family Medicine; Referring Provider Obstetrics & Gynecology; Visit Provider Obstetrics & Gynecology
DX: Z12.31 Encounter for screening mammogram for malignant neoplasm of breast (principal)
CPT/HCPCS: 77063; 77067